=== PATIENT | female | born 1945 | race African-American/Black ===

== ENCOUNTER → 2016-10-17 | Outpatient (CLI) | payer BC ==
[2015-03-15 15:05] VITALS: BP 153/72
[~2016-10-17] MED LIST: AMLO10TA2 PO; ASPI-630 PO; ATOR40TA59 PO; CARV12.52 PO; CLON0.3T PO; CLOP75TA PO; CYAN10002 IM; DOXA2TAB2 PO; FERR-26 PO; HYDR-2762 PO; HYDR-2867 PO; HYDR-2868 PO; HYDR-2869 PO; HYDR1TAB26 PO; INSU100I17 SQ; INSU100V8 SQ; ISOS30TA PO; ISOS60TA2 PO; LATA2.5D3 OP; LISI40TA PO; METF500T9 PO; METO100T2 PO; OMEP20CA9 PO; PROAIR HFA8.5 GM IH; SIMV40TA3 PO
--- NOTE | 2016-10-18 17:04 | RAD ---
APPROVED REPORT Patient Location: OUT-PATIENT Laterality:Bilateral Risk Factors PAD Doppler Spectral Velocity Analysis Right Left mCCA 118/118 cm/smCCA 85/85 cm/s ECA 123/ cm/sECA 320/ cm/s pICA 92/19 cm/spICA 163/39 cm/s Freda 94/28 cm/smICA 175/47 cm/s dICA 65/25 cm/sdICA 145/35 cm/s ICA/CCA 0.80ICA/CCA 0.00 Findings Johnson scale images of the right common carotid, external carotid and internal carotid artery reveal mi ld to moderate atherosclerotic plaque in a circumferential fashion. Velocity profiles are as noted ab ove. No high-grade flow-limiting stenosis is identified in the right internal carotid artery system. Less than 50% stenosis is noted. The vertebral artery velocities antegrade. On the left grayscale images of the common carotid artery does not reveal any significant arthroscopi c plaque. Spectral waveforms and color Doppler do not reveal any significant obstruction to flow in t he common carotid vessels. The left external carotid artery likely has greater than 50% stenosis with peak velocities of 320 cm/s. The left internal carotid artery has velocities of approximately 162 cm/s in the proximal segment and 174 cm/s in the midsegment suggestive of 50-69% stenosis.. The left vertebral velocities elevated bob ggestive of greater than 50% stenosis at 172.8 cm/s. Of note the left-sided vessels are tortuous. Critical Notification Critical Value: No <Conclusion> 1. 50-69% stenosis in the left internal carotid artery system. 2. Elevated left vertebral artery velocities.
== END | disposition home or self-care (01) ==
LOC: US 11:49
PROVIDERS: ATTEND Internal Medicine Cardiovascular Disease
DX: I65.22 Occlusion and stenosis of left carotid artery (principal); I73.9 Peripheral vascular disease, unspecified; I27.0 Primary pulmonary hypertension
CPT/HCPCS: 93880

== ENCOUNTER → 2016-10-31 | Outpatient (CLI) | payer BC ==
[2015-03-15 15:05] VITALS: BP 153/72
[~2016-10-31] MED LIST changes: +NEOM10DR32 EACH EAR
--- NOTE | 2016-10-31 11:12 | CARD ---
APPROVED REPORT EXAM: Two-dimensional and M-mode echocardiogram with Doppler and color Doppler. Other Information Quality : GoodHR: 88bpm Rhythm : Ectopic beats INDICATION Pulmonary Hypertention 2D DIMENSIONS RVDd2.5 (2.9-3.5cm)Left Atrium(2D)4.1 (1.6-4.0cm) IVSd0.9 (0.7-1.1cm)Aortic Root(2D)2.2 (2.0-3.7cm) LVDd5.6 (3.9-5.9cm)LVOT Diameter2.1 (1.8-2.4cm) PWd1.0 (0.7-1.1cm)LVDs3.7 (2.5-4.0cm) FS (%) 35.0 %SV99.3 ml LVEF(%)63.6 (>50%) Aortic Valve AoV Peak Sridhar.208.1cm/sAoV VTI44.4cm AO Peak GR.17.3mmHgLVOT Peak Sridhar.143.7cm/s AO Mean GR.9mmHgAVA (VMAX)2.35cm2 Mitral Valve MV E Xcwdwqam086.9cm/sMV E Peak Gr.9mmHg MV DECEL [id number] A Flqyafbi199.3cm/s MV E Mean Gr.4mmHgE/A Ratio1.0 MV A [id number] Pulmonary Valve PV Peak Elabpemb447.5cm/s Tricuspid Valve TR P. Qozynaxq809sa/sTR Peak Gr.45mmHg Pulmonary Vein S1 Ousikfln77.8cm/sD2 Hrpapmqn17.1cm/s PVa knbvaztd22rfrm LEFT VENTRICLE The left ventricle is normal size. There is normal left ventricular wall thickness. The left ventricu lar systolic function is normal. The Ejection Fraction is 60-65%. There is normal LV segmental wall m otion. RIGHT VENTRICLE The right ventricle is normal size. There is normal right ventricular wall thickness. The right ventr icular systolic function is normal. ATRIA The left atrium is moderately dilated. The right atrium size is normal. The interatrial septum is int act with no evidence for an atrial septal defect or patent foramen ovale as noted on 2-D or Doppler i maging. AORTIC VALVE The aortic valve is moderately sclerotic. The aortic valve is trileaflet. Doppler and Color Flow reve aled no significant aortic regurgitation. There is no significant aortic valvular stenosis. MITRAL VALVE Mitral annular calcification is moderate. The mitral valve leaflets are thickened. There is no eviden ce of mitral valve prolapse. There is no mitral valve stenosis. Doppler and Color Flow revealed trace mitral valve regurgitation. TRICUSPID VALVE Doppler and Color Flow revealed moderate tricuspid regurgitation. The pulmonary artery systolic press ure is estimated at 48 mmHg. There is moderate pulmonary hypertension. PULMONIC VALVE The pulmonary valve is not well visualized but appears to open adequately. Doppler and Color Flow rev ealed no pulmonic valvular regurgitation. There is no pulmonic valvular stenosis by spectral Doppler. GREAT VESSELS The aortic root is normal in size. The ascending aorta is normal in size. The pulmonary artery is nor mal. The IVC is normal in size and collapses >50% with inspiration. PERICARDIAL EFFUSION There is no evidence of significant pericardial effusion. Critical Notification Critical Value: No <Conclusion> The left ventricular systolic function is normal. The Ejection Fraction is 60-65%. There is normal LV segmental wall motion. Moderate tricuspid regurgitation. The pulmonary artery systolic pressure is estimated at 48 mmHg. There is no evidence of significant pericardial effusion.
== END | disposition home or self-care (01) ==
LOC: ECHO 10:10
PROVIDERS: ATTEND Internal Medicine Cardiovascular Disease
DX: I27.2 Other secondary pulmonary hypertension (principal); I07.1 Rheumatic tricuspid insufficiency
CPT/HCPCS: 93306

== ENCOUNTER → 2017-11-24 | Outpatient (CLI) | payer BC ==
[2016-11-11 15:00] VITALS: BP 130/72
[~2017-11-24] MED LIST changes: -AMLO10TA2 PO; +AMLO10TA6 PO; +CEFP200T PO; -FERR-26 PO; +FERR325T14 PO; +LISI-130 PO; -LISI40TA PO; -METO100T2 PO; +METO100T7 PO; +POTA20TA4 PO; +PRAM15FO2 TP; +PRED-220 PO
--- NOTE | 2017-11-25 09:00 | RAD ---
DATE: 11/24/2017 EXAM: MAMMO TIMMY SCREENING BILATERAL HISTORY: Routine screening COMPARISON: 10/19/2015 This study was interpreted with the benefit of Computerized Aided Detection (CAD). Breast Density: HETERO The breast parenchyma is heterogenously dense, which could reduce sensitivity of mammography. Breast parenchyma level C. FINDINGS: 2-D and 3-D tomosynthesis imaging was performed in CC and MLO projections. No new or enlarging breast densities are seen. Benign type calcifications are present. No suspicious microcalcifications have developed. IMPRESSION: Stable mammograms without evidence of malignancy. BI-RADS CATEGORY: 2 BENIGN FINDING(S) RECOMMENDED FOLLOW-UP: 12M 12 MONTH FOLLOW-UP PQRS compliance statement: Patient information was entered into a reminder system with a target due date for the next mammogram. Mammography is a sensitive method for finding small breast cancers, but it does not detect them all and is not a substitute for careful clinical examination. A negative mammogram does not negate a clinically suspicious finding and should not result in delay in biopsying a clinically suspicious abnormality. "Our facility is accredited by the [employer] Mammography Program."
== END | disposition home or self-care (01) ==
LOC: MAMMO 14:36
PROVIDERS: ATTEND Family Medicine
DX: Z12.31 Encounter for screening mammogram for malignant neoplasm of breast (principal); I13.0 Hypertensive heart and chronic kidney disease with heart failure and stage 1 through stage 4 chronic kidney disease, or unspecified chronic kidney disease; E11.22 Type 2 diabetes mellitus with diabetic chronic kidney disease; I50.33 Acute on chronic diastolic (congestive) heart failure; N18.3 Chronic kidney disease, stage 3 (moderate); E87.6 Hypokalemia; K21.9 Gastro-esophageal reflux disease without esophagitis; Z87.891 Personal history of nicotine dependence; Z95.1 Presence of aortocoronary bypass graft; Z86.2 Personal history of diseases of the blood and blood-forming organs and certain disorders involving the immune mechanism; Z86.010 Personal history of colon polyps; Z90.49 Acquired absence of other specified parts of digestive tract; Z90.710 Acquired absence of both cervix and uterus
CPT/HCPCS: 77063; 77067

== ENCOUNTER → 2018-03-18 | Outpatient (CLI) | payer BC ==
[2016-11-11 15:00] VITALS: BP 130/72
[~2018-03-18] MED LIST changes: +ALBU2.5V8 IH; +CARV12.511 PO; -CARV12.52 PO; -HYDR-2762 PO; +HYDR-2765 PO; -PROAIR HFA8.5 GM IH
--- NOTE | 2018-03-18 12:23 | CARD ---
MR#: [id number] Date of Study: 03/18/2018 Ordering Physician: CHELSEY BURNS, Referring Physician: CHELSEY BURNS, Tech: Shauna Ireland [facility] APPROVED REPORT EXAM: Two-dimensional and M-mode echocardiogram with Doppler and color Doppler. Other Information Quality : AverageHR: 60bpm Rhythm : NSR INDICATION CAD 2D DIMENSIONS RVDd2.9 (2.9-3.5cm)Left Atrium(2D)4.0 (1.6-4.0cm) IVSd1.3 (0.7-1.1cm)Aortic Root(2D)2.3 (2.0-3.7cm) LVDd4.0 (3.9-5.9cm)LVOT Diameter1.9 (1.8-2.4cm) PWd1.3 (0.7-1.1cm)LVDs2.9 (2.5-4.0cm) FS (%) 27.1 %SV38.4 ml LVEF(%)53.3 (>50%) M-Mode DIMENSIONS Left Atrium(MM)4.07 (2.5-4.0cm)Aortic Root3.22 (2.2-3.7cm) Aortic Valve AoV Peak Sridhar.192.4cm/sAoV VTI43.6cm AO Peak GR.14.8mmHgLVOT Peak Sridhar.102.5cm/s AO Mean GR.8mmHgAVA (VMAX)1.46cm2 CHIKI (VTI)1.60cm2 Mitral Valve MV E Rjzodrlw20.2cm/sMV DECEL WOYY152fr MV A Ejlufxvi364.1cm/sE/A Ratio0.9 MV A Papssyhv232yk Pulmonary Valve PV Peak Cwdhkezc404.0cm/s Tricuspid Valve TR P. Mvlwfpgl323eu/sRAP ZBAFRZJU6zcZz TR Peak Gr.80ryKoRUMH31giBl Pulmonary Vein S1 Yfmftdnu84.3cm/sD2 Pvezcvls92.1cm/s PVa qqunnniv89shjd LEFT VENTRICLE The left ventricle is normal size. There is mild concentric left ventricular hypertrophy. The left ve ntricular systolic function is normal. The Ejection Fraction is 55-60%. There is normal LV segmental wall motion. Transmitral Doppler flow pattern is Grade II-pseudonormal filling dynamics. RIGHT VENTRICLE The right ventricle is normal size. There is normal right ventricular wall thickness. The right ventr icular systolic function is normal. ATRIA The left atrium is mildly dilated. The right atrium is mildly dilated. The interatrial septum is inta ct with no evidence for an atrial septal defect or patent foramen ovale as noted on 2-D or Doppler im aging. AORTIC VALVE The aortic valve is mildly to moderately calcified. The aortic valve is probably trileaflet. Doppler and Color Flow revealed no significant aortic regurgitation. There is no significant aortic valvular stenosis. MITRAL VALVE Mitral annular calcification is mild. There is no evidence of mitral valve prolapse. There is no mitr al valve stenosis. Doppler and Color Flow revealed no mitral valve regurgitation noted. TRICUSPID VALVE The tricuspid valve is normal in structure and function. Doppler and Color Flow revealed trace tricus pid regurgitation. There is mild pulmonary hypertension. The PA pressure was estimated at 33 mmHg. Th ere is no tricuspid valve prolapse or vegetation. There is no tricuspid valve stenosis. PULMONIC VALVE Pulmonic valve not well visualized. GREAT VESSELS The aortic root is normal in size. The ascending aorta is normal in size. The IVC is normal in size a nd collapses >50% with inspiration. PERICARDIAL EFFUSION There is no evidence of significant pericardial effusion. Critical Notification Critical Value: No <Conclusion> The left ventricular systolic function is normal. The Ejection Fraction is 55-60%. There is normal LV segmental wall motion. Transmitral Doppler flow pattern is Grade II-pseudonormal filling dynamics. Trace tricuspid regurgitation. There is mild pulmonary hypertension. The PA pressure was estimated at 33 mmHg. There is no evidence of significant pericardial effusion. Signed by : Javier Alonso, Electronically Approved : 03/18/2018 12:21:40
--- NOTE | 2018-03-19 08:59 | RAD ---
MR#: [id number] Date of Study: 03/18/2018 Ordering Physician: CHELSEY BURNS, Referring Physician: CHELSEY BURNS, Tech: Brooklyn Saldana, RDMS, RVT, RTR APPROVED REPORT Patient Location: OUT-PATIENT Laterality:Bilateral Indications PVD Doppler Spectral Velocity Analysis Right Left pCCA 85/8 cm/spCCA 70/16 cm/s mCCA 110/14 cm/smCCA 70/21 cm/s dCCA 91/9 cm/sdCCA 61/17 cm/s Bulb 85/12 cm/sBulb 54/24 cm/s ECA 145/ cm/sECA pICA 114/31 cm/spICA 104/23 cm/s Freda 77/17 cm/smICA 133/36 cm/s dICA 61/13 cm/sdICA 131/25 cm/s Vert. 54/ cm/sVert. 52/ cm/s ICA/CCA 1.04ICA/CCA 1.90 Findings Grayscale images of the bilateral common carotid vessels reveals mild to moderate diffuse catheters c arotid plaque greater on the left. Spectral waveforms and color Doppler on the right demonstrate no significant occlusive disease. Overa ll 0 to less than 50% stenosis by velocity criteria. Normal ICA to CCA ratios are noted. The vertebra l velocity appears to be antegrade. On the left there appears to be a previously placed carotid stent at the level of the carotid bulb an d the internal carotid artery. The left external carotid artery appears to be occluded. Slightly elev ated velocities are noted in the proximal and mid internal carotid artery suggestive of 50-69% stenos is by velocity criteria. Although on owens scale likely due to artifact related to the stent the narro wing appears to be in the 50% range. Critical Notification Critical Value: No <Conclusion> 1. Moderate LICA stenosis at site of previous stent, no critical stenosis is identified. Signed by : Chelsey Burns, Electronically Approved : 03/19/2018 08:57:01
== END | disposition home or self-care (01) ==
LOC: ECHO 10:52
PROVIDERS: ATTEND Internal Medicine Cardiovascular Disease
DX: I65.23 Occlusion and stenosis of bilateral carotid arteries (principal); I25.10 Atherosclerotic heart disease of native coronary artery without angina pectoris; I27.20 Pulmonary hypertension, unspecified; I51.7 Cardiomegaly
CPT/HCPCS: 93306; 93880

== ENCOUNTER → 2018-10-14 | Outpatient (CLI) | payer MEDICARE ==
[2018-08-26 15:00] VITALS: BP 141/71
[~2018-10-14] MED LIST changes: -AMLO10TA6 PO; +AMLO10TA8 PO; +CLON0.2T10 PO; +DOCU-109 PO; +FURO40TA4 PO; +LOSA-73 PO; +OMEP20CA10 PO; -OMEP20CA9 PO; +SIME80TA14 PO; +SPIR25TA PO
--- NOTE | 2018-10-14 17:28 | RAD ---
MR#: [id number] Date of Study: 10/14/2018 Ordering Physician: CHELSEY BURNS, Referring Physician: CHELSEY BURNS, Tech: Brooklyn Saldana, MU, RVT, RTR APPROVED REPORT Patient Location: OUT-PATIENT Indications Uncontrolled HTN Renal Artery Doppler Right Renal Artery Left Renal Arter y Proximal 120.1/17.3 cm/secProximal 82.7/26.4 cm/sec Mid 72.3/19.3 cm/secMid 91.8/20.0 cm/sec Distal 66.8/20.4 cm/secDistal 85.4/17.3 cm/sec Renal/Aorta Ratio 0.00Renal/Aorta Ratio 0.00 Prox. Resistive Index 0.86Prox. Resistive Index 0.68 Mid Resistive Index 0.73Mid Resistive Index 0.78 Distal Resistive Index 0.69Distal Resistive Index 0.80 Rt. Segmental A. 18.2/6.4 cm/secLt. Segmental A. 21.4/4.5 cm/sec Renal Measurements RightLeft Kidney Length8.53 cm 3.98 cmKidney Length9.67 cm 4.79 cm Right Additional FindingsLeft Additional Findings Aortic Doppler VelocityWaveform Proximal Aorta 82.5 cm/sec Findings Grayscale images of the kidneys are limited due to body habitus but grossly there appears to be renal cortical hypertrophy. Spectral waveforms and color Doppler of the proximal and mid renal arteries does not reveal any signi ficant velocity acceleration. Normal aortic ratios. Aorta is difficult to visualize. No gross evidence of renal artery stenosis bilaterally. Critical Notification Critical Value: No <Conclusion> Negative for renal artery stenosis Signed by : Chelsey Burns, Electronically Approved : 10/14/2018 17:27:24
== END | disposition home or self-care (01) ==
LOC: US 10:39
PROVIDERS: ATTEND Internal Medicine Cardiovascular Disease
DX: I10 Essential (primary) hypertension (principal); R60.9 Edema, unspecified
CPT/HCPCS: 93975

== ENCOUNTER 2018-11-24 15:17 | Inpatient (IN) | payer MEDICARE ==
[~2018-11-24] VITALS: Ht 152.4 cm; Wt 60.3 kg
[~2018-11-24 15:17] MED LIST changes: +METF500T11 PO; -METF500T9 PO
[2018-11-24] MEDS ORDERED: IPRATRPIUM/ALBUTEROL 0.5/2.5MG 3 ML NEBU. NEB ONE (15:45)
--- NOTE | 2018-11-24 15:55 | PHYS DOC ---
Past Medical History Past Medical History: Anemia, CAD, Constipation, COPD, Diabetes-Type II, GERD, High Cholesterol, Hypertension, Other Additional Past Medical Histor: heart murmur Past Surgical History: Cholecystectomy, Coronary Bypass Surgery, Hysterectomy Additional Past Surgical Histo: back sx Smoking: Quit Greater Than 1 Year Alcohol Use: None Drug Use: None Adult General Chief Complaint Chief Complaint: SHORTNESS OF BREATH HPI HPI patient is a 73-year-old female, with a past history of CHF, renal insufficiency, diabetes, and other medical problems, who presents to the emergency department for evaluation of increasing shortness of breath which began earlier today. She denies any pain, including any chest pain. She has not had any fevers or chills, nausea, or vomiting. She reports chronic orthopnea, no different today than baseline. She has not had any fevers or chills. She was hospitalized here in August, also for shortness of breath, relevant notes and diagnostics and that hospitalization have been reviewed. She has not noticed any significantly increasing pedal edema. There are no alleviating or exacerbating factors to her symptoms. She was noted to have an oxygen saturation of 90-91% upon arrival in the emergency department, improved to the upper 90s on application of 2 L nasal cannula. Review of Systems Review of Systems Constitutional: Denies fever or chills [] Eyes: Denies change in visual acuity, redness, or eye pain [] HENT: Denies nasal congestion or sore throat [] Respiratory: Denies cough or pleuritic chest pain [] Cardiovascular: No additional information not addressed in HPI [] GI: Denies abdominal pain, nausea, vomiting, bloody stools or diarrhea [] : Denies dysuria or hematuria [] Musculoskeletal: Denies back pain or joint pain [] Integument: Denies rash or skin lesions [] Neurologic: Denies headache, focal weakness or sensory changes [] Endocrine: Denies polyuria or polydipsia [] All other systems were reviewed and found to be within normal limits, except as documented in this note. Current Medications Current Medications Current Medications Medications (Trade) Dose Ordered Sig/Gisselle Start Time Stop Time Status Last Admin Dose Admin Albuterol/ Ipratropium (Duoneb) 3 ml 1X ONCE 11/24/18 15:45 11/24/18 15:54 DC 11/24/18 16:25 3 ML Allergies Allergies Allergies Coded Allergies Type Severity Reaction Last Updated Verified Penicillins Allergy Intermediate 11/05/16 Yes dopamine Allergy Intermediate 11/05/16 Yes Physical Exam Physical Exam PHYSICAL EXAM: CONSTITUTIONAL: Well developed, well nourished HEAD: normocephalic, atraumatic EENT: PERRL, EOMI. Conjunctivae normal color, sclerae non-icteric; moist mucous membranes. NECK: Supple, non-tender; no meningismus. There is mild JVD. LUNGS: There are globally diminished breath sounds, without any rales, wheezes, or rhonchi breathing even and unlabored. HEART: Regular rate and rhythm, no murmur CHEST: No deformity; non-tender ABDOMEN: The abdomen is soft, and non-tender, no masses or bruits. EXTREM: Normal ROM; no deformity, no calf tenderness. Normal pulses palpable in all extremities. There is trace bilateral pedal edema. SKIN: No rash; no diaphoresis NEURO: Alert; normal speech and cognition; CN's grossly intact; strength grossly intact without focal deficit. BACK: No CVA TTP. Current Patient Data Vital Signs Vital Signs Date Time Temp Pulse Resp B/P (MAP) Pulse Ox O2 Delivery O2 Flow Rate FiO2 11/24/18 16:28 97 Nasal Cannula 2.0 11/24/18 15:20 98.5 72 20 156/68 (97) 98.5 Lab Values Laboratory Tests Test 11/24/18 16:00 White Blood Count 7.5 x10^3/uL (4.0-11.0) Red Blood Count 3.41 x10^6/uL (3.50-5.40) L Hemoglobin 10.0 g/dL (12.0-15.5) L Hematocrit 30.5 % (36.0-47.0) L Mean Corpuscular Volume 90 fL (79-100) Mean Corpuscular Hemoglobin 29 pg (25-35) Mean Corpuscular Hemoglobin Concent 33 g/dL (31-37) Red Cell Distribution Width 15.2 % (11.5-14.5) H Platelet Count 198 x10^3/uL (140-400) Neutrophils (%) (Auto) 84 % (31-73) H Lymphocytes (%) (Auto) 11 % (24-48) L Monocytes (%) (Auto) 4 % (0-9) Eosinophils (%) (Auto) 1 % (0-3) Basophils (%) (Auto) 1 % (0-3) Neutrophils # (Auto) 6.3 x10^3/uL (1.8-7.7) Lymphocytes # (Auto) 0.8 x10^3/uL (1.0-4.8) L Monocytes # (Auto) 0.3 x10^3/uL (0.0-1.1) Eosinophils # (Auto) 0.0 x10^3/uL (0.0-0.7) Basophils # (Auto) 0.1 x10^3/uL (0.0-0.2) Sodium Level 145 mmol/L (136-145) Potassium Level 4.5 mmol/L (3.5-5.1) Chloride Level 107 mmol/L (98-107) Carbon Dioxide Level 29 mmol/L (21-32) Anion Gap 9 (6-14) Blood Urea Nitrogen 30 mg/dL (7-20) H Creatinine 1.8 mg/dL (0.6-1.0) H Estimated GFR (Cockcroft-Gault) 33.4 BUN/Creatinine Ratio 17 (6-20) Glucose Level 225 mg/dL (70-99) H Calcium Level 8.9 mg/dL (8.5-10.1) Total Bilirubin 0.3 mg/dL (0.2-1.0) Aspartate Amino Transferase (AST) 20 U/L (15-37) Alanine Aminotransferase (ALT) 11 U/L (14-59) L Alkaline Phosphatase 74 U/L (46-116) Troponin I Quantitative 0.165 ng/mL (0.000-0.055) UU-Asj-N-Type Natriuretic Peptide 9497 pg/mL (0-124) H Total Protein 7.0 g/dL (6.4-8.2) Albumin 2.9 g/dL (3.4-5.0) L Albumin/Globulin Ratio 0.7 (1.0-1.7) L Lipase 75 U/L (73-393) Laboratory Tests 11/24/18 16:00 Laboratory Tests 11/24/18 16:00 EKG EKG [Normal sinus rhythm at a rate of 74 beats for minute, normal axis, normal intervals, lateral T wave inversion, nonspecific ST/T changes inferiorly and anteriorly, more pronounced, but also present, on the patient's prior EKG from August 2018] Radiology/Procedures Radiology/Procedures [] Course & Med Decision Making Course & Med Decision Making Pertinent Labs and Imaging studies reviewed. (See chart for details) [] The patient's condition remained stable. I discussed the case with her PCP, who will admit the patient for further evaluation and treatment. Dragon Disclaimer Dragon Disclaimer This electronic medical record was generated, in whole or in part, using a voice recognition dictation system. Departure Departure Impression: Primary Impression: Shortness of breath Additional Impression: Acute on chronic diastolic CHF (congestive heart failure) Disposition: ADMITTED INPATIENT Admitting Physician: Geovanna Mohan Condition: IMPROVED Referrals: Andreas MOHAN MD (PCP) Problem Qualifiers ADOLFO JAUREGUI MD Nov 24, 2018 15:54
--- NOTE | 2018-11-24 15:58 | EKG ---
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
[2018-11-24 16:16] LABS: BASO # 0.1 x10^3/uL (0.0-0.2); BASO % 1 % (0-3); EOS % 1 % (0-3); HEMATOCRIT 30.5 % (36.0-47.0); LYMPH # 0.8 x10^3/uL (1.0-4.8); LYMPH % 11 % (24-48); MEAN CORPUSCULAR HEMOGLOBIN 29 pg (25-35); MEAN CORPUSCULAR HGB CONC 33 g/dL (31-37); MEAN CORPUSCULAR VOLUME 90 fL (79-100); MONO # 0.3 x10^3/uL (0.0-1.1); MONO % 4 % (0-9); NEUT # 6.3 x10^3/uL (1.8-7.7); NEUT % 84 % (31-73); PLATELET COUNT 198 x10^3/uL (140-400); RED BLOOD COUNT 3.41 x10^6/uL (3.50-5.40); RED CELL DISTRIBUTION WIDTH 15.2 % (11.5-14.5); WHITE BLOOD COUNT 7.5 x10^3/uL (4.0-11.0)
[2018-11-24 16:22] LABS: CALCIUM 8.9 mg/dL (8.5-10.1); CREATININE 1.8 mg/dL (0.6-1.0); GFR 33.4; POTASSIUM 4.5 mmol/L (3.5-5.1)
[2018-11-24 16:28] LABS: ALBUMIN 2.9 g/dL (3.4-5.0); ALBUMIN/GLOBULIN RATIO 0.7 (1.0-1.7); TOTAL BILIRUBIN 0.3 mg/dL (0.2-1.0)
--- NOTE | 2018-11-24 16:52 | RAD ---
Examination: PORTABLE CHEST 1V History: Dyspnea Comparison/Correlation: 08/26/2018 two-view chest x-ray exam Findings: Upright frontal view chest was obtained. Sternal wires [place] clips are present. Primarily noted. Left upper quadrant surgical clips and right upper quadrant surgical clips are present. Pulmonary vasculature is slightly congested. Discoid atelectasis involves the left lower lung field. Retrocardiac atelectasis also is seen. Advanced left lateral humeral joint degenerative remodeling evident. Impression: Left basilar linear atelectasis or scarring is present. Slight pulmonary vasculature congestion. Electronically signed by: Will Oliver MD (11/24/2018 4:49 PM) [facility]
[2018-11-24] MEDS ORDERED: FUROSEMIDE 40 MG/4 ML VIAL. IVP ONE (17:15)
[2018-11-24 19:45] VITALS: BP 145/70
[2018-11-24] MEDS ORDERED: LOSA100T2 PO (20:28)
--- NOTE | 2018-11-24 21:30 | NUR ---
Spoke with Dr. Price re: elevated troponin levels. Will consult cardiology in am
[2018-11-24] MEDS ORDERED: HYDR100T24 PO (21:41)
[2018-11-24] MEDS ORDERED: SIMETHICONE 80 MG TAB.CHEW PO PRN (21:45)
[2018-11-24] MEDS ORDERED: ALBUTEROL SULFATE 2.5 MG/3 ML NEBU. NEB PRN (21:45)
[2018-11-24] MEDS ORDERED: INSULIN GLARGINE SYRINGE. SQ SCH (22:00)
[2018-11-24] MEDS ORDERED: LATANOPROST 0.005% OPHTH SOLUTION 2.5ML BOTTLE. OU SCH (22:00)
[2018-11-24] MEDS ORDERED: DOXAZOSIN MESYLATE 4 MG TABLET. PO SCH (22:00)
[2018-11-24] MEDS: LATANOPROST 0.005% OPHTH SOLUTION 2.5ML BOTTLE. OU SCH (22:20)
[2018-11-24] MEDS: ATORVASTATIN CALCIUM 40 MG TABLET. PO SCH (22:20)
[2018-11-24] MEDS: ISOSORBIDE MONONITRATE ER 30 MG TAB.ER.24H PO SCH (22:38)
[2018-11-24] MEDS: cloNIDine HCL 0.3 MG TABLET PO SCH (22:39)
[2018-11-24 23:46] VITALS: BP 162/53
[2018-11-25 03:22] VITALS: BP 148/61
[2018-11-25] MEDS: HYDROcodone/APAP 7.5/325MG 1 TAB TABLET PO PRN ×4 (03:33→19:11)
[2018-11-25 07:00] VITALS: BP 182/61
[2018-11-25] MEDS: INSULIN LISPRO 300 UNITS/3 ML VIAL. SQ SCH ×3 (07:30→16:30)
[2018-11-25] MEDS: CARVEDILOL 12.5 MG TABLET. PO SCH ×2 (08:09→17:26)
[2018-11-25] MEDS: ISOSORBIDE MONONITRATE ER 30 MG TAB.ER.24H PO SCH ×2 (08:09→20:57)
[2018-11-25] MEDS: LOSARTAN POTASSIUM 50 MG TABLET. PO SCH (08:10)
[2018-11-25] MEDS: PANTOPRAZOLE 40 MG TABLET.DR. PO SCH (08:10)
[2018-11-25] MEDS: DOCUSATE SODIUM 100 MG CAPSULE. PO SCH (08:10)
[2018-11-25] MEDS: cloNIDine HCL 0.3 MG TABLET PO SCH ×3 (08:50→20:58)
--- NOTE | 2018-11-25 10:38 | PDOC2 ---
CARDIAC CONSULT DATE OF CONSULT Date of Consult DATE: 11/25/18 TIME: 10:28 REASON FOR CONSULT Reason for Consult: CHF Elevated troponin REFERRING PHYSICIAN Referring Physician: Dr. Price SOURCE Source: Chart review, Patient HISTORY OF PRESENT ILLNESS HISTORY OF PRESENT ILLNESS This is a 73 yo female, known to our service from outpatient clinic, who presented secondary to shortness of breath. Patient reports shortness of breath began the night before last. Granddaughter noticed that she was having more difficulty breathing so she encouraged her to go to the ED for further evaluation and treatment. Patient denies any chest pain, dizziness, diaphoresis, palpitations, or nausea/vomiting. No recent changes in diet or fevers/illness. Does note some mild LE edema. Is unable to lay flat at baseline. Has been compliant with medications. Has lasix PRN at home, but does not weigh herself daily. Did not take lasix at home. Feels better following IV Lasix, diuresis here. PAST MEDICAL HISTORY Past Medical History Cardiovascular: CAD, CHF, HTN, Hyperlipidemia Pulmonary: COPD GI: GERD Renal/: Chronic renal insuff Endocrine: Diabetes PAST SURGICAL HISTORY Past Surgical History Cholecystectomy, CABG, Hysterectomy FAMILY HISTORY Family History: Diabetes, Heart Disease (sister ), Hypertension SOCIAL HISTORY Smoke: No ALCOHOL: none Drugs: None Lives: with Family CURRENT MEDICATIONS CURRENT MEDICATIONS Current Medications Medications (Trade) Dose Ordered Sig/Gisselle Route PRN Reason Start Time Stop Time Status Last Admin Dose Admin Albuterol/ Ipratropium (Duoneb) 3 ml 1X ONCE NEB 11/24/18 15:45 11/24/18 15:54 DC 11/24/18 16:25 Furosemide (Lasix) 40 mg 1X ONCE IVP 11/24/18 17:15 11/24/18 17:16 DC 11/24/18 18:01 Atorvastatin Calcium (Lipitor) 40 mg QHS PO 11/24/18 22:00 11/24/18 22:22 Carvedilol (Coreg) 25 mg BIDWMEALS PO 11/25/18 08:00 11/25/18 08:10 Clonidine HCl (Catapres) 0.3 mg TID PO 11/24/18 22:00 11/25/18 08:50 Docusate Sodium (Colace) 100 mg DAILY PO 11/25/18 09:00 11/25/18 08:10 Acetaminophen/ Hydrocodone Bitart (Lortab 7.5/325) 1 tab PRN Q4HRS PRN PO PAIN 11/24/18 21:45 11/25/18 08:50 Insulin Glargine (Lantus Syringe) 22 unit HS SQ 11/25/18 21:00 11/24/18 22:30 Latanoprost (Xalatan) 1 drop HS OU 11/24/18 22:00 11/24/18 22:22 Doxazosin Mesylate (Cardura) 2 mg HS PO 11/25/18 21:00 11/24/18 22:22 Hydralazine HCl (Apresoline) 100 mg TID PO 11/24/18 22:00 11/25/18 08:10 Isosorbide Mononitrate (Imdur) 60 mg BID PO 11/24/18 22:00 11/25/18 08:10 Losartan Potassium (Cozaar) 50 mg DAILY PO 11/25/18 09:00 11/25/18 08:10 Pantoprazole Sodium (Protonix) 40 mg DAILYAC PO 11/25/18 07:30 11/25/18 08:10 ALLERGIES ALLERGIES: Coded Allergies: Penicillins (Verified Allergy, Intermediate, 11/05/16) dopamine (Verified Allergy, Intermediate, 11/05/16) ROS Review of System 14 point ROS conducted with pertinent positives noted above in HPI PHYSICAL EXAM PHYSICAL EXAM General: Alert, Oriented X3, Cooperative, No acute distress HEENT: Atraumatic, Mucous membr. moist/pink Lungs: Other (diminished bases, faint bibasilar crackles) Heart: Regular rate, Normal S1, Normal S2 Abdomen: Soft, No tenderness Extremities: Other (trace bilateral LE edema ) Neuro: Normal speech, Sensation intact Psych/Mental Status: Mental status NL, Mood NL MUSCULOSKELETAL: Osteoarthritic changes both hands VITALS/I&O VITALS/I&O: Vital Signs Date Time Temp Pulse Resp B/P (MAP) Pulse Ox O2 Delivery O2 Flow Rate FiO2 11/25/18 10:07 Room Air 11/25/18 08:50 16 11/25/18 08:50 72 182/61 11/25/18 07:00 99.3 96 99.3 11/25/18 03:33 2.0 I & O 11/24/18 11/24/18 11/25/18 15:00 23:00 07:00 Intake Total 200 ml 350 ml Balance 200 ml 350 ml LABS Lab: Laboratory Tests Test 11/24/18 16:00 11/24/18 20:30 11/24/18 21:07 11/24/18 23:10 White Blood Count 7.5 x10^3/uL (4.0-11.0) Red Blood Count 3.41 x10^6/uL (3.50-5.40) L Hemoglobin 10.0 g/dL (12.0-15.5) L Hematocrit 30.5 % (36.0-47.0) L Mean Corpuscular Volume 90 fL (79-100) Mean Corpuscular Hemoglobin 29 pg (25-35) Mean Corpuscular Hemoglobin Concent 33 g/dL (31-37) Red Cell Distribution Width 15.2 % (11.5-14.5) H Platelet Count 198 x10^3/uL (140-400) Neutrophils (%) (Auto) 84 % (31-73) H Lymphocytes (%) (Auto) 11 % (24-48) L Monocytes (%) (Auto) 4 % (0-9) Eosinophils (%) (Auto) 1 % (0-3) Basophils (%) (Auto) 1 % (0-3) Neutrophils # (Auto) 6.3 x10^3/uL (1.8-7.7) Lymphocytes # (Auto) 0.8 x10^3/uL (1.0-4.8) L Monocytes # (Auto) 0.3 x10^3/uL (0.0-1.1) Eosinophils # (Auto) 0.0 x10^3/uL (0.0-0.7) Basophils # (Auto) 0.1 x10^3/uL (0.0-0.2) Sodium Level 145 mmol/L (136-145) Potassium Level 4.5 mmol/L (3.5-5.1) Chloride Level 107 mmol/L (98-107) Carbon Dioxide Level 29 mmol/L (21-32) Anion Gap 9 (6-14) Blood Urea Nitrogen 30 mg/dL (7-20) H Creatinine 1.8 mg/dL (0.6-1.0) H Estimated GFR (Cockcroft-Gault) 33.4 BUN/Creatinine Ratio 17 (6-20) Glucose Level 225 mg/dL (70-99) H Calcium Level 8.9 mg/dL (8.5-10.1) Total Bilirubin 0.3 mg/dL (0.2-1.0) Aspartate Amino Transferase (AST) 20 U/L (15-37) Alanine Aminotransferase (ALT) 11 U/L (14-59) L Alkaline Phosphatase 74 U/L (46-116) Troponin I Quantitative 0.165 ng/mL (0.000-0.055) 0.193 ng/mL (0.000-0.055) 0.174 ng/mL (0.000-0.055) MO-Usw-P-Type Natriuretic Peptide 9497 pg/mL (0-124) H Total Protein 7.0 g/dL (6.4-8.2) Albumin 2.9 g/dL (3.4-5.0) L Albumin/Globulin Ratio 0.7 (1.0-1.7) L Lipase 75 U/L (73-393) Glucose (Fingerstick) 171 mg/dL (70-99) H Test 11/25/18 07:48 Glucose (Fingerstick) 86 mg/dL (70-99) Laboratory Tests 11/24/18 16:00 Laboratory Tests 11/24/18 16:00 ECHOCARDIOGRAM ECHOCARDIOGRAM <Conclusion> There is mild concentric left ventricular hypertrophy. The left ventricular systolic function is normal and the ejection fraction is within normal range. The Ejection Fraction is 55-60%. There is normal LV segmental wall motion. Doppler and Color Flow revealed mild tricuspid regurgitation. There is moderate pulmonary hypertension. The PA pressure was estimated at 56 mmHg. DATE: 08/24/18 1502 STRESS TEST STRESS TEST Conclusion 1. Abnormal baseline EKG but no EKG evidence of stress-induced ischemia. 2. Nuclear imaging shows an area of infarct as well as saleem-infarct reversible ischemia in the apical inferior lateral region. 3. Normal left ventricular ejection fraction of 69%. 4. Moderate to moderately low risk Lexiscan nuclear stress test. DATE: 11/11/14 1621 ASSESSMENT/PLAN ASSESSMENT/PLAN 1. Acute on chronic diastolic HF; CXR with pulmonary congestion. 2. Accelerated hypertension; labile 3. Mild troponin elevation; peak 0.193. Possibly type II, demand ischemic in t he setting of renal insuff, acute CHF, and accelerated HTN 4. CAD s/p CABG in 2009. Stable CP free. Echo 08/2018 with preserved LV systolic function as noted above 5. Hyperlipidemia; statin 6. Diabetes, II; as per PCP 7. CKD; CR stable per review Recommendations Mild diuresis with monitoring of renal function BP control Hydralazine IV PRN Secondary prevention; ASA, statin, BB Supportive care Consider outpatient ischemic evaluation SRIDEVI ALEMAN APRN Nov 25, 2018 10:38
[2018-11-25 11:00] VITALS: BP 128/51
[2018-11-25] MEDS ORDERED: FUROSEMIDE 40 MG/4 ML VIAL. IVP ONE (11:45)
[2018-11-25 15:00] VITALS: BP 110/44
--- NOTE | 2018-11-25 15:27 | PDOC1 ---
History and Physical Date of Admission Date of Admission 11/24/18 Identification/Chief Complaint Chief Complaint shortness of breath Source Source: Chart review, Patient History of Present Illness History of Present Illness Her daughter talked her into coming to ER due to shortness of breath and found to be in heart failure and acute respiratory failure and admitted, she has hx of CAD, hypertension, COPD and GERD. She has had difficulty ambulating due to pain and is using a walker Past Medical History Cardiovascular: CAD, CHF, HTN, Hyperlipidemia Pulmonary: COPD GI: GERD Renal/: Chronic renal insuff Endocrine: Diabetes Past Surgical History Past Surgical History: Cholecystectomy, CABG, Hysterectomy Family History Family History: Diabetes, Heart Disease (sister ), Hypertension Social History Smoke: Quit ALCOHOL: none Drugs: None Current Problem List Problem List Problems Medical Problems: (1) Acute on chronic diastolic CHF (congestive heart failure) Status: Acute (2) Shortness of breath Status: Acute Current Medications Current Medications Current Medications Medications (Trade) Dose Ordered Sig/Gisselle Start Time Stop Time Status Last Admin Dose Admin Acetaminophen/ Hydrocodone Bitart (Lortab 7.5/325) 1 tab PRN Q4HRS PRN 11/24/18 21:45 11/25/18 13:43 1 TAB Albuterol Sulfate (Ventolin Neb Soln) 2 mg PRN Q6HRS PRN 11/24/18 21:45 Albuterol/ Ipratropium (Duoneb) 3 ml 1X ONCE 11/24/18 15:45 11/24/18 15:54 DC 11/24/18 16:25 3 ML Atorvastatin Calcium (Lipitor) 40 mg QHS 11/24/18 22:00 11/24/18 22:22 40 MG Carvedilol (Coreg) 25 mg BIDWMEALS 11/25/18 08:00 11/25/18 08:10 25 MG Clonidine HCl (Catapres) 0.3 mg TID 11/24/18 22:00 11/25/18 13:43 0.3 MG Docusate Sodium (Colace) 100 mg DAILY 11/25/18 09:00 11/25/18 08:10 100 MG Doxazosin Mesylate (Cardura) 2 mg 1X 11/24/18 22:00 Furosemide (Lasix) 40 mg 1X ONCE 11/25/18 11:45 11/25/18 11:46 DC 11/25/18 11:56 40 MG Hydralazine HCl (Apresoline) 100 mg TID 11/24/18 22:00 11/25/18 13:43 100 MG Insulin Glargine (Lantus Syringe) 22 unit 1X 11/24/18 22:00 11/24/18 22:33 DC Insulin Human Lispro (HumaLOG) 6 units TIDAC 11/25/18 07:30 Isosorbide Mononitrate (Imdur) 60 mg BID 11/24/18 22:00 11/25/18 08:10 60 MG Latanoprost (Xalatan) 1 drop 1X 11/24/18 22:00 UNV Losartan Potassium (Cozaar) 50 mg DAILY 11/25/18 09:00 11/25/18 08:10 50 MG Pantoprazole Sodium (Protonix) 40 mg DAILYAC 11/25/18 07:30 11/25/18 08:10 40 MG Simethicone (Gas-X) 80 mg PRN AFTMEALHC PRN 11/24/18 21:45 Allergies Allergies Allergies Coded Allergies Type Severity Reaction Last Updated Verified Penicillins Allergy Intermediate 11/05/16 Yes dopamine Allergy Intermediate 11/05/16 Yes ROS Review of System CONSTITUTIONAL: No fever or chills EYES: No recent changes SKIN: No rash or itching CARDIOVASCULAR: No chest pain, syncope, palpitations, or edema RESPIRATORY: + SOB, no cough GASTROINTESTINAL: No nausea, vomiting or abdominal pain, positive for constipation NEUROLOGICAL: No headaches or weakness ENDOCRINE: No cold or heat intolerance GENITOURINARY: No urgency or frequency of urination MUSCULOSKELETAL: No back pain or joint pain LYMPHATICS: No enlarged lymph nodes PSYCHIATRIC: No anxiety or depression Physical Exam Physical Exam GEN.: No apparent distress. Alert and oriented. HEENT: Head is normocephalic, atraumatic NECK: Supple. LUNGS: Clear to auscultation. HEART: RRR, S1, S2 present. Peripheral pulses intact ABDOMEN: Soft, nontender. Positive bowel sounds. EXTREMITIES: Without any cyanosis. NEUROLOGIC: Normal speech, normal tone PSYCHIATRIC: Normal affect, normal mood. SKIN: No ulcerations Vitals Vitals Vital Signs Date Time Temp Pulse Resp B/P (MAP) Pulse Ox O2 Delivery O2 Flow Rate FiO2 11/25/18 13:43 65 128/50 11/25/18 13:43 Room Air 11/25/18 11:00 98.8 17 94 98.8 11/25/18 03:33 2.0 Labs Labs Laboratory Tests Test 11/24/18 16:00 11/24/18 20:30 11/24/18 21:07 11/24/18 23:10 White Blood Count 7.5 x10^3/uL (4.0-11.0) Red Blood Count 3.41 x10^6/uL (3.50-5.40) Hemoglobin 10.0 g/dL (12.0-15.5) Hematocrit 30.5 % (36.0-47.0) Mean Corpuscular Volume 90 fL (79-100) Mean Corpuscular Hemoglobin 29 pg (25-35) Mean Corpuscular Hemoglobin Concent 33 g/dL (31-37) Red Cell Distribution Width 15.2 % (11.5-14.5) Platelet Count 198 x10^3/uL (140-400) Neutrophils (%) (Auto) 84 % (31-73) Lymphocytes (%) (Auto) 11 % (24-48) Monocytes (%) (Auto) 4 % (0-9) Eosinophils (%) (Auto) 1 % (0-3) Basophils (%) (Auto) 1 % (0-3) Neutrophils # (Auto) 6.3 x10^3/uL (1.8-7.7) Lymphocytes # (Auto) 0.8 x10^3/uL (1.0-4.8) Monocytes # (Auto) 0.3 x10^3/uL (0.0-1.1) Eosinophils # (Auto) 0.0 x10^3/uL (0.0-0.7) Basophils # (Auto) 0.1 x10^3/uL (0.0-0.2) Sodium Level 145 mmol/L (136-145) Potassium Level 4.5 mmol/L (3.5-5.1) Chloride Level 107 mmol/L (98-107) Carbon Dioxide Level 29 mmol/L (21-32) Anion Gap 9 (6-14) Blood Urea Nitrogen 30 mg/dL (7-20) Creatinine 1.8 mg/dL (0.6-1.0) Estimated GFR (Cockcroft-Gault) 33.4 BUN/Creatinine Ratio 17 (6-20) Glucose Level 225 mg/dL (70-99) Calcium Level 8.9 mg/dL (8.5-10.1) Total Bilirubin 0.3 mg/dL (0.2-1.0) Aspartate Amino Transf (AST/SGOT) 20 U/L (15-37) Alanine Aminotransferase (ALT/SGPT) 11 U/L (14-59) Alkaline Phosphatase 74 U/L (46-116) Troponin I Quantitative 0.165 ng/mL (0.000-0.055) 0.193 ng/mL (0.000-0.055) 0.174 ng/mL (0.000-0.055) DC-Avj-Z-Type Natriuretic Peptide 9497 pg/mL (0-124) Total Protein 7.0 g/dL (6.4-8.2) Albumin 2.9 g/dL (3.4-5.0) Albumin/Globulin Ratio 0.7 (1.0-1.7) Lipase 75 U/L (73-393) Glucose (Fingerstick) 171 mg/dL (70-99) Test 11/25/18 07:48 11/25/18 11:41 Glucose (Fingerstick) 86 mg/dL (70-99) 96 mg/dL (70-99) Laboratory Tests Test 11/24/18 16:00 11/24/18 20:30 11/24/18 21:07 11/24/18 23:10 White Blood Count 7.5 x10^3/uL (4.0-11.0) Red Blood Count 3.41 x10^6/uL (3.50-5.40) Hemoglobin 10.0 g/dL (12.0-15.5) Hematocrit 30.5 % (36.0-47.0) Mean Corpuscular Volume 90 fL (79-100) Mean Corpuscular Hemoglobin 29 pg (25-35) Mean Corpuscular Hemoglobin Concent 33 g/dL (31-37) Red Cell Distribution Width 15.2 % (11.5-14.5) Platelet Count 198 x10^3/uL (140-400) Neutrophils (%) (Auto) 84 % (31-73) Lymphocytes (%) (Auto) 11 % (24-48) Monocytes (%) (Auto) 4 % (0-9) Eosinophils (%) (Auto) 1 % (0-3) Basophils (%) (Auto) 1 % (0-3) Neutrophils # (Auto) 6.3 x10^3/uL (1.8-7.7) Lymphocytes # (Auto) 0.8 x10^3/uL (1.0-4.8) Monocytes # (Auto) 0.3 x10^3/uL (0.0-1.1) Eosinophils # (Auto) 0.0 x10^3/uL (0.0-0.7) Basophils # (Auto) 0.1 x10^3/uL (0.0-0.2) Sodium Level 145 mmol/L (136-145) Potassium Level 4.5 mmol/L (3.5-5.1) Chloride Level 107 mmol/L (98-107) Carbon Dioxide Level 29 mmol/L (21-32) Anion Gap 9 (6-14) Blood Urea Nitrogen 30 mg/dL (7-20) Creatinine 1.8 mg/dL (0.6-1.0) Estimated GFR (Cockcroft-Gault) 33.4 BUN/Creatinine Ratio 17 (6-20) Glucose Level 225 mg/dL (70-99) Calcium Level 8.9 mg/dL (8.5-10.1) Total Bilirubin 0.3 mg/dL (0.2-1.0) Aspartate Amino Transf (AST/SGOT) 20 U/L (15-37) Alanine Aminotransferase (ALT/SGPT) 11 U/L (14-59) Alkaline Phosphatase 74 U/L (46-116) Troponin I Quantitative 0.165 ng/mL (0.000-0.055) 0.193 ng/mL (0.000-0.055) 0.174 ng/mL (0.000-0.055) DC-Cwk-T-Type Natriuretic Peptide 9497 pg/mL (0-124) Total Protein 7.0 g/dL (6.4-8.2) Albumin 2.9 g/dL (3.4-5.0) Albumin/Globulin Ratio 0.7 (1.0-1.7) Lipase 75 U/L (73-393) Glucose (Fingerstick) 171 mg/dL (70-99) Test 11/25/18 07:48 11/25/18 11:41 Glucose (Fingerstick) 86 mg/dL (70-99) 96 mg/dL (70-99) Images Images Examination: PORTABLE CHEST 1V History: Dyspnea Comparison/Correlation: 08/26/2018 two-view chest x-ray exam Findings: Upright frontal view chest was obtained. Sternal wires [place] clips are present. Primarily noted. Left upper quadrant surgical clips and right upper quadrant surgical clips are present. Pulmonary vasculature is slightly congested. Discoid atelectasis involves the left lower lung field. Retrocardiac atelectasis also is seen. Advanced left lateral humeral joint degenerative remodeling evident. Impression: Left basilar linear atelectasis or scarring is present. Slight pulmonary vasculature congestion. Chest: There is mild concentric left ventricular hypertrophy. The left ventricular systolic function is normal and the ejection fraction is within normal range. The Ejection Fraction is 55-60%. There is normal LV segmental wall motion. Doppler and Color Flow revealed mild tricuspid regurgitation. There is moderate pulmonary hypertension. The PA pressure was estimated at 56 mmHg. Signed by : Ludwin Tolentino, Electronically Approved : 08/24/2018 15:02:37 VTE Prophylaxis Ordered VTE Prophylaxis Devices: Yes VTE Pharmacological Prophylaxi: Yes Assessment/Plan Assessment/Plan acute respiratory failure - O2 acute on chronic diastolic heart failure - germaine, cardiology consult CKD stage 3 - stable, monitor COPD - neb tx Andreas MOHAN MD Nov 25, 2018 15:27
[2018-11-25] MEDS: LUBIPROSTONE 8 MCG CAPSULE PO SCH (17:27)
[2018-11-25 19:16] VITALS: BP 142/55
[2018-11-25] MEDS: ATORVASTATIN CALCIUM 40 MG TABLET. PO SCH (20:57)
[2018-11-25] MEDS: LATANOPROST 0.005% OPHTH SOLUTION 2.5ML BOTTLE. OU SCH (20:58)
[2018-11-25] MEDS ORDERED: DOXAZOSIN MESYLATE 4 MG TABLET. PO SCH (21:00)
[2018-11-25] MEDS: INSULIN GLARGINE SYRINGE. SQ SCH (21:00)
[2018-11-25] MEDS ORDERED: INSULIN GLARGINE SYRINGE. SQ SCH (21:00)
[2018-11-25 23:48] VITALS: BP 136/57
[2018-11-26 03:21] VITALS: BP 170/70
[2018-11-26 04:06] LABS: CALCIUM 8.8 mg/dL (8.5-10.1); CREATININE 2.1 mg/dL (0.6-1.0); GFR 27.9; POTASSIUM 3.4 mmol/L (3.5-5.1)
[2018-11-26] MEDS: INSULIN LISPRO 300 UNITS/3 ML VIAL. SQ SCH ×3 (07:30→16:30)
[2018-11-26 07:49] VITALS: BP 151/59
[2018-11-26] MEDS: LUBIPROSTONE 8 MCG CAPSULE PO SCH ×2 (08:44→18:21)
[2018-11-26] MEDS: PANTOPRAZOLE 40 MG TABLET.DR. PO SCH (08:44)
[2018-11-26] MEDS: DOCUSATE SODIUM 100 MG CAPSULE. PO SCH (08:44)
[2018-11-26] MEDS: cloNIDine HCL 0.3 MG TABLET PO SCH ×3 (08:44→21:13)
[2018-11-26] MEDS: CARVEDILOL 12.5 MG TABLET. PO SCH ×2 (08:45→18:21)
[2018-11-26] MEDS: LOSARTAN POTASSIUM 50 MG TABLET. PO SCH (08:46)
[2018-11-26] MEDS: ISOSORBIDE MONONITRATE ER 30 MG TAB.ER.24H PO SCH ×2 (08:46→21:12)
[2018-11-26 11:41] VITALS: BP 153/62
--- NOTE | 2018-11-26 12:49 | PDOC ---
CARDIO Progress Notes Date and Time Date of Service 11/26/18 Subjective Subjective: No Chest Pain, No shortness of breath, No Palpitations Vitals Vitals Vital Signs Date Time Temp Pulse Resp B/P (MAP) Pulse Ox O2 Delivery O2 Flow Rate FiO2 11/26/18 11:41 99.2 75 18 153/62 (92) 96 Room Air 99.2 11/25/18 15:00 2.0 Weight Weight [ ] Input and Output Intake and Output Intake and Output 11/26/18 07:00 Intake Total 840 ml Balance 840 ml Intake Oral 840 ml # Voids 1 Laboratory Labs Laboratory Tests Test 11/25/18 16:37 11/25/18 20:34 11/26/18 02:55 11/26/18 07:34 Glucose (Fingerstick) 98 mg/dL (70-99) 90 mg/dL (70-99) 101 mg/dL (70-99) Sodium Level 142 mmol/L (136-145) Potassium Level 3.4 mmol/L (3.5-5.1) Chloride Level 104 mmol/L (98-107) Carbon Dioxide Level 31 mmol/L (21-32) Anion Gap 7 (6-14) Blood Urea Nitrogen 33 mg/dL (7-20) Creatinine 2.1 mg/dL (0.6-1.0) Estimated GFR (Cockcroft-Gault) 27.9 Glucose Level 111 mg/dL (70-99) Calcium Level 8.8 mg/dL (8.5-10.1) Test 11/26/18 11:32 Glucose (Fingerstick) 137 mg/dL (70-99) Physical Exam HEENT: Neck Supple W Full Motion Chest: Symmetric LUNGS: Clear to Auscultation Heart: S1S2, RRR Abdomen: Soft N/T Extremities: No Edema Neurology: alert, oriented, follow commands Assessment Assessment 1. Acute on chronic diastolic HF; CXR with pulmonary congestion. Much better compensated 2. Accelerated hypertension; better controlled 3. Mild troponin elevation; peak 0.193. Possibly type II, demand ischemic in the setting of renal insuff, acute CHF, and accelerated HTN 4. CAD s/p CABG in 2009. Stable CP free. Echo 08/2018 with preserved LV systolic function as noted above 5. Hyperlipidemia; statin 6. Diabetes, II; as per PCP 7. CKD; CR stable per review 8. Hypokalemia Recommendations Discussed daily weights, 2Gm Na dietary restriction Lasix PRN. Discussed indication BP control Secondary prevention; ASA, statin, BB Supportive care Consider outpatient ischemic evaluation SRIDEVI ALEMAN APRN Nov 26, 2018 12:49
[2018-11-26] MEDS ORDERED: POTASSIUM CHLORIDE 10 MEQ TABLET.ER. PO ONE (13:00)
[2018-11-26] MEDS: HYDROcodone/APAP 7.5/325MG 1 TAB TABLET PO PRN (13:03)
[2018-11-26] MEDS ORDERED: MAGNESIUM SULFATE 2GM 50 ML IV ONE (14:15)
[2018-11-26 15:20] VITALS: BP 123/61
--- NOTE | 2018-11-26 17:12 | PDOC ---
PROGRESS NOTES Subjective She has had some arrhythmias today and her magnesium is low and being supplemented, she was not able to do a 6 minute walk due to cardiac issues. She has some left abdominal pain presumably due to effects of Amitiza but she has not yet had a BM for the past 2 days Objective Afebrile General: mild GI discomfort Heart: RRR Lungs: CTA, off O2 Abd: soft, non distended, mild left sided discomfort but no masses felt Ext: no C/C/E K+ 3.4, Mg 1.7, Cr 2.1 Vital Signs Vital Signs Date Time Temp Pulse Resp B/P (MAP) Pulse Ox O2 Delivery O2 Flow Rate FiO2 11/26/18 15:20 98.4 66 18 123/61 (81) 94 Room Air 98.4 11/25/18 15:00 2.0 I & O Intake and Output 11/26/18 07:00 Intake Total 840 ml Balance 840 ml Intake Oral 840 ml # Voids 1 Assessment and Plan acute respiratory failure - no off O2, 6 minute walk ordered acute on chronic diastolic heart failure - diuresed, cardiology monitoring CKD stage 3 - stable but slightly worse with diuresis, monitor COPD - neb tx - cough resolved hypokalemia - likely iatrogenic from Furosemide, replace po hypomagnesemia - replace, may be cause of arrhythmia arrhythmia - continue registered nurse cardiac telemetry, may need ischemic work up Andreas MOHAN MD Nov 26, 2018 17:12
[2018-11-26 19:31] VITALS: BP 121/45
[2018-11-26] MEDS ORDERED: DOXAZOSIN MESYLATE 1 MG TABLET. PO SCH (21:00)
[2018-11-26] MEDS: ATORVASTATIN CALCIUM 40 MG TABLET. PO SCH (21:08)
[2018-11-26] MEDS: LATANOPROST 0.005% OPHTH SOLUTION 2.5ML BOTTLE. OU SCH (21:08)
[2018-11-26] MEDS: INSULIN GLARGINE SYRINGE. SQ SCH (21:50)
[2018-11-26 23:24] VITALS: BP 149/59
[2018-11-27] VITALS (7 sets, daily range): BP systolic 121–151; BP diastolic 42–92
[2018-11-27 06:05] LABS: CALCIUM 8.9 mg/dL (8.5-10.1); CREATININE 2.2 mg/dL (0.6-1.0); GFR 26.5; MAGNESIUM 2.3 mg/dL (1.8-2.4)
[2018-11-27] MEDS: INSULIN LISPRO 300 UNITS/3 ML VIAL. SQ SCH ×3 (07:30→17:40)
[2018-11-27] MEDS: CARVEDILOL 12.5 MG TABLET. PO SCH ×2 (08:00→17:37)
--- NOTE | 2018-11-27 08:28 | NUR ---
SW following pt for dc planning. Chart reviewed and pt lives at home. PT/OT pending. Will continue to follow pending dc needs.
[2018-11-27] MEDS: cloNIDine HCL 0.3 MG TABLET PO SCH ×2 (09:00→15:03)
[2018-11-27] MEDS: LOSARTAN POTASSIUM 50 MG TABLET. PO SCH (09:00)
[2018-11-27] MEDS: DOCUSATE SODIUM 100 MG CAPSULE. PO SCH (09:10)
[2018-11-27] MEDS: HYDROcodone/APAP 7.5/325MG 1 TAB TABLET PO PRN ×2 (09:11→14:55)
[2018-11-27] MEDS: PANTOPRAZOLE 40 MG TABLET.DR. PO SCH (09:12)
[2018-11-27] MEDS: LUBIPROSTONE 8 MCG CAPSULE PO SCH ×2 (09:12→17:37)
--- NOTE | 2018-11-27 14:39 | NUR ---
SW following pt. PT/OT recommends SNU vs HH. Spoke with pt at bedside, she is adamant about going home. Pt is agreeable with home health services and agreeable with [facility], phone: [phone], fax: [phone]. Pt also agreeable to speak with nurse navigator from [facility]. Referral faxed to [facility] and Alena notified.
[2018-11-27] MEDS: ISOSORBIDE MONONITRATE ER 30 MG TAB.ER.24H PO SCH (15:02)
--- NOTE | 2018-11-27 15:22 | PDOC ---
PROGRESS NOTES Subjective Subjective Patient seen and examined She is feeling better today. Objective Objective Vital Signs Date Time Temp Pulse Resp B/P (MAP) Pulse Ox O2 Delivery O2 Flow Rate FiO2 11/27/18 15:04 73 157/73 11/27/18 14:55 18 Room Air 11/27/18 12:27 92 11/27/18 11:29 98.7 98.7 11/27/18 07:00 2.0 Intake and Output 11/27/18 07:00 Intake Total 500 ml Balance 500 ml Intake Oral 500 ml # Voids 3 Physical Exam Abdomen: Normal bowel sounds Heart: Regular rate General: mild distress Lungs: Other (mildly decreased breath sounds) Assessment Assessment Problems Medical Problems: (1) Acute on chronic diastolic CHF (congestive heart failure) Status: Acute (2) Acute respiratory failure Status: Acute (3) CKD (chronic kidney disease), stage III Status: Chronic (4) COPD (chronic obstructive pulmonary disease) Status: Chronic (5) Shortness of breath Status: Acute Acute on chronic diastolic heart failure. Continued improvement on present treatment. Accelerated hypertension. Also improving. Minimally elevated troponin. Peak 0.193. Consistent with demand ischemia in the setting of renal insufficiency. Continuing medical treatment. History of bypass surgery in 2009. No chest pain. Rhythm stable. Echo 2 months ago with intact LV systolic function. Hyperlipidemia. Continues on a statin. Hypokalemia. Replace and monitor. Chronic kidney disease. Creat. today at 2.2. Comment Review of Relevant I have reviewed the following items russell (where applicable) has been applied. Labs Laboratory Tests Test 11/25/18 16:37 11/25/18 20:34 11/26/18 02:55 11/26/18 07:34 Glucose (Fingerstick) 98 mg/dL (70-99) 90 mg/dL (70-99) 101 mg/dL (70-99) Sodium Level 142 mmol/L (136-145) Potassium Level 3.4 mmol/L (3.5-5.1) Chloride Level 104 mmol/L (98-107) Carbon Dioxide Level 31 mmol/L (21-32) Anion Gap 7 (6-14) Blood Urea Nitrogen 33 mg/dL (7-20) Creatinine 2.1 mg/dL (0.6-1.0) Estimated GFR (Cockcroft-Gault) 27.9 Glucose Level 111 mg/dL (70-99) Calcium Level 8.8 mg/dL (8.5-10.1) Magnesium Level 1.7 mg/dL (1.8-2.4) Test 11/26/18 11:32 11/26/18 15:52 11/26/18 21:34 11/27/18 04:35 Glucose (Fingerstick) 137 mg/dL (70-99) 133 mg/dL (70-99) 229 mg/dL (70-99) Sodium Level 140 mmol/L (136-145) Potassium Level 4.0 mmol/L (3.5-5.1) Chloride Level 103 mmol/L (98-107) Carbon Dioxide Level 32 mmol/L (21-32) Anion Gap 5 (6-14) Blood Urea Nitrogen 35 mg/dL (7-20) Creatinine 2.2 mg/dL (0.6-1.0) Estimated GFR (Cockcroft-Gault) 26.5 Glucose Level 115 mg/dL (70-99) Calcium Level 8.9 mg/dL (8.5-10.1) Magnesium Level 2.3 mg/dL (1.8-2.4) Test 11/27/18 07:26 11/27/18 11:56 Glucose (Fingerstick) 80 mg/dL (70-99) 74 mg/dL (70-99) Laboratory Tests Test 11/26/18 15:52 11/26/18 21:34 11/27/18 04:35 11/27/18 07:26 Glucose (Fingerstick) 133 mg/dL (70-99) 229 mg/dL (70-99) 80 mg/dL (70-99) Sodium Level 140 mmol/L (136-145) Potassium Level 4.0 mmol/L (3.5-5.1) Chloride Level 103 mmol/L (98-107) Carbon Dioxide Level 32 mmol/L (21-32) Anion Gap 5 (6-14) Blood Urea Nitrogen 35 mg/dL (7-20) Creatinine 2.2 mg/dL (0.6-1.0) Estimated GFR (Cockcroft-Gault) 26.5 Glucose Level 115 mg/dL (70-99) Calcium Level 8.9 mg/dL (8.5-10.1) Magnesium Level 2.3 mg/dL (1.8-2.4) Test 11/27/18 11:56 Glucose (Fingerstick) 74 mg/dL (70-99) Medications Current Medications Albuterol/ Ipratropium (Duoneb) 3 ml 1X ONCE NEB Last administered on 11/24/18 16:25; Start 11/24/18 at 15:45; Stop 11/24/18 at 15:54; Status DC Furosemide (Lasix) 40 mg 1X ONCE IVP Last administered on 11/24/18 18:01; S tart 11/24/18 at 17:15; Stop 11/24/18 at 17:16; Status DC Albuterol Sulfate (Ventolin Neb Soln) 2 mg PRN Q6HRS PRN NEB WHEEZING; Start 11/24/18 at 21:45 Atorvastatin Calcium (Lipitor) 40 mg QHS PO Last administered on 11/26/18 21:14; Start 11/24/18 at 22:00 Carvedilol (Coreg) 25 mg BIDWMEALS PO Last administered on 11/26/18 18:21; Start 11/25/18 at 08:00 Clonidine HCl (Catapres) 0.3 mg TID PO Last administered on 11/27/18 15:04; Start 11/24/18 at 22:00 Docusate Sodium (Colace) 100 mg DAILY PO Last administered on 11/27/18 09:19; Start 11/25/18 at 09:00 Acetaminophen/ Hydrocodone Bitart (Lortab 7.5/325) 1 tab PRN Q4HRS PRN PO PAIN Last administered on 11/27/18 14:55; Start 11/24/18 at 21:45 Insulin Glargine (Lantus Syringe) 22 unit HS SQ Last administered on 11/24/18 22:30; Start 11/25/18 at 21:00; Stop 11/25/18 at 20:47; Status DC Latanoprost (Xalatan) 1 drop HS OU Last administered on 11/26/18 21:14; Start 11/24/18 at 22:00 Simethicone (Gas-X) 80 mg PRN AFTMEALHC PRN PO GAS / BLOATING; Start 11/24/18 at 21:45 Doxazosin Mesylate (Cardura) 2 mg HS PO Last administered on 11/24/18at 22:22; Start 11/25/18 at 21:00; Stop 11/26/18 at 14:25; Status DC Hydralazine HCl (Apresoline) 100 mg TID PO Last administered on 11/27/18at 15:04; Start 11/24/18 at 22:00 Insulin Human Lispro (HumaLOG) 6 units TIDAC SQ ; Start 11/25/18 at 07:30 Isosorbide Mononitrate (Imdur) 60 mg BID PO Last administered on 11/27/18at 15:02; Start 11/24/18 at 22:00 Losartan Potassium (Cozaar) 50 mg DAILY PO Last administered on 11/26/18at 08:46; Start 11/25/18 at 09:00 Pantoprazole Sodium (Protonix) 40 mg DAILYAC PO Last administered on 11/27/18at 09:19; Start 11/25/18 at 07:30 Insulin Glargine (Lantus Syringe) 22 unit 1X SQ ; Start 11/24/18 at 22:00; Stop 11/24/18 at 22:33; Status DC Doxazosin Mesylate (Cardura) 2 mg 1X PO ; Start 11/24/18 at 22:00; Stop 11/26/18 at 14:24; Status DC Latanoprost (Xalatan) 1 drop 1X OU ; Start 11/24/18 at 22:00; Status UNV Furosemide (Lasix) 40 mg 1X ONCE IVP Last administered on 11/25/18at 11:56; Start 11/25/18 at 11:45; Stop 11/25/18 at 11:46; Status DC Lubiprostone (Amitiza) 24 mcg BIDWMEALS PO Last administered on 11/27/18at 09:19; Start 11/25/18 at 17:00 Insulin Glargine (Lantus Syringe) 22 unit QHS SQ Last administered on 11/26/18at 21:50; Start 11/25/18 at 21:00 Potassium Chloride (Klor-Con) 10 meq 1X ONCE PO Last administered on 11/26/18at 13:03; Start 11/26/18 at 13:00; Stop 11/26/18 at 13:01; Status DC Magnesium Sulfate 50 ml @ 25 mls/hr 1X ONCE IV Last administered on 11/26/18at 15:04; Start 11/26/18 at 14:15; Stop 11/26/18 at 16:14; Status DC Doxazosin Mesylate (Cardura) 2 mg HS PO ; Start 11/26/18 at 21:00 Active Scripts Active Colace (Docusate Sodium) 100 Mg Capsule 100 Mg PO DAILY 30 Days Simethicone 80 Mg Tab.chew 80 Mg PO PRN AFTMEALHC PRN 30 Days Furosemide 40 Mg Tablet 40 Mg PO BID92 30 Days Aldactone (Spironolactone) 25 Mg Tablet 25 Mg PO DAILY 30 Days Cozaar (Losartan Potassium) 50 Mg Tablet 100 Mg PO DAILY 30 Days Hydralazine Hcl 50 Mg Tablet 50 Mg PO TID 30 Days Catapres (Clonidine Hcl) 0.2 Mg Tablet 0.2 Mg PO TID 30 Days Carvedilol (Carvedilol) 12.5 Mg Tablet 25 Mg PO BIDWMEALS Reported Hydralazine Hcl 100 Mg Tablet 1 Tab PO TID Cozaar (Losartan Potassium) 100 Mg Tablet 50 Mg PO DAILY Prednisone (Prednisone) 10 Mg Tablet 5 Mg PO [id number] Isosorbide Mononitrate Er (Isosorbide Mononitrate) 60 Mg Tab.er.24h 1 Tab PO BID Latanoprost 2.5 Ml Drops 1 Drop OP HS Doxazosin Mesylate 2 Mg Tablet 1 Tab PO HS Atorvastatin Calcium 40 Mg Tablet 1 Tab PO QHS Hydrocodone-Apap 7.5-325 (Hydrocodone Bit/Acetaminophen) 1 Each Tablet 1 Tab PO Q4HRS PRN Proair Hfa Inhaler (Albuterol Sulfate) 8.5 Gm Hfa.aer.ad 2 Puff IH PRN Q6HRS PRN Novolog Flexpen (Insulin Aspart) 100 Unit/1 Ml Insuln.pen 6 Unit SQ TIDAC Lantus (Insulin Glargine,Hum.rec.anlog) 100 Unit/1 Ml Vial 22 Unit SQ HS Omeprazole 20 Mg Capsule.dr 20 Mg PO BID Clonidine Hcl 0.3 Mg Tablet 0.3 Mg PO TID Vitals/I & O Vital Sign - Last 24 Hours 11/26/18 11/26/18 11/26/18 11/26/18 18:21 19:31 20:00 21:14 Temp 98.3 98.3 Pulse 66 66 65 Resp 18 B/P (MAP) 123/61 121/45 (70) 148/50 Pulse Ox 97 O2 Delivery Nasal Cannula Nasal Cannula O2 Flow Rate 2.0 2.0 11/26/18 11/26/18 11/26/18 11/27/18 21:14 22:34 23:24 03:16 Temp 98.4 98.8 98.4 98.8 Pulse 65 72 72 69 Resp 18 18 B/P (MAP) 148/50 149/54 149/59 (89) 128/92 (104) Pulse Ox 96 96 O2 Delivery Nasal Cannula Nasal Cannula O2 Flow Rate 2.0 2.0 11/27/18 11/27/18 11/27/18 11/27/18 07:00 09:19 09:21 10:30 Temp 98.8 98.8 Pulse 63 62 Resp 18 18 18 18 B/P (MAP) 136/51 (79) 128/44 (72) Pulse Ox 99 O2 Delivery Nasal Cannula Room Air Room Air Room Air O2 Flow Rate 2.0 11/27/18 11/27/18 11/27/18 11/27/18 11:29 12:27 14:55 15:02 Temp 98.7 98.7 Pulse 55 73 Resp 18 18 B/P (MAP) 121/42 (68) 157/73 Pulse Ox 96 92 O2 Delivery Room Air Room Air Room Air 11/27/18 11/27/18 15:04 15:04 Pulse 73 73 B/P (MAP) 157/73 157/73 Intake and Output 0 11/26/18 11/26/18 11/27/18 15:00 23:00 07:00 Intake Total 300 ml 200 ml Balance 300 ml 200 ml RADHA ERICKSON MD Nov 27, 2018 15:22
[2018-11-27] MEDS ORDERED: LUBI8CAP4 PO (16:45)
--- NOTE | 2018-11-27 16:57 | PDOC ---
PROGRESS NOTES Subjective She feels about the same, labs show electrolytes back to normal, cardiology not planning anything, monitor unremarkable, she has a normal oxygen sat study with ambulation, renal function stable Objective Afebrile General: A&O, NAD Heart: RRR Lungs: CTA Abd: soft, no masses, no distension, bowel sounds present Ext: no c/C/E K+: normal Creat: 2.2 Vital Signs Vital Signs Date Time Temp Pulse Resp B/P (MAP) Pulse Ox O2 Delivery O2 Flow Rate FiO2 11/27/18 16:29 18 Room Air 11/27/18 15:04 73 157/73 11/27/18 15:00 98.6 91 98.6 11/27/18 07:00 2.0 I & O Intake and Output 11/27/18 06:59 Intake Total 500 ml Balance 500 ml Intake Oral 500 ml # Voids 3 Assessment and Plan (1) Acute on chronic diastolic CHF (congestive heart failure) - medically ready for discharge, she is a bit reluctant to go, she has been diuresed as much as her kidneys will allow, she knows to monitor her weight (she has a scale at home) and limit her sodium intake Status: Acute (2) Acute respiratory failure - resolved, normal 6 minute walk on room air, no medical need for O2 Status: Acute (3) CKD (chronic kidney disease), stage III - stable Status: Chronic (4) COPD (chronic obstructive pulmonary disease) - stable Status: Chronic Andreas MOHAN MD Nov 27, 2018 16:57
--- NOTE | 2018-11-27 18:31 | NUR ---
Discharge Note: SAGE HUDSON [address] Discharge instructions and discharge home medications reviewed with Patient and a copy given. All questions have been answered and understanding verbalized. The following instructions and handouts were given: COPD, CHF Discontinued lines and drains: peripheral line Patient discharged to Home w/services with Spouse via Wheelchair
== END 2018-11-27 18:33 | disposition home health service (06) | DRG 291 ==
LOC: ER 15:17 → ED HOLD 17:10 → 6 SOUTH 19:40
PROVIDERS: ADMIT Family Medicine; ATTEND Family Medicine
DX: I13.0 Hypertensive heart and chronic kidney disease with heart failure and stage 1 through stage 4 chronic kidney disease, or unspecified chronic kidney disease (principal); I50.33 Acute on chronic diastolic (congestive) heart failure; J96.00 Acute respiratory failure, unspecified whether with hypoxia or hypercapnia; J44.9 Chronic obstructive pulmonary disease, unspecified; I25.10 Atherosclerotic heart disease of native coronary artery without angina pectoris; E78.00 Pure hypercholesterolemia, unspecified; K21.9 Gastro-esophageal reflux disease without esophagitis; E78.5 Hyperlipidemia, unspecified; N18.3 Chronic kidney disease, stage 3 (moderate); E11.22 Type 2 diabetes mellitus with diabetic chronic kidney disease; E87.6 Hypokalemia; E83.42 Hypomagnesemia; Z90.710 Acquired absence of both cervix and uterus; Z95.1 Presence of aortocoronary bypass graft; Z87.891 Personal history of nicotine dependence; Z88.0 Allergy status to penicillin; Z88.8 Allergy status to other drugs, medicaments and biological substances; Z82.49 Family history of ischemic heart disease and other diseases of the circulatory system; Z83.3 Family history of diabetes mellitus
CPT/HCPCS: 36415; 71045; 80048; 80053; 82962; 83690; 83735; 83880; 84484; 85025; 93005; 94618; 94640; 96374; J1815; J1940; J3475; J7620; 99285-25; G0378

== ENCOUNTER 2019-03-25 14:55 | Emergency (ER) | payer MEDICARE, OTHER ==
[~2019-03-25] VITALS: Ht 152.4 cm; Wt 57.2 kg
[~2019-03-25 14:55] MED LIST changes: +HYDR100T24 PO; +LOSA100T2 PO; +LUBI8CAP4 PO; -OMEP20CA10 PO; +OMEP20CA16 PO; +SIMV40TA18 PO; -SIMV40TA3 PO
[2019-03-25 15:30] VITALS: BP 206/84
--- NOTE | 2019-03-25 16:54 | RAD ---
PA and lateral chest HISTORY: Fall PA and lateral views were taken of the chest. There is elevation of the left diaphragm. There is linear scarring in the left midlung. Patient is rotated to the left. There are no confluent areas of infiltrate. There is no pneumothorax. IMPRESSION: 1. Elevated left diaphragm. 2. Linear scarring on the left. 3. No acute infiltrates. Electronically signed by: Claudio Gonzalez MD (03/25/2019 4:52 PM) [facility]
--- NOTE | 2019-03-25 16:56 | RAD ---
Left foot 3 views. HISTORY: Fall 3 views were taken of the left foot. There is extensive vascular calcification. There is no fracture or acute osseous abnormality. IMPRESSION: 1. No acute fracture noted in the left foot. Electronically signed by: Claudio Gonzalez MD (03/25/2019 4:53 PM) [facility]
--- NOTE | 2019-03-25 16:57 | RAD ---
EXAM: Lumbar spine, 3 views. HISTORY: Pain. Fall. COMPARISON: 04/27/2018 FINDINGS: 3 views of the lumbar spine are obtained. There is mild anterolisthesis of L2 on L3 and L3 on L4 and mild retrolisthesis of L5 on S1. There is severe degenerative endplate remodeling with disc space narrowing, osteophytosis and Schmorl's node formation and vacuum phenomenon at L2-S1. There also sec and the clips. No acute fracture is seen. There are laminectomy changes at the mid lower lumbar levels. IMPRESSION: 1. Severe multilevel degenerative change involving the lumbar spine. 2. No acute osseous finding. Electronically signed by: Milena Collazo MD (03/25/2019 4:54 PM) [facility]
--- NOTE | 2019-03-25 17:44 | PHYS DOC ---
Past Medical History Past Medical History: Anemia, CAD, Constipation, COPD, Diabetes-Type II, GERD, High Cholesterol, Hypertension, Other Additional Past Medical Histor: heart murmur Past Surgical History: Cholecystectomy, Coronary Bypass Surgery, Hysterectomy Additional Past Surgical Histo: back sx Alcohol Use: None Drug Use: None Adult General Chief Complaint Chief Complaint: MECHANICAL FALL HPI HPI Patient is a 74 year old female with history of COPD, diabetes, hypertension, who presents to the ED today to be evaluated after falling yesterday. Patient states she is supposed to use her walker to ambulate and decided to walk to the bathroom with no walker, she states she fell landing on her buttocks. She is complaining of a sharp 7 out of 10 left foot pain and low back pain worse on touching the areas. Patient denies anything specifically relieving her pain. She states she's been able to ambulate since she fell. Review of Systems Review of Systems Constitutional: Denies fever or chills [] Eyes: Denies change in visual acuity, redness, or eye pain [] HENT: Denies nasal congestion or sore throat [] Respiratory: Denies cough or shortness of breath [] Cardiovascular: No additional information not addressed in HPI [] GI: Denies abdominal pain, nausea, vomiting, bloody stools or diarrhea [] : Denies dysuria or hematuria [] Musculoskeletal: Reports left foot pain and low back pain. Integument: Denies rash or skin lesions [] Neurologic: Denies headache, focal weakness or sensory changes [] All other systems were reviewed and found to be within normal limits, except as documented in this note. Allergies Allergies Allergies Coded Allergies Type Severity Reaction Last Updated Verified Penicillins Allergy Intermediate 11/05/16 Yes dopamine Allergy Intermediate 11/05/16 Yes Physical Exam Physical Exam Constitutional: Well developed, well nourished, no acute distress, non-toxic appearance. [] HENT: Normocephalic, atraumatic, bilateral external ears normal, oropharynx moist, no oral exudates, nose normal. [] Eyes: PERRLA, EOMI, conjunctiva normal, no discharge. [] Neck: Normal range of motion, no tenderness, supple, no stridor. [] Cardiovascular:Heart rate regular rhythm, no murmur [] Lungs & Thorax: Bilateral breath sounds clear to auscultation [] Abdomen: Bowel sounds normal, soft, no tenderness, no masses, no pulsatile masses. [] Skin: Warm, dry, no erythema, no rash. [] Back: Diffuse paraspinal muscle tenderness to bilateral lumbar spine, no midline lumbar spine tenderness, no CVA tenderness. [] Extremities: Slight tenderness on palpation of the top of the left foot, no cyanosis, no clubbing, ROM intact, no edema. [] Neurologic: Alert and oriented X 3, normal motor function, normal sensory function, no focal deficits noted. [] Psychologic: Affect normal, judgement normal, mood normal. [] Current Patient Data Vital Signs Vital Signs Date Time Temp Pulse Resp B/P (MAP) Pulse Ox O2 Delivery O2 Flow Rate FiO2 03/25/19 15:30 99.6 72 16 206/84 (124) 92 Nasal Cannula 2.0 99.6 EKG EKG [] Radiology/Procedures Radiology/Procedures []PROCEDURE: LUMBAR SPINE 2-3V EXAM: Lumbar spine, 3 views. HISTORY: Pain. Fall. COMPARISON: 04/27/2018 FINDINGS: 3 views of the lumbar spine are obtained. There is mild anterolisthesis of L2 on L3 and L3 on L4 and mild retrolisthesis of L5 on S1. There is severe degenerative endplate remodeling with disc space narrowing, osteophytosis and Schmorl's node formation and vacuum phenomenon at L2-S1. There also sec and the clips. No acute fracture is seen. There are laminectomy changes at the mid lower lumbar levels. IMPRESSION: 1. Severe multilevel degenerative change involving the lumbar spine. 2. No acute osseous finding. Electronically signed by: Milena Ramesh MD (03/25/2019 4:54 PM) [place] [id number] DICTATED and SIGNED BY: MILENA RAMESH MD DATE: 03/25/19 1654 PROCEDURE: CHEST PA & LATERAL PA and lateral chest HISTORY: Fall PA and lateral views were taken of the chest. There is elevation of the left diaphragm. There is linear scarring in the left midlung. Patient is rotated to the left. There are no confluent areas of infiltrate. There is no pneumothorax. IMPRESSION: 1. Elevated left diaphragm. 2. Linear scarring on the left. 3. No acute infiltrates. Electronically signed by: Claudio Gonzalez MD (03/25/2019 4:52 PM) [facility] DICTATED and SIGNED BY: CLAUDIO GONZALEZ MD DATE: 03/25/191651 PROCEDURE: FOOT LEFT 3V Left foot 3 views. HISTORY: Fall 3 views were taken of the left foot. There is extensive vascular calcification. There is no fracture or acute osseous abnormality. IMPRESSION: 1. No acute fracture noted in the left foot. Electronically signed by: Claudio Gonzalez MD (03/25/2019 4:53 PM) [facility] DICTATED and SIGNED BY: CLAUDIO GONZALEZ MD DATE: 03/25/191652 Impressions: PROCEDURE: LUMBAR SPINE 2-3V EXAM: Lumbar spine, 3 views. HISTORY: Pain. Fall. COMPARISON: 04/27/2018 FINDINGS: 3 views of the lumbar spine are obtained. There is mild anterolisthesis of L2 on L3 and L3 on L4 and mild retrolisthesis of L5 on S1. There is severe degenerative endplate remodeling with disc space narrowing, osteophytosis and Schmorl's node formation and vacuum phenomenon at L2-S1. There also sec and the clips. No acute fracture is seen. There are laminectomy changes at the mid lower lumbar levels. IMPRESSION: 1. Severe multilevel degenerative change involving the lumbar spine. 2. No acute osseous finding. Electronically signed by: Milena Ramesh MD (03/25/2019 4:54 PM) [place] [id number] DICTATED and SIGNED BY: MILENA RAMESH MD DATE: 03/25/191653 Course & Med Decision Making Course & Med Decision Making Pertinent Labs and Imaging studies reviewed. (See chart for details) This is a 74-year-old female patient presenting to the ED today with low back pain as well as left foot pain status post falling. Left foot x-rays and lumbar spine x-rays interpreted by radiologist were negative for any acute findings. Discharged home. Follow-up with PCP in 1-2 weeks. Dragon Disclaimer Dragon Disclaimer This electronic medical record was generated, in whole or in part, using a voice recognition dictation system. Departure Departure Impression: Primary Impression: Fall from standing Additional Impressions: Left foot pain Lumbar contusion DJD (degenerative joint disease), lumbar Disposition: HOME, SELF-CARE Condition: STABLE Referrals: Andreas MOHAN MD (PCP) follow up with your doctor in 1-2 weeks Patient Instructions: Contusion, [id number], Fall Prevention and Home Safety Additional Instructions: You were evaluated in the emergency room for low back pain and left foot pain after falling, your x-rays of the lumbar spine and left foot were negative for any acute findings. He do have arthritis in your low back. Follow-up with your doctor in 1-2 weeks. You can take [id number] pain relievers as needed. Problem Qualifiers Primary Impression: Fall from standing Encounter type: initial encounter Qualified Codes: W19.XXXA - Unspecified fall, initial encounter Additional Impressions: Lumbar contusion Encounter type: initial encounter Qualified Codes: S30.0XXA - Contusion of lower back and pelvis, initial encounter DJD (degenerative joint disease), lumbar Spinal osteoarthritis complication: unspecified spinal osteoarthritis Qualified Codes: M47.816 - Spondylosis without myelopathy or radiculopathy, lumbar region ANNA COLLINS APRN Mar 25, 2019 17:44
== END 2019-03-25 18:21 | disposition home or self-care (01) ==
LOC: ER 14:55
DX: S30.0XXA Contusion of lower back and pelvis, initial encounter (principal); M79.672 Pain in left foot; M47.816 Spondylosis without myelopathy or radiculopathy, lumbar region; J44.9 Chronic obstructive pulmonary disease, unspecified; I25.10 Atherosclerotic heart disease of native coronary artery without angina pectoris; E11.9 Type 2 diabetes mellitus without complications; K21.9 Gastro-esophageal reflux disease without esophagitis; E78.00 Pure hypercholesterolemia, unspecified; I10 Essential (primary) hypertension; Z95.1 Presence of aortocoronary bypass graft; Z90.49 Acquired absence of other specified parts of digestive tract; Z90.710 Acquired absence of both cervix and uterus; Z88.0 Allergy status to penicillin; Z88.4 Allergy status to anesthetic agent; W18.39XA Other fall on same level, initial encounter; Y93.89 Activity, other specified; Y92.89 Other specified places as the place of occurrence of the external cause; Y99.8 Other external cause status
CPT/HCPCS: 71046; 72100; 73630; 99284-25

== ENCOUNTER 2019-10-07 08:23 | Inpatient (IN) | payer MEDICARE, OTHER ==
[2019-10-07] VITALS (13 sets, daily range): BP systolic 112–212; BP diastolic 38–105
[~2019-10-07] VITALS: Ht 152.4 cm; Wt 59.1 kg
[~2019-10-07 08:23] MED LIST changes: +METF-658 PO; -METF500T11 PO
[2019-10-07] MEDS ORDERED: LABETALOL 20 MG/4 ML DISP.SYRIN. IVP ONE (09:00)
[2019-10-07] MEDS ORDERED: ASPIRIN 325 MG TABLET PO ONE (09:00)
[2019-10-07 09:03] LABS: BILIRUBIN,URINE NEGATIVE (NEG); CLARITY,URINE CLEAR; COLOR,URINE YELLOW; NITRITE,URINE NEGATIVE (NEG); PH,URINE 5.5 (<5.0-8.0); PROTEIN,URINE 100 mg/dL (NEG-TRACE); UROBILINOGEN,URINE 0.2 mg/dL (0.2 mg/dL)
[2019-10-07 09:19] LABS: BACTERIA,URINE 0 /HPF (0-FEW); SQUAMOUS EPITHELIAL CELL,UR FEW /LPF; WBC,URINE 0 /HPF (0-4)
--- NOTE | 2019-10-07 09:22 | PHYS DOC ---
Past Medical History Past Medical History: Anemia, CAD, Constipation, COPD, Diabetes-Type II, GERD, High Cholesterol, Hypertension, Other Additional Past Medical Histor: heart murmur (RUBEN GIBBONS DO) Past Surgical History: Cholecystectomy, Coronary Bypass Surgery, Hysterectomy Additional Past Surgical Histo: back sx (RUBEN GIBBONS DO) Smoking Status: Never Smoker Alcohol Use: None Drug Use: None (RUBEN GIBBONS DO) General Adult EDM: Chief Complaint: SHORTNESS OF BREATH HPI: HPI: Patient is a 74-year-old female presents with report of shortness of breath that started yesterday. Patient does report some increased leg swelling. Denies cough. Denies fever or chills. Denies known sick contact. Denies trauma. Denies known exposure to COVID-19. (RUBEN GIBBONS DO) Review of Systems: Review of Systems: Constitutional: Denies fever or chills Eyes: Denies redness or eye pain HENT: Denies nasal congestion or sore throat Respiratory: Reports shortness of breath; denies cough Cardiovascular: Denies chest pain or palpitations GI: Denies abdominal pain, nausea, or vomiting : Denies dysuria or hematuria Musculoskeletal: Denies back pain or joint pain; reports leg swelling Integument: Denies rash or skin lesions Neurologic: Denies headache, focal weakness or sensory changes Complete systems were reviewed and found to be within normal limits, except as documented in this note. (RUBEN GIBBONS DO) Current Medications: Current Medications Medications (Trade) Dose Ordered Sig/Gisselle Start Time Stop Time Status Last Admin Dose Admin Aspirin (Alexa Aspirin) 325 mg 1X ONCE 10/07/19 09:00 10/07/19 09:01 DC Labetalol HCl (Normodyne Iv Push) 20 mg 1X ONCE 10/07/19 09:00 10/07/19 09:01 DC (RUBEN GIBBONS DO) Allergies: Allergies: Allergies Coded Allergies Type Severity Reaction Last Updated Verified Penicillins Allergy Intermediate 11/05/16 Yes dopamine Allergy Intermediate 11/05/16 Yes (RUBEN GIBBONS DO) Physical Exam: PE: Constitutional: Well developed, well nourished, non-toxic appearance HENT: Normocephalic, atraumatic Eyes: Conjunctiva normal, no discharge Neck: Normal range of motion, supple Lungs & Thorax: Increased work of breathing, tachypnea Abdomen: Soft, no tenderness, no guarding/rebound tenderness/distention Skin: Warm, dry, no erythema, no rash Extremities: No tenderness, ROM intact, bilateral lower extremity 1+ edema Neurologic: Alert and oriented X 3, no focal deficits noted Psychologic: Affect normal, judgment normal (RUBEN GIBBONS DO) Current Patient Data: Vital Signs: Vital Signs Date Time Temp Pulse Resp B/P (MAP) Pulse Ox O2 Delivery O2 Flow Rate FiO2 10/07/19 08:30 97.6 101 24 219/105 (143) 94 Room Air 97.6 (RUBEN GIBBONS DO) EKG: EKG: @0846 NSR with sinus arrrhythmia at 96bpm, NO ST elevation, QRS 92ms, QT/QTc 358/453ms, Q wave III and V1 (RUBEN GIBBONS DO) Radiology/Procedures: Radiology/Procedures: [] (RUBEN GIBBONS DO) Course & Med Decision Making: Course & Med Decision Making Pertinent Labs and Imaging studies reviewed. (See chart for details) Patient presents with shortness of breath that started yesterday. Patient noted to be hypoxic and hypertensive. Labetalol provided. EKG stable. Labs obtained and pending. COVID-19 testing also pending. COVID precautions in place. D-dimer pending. Imaging pending on d-dimer result. Signout given to Dr. Park for further evaluation and final disposition. Discussed current findings and plan with patient, who acknowledges understanding and agreement. COVID-19 CRITERIA: The patient was evaluated during the global COVID-19 pandemic, and that diagnosis was suspected/considered upon their initial presentation. Their evaluation, treatment and testing was consistent with current guidelines for patients who present with complaints or symptoms that may be related to COVID-19. (RUBEN GIBBONS DO) Course & Med Decision Making 74-year-old female presented to the emergency department with dyspnea and hypertension seen by previous provider who began the work-up for the patient. My shift started at 9 AM. On evaluating the patient she is hypertensive with what appears to be CHF. I gave the patient sublingual nitroglycerin and IV L asix. Her chest x-ray shows pulmonary edema and cardiomegaly suggestive of pulmonary hypertension. CBC shows hemoglobin of 8.9. Down from 10 in November 2018. Chemistry panel shows creatinine of 2.6 with BUN of 50. Troponin elevated 0.216 with proBNP at 17,876. D-dimer was elevated however given the patient's GFR we cannot do an angiogram. We will order a VQ scan and load the patient with 1 dose of Lovenox here in the emergency department to cover for possible pulmonary embolism. Urinalysis shows no signs of urinary tract infection. Patient's blood pressure improved with nitroglycerin and Lasix in the emergency department. Urine analysis negative for infection. VQ scan is intermediate probability for pulmonary embolism. Patient blood pressure came back up in the emergency department so we will start a nitroglycerin drip. Will admit the patient to the intensive care unit. (MARILEE PARK MD) Dragon Disclaimer: Dragon Disclaimer: This electronic medical record was generated, in whole or in part, using a voice recognition dictation system. (RUBEN GIBBONS DO) Departure Departure Impression: Primary Impression: Shortness of breath Additional Impressions: Hypertension Qualified Codes: I10 - Essential (primary) hypertension Hypoxia Disposition: ADMITTED INPATIENT Admitting Physician: ROCÍO (MARILEE PARK MD) Condition: CRITICAL Referrals: Andreas MOHAN MD (PCP) Justicifation of Admission Dx: Justifications for Admission: Justification of Admission Dx: N/A (RUBEN GIBBONS DO) Justification of Admission Dx: Yes Hypertension: [facility] (MARILEE PARK MD) COVID-19 Assessment: COVID-19 Patient Risks: Age 65 or older: Yes Sign of co-morbidity: Yes Exp to person + for COVID: No Exp to PUI: No Travel from affected area: No Lower respiratory symptoms: Yes Fever: No (RUBEN GIBBONS DO) Age 65 or older: Yes Sign of co-morbidity: Yes Exp to person + for COVID: No Exp to PUI: No Travel from affected area: No Lower respiratory symptoms: No Fever: No (MARILEE PARK MD) PPE Use: Full PPE with N95 mask or PAPR: Yes (RUBEN GIBBONS DO) Full PPE with N95 mask or PAPR: Yes (MARILEE PARK MD) Critical Care Time Critical care time was 30 minutes which includes time at bedside, spent in discussion of patient's care with specialists and/or family members, with interpretation of laboratory and/or radiological studies and is exclusive of procedures. (RUBEN GIBBONS DO) Critical Care Time Critical care time spent was 35 minutes exclusive of procedures. Time was spent evaluating the patient, ordering the administration of medications, reevaluating the patient, discussing with the admitting provider and documenting. (MARILEE PARK MD) RUBEN GIBBONS DO Oct 07, 2019 09:22 MARILEE PARK MD Oct 07, 2019 12:09
--- NOTE | 2019-10-07 09:51 | EKG ---
[facility] [address] [place] [address] Test Date: 2019-10-07 Test Time: 08:46:29 Pat Name: SAGE HUDSON Department: Room: Gender: F [employer] Supervisor: : 1945 Requested By: RUBEN GIBBONS Order Number: [id number] Reading MD: Measurements Intervals Huxley Rate: 96 P: 90 NC: 234 QRS: 64 QRSD: 92 T: 119 QT: 358 QTc: 453 Interpretive Statements SINUS RHYTHM ATRIAL PREMATURE COMPLEX(ES) PROLONGED NC INTERVAL QRS(T) CONTOUR ABNORMALITY CONSISTENT WITH ANTEROSEPTAL INFARCT PROBABLY OLD T ABNORMALITY IN HIGH LATERAL LEADS ABNORMAL ECG RI6.02 No previous ECG available for comparison
[2019-10-07] MEDS ORDERED: FUROSEMIDE 40 MG/4 ML VIAL. IVP ONE ×2 (10:00→17:30)
[2019-10-07] MEDS: NITROGLYCERIN SUBLINGUAL 0.4 MG BOTTLE OF 25. SL PRN ×2 (10:06→10:57)
[2019-10-07 11:00] LABS: BASO # 0.1 x10^3/uL (0.0-0.2); BASO % 1 % (0-3); EOS # 0.1 x10^3/uL (0.0-0.7); EOS % 1 % (0-3); HEMATOCRIT 27.3 % (36.0-47.0); HEMOGLOBIN 8.9 g/dL (12.0-15.5); LYMPH # 1.1 x10^3/uL (1.0-4.8); LYMPH % 11 % (24-48); MEAN CORPUSCULAR HEMOGLOBIN 27 pg (25-35); MEAN CORPUSCULAR HGB CONC 33 g/dL (31-37); MEAN CORPUSCULAR VOLUME 83 fL (79-100); MONO # 0.5 x10^3/uL (0.0-1.1); MONO % 5 % (0-9); NEUT # 8.1 x10^3/uL (1.8-7.7); NEUT % 83 % (31-73); PLATELET COUNT 235 x10^3/uL (140-400); RED BLOOD COUNT 3.28 x10^6/uL (3.50-5.40); RED CELL DISTRIBUTION WIDTH 16.8 % (11.5-14.5); WHITE BLOOD COUNT 9.8 x10^3/uL (4.0-11.0)
[2019-10-07 11:16] LABS: CALCIUM 8.7 mg/dL (8.5-10.1); CREATININE 2.6 mg/dL (0.6-1.0); GFR 21.8; POTASSIUM 4.3 mmol/L (3.5-5.1)
--- NOTE | 2019-10-07 11:25 | RAD ---
EXAM: CHEST ONE VIEW. HISTORY: Dyspnea. COMPARISON: 03/25/2019. FINDINGS: A frontal view of the chest is obtained. There are limitations from rotation to the left. There are changes of coronary artery bypass grafting. Interstitial opacities with a basilar predominance are consistent with mild pulmonary edema. Stable linear opacities in the left midlung likely reflect scarring. The left hemidiaphragm is mildly elevated. There is no pneumothorax or clear pleural effusion. The heart is mildly enlarged. The main pulmonary artery is enlarged. Cholecystectomy clips are noted. There is moderate to severe left glenohumeral osteoarthritis with loose bodies. IMPRESSION: 1. Mild pulmonary edema. 2. Mild cardiomegaly. Findings consistent with pulmonary arterial hypertension. Electronically signed by: Maria Antonia Osborne MD (10/07/2019 11:22 AM) [id number]
[2019-10-07] MEDS ORDERED: ASPIRIN CHEWABLE 81 MG TABLET. PO ONE (11:30)
[2019-10-07 11:35] LABS: ALBUMIN 2.8 g/dL (3.4-5.0); ALBUMIN/GLOBULIN RATIO 0.7 (1.0-1.7); MAGNESIUM 2.1 mg/dL (1.8-2.4); TOTAL BILIRUBIN 0.2 mg/dL (0.2-1.0)
--- NOTE | 2019-10-07 13:01 | RAD ---
Indication: Reason: r/o pe, shortness of breath/ Spl. Instructions: / History: Technique: Static images are obtained of both lungs following following IV administration of 5.5 mCi of 99 M technetium MAA. Comparison: October 07, 2019 Findings: There is multifocal defects identified within the bilateral lungs most severe on the left. Cardiomediastinal silhouette is enlarged. Impression: 1. Multifocal perfusion defects are identified within the left greater than right lung. Cannot assess whether they're matched or not given lack of ventilation images. Overall intermediate probability for pulmonary embolus. Electronically signed by: Ivan Gerardo MD (10/07/2019 12:58 PM) [id number]
--- NOTE | 2019-10-07 13:15 | PDOC ---
PULMONARY PROGRESS NOTES Vitals Vital Signs Date Time Temp Pulse Resp B/P (MAP) Pulse Ox O2 Delivery O2 Flow Rate FiO2 10/07/19 10:57 75 227/102 10/07/19 10:54 27 100 Nasal Cannula 1.5 10/07/19 08:30 97.6 97.6 General: Alert Lungs: Clear Cardiovascular: S1, S2 Abdomen: Soft Extremities: No Edema Labs Laboratory Tests Test 10/07/19 08:38 10/07/19 10:20 10/07/19 10:40 Urine Collection Type Void Urine Color Yellow Urine Clarity Clear Urine pH 5.5 (<5.0-8.0) Urine Specific Holly 1.010 (1.000-1.030) Urine Protein 100 mg/dL (NEG-TRACE) Urine Glucose (UA) 250 mg/dL (NEG) Urine Ketones (Stick) Negative mg/dL (NEG) Urine Blood Trace (NEG) Urine Nitrite Negative (NEG) Urine Bilirubin Negative (NEG) Urine Urobilinogen Dipstick 0.2 mg/dL (0.2 mg/dL) Urine Leukocyte Esterase Negative (NEG) Urine RBC 1-2 /HPF (0-2) Urine WBC 0 /HPF (0-4) Urine Squamous Epithelial Cells Few /LPF Urine Bacteria 0 /HPF (0-FEW) D-Dimer (Lissy) 3.49 ug/mlFEU (0.00-0.50) White Blood Count 9.8 x10^3/uL (4.0-11.0) Red Blood Count 3.28 x10^6/uL (3.50-5.40) Hemoglobin 8.9 g/dL (12.0-15.5) Hematocrit 27.3 % (36.0-47.0) Mean Corpuscular Volume 83 fL (79-100) Mean Corpuscular Hemoglobin 27 pg (25-35) Mean Corpuscular Hemoglobin Concent 33 g/dL (31-37) Red Cell Distribution Width 16.8 % (11.5-14.5) Platelet Count 235 x10^3/uL (140-400) Neutrophils (%) (Auto) 83 % (31-73) Lymphocytes (%) (Auto) 11 % (24-48) Monocytes (%) (Auto) 5 % (0-9) Eosinophils (%) (Auto) 1 % (0-3) Basophils (%) (Auto) 1 % (0-3) Neutrophils # (Auto) 8.1 x10^3/uL (1.8-7.7) Lymphocytes # (Auto) 1.1 x10^3/uL (1.0-4.8) Monocytes # (Auto) 0.5 x10^3/uL (0.0-1.1) Eosinophils # (Auto) 0.1 x10^3/uL (0.0-0.7) Basophils # (Auto) 0.1 x10^3/uL (0.0-0.2) Sodium Level 141 mmol/L (136-145) Potassium Level 4.3 mmol/L (3.5-5.1) Chloride Level 102 mmol/L (98-107) Carbon Dioxide Level 29 mmol/L (21-32) Anion Gap 10 (6-14) Blood Urea Nitrogen 50 mg/dL (7-20) Creatinine 2.6 mg/dL (0.6-1.0) Estimated GFR (Cockcroft-Gault) 21.8 BUN/Creatinine Ratio 19 (6-20) Glucose Level 263 mg/dL (70-99) Lactic Acid Level 1.2 mmol/L (0.4-2.0) Calcium Level 8.7 mg/dL (8.5-10.1) Magnesium Level 2.1 mg/dL (1.8-2.4) Ferritin 82 ng/mL (8-252) Total Bilirubin 0.2 mg/dL (0.2-1.0) Aspartate Amino Transf (AST/SGOT) 25 U/L (15-37) Alanine Aminotransferase (ALT/SGPT) 10 U/L (14-59) Alkaline Phosphatase 67 U/L (46-116) Lactate Dehydrogenase 283 U/L (81-234) Creatine Kinase 156 U/L (26-192) Creatine Kinase MB (Mass) 4.4 ng/mL (0.0-3.6) Creatine Kinase MB Relative Index 2.8 % (0-4) Troponin I Quantitative 0.216 ng/mL (0.000-0.055) WA-Yxh-U-Type Natriuretic Peptide 54305 pg/mL (0-124) Total Protein 7.0 g/dL (6.4-8.2) Albumin 2.8 g/dL (3.4-5.0) Albumin/Globulin Ratio 0.7 (1.0-1.7) Lipase 85 U/L (73-393) Laboratory Tests Test 10/07/19 08:38 10/07/19 10:20 10/07/19 10:40 Urine Collection Type Void Urine Color Yellow Urine Clarity Clear Urine pH 5.5 (<5.0-8.0) Urine Specific Holly 1.010 (1.000-1.030) Urine Protein 100 mg/dL (NEG-TRACE) Urine Glucose (UA) 250 mg/dL (NEG) Urine Ketones (Stick) Negative mg/dL (NEG) Urine Blood Trace (NEG) Urine Nitrite Negative (NEG) Urine Bilirubin Negative (NEG) Urine Urobilinogen Dipstick 0.2 mg/dL (0.2 mg/dL) Urine Leukocyte Esterase Negative (NEG) Urine RBC 1-2 /HPF (0-2) Urine WBC 0 /HPF (0-4) Urine Squamous Epithelial Cells Few /LPF Urine Bacteria 0 /HPF (0-FEW) D-Dimer (Lissy) 3.49 ug/mlFEU (0.00-0.50) White Blood Count 9.8 x10^3/uL (4.0-11.0) Red Blood Count 3.28 x10^6/uL (3.50-5.40) Hemoglobin 8.9 g/dL (12.0-15.5) Hematocrit 27.3 % (36.0-47.0) Mean Corpuscular Volume 83 fL (79-100) Mean Corpuscular Hemoglobin 27 pg (25-35) Mean Corpuscular Hemoglobin Concent 33 g/dL (31-37) Red Cell Distribution Width 16.8 % (11.5-14.5) Platelet Count 235 x10^3/uL (140-400) Neutrophils (%) (Auto) 83 % (31-73) Lymphocytes (%) (Auto) 11 % (24-48) Monocytes (%) (Auto) 5 % (0-9) Eosinophils (%) (Auto) 1 % (0-3) Basophils (%) (Auto) 1 % (0-3) Neutrophils # (Auto) 8.1 x10^3/uL (1.8-7.7) Lymphocytes # (Auto) 1.1 x10^3/uL (1.0-4.8) Monocytes # (Auto) 0.5 x10^3/uL (0.0-1.1) Eosinophils # (Auto) 0.1 x10^3/uL (0.0-0.7) Basophils # (Auto) 0.1 x10^3/uL (0.0-0.2) Sodium Level 141 mmol/L (136-145) Potassium Level 4.3 mmol/L (3.5-5.1) Chloride Level 102 mmol/L (98-107) Carbon Dioxide Level 29 mmol/L (21-32) Anion Gap 10 (6-14) Blood Urea Nitrogen 50 mg/dL (7-20) Creatinine 2.6 mg/dL (0.6-1.0) Estimated GFR (Cockcroft-Gault) 21.8 BUN/Creatinine Ratio 19 (6-20) Glucose Level 263 mg/dL (70-99) Lactic Acid Level 1.2 mmol/L (0.4-2.0) Calcium Level 8.7 mg/dL (8.5-10.1) Magnesium Level 2.1 mg/dL (1.8-2.4) Ferritin 82 ng/mL (8-252) Total Bilirubin 0.2 mg/dL (0.2-1.0) Aspartate Amino Transf (AST/SGOT) 25 U/L (15-37) Alanine Aminotransferase (ALT/SGPT) 10 U/L (14-59) Alkaline Phosphatase 67 U/L (46-116) Lactate Dehydrogenase 283 U/L (81-234) Creatine Kinase 156 U/L (26-192) Creatine Kinase MB (Mass) 4.4 ng/mL (0.0-3.6) Creatine Kinase MB Relative Index 2.8 % (0-4) Troponin I Quantitative 0.216 ng/mL (0.000-0.055) FJ-Osi-N-Type Natriuretic Peptide 73931 pg/mL (0-124) Total Protein 7.0 g/dL (6.4-8.2) Albumin 2.8 g/dL (3.4-5.0) Albumin/Globulin Ratio 0.7 (1.0-1.7) Lipase 85 U/L (73-393) Medications Active Scripts Medications Dose Route/Sig Max Daily Dose Days Date Category Amitiza (Lubiprostone) 8 Mcg Capsule 1 Cap PO BID 11/27/18 Rx Hydralazine Hcl 100 Mg Tablet 1 Tab PO TID 11/24/18 Reported Cozaar (Losartan Potassium) 100 Mg Tablet 50 Mg PO DAILY 11/24/18 Reported Colace (Docusate Sodium) 100 Mg Capsule 100 Mg PO DAILY 30 08/26/18 Rx Simethicone 80 Mg Tab.chew 80 Mg PO PRN AFTMEALHC PRN 30 08/26/18 Rx Furosemide 40 Mg Tablet 40 Mg PO BID92 30 08/26/18 Rx Aldactone (Spironolactone) 25 Mg Tablet 25 Mg PO DAILY 30 08/26/18 Rx Carvedilol (Carvedilol) 12.5 Mg Tablet 25 Mg PO BIDWMEALS 03/15/15 Rx Isosorbide Mononitrate Er (Isosorbide Mononitrate) 60 Mg Tab.er.24h 1 Tab PO BID 03/11/15 Reported Latanoprost 2.5 Ml Drops 1 Drop OP HS 03/11/15 Reported Doxazosin Mesylate 2 Mg Tablet 1 Tab PO HS 03/10/15 Reported Atorvastatin Calcium 40 Mg Tablet 1 Tab PO QHS 03/10/15 Reported Hydrocodone-Apap 7.5-325 (Hydrocodone Bit/Acetaminophen) 1 Each Tablet 1 Tab PO Q4HRS PRN 03/10/15 Reported Proair Hfa Inhaler (Albuterol Sulfate) 8.5 Gm Hfa.aer.ad 2 Puff IH PRN Q6HRS PRN 03/10/15 Reported Novolog Flexpen (Insulin Aspart) 100 Unit/1 Ml Insuln.pen 6 Unit SQ TIDAC 04/08/13 Reported Lantus (Insulin Glargine,Hum.rec.anlog) 100 Unit/1 Ml Vial 22 Unit SQ HS 04/08/13 Reported Omeprazole 20 Mg Capsule.dr 20 Mg PO BID 03/04/13 Reported Clonidine Hcl 0.3 Mg Tablet 0.3 Mg PO TID 03/04/13 Reported Impression . Patient seen the emergency department, acute hypoxemic respiratory failure secondary to acute on chronic diastolic heart failure VINH BOB MD Oct 07, 2019 13:15
--- NOTE | 2019-10-07 13:21 | CONS ---
DATE OF CONSULTATION: 10/07/2019 ATTENDING PHYSICIAN: Carlos Flores III, DO CONSULTING PHYSICIAN: Vinh Bob MD REASON FOR CONSULTATION: The patient seen in Pulmonary consultation at the request of Dr. Flores for increasing shortness of breath and hypoxemia. HISTORY OF PRESENT ILLNESS: The patient is a 74-year-old with a history of coronary artery disease, previous coronary artery bypass grafting, chronic heart failure, presented because she felt like she had fluid congestion. She normally utilizes a diuretic at home. She has also been monitoring her salt intake. She denies fever or chills. No COVID-19 exposure. She has never smoked. PAST MEDICAL HISTORY: 1. Remarkable for previous stress testing back in 12/04/2018. She had an abnormal baseline EKG. Nuclear imaging showed area of infarct in the apical anterior region, normal ejection fraction. 2. There is also a history of hypertension, hyperlipidemia, gastroesophageal reflux, chronic renal insufficiency, and diabetes. PAST SURGICAL HISTORY: Status post coronary artery bypass grafting and hysterectomy. FAMILY HISTORY: Sister with heart disease. There is also a family history of diabetes and hypertension. SOCIAL HISTORY: She is basically a lifetime nonsmoker. REVIEW OF SYSTEMS: CONSTITUTIONAL: No fever or chills. EYES: No change in visual acuity. HENT: No nasal congestion or sore throat. PULMONARY: As indicated above. CARDIOVASCULAR: No chest pain. No pressure. GASTROINTESTINAL: No nausea, vomiting, or diarrhea. GENITOURINARY: No dysuria or frequency. MUSCULOSKELETAL: No localized muscle aches or joint pains. SKIN: No new skin rashes. CURRENT MEDICATIONS: Reviewed. PHYSICAL EXAMINATION: GENERAL: The patient was seen in the Emergency Department. She was having an elevated respiratory rate, on oxygen supplementation. She has been given IV Lasix. HEENT: Eyes: The sclerae were nonicteric. NECK: Jugular venous distention was not elevated. No lymphadenopathy. CHEST: Full expansion. LUNGS: She has crackles in the bases. CARDIOVASCULAR: Irregularly rate and rhythm with S1, S2, no S3. ABDOMEN: Soft, nontender, nondistended. EXTREMITIES: No clubbing, cyanosis, some edema. NEUROLOGICAL: The patient was awake, alert, following commands. A detailed neuro exam was not performed. LABORATORY DATA: White count was 9.8, hemoglobin of 8, hematocrit of 23. Electrolytes were noted. BUN is elevated, creatinine is elevated. D-dimer was 3.49. Chest x-ray revealed bilateral infiltrates compatible with pulmonary edema. IMPRESSION: 1. Acute hypoxemic respiratory failure. 2. Acute on chronic diastolic heart failure. 3. Abnormal x-ray. 4. Coronary artery disease with previous coronary artery bypass grafting. 5. Diabetes. 6. Hypertension. PLAN: 1. I agreed the patient meets criteria for inpatient status. IV Lasix. 2. Consult Cardiology. 3. No need for antibiotics. 4. I doubt that she has underlying obstructive lung disease contributing to her symptoms. We will follow along and make further recommendations depending on the patient's clinical response. VINH BOB MD DR: CHAPIS/gordo JOB#: [id number] / [id number]
--- NOTE | 2019-10-07 13:39 | HP ---
ADMIT DATE: 10/07/2019 CHIEF COMPLAINT: Shortness of breath. HISTORY OF PRESENT ILLNESS: The patient is a pleasant elderly female who presents to the ER with shortness of breath that started yesterday. It is worse with moving, better sitting still. Her legs have also swollen. She has associated anxiety. She tried increasing her home meds, but that did not work, describes her symptoms as very anxiety producing. Denies that she has been exposed to any COVID-19. I discussed the case with ER physician. The patient is in fulminant respiratory failure, probably secondary to heart failure, although we are concerned she could have a PE. We just finished a V/Q scan, it is indeterminate. I spoke with Dr. Hanna the Pulmonary Service. We are also going to get a second pain from him. The patient has been admitted to the ICU. PAST MEDICAL HISTORY: Anemia, CAD, cardiac murmur, hypertension, hyperlipidemia, GERD, diabetes, COPD, cholecystectomy, hysterectomy, coronary bypass surgery, and back surgery. ALLERGIES: PENICILLIN AND DOPAMINE. FAMILY HISTORY: Coronary artery disease. SOCIAL HISTORY: She quit smoking years ago. No drinking or drugs. MEDICATIONS: Reviewed, please refer to the MRAD. REVIEW OF SYSTEMS: GENERAL: No history of weight change, weakness or fevers. SKIN: No bruising, hair changes or rashes. EYES: No blurred, double or loss of vision. NOSE AND THROAT: No history of nosebleeds, hoarseness or sore throat. HEART: No history of palpitations, chest pain or shortness of breath on exertion. LUNGS: She complains of shortness of breath and cough. GASTROINTESTINAL: Denies changes in appetite, nausea, vomiting, diarrhea or constipation. GENITOURINARY: No history of frequency, urgency, hesitancy or nocturia. NEUROLOGIC: Denies history of numbness, tingling, tremor or weakness. PSYCHIATRIC: No history of panic, anxiety or depression. ENDOCRINE: No history of heat or cold intolerance, polyuria or polydipsia. EXTREMITIES: Denies muscle weakness, joint pain, pain on walking or stiffness. PHYSICAL EXAMINATION: VITALS: Within normal limits and are stable. GENERAL: She is frail, weak. HEENT: Normal cephalic atraumatic, external auditory canals are patent EYES: Extraocular muscles are intact, pupils are equally round and reactive to light and accommodation MUSCULOSKELETAL: Well developed, well nourished, good range of motion ENDOCRINE: No thyromegaly was palpated LYMPHATICS: No cervical chain or axillary nodes were noted HEMATOPOIETIC: No bruising NECK: Supple, no JVD, no thyromegaly was noted. LUNGS: She has bibasilar crackles with decreased breath sounds. HEART: RRR, S1, S2 present. Peripheral pulses intact, no obvious murmurs were noted. ABDOMEN: Soft, nontender. Positive bowel sounds no organomegaly, normal bowel sounds. EXTREMITIES: Without any cyanosis, clubbing, or edema. Pedal pulses intact, Homans sign is negative. NEUROLOGIC: Normal speech, normal tone. A & O x3, moves all extremities, no obvious focal deficits. PSYCHIATRIC: She is anxious. SKIN: She is quite pale. VASCULAR: Good capillary refill, neurovascular bundle appears to be intact. LABORATORY DATA: V/Q scan showed intermediate probability of PE. Chest x-ray showed cardiomegaly and vascular congestion. Hemoglobin is 8.9. Electrolytes are normal other than BUN 58, creatinine 2.6. Troponin is 0.2. BNP 17,876. D-dimer is high at 3.49. ASSESSMENT AND PLAN: Acute on chronic, multifactorial respiratory failure including probable COPD and heart failure, possible COVID-19, possible pulmonary embolism. The patient has been admitted. We have consulted Pulmonary Medicine. Consult Cardiology, consult Nephrology for the renal failure. Home meds, DVT prophylaxis. Full code. Prognosis is extremely guarded, fdc. Lovenox 40 once a day, daily aspirin, serial enzymes, serial EKGs, consider echocardiogram. We gave her a dose of IV Lasix. COVID-19 swab. Respiratory isolation. GABBY BACH DO DR: ELVIRA/gordo JOB#: [id number] / [id number]
[2019-10-07] MEDS ORDERED: NITROGLYCERIN PREMIX 250 ML IV ONE (13:45)
[2019-10-07] MEDS ORDERED: LABETALOL 20 MG/4 ML DISP.SYRIN. IVP PRN (16:00)
--- NOTE | 2019-10-07 16:13 | PDOC2 ---
JUS SHAHID ROUTE RIDER 10/07/19 1613: CARDIAC CONSULT DATE OF CONSULT Date of Consult DATE: 10/07/19 TIME: 16:01 REASON FOR CONSULT Reason for Consult: CHF REFERRING PHYSICIAN Referring Physician: Xavier SOURCE Source: Chart review, Patient HISTORY OF PRESENT ILLNESS HISTORY OF PRESENT ILLNESS This is a pleasant 74 yo female admitted for complains of SOA. Reports of leg swelling and increasing SOA since yesterday. Denies any chest pain or palpitations. She does take multiple BP meds and reports that she takes these daily and today is the only time she missed. Having said despite her number of BP meds she does not check her BP readings at home. No recent falls or injury. Presently her SOA is better after treatment. No fever or chills and no productive cough and denies Covid exposure. Denies any prior nausea, vomiting or diarrhea. PAST MEDICAL HISTORY Past Medical History Cardiovascular: CAD, CHF, HTN, Hyperlipidemia, pulmonary HTN, carotid artery disease Pulmonary: COPD GI: GERD Renal/: Chronic renal insuff Endocrine: Diabetes PAST SURGICAL HISTORY Past Surgical History Cholecystectomy, CABG, Hysterectomy, 2014 LICA stent FAMILY HISTORY Family History: Heart Disease (sister) SOCIAL HISTORY Smoke: No ALCOHOL: none Drugs: None Lives: with Family CURRENT MEDICATIONS CURRENT MEDICATIONS Current Medications Medications (Trade) Dose Ordered Sig/Gisselle Route PRN Reason Start Time Stop Time Status Last Admin Dose Admin Labetalol HCl (Normodyne Iv Push) 20 mg 1X ONCE IVP 10/07/19 09:00 10/07/19 09:01 DC 10/07/19 09:23 Aspirin (Alexa Aspirin) 325 mg 1X ONCE PO 10/07/19 09:00 10/07/19 09:01 DC 10/07/19 09:21 Nitroglycerin (Nitrostat) 0.4 mg PRN Q5MIN PRN SL CHEST PAIN 10/07/19 10:00 10/07/19 10:57 Furosemide (Lasix) 40 mg 1X ONCE IVP 10/07/19 10:00 10/07/19 10:01 DC 10/07/19 10:44 Enoxaparin Sodium (Lovenox 60mg Syringe) 60 mg 1X ONCE SQ 10/07/19 12:00 10/07/19 12:01 DC 10/07/19 12:29 Nitroglycerin/ Dextrose 250 ml @ 0 mls/hr 1X ONCE IV 10/07/19 13:45 10/07/19 13:46 DC 10/07/19 14:26 ALLERGIES ALLERGIES: Coded Allergies: Penicillins (Verified Allergy, Intermediate, 11/05/16) dopamine (Verified Allergy, Intermediate, 11/05/16) ROS Review of System 14 point ROS evaluated with pertinent positives noted per HPI PHYSICAL EXAM PHYSICAL EXAM Discussed with RN General: Alert, Oriented X3, Cooperative, No acute distress HEENT: Atraumatic, Mucous membr. moist/pink Lungs: Other (diminished) Heart: Regular rate (SR) Abdomen: Soft, No tenderness Extremities: No cyanosis, No edema Skin: No breakdown, No significant lesion Neuro: Normal speech, Sensation intact Psych/Mental Status: Mental status NL, Mood NL MUSCULOSKELETAL: Osteoarthritic changes both hands VITALS/I&O VITALS/I&O: Vital Signs Date Time Temp Pulse Resp B/P (MAP) Pulse Ox O2 Delivery O2 Flow Rate FiO2 10/07/19 10:57 75 227/102 10/07/19 10:54 27 100 Nasal Cannula 1.5 10/07/19 08:30 97.6 97.6 LABS Lab: Laboratory Tests Test 10/07/19 08:38 10/07/19 10:20 10/07/19 10:40 Urine Collection Type Void Urine Color Yellow Urine Clarity Clear Urine pH 5.5 (<5.0-8.0) Urine Specific [place] 1.010 (1.000-1.030) Urine Protein 100 mg/dL (NEG-TRACE) Urine Glucose (UA) 250 mg/dL (NEG) Urine Ketones (Stick) Negative mg/dL (NEG) Urine Blood Trace (NEG) Urine Nitrite Negative (NEG) Urine Bilirubin Negative (NEG) Urine Urobilinogen Dipstick 0.2 mg/dL (0.2 mg/dL) Urine Leukocyte Esterase Negative (NEG) Urine RBC 1-2 /HPF (0-2) Urine WBC 0 /HPF (0-4) Urine Squamous Epithelial Cells Few /LPF Urine Bacteria 0 /HPF (0-FEW) D-Dimer (Lissy) 3.49 ug/mlFEU (0.00-0.50) H White Blood Count 9.8 x10^3/uL (4.0-11.0) Red Blood Count 3.28 x10^6/uL (3.50-5.40) L Hemoglobin 8.9 g/dL (12.0-15.5) L Hematocrit 27.3 % (36.0-47.0) L Mean Corpuscular Volume 83 fL (79-100) Mean Corpuscular Hemoglobin 27 pg (25-35) Mean Corpuscular Hemoglobin Concent 33 g/dL (31-37) Red Cell Distribution Width 16.8 % (11.5-14.5) H Platelet Count 235 x10^3/uL (140-400) Neutrophils (%) (Auto) 83 % (31-73) H Lymphocytes (%) (Auto) 11 % (24-48) L Monocytes (%) (Auto) 5 % (0-9) Eosinophils (%) (Auto) 1 % (0-3) Basophils (%) (Auto) 1 % (0-3) Neutrophils # (Auto) 8.1 x10^3/uL (1.8-7.7) H Lymphocytes # (Auto) 1.1 x10^3/uL (1.0-4.8) Monocytes # (Auto) 0.5 x10^3/uL (0.0-1.1) Eosinophils # (Auto) 0.1 x10^3/uL (0.0-0.7) Basophils # (Auto) 0.1 x10^3/uL (0.0-0.2) Sodium Level 141 mmol/L (136-145) Potassium Level 4.3 mmol/L (3.5-5.1) Chloride Level 102 mmol/L (98-107) Carbon Dioxide Level 29 mmol/L (21-32) Anion Gap 10 (6-14) Blood Urea Nitrogen 50 mg/dL (7-20) H Creatinine 2.6 mg/dL (0.6-1.0) H Estimated GFR (Cockcroft-Gault) 21.8 BUN/Creatinine Ratio 19 (6-20) Glucose Level 263 mg/dL (70-99) H Lactic Acid Level 1.2 mmol/L (0.4-2.0) Calcium Level 8.7 mg/dL (8.5-10.1) Magnesium Level 2.1 mg/dL (1.8-2.4) Ferritin 82 ng/mL (8-252) Total Bilirubin 0.2 mg/dL (0.2-1.0) Aspartate Amino Transferase (AST) 25 U/L (15-37) Alanine Aminotransferase (ALT) 10 U/L (14-59) L Alkaline Phosphatase 67 U/L (46-116) Lactate Dehydrogenase 283 U/L (81-234) H Creatine Kinase 156 U/L (26-192) Creatine Kinase MB (Mass) 4.4 ng/mL (0.0-3.6) H Creatine Kinase MB Relative Index 2.8 % (0-4) Troponin I Quantitative 0.216 ng/mL (0.000-0.055) DK-Rns-K-Type Natriuretic Peptide 40958 pg/mL (0-124) H Total Protein 7.0 g/dL (6.4-8.2) Albumin 2.8 g/dL (3.4-5.0) L Albumin/Globulin Ratio 0.7 (1.0-1.7) L Lipase 85 U/L (73-393) Laboratory Tests 10/07/19 10:40 Laboratory Tests 10/07/19 10:40 ECHOCARDIOGRAM ECHOCARDIOGRAM <Conclusion> There is mild concentric left ventricular hypertrophy. The left ventricular systolic function is normal and the ejection fraction is within normal range. The Ejection Fraction is 55-60%. There is normal LV segmental wall motion. Doppler and Color Flow revealed mild tricuspid regurgitation. There is moderate pulmonary hypertension. The PA pressure was estimated at 56 mmHg. DATE: 08/24/18 1502 ASSESSMENT/PLAN ASSESSMENT/PLAN 1. Acute on chronic diastolic CHF: likely precipitated by uncontrolled HTN 2. Malignant HTN: no NICOLA with prior imaging. 3. 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 Mild troponin elevation; peak 0.21.EKG SR with first degree AV block otherwise no acute changes. Suspect type 2 with above culprits 5. CAD s/p CABG in 2009. CP free 6. DM2/HLP 7. PUI 8. Normocytic anemia: Hgb 8.9 Recommendations 1. Restart home BP meds and slowly titrate off NTG drip. Discussed with RN. Labetolol IV PRN. Monitor for bradycardia 2. Lasix therapy. Will hold losartan for now. 3. Await covid test 4. Secondary prevention measures 5. Consider for outpt stress test if none recent 6. She does not check her BP readings despite multiple BP meds. DASH diet and discussed HBPM. Reinforced compliance. BMP and Mg in AM. CHELSEY BURNS MD 10/07/19 4263: CARDIAC CONSULT ASSESSMENT/PLAN ASSESSMENT/PLAN Pt. seen and examined. Agree with above LEGAL ADMINISTRATIVE ASSISTANT note. Supportive care. JUS SHAHID APRN Oct 07, 2019 16:13 CHELSEY BURNS MD Oct 07, 2019 23:08
[2019-10-07] MEDS: cloNIDine HCL 0.3 MG TABLET PO SCH ×2 (16:21→21:38)
[2019-10-07] MEDS: HYDROcodone/APAP 5/325MG 1 TAB TABLET PO PRN (17:29)
[2019-10-07] MEDS: CARVEDILOL 12.5 MG TABLET. PO SCH (17:30)
[2019-10-07] MEDS ORDERED: DEXTROSE 50% 25 GM / 50ML DISP.SYRIN. IV PRN (17:30)
[2019-10-07] MEDS: INSULIN LISPRO 300 UNITS/3 ML VIAL. SQ SCH (17:31)
[2019-10-07] MEDS: ATORVASTATIN CALCIUM 40 MG TABLET. PO SCH (21:37)
[2019-10-07] MEDS: DOXAZOSIN MESYLATE 1 MG TABLET. PO SCH (21:38)
[2019-10-07] MEDS: ISOSORBIDE MONONITRATE ER 30 MG TAB.ER.24H PO SCH (21:38)
[2019-10-08] VITALS (18 sets, daily range): BP systolic 104–151; BP diastolic 34–57
[2019-10-08] MEDS: HYDROcodone/APAP 5/325MG 1 TAB TABLET PO PRN ×3 (05:04→23:06)
[2019-10-08 05:47] LABS: CALCIUM 8.1 mg/dL (8.5-10.1); CREATININE 2.6 mg/dL (0.6-1.0); GFR 21.8; MAGNESIUM 1.9 mg/dL (1.8-2.4); POTASSIUM 3.7 mmol/L (3.5-5.1)
[2019-10-08] MEDS: INSULIN LISPRO 300 UNITS/3 ML VIAL. SQ SCH ×3 (08:00→17:00)
[2019-10-08] MEDS: ENOXAPARIN 30 MG/0.3 ML SYRINGE. SQ SCH (08:15)
[2019-10-08] MEDS: FUROSEMIDE 40 MG TABLET. PO SCH ×2 (08:15→15:57)
[2019-10-08] MEDS: ISOSORBIDE MONONITRATE ER 30 MG TAB.ER.24H PO SCH ×2 (08:15→21:49)
[2019-10-08] MEDS: ASPIRIN ENTERIC COATED 81 MG TABLET.DR. PO SCH (08:16)
[2019-10-08] MEDS: CARVEDILOL 12.5 MG TABLET. PO SCH ×3 (08:16→21:51)
[2019-10-08] MEDS: cloNIDine HCL 0.3 MG TABLET PO SCH ×3 (08:17→21:50)
--- NOTE | 2019-10-08 09:16 | PDOC ---
PROGRESS NOTES History of Present Illness History of Present Illness ASSESSMENT AND PLAN: Acute on chronic, multifactorial respiratory failure Mild troponin elevation; peak 0.21.EKG SR with first degree AV block otherwise no acute changes. Suspect type 2 with above culprits CAD s/p CABG in 2009. CP free COPD and heart failure, possible COVID-19, possible pulmonary embolism. Multifocal perfusion defects are identified within the left greater than right lung. Cannot assess whether they're matched or not given lack of ventilation images. Overall intermediate probability for pulmonary embolus. plan admitted. Pulmonary Medicine. Consult Cardiology, consult Nephrology for the renal failure. Home meds, DVT prophylaxis. Full code. 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 Lovenox 40 once a day, daily aspirin, serial enzymes, serial EKGs, consider echocardiogram. IV Lasix. COVID-19 swab. Respiratory isolation. 40 MIN CC TIME Vitals Vitals Vital Signs Date Time Temp Pulse Resp B/P (MAP) Pulse Ox O2 Delivery O2 Flow Rate FiO2 10/08/19 08:17 60 140/54 10/08/19 08:00 16 100 Nasal Cannula 2.0 10/08/19 07:00 98.6 98.6 Physical Exam General: Alert, Oriented X3, Cooperative, No acute distress Heart: Regular rate (SR) Lungs: Clear Abdomen: Soft, No tenderness Extremities: No cyanosis, No edema Skin: No breakdown, No significant lesion Labs LABS REASON: r/o pe PROCEDURE: PULMONARY PERFUSION IMG PARTIC Indication: Reason: r/o pe, shortness of breath/ Spl. Instructions: / History: Technique: Static images are obtained of both lungs following following IV administration of 5.5 mCi of 99 M technetium MAA. Comparison: October 07, 2019 Findings: There is multifocal defects identified within the bilateral lungs most severe on the left. Cardiomediastinal silhouette is enlarged. Impression: 1. Multifocal perfusion defects are identified within the left greater than right lung. Cannot assess whether they're matched or not given lack of ventilation images. Overall intermediate probability for pulmonary embolus. Electronically signed by: Amor Gerardo MD (10/07/2019 12:58 PM) [id number] DICTATED and SIGNED BY: AMOR GERARDO MD DATE: 10/07/19 6402 Laboratory Tests Test 10/07/19 10:20 10/07/19 10:40 10/07/19 17:24 10/07/19 17:45 D-Dimer (Lissy) 3.49 ug/mlFEU (0.00-0.50) White Blood Count 9.8 x10^3/uL (4.0-11.0) Red Blood Count 3.28 x10^6/uL (3.50-5.40) Hemoglobin 8.9 g/dL (12.0-15.5) Hematocrit 27.3 % (36.0-47.0) Mean Corpuscular Volume 83 fL (79-100) Mean Corpuscular Hemoglobin 27 pg (25-35) Mean Corpuscular Hemoglobin Concent 33 g/dL (31-37) Red Cell Distribution Width 16.8 % (11.5-14.5) Platelet Count 235 x10^3/uL (140-400) Neutrophils (%) (Auto) 83 % (31-73) Lymphocytes (%) (Auto) 11 % (24-48) Monocytes (%) (Auto) 5 % (0-9) Eosinophils (%) (Auto) 1 % (0-3) Basophils (%) (Auto) 1 % (0-3) Neutrophils # (Auto) 8.1 x10^3/uL (1.8-7.7) Lymphocytes # (Auto) 1.1 x10^3/uL (1.0-4.8) Monocytes # (Auto) 0.5 x10^3/uL (0.0-1.1) Eosinophils # (Auto) 0.1 x10^3/uL (0.0-0.7) Basophils # (Auto) 0.1 x10^3/uL (0.0-0.2) Sodium Level 141 mmol/L (136-145) Potassium Level 4.3 mmol/L (3.5-5.1) Chloride Level 102 mmol/L (98-107) Carbon Dioxide Level 29 mmol/L (21-32) Anion Gap 10 (6-14) Blood Urea Nitrogen 50 mg/dL (7-20) Creatinine 2.6 mg/dL (0.6-1.0) Estimated GFR (Cockcroft-Gault) 21.8 BUN/Creatinine Ratio 19 (6-20) Glucose Level 263 mg/dL (70-99) Lactic Acid Level 1.2 mmol/L (0.4-2.0) Calcium Level 8.7 mg/dL (8.5-10.1) Magnesium Level 2.1 mg/dL (1.8-2.4) Ferritin 82 ng/mL (8-252) Total Bilirubin 0.2 mg/dL (0.2-1.0) Aspartate Amino Transf (AST/SGOT) 25 U/L (15-37) Alanine Aminotransferase (ALT/SGPT) 10 U/L (14-59) Alkaline Phosphatase 67 U/L (46-116) Lactate Dehydrogenase 283 U/L (81-234) Creatine Kinase 156 U/L (26-192) Creatine Kinase MB (Mass) 4.4 ng/mL (0.0-3.6) Creatine Kinase MB Relative Index 2.8 % (0-4) Troponin I Quantitative 0.216 ng/mL (0.000-0.055) 0.222 ng/mL (0.000-0.055) FS-Igk-A-Type Natriuretic Peptide 70432 pg/mL (0-124) Total Protein 7.0 g/dL (6.4-8.2) Albumin 2.8 g/dL (3.4-5.0) Albumin/Globulin Ratio 0.7 (1.0-1.7) Lipase 85 U/L (73-393) Glucose (Fingerstick) 198 mg/dL (70-99) Test 10/07/19 21:47 10/08/19 04:50 Glucose (Fingerstick) 169 mg/dL (70-99) Sodium Level 141 mmol/L (136-145) Potassium Level 3.7 mmol/L (3.5-5.1) Chloride Level 104 mmol/L (98-107) Carbon Dioxide Level 33 mmol/L (21-32) Anion Gap 4 (6-14) Blood Urea Nitrogen 51 mg/dL (7-20) Creatinine 2.6 mg/dL (0.6-1.0) Estimated GFR (Cockcroft-Gault) 21.8 Glucose Level 142 mg/dL (70-99) Calcium Level 8.1 mg/dL (8.5-10.1) Magnesium Level 1.9 mg/dL (1.8-2.4) Assessment and Plan Assessmemt and Plan Problems Medical Problems: (1) Hypertension Status: Acute (2) Hypoxia Status: Acute (3) Shortness of breath Status: Acute Comment Review of Relevant I have reviewed the following items russell (where applicable) has been applied. Labs Laboratory Tests Test 10/07/19 08:38 10/07/19 10:20 10/07/19 10:40 10/07/19 17:24 Urine Collection Type Void Urine Color Yellow Urine Clarity Clear Urine pH 5.5 (<5.0-8.0) Urine Specific [place] 1.010 (1.000-1.030) Urine Protein 100 mg/dL (NEG-TRACE) Urine Glucose (UA) 250 mg/dL (NEG) Urine Ketones (Stick) Negative mg/dL (NEG) Urine Blood Trace (NEG) Urine Nitrite Negative (NEG) Urine Bilirubin Negative (NEG) Urine Urobilinogen Dipstick 0.2 mg/dL (0.2 mg/dL) Urine Leukocyte Esterase Negative (NEG) Urine RBC 1-2 /HPF (0-2) Urine WBC 0 /HPF (0-4) Urine Squamous Epithelial Cells Few /LPF Urine Bacteria 0 /HPF (0-FEW) D-Dimer (Lissy) 3.49 ug/mlFEU (0.00-0.50) White Blood Count 9.8 x10^3/uL (4.0-11.0) Red Blood Count 3.28 x10^6/uL (3.50-5.40) Hemoglobin 8.9 g/dL (12.0-15.5) Hematocrit 27.3 % (36.0-47.0) Mean Corpuscular Volume 83 fL (79-100) Mean Corpuscular Hemoglobin 27 pg (25-35) Mean Corpuscular Hemoglobin Concent 33 g/dL (31-37) Red Cell Distribution Width 16.8 % (11.5-14.5) Platelet Count 235 x10^3/uL (140-400) Neutrophils (%) (Auto) 83 % (31-73) Lymphocytes (%) (Auto) 11 % (24-48) Monocytes (%) (Auto) 5 % (0-9) Eosinophils (%) (Auto) 1 % (0-3) Basophils (%) (Auto) 1 % (0-3) Neutrophils # (Auto) 8.1 x10^3/uL (1.8-7.7) Lymphocytes # (Auto) 1.1 x10^3/uL (1.0-4.8) Monocytes # (Auto) 0.5 x10^3/uL (0.0-1.1) Eosinophils # (Auto) 0.1 x10^3/uL (0.0-0.7) Basophils # (Auto) 0.1 x10^3/uL (0.0-0.2) Sodium Level 141 mmol/L (136-145) Potassium Level 4.3 mmol/L (3.5-5.1) Chloride Level 102 mmol/L (98-107) Carbon Dioxide Level 29 mmol/L (21-32) Anion Gap 10 (6-14) Blood Urea Nitrogen 50 mg/dL (7-20) Creatinine 2.6 mg/dL (0.6-1.0) Estimated GFR (Cockcroft-Gault) 21.8 BUN/Creatinine Ratio 19 (6-20) Glucose Level 263 mg/dL (70-99) Lactic Acid Level 1.2 mmol/L (0.4-2.0) Calcium Level 8.7 mg/dL (8.5-10.1) Magnesium Level 2.1 mg/dL (1.8-2.4) Ferritin 82 ng/mL (8-252) Total Bilirubin 0.2 mg/dL (0.2-1.0) Aspartate Amino Transf (AST/SGOT) 25 U/L (15-37) Alanine Aminotransferase (ALT/SGPT) 10 U/L (14-59) Alkaline Phosphatase 67 U/L (46-116) Lactate Dehydrogenase 283 U/L (81-234) Creatine Kinase 156 U/L (26-192) Creatine Kinase MB (Mass) 4.4 ng/mL (0.0-3.6) Creatine Kinase MB Relative Index 2.8 % (0-4) Troponin I Quantitative 0.216 ng/mL (0.000-0.055) LW-Sit-E-Type Natriuretic Peptide 11423 pg/mL (0-124) Total Protein 7.0 g/dL (6.4-8.2) Albumin 2.8 g/dL (3.4-5.0) Albumin/Globulin Ratio 0.7 (1.0-1.7) Lipase 85 U/L (73-393) Glucose (Fingerstick) 198 mg/dL (70-99) Test 10/07/19 17:45 10/07/19 21:47 10/08/19 04:50 Troponin I Quantitative 0.222 ng/mL (0.000-0.055) Glucose (Fingerstick) 169 mg/dL (70-99) Sodium Level 141 mmol/L (136-145) Potassium Level 3.7 mmol/L (3.5-5.1) Chloride Level 104 mmol/L (98-107) Carbon Dioxide Level 33 mmol/L (21-32) Anion Gap 4 (6-14) Blood Urea Nitrogen 51 mg/dL (7-20) Creatinine 2.6 mg/dL (0.6-1.0) Estimated GFR (Cockcroft-Gault) 21.8 Glucose Level 142 mg/dL (70-99) Calcium Level 8.1 mg/dL (8.5-10.1) Magnesium Level 1.9 mg/dL (1.8-2.4) Laboratory Tests Test 10/07/19 10:20 10/07/19 10:40 10/07/19 17:24 10/07/19 17:45 D-Dimer (Lissy) 3.49 ug/mlFEU (0.00-0.50) White Blood Count 9.8 x10^3/uL (4.0-11.0) Red Blood Count 3.28 x10^6/uL (3.50-5.40) Hemoglobin 8.9 g/dL (12.0-15.5) Hematocrit 27.3 % (36.0-47.0) Mean Corpuscular Volume 83 fL (79-100) Mean Corpuscular Hemoglobin 27 pg (25-35) Mean Corpuscular Hemoglobin Concent 33 g/dL (31-37) Red Cell Distribution Width 16.8 % (11.5-14.5) Platelet Count 235 x10^3/uL (140-400) Neutrophils (%) (Auto) 83 % (31-73) Lymphocytes (%) (Auto) 11 % (24-48) Monocytes (%) (Auto) 5 % (0-9) Eosinophils (%) (Auto) 1 % (0-3) Basophils (%) (Auto) 1 % (0-3) Neutrophils # (Auto) 8.1 x10^3/uL (1.8-7.7) Lymphocytes # (Auto) 1.1 x10^3/uL (1.0-4.8) Monocytes # (Auto) 0.5 x10^3/uL (0.0-1.1) Eosinophils # (Auto) 0.1 x10^3/uL (0.0-0.7) Basophils # (Auto) 0.1 x10^3/uL (0.0-0.2) Sodium Level 141 mmol/L (136-145) Potassium Level 4.3 mmol/L (3.5-5.1) Chloride Level 102 mmol/L (98-107) Carbon Dioxide Level 29 mmol/L (21-32) Anion Gap 10 (6-14) Blood Urea Nitrogen 50 mg/dL (7-20) Creatinine 2.6 mg/dL (0.6-1.0) Estimated GFR (Cockcroft-Gault) 21.8 BUN/Creatinine Ratio 19 (6-20) Glucose Level 263 mg/dL (70-99) Lactic Acid Level 1.2 mmol/L (0.4-2.0) Calcium Level 8.7 mg/dL (8.5-10.1) Magnesium Level 2.1 mg/dL (1.8-2.4) Ferritin 82 ng/mL (8-252) Total Bilirubin 0.2 mg/dL (0.2-1.0) Aspartate Amino Transf (AST/SGOT) 25 U/L (15-37) Alanine Aminotransferase (ALT/SGPT) 10 U/L (14-59) Alkaline Phosphatase 67 U/L (46-116) Lactate Dehydrogenase 283 U/L (81-234) Creatine Kinase 156 U/L (26-192) Creatine Kinase MB (Mass) 4.4 ng/mL (0.0-3.6) Creatine Kinase MB Relative Index 2.8 % (0-4) Troponin I Quantitative 0.216 ng/mL (0.000-0.055) 0.222 ng/mL (0.000-0.055) CA-Duu-F-Type Natriuretic Peptide 52376 pg/mL (0-124) Total Protein 7.0 g/dL (6.4-8.2) Albumin 2.8 g/dL (3.4-5.0) Albumin/Globulin Ratio 0.7 (1.0-1.7) Lipase 85 U/L (73-393) Glucose (Fingerstick) 198 mg/dL (70-99) Test 10/07/19 21:47 10/08/19 04:50 Glucose (Fingerstick) 169 mg/dL (70-99) Sodium Level 141 mmol/L (136-145) Potassium Level 3.7 mmol/L (3.5-5.1) Chloride Level 104 mmol/L (98-107) Carbon Dioxide Level 33 mmol/L (21-32) Anion Gap 4 (6-14) Blood Urea Nitrogen 51 mg/dL (7-20) Creatinine 2.6 mg/dL (0.6-1.0) Estimated GFR (Cockcroft-Gault) 21.8 Glucose Level 142 mg/dL (70-99) Calcium Level 8.1 mg/dL (8.5-10.1) Magnesium Level 1.9 mg/dL (1.8-2.4) Medications Current Medications Labetalol HCl (Normodyne Iv Push) 20 mg 1X ONCE IVP Last administered on 10/07/19at 09:23; Start 10/07/19 at 09:00; Stop 10/07/19 at 09:01; Status DC Aspirin (Alexa Aspirin) 325 mg 1X ONCE PO Last administered on 10/07/19at 09:21; Start 10/07/19 at 09:00; Stop 10/07/19 at 09:01; Status DC Nitroglycerin (Nitrostat) 0.4 mg PRN Q5MIN PRN SL CHEST PAIN Last administered on 10/07/19at 10:57; Start 10/07/19 at 10:00 Furosemide (Lasix) 40 mg 1X ONCE IVP Last administered on 10/07/19at 10:44; Start 10/07/19 at 10:00; Stop 10/07/19 at 10:01; Status DC Aspirin (Aspirin Chewable) 324 mg 1X ONCE PO ; Start 10/07/19 at 11:30; Stop 10/07/19 at 11:31; Status UNV Enoxaparin Sodium (Lovenox 60mg Syringe) 60 mg 1X ONCE SQ Last administered on 10/07/19 12:29; Start 10/07/19 at 12:00; Stop 10/07/19 at 12:01; Status DC Nitroglycerin/ Dextrose 250 ml @ 0 mls/hr 1X ONCE IV Last administered on 10/07/19at 14:26; Start 10/07/19 at 13:45; Stop 10/07/19 at 13:46; Status DC Atorvastatin Calcium (Lipitor) 40 mg QHS PO Last administered on 10/07/19at 21:37; Start 10/07/19 at 21:00 Carvedilol (Coreg) 25 mg BIDWMEALS PO Last administered on 10/08/19 08:16; Start 10/07/19 at 17:00 Clonidine HCl (Catapres) 0.3 mg TID PO Last administered on 10/08/19at 08:17; Start 10/07/19 at 16:15 Doxazosin Mesylate (Cardura) 2 mg QHS PO Last administered on 10/07/19at 21:38; Start 10/07/19 at 21:00 Hydralazine HCl (Apresoline) 100 mg TID PO Last administered on 10/08/19at 08:16; Start 10/07/19 at 16:30 Isosorbide Mononitrate (Imdur) 60 mg BID PO Last administered on 10/08/19 08:15; Start 10/07/19 at 21:00 Aspirin (Ecotrin) 81 mg [id number] PO Last administered on 10/08/19at 08:16; Start 10/08/19 at 08:00 Labetalol HCl (Normodyne Iv Push) 20 mg PRN Q2HR PRN IVP HYPERTENSION; Start 10/07/19 at 16:00 Furosemide (Lasix) 40 mg 1X ONCE IVP Last administered on 10/07/19at 17:29; Start 10/07/19 at 17:30; Stop 10/07/19 at 17:31; Status DC Furosemide (Lasix) 40 mg BID94 PO Last administered on 10/08/19at 08:15; Start 10/08/19 at 09:00 Acetaminophen/ Hydrocodone Bitart (Lortab 5/325) 1 tab PRN Q4HRS PRN PO PAIN Last administered on 10/08/19at 05:04; Start 10/07/19 at 17:30 Insulin Human Lispro (HumaLOG) 0-7 UNITS TIDWMEALS SQ Last administered on 10/07/19at 17:31; Start 10/07/19 at 18:00 Dextrose (Dextrose 50%-Water Syringe) 12.5 gm PRN Q15MIN PRN IV SEE COMMENTS; Start 10/07/19 at 17:30 Enoxaparin Sodium (Lovenox 30mg Syringe) 30 mg Q24H SQ Last administered on 10/08/19at 08:15; Start 10/08/19 at 09:00 Active Scripts Active Amitiza (Lubiprostone) 8 Mcg Capsule 1 Cap PO BID Colace (Docusate Sodium) 100 Mg Capsule 100 Mg PO DAILY 30 Days Simethicone 80 Mg Tab.chew 80 Mg PO PRN AFTMEALHC PRN 30 Days Furosemide 40 Mg Tablet 40 Mg PO BID92 30 Days Aldactone (Spironolactone) 25 Mg Tablet 25 Mg PO DAILY 30 Days Carvedilol (Carvedilol) 12.5 Mg Tablet 25 Mg PO BIDWMEALS Reported Hydralazine Hcl 100 Mg Tablet 1 Tab PO TID Cozaar (Losartan Potassium) 100 Mg Tablet 50 Mg PO DAILY Isosorbide Mononitrate Er (Isosorbide Mononitrate) 60 Mg Tab.er.24h 1 Tab PO BID Latanoprost 2.5 Ml Drops 1 Drop OP HS Doxazosin Mesylate 2 Mg Tablet 1 Tab PO HS Atorvastatin Calcium 40 Mg Tablet 1 Tab PO QHS Hydrocodone-Apap 7.5-325 (Hydrocodone Bit/Acetaminophen) 1 Each Tablet 1 Tab PO Q4HRS PRN Proair Hfa Inhaler (Albuterol Sulfate) 8.5 Gm Hfa.aer.ad 2 Puff IH PRN Q6HRS PRN Novolog Flexpen (Insulin Aspart) 100 Unit/1 Ml Insuln.pen 6 Unit SQ TIDAC Lantus (Insulin Glargine,Hum.rec.anlog) 100 Unit/1 Ml Vial 22 Unit SQ HS Omeprazole 20 Mg Capsule.dr 20 Mg PO BID Clonidine Hcl 0.3 Mg Tablet 0.3 Mg PO TID Vitals/I & O Vital Sign - Last 24 Hours 10/07/19 10/07/19 10/07/19 10/07/19 09:19 09:23 09:50 10:06 Pulse 88 107 78 79 Resp 34 29 B/P (MAP) 248/112 (157) 248/112 228/96 (140) 228/96 Pulse Ox 95 100 O2 Delivery Room Air Nasal Cannula O2 Flow Rate 1.5 1.5 10/07/19 10/07/19 10/07/19 10/07/19 10:07 10:48 10:54 10:57 Pulse 76 78 76 75 Resp 26 26 27 B/P (MAP) 239/100 (146) 221/94 (136) 227/102 (143) 227/102 Pulse Ox 100 100 100 O2 Delivery Nasal Cannula Nasal Cannula Nasal Cannula O2 Flow Rate 1.5 1.5 1.5 10/07/19 10/07/19 10/07/19 10/07/19 11:25 12:25 13:25 13:55 Pulse 78 68 72 68 Resp 27 17 18 18 B/P (MAP) 191/85 (120) 181/77 (111) 214/90 (131) 216/139 (164) Pulse Ox 100 100 100 100 O2 Delivery Nasal Cannula Nasal Cannula Nasal Cannula Nasal Cannula O2 Flow Rate 1.5 1.5 1.5 1.5 10/07/19 10/07/19 10/07/19 10/07/19 14:34 14:45 15:00 15:30 Pulse 72 70 72 Resp 23 30 30 B/P (MAP) 229/90 (136) 212/67 (115) 184/57 (99) Pulse Ox 100 100 15 O2 Delivery Nasal Cannula Nasal Cannula Nasal Cannula Nasal Cannula O2 Flow Rate 1.5 2.0 2.0 2.0 10/07/19 10/07/19 10/07/19 10/07/19 15:45 15:45 15:45 16:00 Temp 99.0 99.0 Pulse 72 66 70 70 Resp 32 30 B/P (MAP) 185/105 (131) 206/65 (112) 201/79 (119) 191/74 (113) Pulse Ox 100 100 100 100 O2 Delivery Nasal Cannula Nasal Cannula Nasal Cannula O2 Flow Rate 2.0 2.0 15.0 2.0 10/07/19 10/07/19 10/07/19 10/07/19 16:00 16:15 16:21 16:22 Pulse 74 72 72 B/P (MAP) 186/71 (109) 185/105 185/105 O2 Delivery Nasal Cannula O2 Flow Rate 2.0 10/07/19 10/07/19 10/07/19 10/07/19 16:30 17:00 17:29 17:30 Pulse 70 70 B/P (MAP) 194/72 (112) 170/66 (100) 194/72 Pulse Ox 100 O2 Delivery High Flow Nasal Cannula Nasal Cannula O2 Flow Rate 2.0 10/07/19 10/07/19 10/07/19 10/07/19 17:45 19:01 19:46 19:48 Temp 98.5 98.5 Pulse 76 65 Resp 20 B/P (MAP) 190/64 (106) 144/55 (84) Pulse Ox 100 100 99 O2 Delivery Nasal Cannula Nasal Cannula Nasal Cannula Nasal Cannula O2 Flow Rate 2.0 2.0 2.0 2.0 10/07/19 10/07/19 10/07/19 10/07/19 21:00 21:38 21:38 21:38 Pulse 59 63 63 63 Resp 20 B/P (MAP) 133/43 (73) 125/47 125/47 125/47 Pulse Ox 99 O2 Delivery Nasal Cannula O2 Flow Rate 2.0 10/07/19 10/07/19 10/07/19 10/07/19 21:39 22:08 22:41 22:50 Pulse 63 61 61 58 Resp 18 B/P (MAP) 125/47 138/55 (82) 119/38 (65) 112/57 (75) Pulse Ox 100 100 O2 Delivery Nasal Cannula Nasal Cannula O2 Flow Rate 2.0 2.0 10/08/19 10/08/19 10/08/19 10/08/19 00:00 00:03 00:32 01:00 Temp 98.2 98.2 Pulse 58 59 62 Resp 24 B/P (MAP) 114/49 (70) 107/34 (58) 106/43 (64) Pulse Ox 100 100 O2 Delivery Nasal Cannula Nasal Cannula Nasal Cannula O2 Flow Rate 2.0 2.0 2.0 10/08/19 10/08/19 10/08/19 10/08/19 02:21 02:58 04:00 04:22 Temp 98.9 98.9 Pulse 65 60 64 Resp 19 20 B/P (MAP) 108/47 (67) 136/55 (82) 127/48 (74) Pulse Ox 100 100 100 O2 Delivery Nasal Cannula Nasal Cannula Room Air Room Air O2 Flow Rate 2.0 2.0 10/08/19 10/08/19 10/08/19 10/08/19 05:00 06:03 07:00 08:00 Temp 98.6 98.6 Pulse 68 60 60 Resp 20 20 16 B/P (MAP) 149/53 (85) 135/48 (77) 140/54 (82) Pulse Ox 93 100 100 O2 Delivery Room Air Nasal Cannula Nasal Cannula Nasal Cannula O2 Flow Rate 2.0 2.0 2.0 10/08/19 10/08/19 10/08/19 10/08/19 08:00 08:15 08:16 08:16 Pulse 65 60 60 60 Resp 16 B/P (MAP) 151/57 (88) 140/54 140/54 140/54 Pulse Ox 100 O2 Delivery Nasal Cannula O2 Flow Rate 2.0 10/08/19 08:17 Pulse 60 B/P (MAP) 140/54 Intake and Output 10/07/19 10/07/19 10/08/19 15:00 23:00 07:00 Intake Total 700 ml 465.9 ml Output Total 425 ml 550 ml 410 ml Balance -425 ml 150 ml 55.9 ml Justicifation of Admission Dx: Justifications for Admission: Justification of Admission Dx: Yes Hypertension: Symp at Rest PHONG ANGEL MD Oct 08, 2019 09:16
--- NOTE | 2019-10-08 10:53 | PDOC ---
JUS SHAHID CAMPAIGN ANALYST 10/08/19 1053: CARDIO Progress Notes Date and Time Date of Service 10/08/2019 Time of Evaluation 0920 Subjective Subjective: No Chest Pain, No shortness of breath, No Palpitations Vitals Vitals Vital Signs Date Time Temp Pulse Resp B/P (MAP) Pulse Ox O2 Delivery O2 Flow Rate FiO2 10/08/19 08:17 60 140/54 10/08/19 08:00 16 100 Nasal Cannula 2.0 10/08/19 07:00 98.6 98.6 Weight Weight [ ] Input and Output Intake and Output Intake and Output 10/08/19 07:00 Intake Total 1165.9 ml Output Total 1385 ml Balance -219.1 ml Intake Oral 1100 ml IV Total 65.9 ml Output Urine Total 1385 ml Laboratory Labs Laboratory Tests Test 10/07/19 17:24 10/07/19 17:45 10/07/19 21:47 10/08/19 04:50 Glucose (Fingerstick) 198 mg/dL (70-99) 169 mg/dL (70-99) Troponin I Quantitative 0.222 ng/mL (0.000-0.055) Sodium Level 141 mmol/L (136-145) Potassium Level 3.7 mmol/L (3.5-5.1) Chloride Level 104 mmol/L (98-107) Carbon Dioxide Level 33 mmol/L (21-32) Anion Gap 4 (6-14) Blood Urea Nitrogen 51 mg/dL (7-20) Creatinine 2.6 mg/dL (0.6-1.0) Estimated GFR (Cockcroft-Gault) 21.8 Glucose Level 142 mg/dL (70-99) Calcium Level 8.1 mg/dL (8.5-10.1) Magnesium Level 1.9 mg/dL (1.8-2.4) Microbiology Micro Microbiology 10/07/19 Blood Culture - Preliminary, Resulted NO GROWTH AFTER 1 DAY Physical Exam HEENT: Neck Supple W Full Motion Chest: Symmetric LUNGS: Other (diminished bases) Heart: RRR (SR) Abdomen: Soft N/T Extremities: No Edema Neurology: alert, oriented, follow commands Other Exams Discussed with RN, good UOP, BP much better Assessment Assessment 1. Acute on chronic diastolic CHF: likely precipitated by uncontrolled HTN, now compensated 2. Malignant HTN: no NICOLA with prior imaging. 3. 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 Mild troponin elevation; peak 0.21.EKG SR with first degree AV block otherwise no acute changes. Suspect type 2 with above culprits 5. CAD s/p CABG in 2009. CP free 6. DM2/HLP 7. PUI 8. Normocytic anemia: Hgb 8.9, Repeat hemogram pending Recommendations 1. No arrhythmias. BP much better after resumption of BP meds. Possibility of med noncompliance with associated failure to check BP readings at home. Discussed HBPM bid at least. BP much better. Will hold off home losartan and aldactone. Will consult nephrology. 2. Continue with lasix therapy 3. Await covid test 4. Secondary prevention measures 5. Consider for outpt stress test if none recent Justicifation of Admission Dx: Justifications for Admission: Justification of Admission Dx: Yes Hypertension: Symp at Rest CHELSEY BURNS MD 10/09/19 0723: CARDIO Progress Notes Plan Plan Pt. seen and examined. Agree with above MANAGER [employer]REACH note. Late entry for 10/08/2019 JUS SHAHID APRN Oct 08, 2019 10:53 CHELSEY BURNS MD Oct 09, 2019 07:23
--- NOTE | 2019-10-08 11:20 | CONS ---
DATE OF CONSULTATION: 10/08/2019 PULMONARY CONSULTATION ATTENDING PHYSICIAN: Dr. Flores. REASON FOR CONSULTATION: Respiratory failure. HISTORY OF PRESENT ILLNESS: The patient is a 74-year-old female who has minimal tobacco history. She has history of secondary pulmonary hypertension. She presented to the hospital with increased shortness of breath since yesterday. There was some lower extremity edema as well. She had no chest pain, no cough, no fever, no chills, no palpitations. No nausea, vomiting or diarrhea. The patient's chest x-ray was consistent with congestive heart failure. She also had a perfusion scan without the ventilation scan. There were perfusion defects seen in the left greater than right. It was difficult to say they were matched or not. She is clinically better. She got one dose of Lasix. She is currently requiring oxygen. PAST MEDICAL HISTORY: History of CAD, history of secondary pulmonary hypertension, history of diastolic CHF, hyperlipidemia, carotid artery disease, chronic renal insufficiency, and diabetes. PAST SURGICAL HISTORY: Cholecystectomy, CABG, hysterectomy, and stent. FAMILY HISTORY: Heart disease. SOCIAL HISTORY: No significant tobacco history. ALLERGIES: PENICILLIN, DOPAMINE. MEDICATIONS: Reviewed as listed in the [facility]. REVIEW OF SYSTEMS: Twelve-point system obtained. Pertinent positives discussed in my history of present illness, otherwise noncontributory. All systems that were negative were reviewed as well. PHYSICAL EXAMINATION: VITAL SIGNS: Reviewed. Pulse ox 100% on 2 liters. NECK: Supple. LUNGS: With occasional wheezes. CARDIOVASCULAR: Regular rate. ABDOMEN: Soft. EXTREMITIES: With no pitting edema. LABORATORY DATA: Reviewed. BUN 51 and creatinine of 2.6. Troponin 0.2. D-dimer 3.4. White cell count 9.8, hemoglobin 8.9, platelets are 235. IMPRESSION: 1. Acute hypoxic respiratory failure secondary to acute on chronic diastolic heart failure. 2. Abnormal chest x-ray consistent with congestive heart failure. 3. Abnormal perfusion scan without the ventilation scan. There are perfusion defects seen bilaterally. Clinically, less likely thromboembolic disease. The scan is not helpful in determining pulmonary embolism as there is no ventilation scan done. 4. No significant tobacco history. 5. Secondary pulmonary hypertension secondary to chronic diastolic dysfunction. RECOMMENDATIONS: 1. Continue with present nasal cannula. 2. Continue with p.o. diuretics. 3. Monitor renal function. 4. Lovenox for DVT prophylaxis. Clinically, I do not think that she has PE. 5. Follow cardiology recommendations. 6. Discussed with RN, discussed with RT. We will follow along with you. Critical care time 37 minutes. ROXANNA HURT MD DR: LAURA/gordo JOB#: [id number] / [id number]
[2019-10-08 11:29] LABS: HEMATOCRIT 24.5 % (36.0-47.0); RED BLOOD COUNT 2.97 x10^6/uL (3.50-5.40); RED CELL DISTRIBUTION WIDTH 16.7 % (11.5-14.5); WHITE BLOOD COUNT 6.4 x10^3/uL (4.0-11.0)
--- NOTE | 2019-10-08 11:29 | PDOC2 ---
CONSULT Date of Consult Date of Consult DATE: 10/08/19 TIME: 11:23 Reason for Consult Reason for Consult: RENAL FAILURE Referring Physician Referring Physician: STANLEY Identification/Chief Complaint Chief Complaint SOB Source Source: Chart review, Patient History of Present Illness Reason for Visit: THIS IS A 74 YR OLD WITH SOB AND MILD LE EDEMA. IMAGING POS FOR CHF. CURRENTLY UNDERGOING CARDIOLOGY AND PULM EVALUATION. SHE IS NOT SURE IF SHE HAS BEEN TAKING ALL HER MEDICATIONS AT HOME. SHE IS ON DIURETICS AT HOME. HER CR IS 2.6. SHE DOES HAVE CKD STAGE 4 AND SE[address] MY PARTNER DR ALFARO. CKD DUE TO HTN AND DM II. NO HEMODYNAMIC INSTABILITY NOTED. NO OTHER HX NOTED Past Medical History Cardiovascular: CAD, CHF, HTN, Hyperlipidemia Pulmonary: COPD GI: GERD Renal/: Chronic renal insuff Endocrine: Diabetes Past Surgical History Past Surgical History: Cholecystectomy, CABG, Hysterectomy Family History Family History: Heart Disease (sister) Social History No ALCOHOL: none Drugs: None Lives: with Family Current Problem List Problem List Problems Medical Problems: (1) Hypertension Status: Acute (2) Hypoxia Status: Acute (3) Shortness of breath Status: Acute Current Medications Current Medications Current Medications Labetalol HCl (Normodyne Iv Push) 20 mg 1X ONCE IVP Last administered on at 09:23; Start 10/07/19 at 09:00; Stop 10/07/19 at 09:01; Status DC Aspirin (Alexa Aspirin) 325 mg 1X ONCE PO Last administered on 10/07/19at 09:21; Start 10/07/19 at 09:00; Stop 10/07/19 at 09:01; Status DC Nitroglycerin (Nitrostat) 0.4 mg PRN Q5MIN PRN SL CHEST PAIN Last administered on 10/07/19at 10:57; Start 10/07/19 at 10:00 Furosemide (Lasix) 40 mg 1X ONCE IVP Last administered on 10/07/19at 10:44; Start 10/07/19 at 10:00; Stop 10/07/19 at 10:01; Status DC Aspirin (Aspirin Chewable) 324 mg 1X ONCE PO ; Start 10/07/19 at 11:30; Stop 10/07/19 at 11:31; Status UNV Enoxaparin Sodium (Lovenox 60mg Syringe) 60 mg 1X ONCE SQ Last administered on 10/07/19 12:29; Start 10/07/19 at 12:00; Stop 10/07/19 at 12:01; Status DC Nitroglycerin/ Dextrose 250 ml @ 0 mls/hr 1X ONCE IV Last administered on 10/07/19 14:26; Start 10/07/19 at 13:45; Stop 10/07/19 at 13:46; Status DC Atorvastatin Calcium (Lipitor) 40 mg QHS PO Last administered on 10/07/19at 21:37; Start 10/07/19 at 21:00 Carvedilol (Coreg) 25 mg BIDWMEALS PO Last administered on 10/08/19 08:16; Start 10/07/19 at 17:00 Clonidine HCl (Catapres) 0.3 mg TID PO Last administered on 10/08/19 08:17; Start 10/07/19 at 16:15 Doxazosin Mesylate (Cardura) 2 mg QHS PO Last administered on 10/07/19 21:38; Start 10/07/19 at 21:00 Hydralazine HCl (Apresoline) 100 mg TID PO Last administered on 10/08/19 08:16; Start 10/07/19 at 16:30 Isosorbide Mononitrate (Imdur) 60 mg BID PO Last administered on 10/08/19 08:15; Start 10/07/19 at 21:00 Aspirin (Ecotrin) 81 mg DAILYWBKFT PO Last administered on 10/08/19at 08:16; Start 10/08/19 at 08:00 Labetalol HCl (Normodyne Iv Push) 20 mg PRN Q2HR PRN IVP HYPERTENSION; Start 10/07/19 at 16:00 Furosemide (Lasix) 40 mg 1X ONCE IVP Last administered on 10/07/19at 17:29; Start 10/07/19 at 17:30; Stop 10/07/19 at 17:31; Status DC Furosemide (Lasix) 40 mg BID94 PO Last administered on 10/08/19at 08:15; Start 10/08/19 at 09:00 Acetaminophen/ Hydrocodone Bitart (Lortab 5/325) 1 tab PRN Q4HRS PRN PO PAIN Last administered on 10/08/19at 05:04; Start 10/07/19 at 17:30 Insulin Human Lispro (HumaLOG) 0-7 UNITS TIDWMEALS SQ Last administered on 10/06at 17:31; Start 10/07/19 at 18:00 Dextrose (Dextrose 50%-Water Syringe) 12.5 gm PRN Q15MIN PRN IV SEE COMMENTS; Start 10/07/19 at 17:30 Enoxaparin Sodium (Lovenox 30mg Syringe) 30 mg Q24H SQ Last administered on 10/08/19at 08:15; Start 10/08/19 at 09:00 Active Scripts Active Amitiza (Lubiprostone) 8 Mcg Capsule 1 Cap PO BID Colace (Docusate Sodium) 100 Mg Capsule 100 Mg PO DAILY 30 Days Simethicone 80 Mg Tab.chew 80 Mg PO PRN AFTMEALHC PRN 30 Days Furosemide 40 Mg Tablet 40 Mg PO BID92 30 Days Aldactone (Spironolactone) 25 Mg Tablet 25 Mg PO DAILY 30 Days Carvedilol (Carvedilol) 12.5 Mg Tablet 25 Mg PO BIDWMEALS Reported Hydralazine Hcl 100 Mg Tablet 1 Tab PO TID Cozaar (Losartan Potassium) 100 Mg Tablet 50 Mg PO DAILY Isosorbide Mononitrate Er (Isosorbide Mononitrate) 60 Mg Tab.er.24h 1 Tab PO BID Latanoprost 2.5 Ml Drops 1 Drop OP HS Doxazosin Mesylate 2 Mg Tablet 1 Tab PO HS Atorvastatin Calcium 40 Mg Tablet 1 Tab PO QHS Hydrocodone-Apap 7.5-325 (Hydrocodone Bit/Acetaminophen) 1 Each Tablet 1 Tab PO Q4HRS PRN Proair Hfa Inhaler (Albuterol Sulfate) 8.5 Gm Hfa.aer.ad 2 Puff IH PRN Q6HRS PRN Novolog Flexpen (Insulin Aspart) 100 Unit/1 Ml Insuln.pen 6 Unit SQ TIDAC Lantus (Insulin Glargine,Hum.rec.anlog) 100 Unit/1 Ml Vial 22 Unit SQ HS Omeprazole 20 Mg Capsule.dr 20 Mg PO BID Clonidine Hcl 0.3 Mg Tablet 0.3 Mg PO TID Allergies Allergies: Coded Allergies: Penicillins (Verified Allergy, Intermediate, 11/05/16) dopamine (Verified Allergy, Intermediate, 11/05/16) ROS General: YES: Fatigue, Malaise, Appetite PSYCHOLOGICAL ROS: YES: Anxiety, Depression Eyes: Yes Decreased vision HEENT: YES: Heacaches Respiratory: YES: Cough, Orthopnea, Shortness of breath Cardiovascular: yes Orthopnea, yes Edema Gastrointestinal: Yes Constipation Genitourinary: YES Other (ANURIA) Musculoskeletal: Yes Muscular Weakness Neurological: Yes Weakness Skin: Yes Dry Skin Physical Exam General: Alert, Oriented X3, Cooperative, No acute distress HEENT: Atraumatic, PERRLA, EOMI, Mucous membr. moist/pink Lungs: Other (DECREASED AT BASES) Heart: Regular rate Abdomen: Normal bowel sounds, No tenderness Extremities: No clubbing Skin: No breakdown Neuro: Normal speech, Sensation intact Psych/Mental Status: Mental status NL, Mood NL MUSCULOSKELETAL: No joint tenderness, No deformity, Other (1+ LE EDEMA) Vitals VITALS Vital Signs Date Time Temp Pulse Resp B/P (MAP) Pulse Ox O2 Delivery O2 Flow Rate FiO2 10/08/19 10:00 60 16 104/34 (57) 100 Nasal Cannula 2.0 10/08/19 07:00 98.6 98.6 Labs Labs Laboratory Tests Test 10/07/19 08:38 10/07/19 10:20 10/07/19 10:40 10/07/19 17:24 Urine Collection Type Void Urine Color Yellow Urine Clarity Clear Urine pH 5.5 (<5.0-8.0) Urine Specific Mcalister 1.010 (1.000-1.030) Urine Protein 100 mg/dL (NEG-TRACE) Urine Glucose (UA) 250 mg/dL (NEG) Urine Ketones (Stick) Negative mg/dL (NEG) Urine Blood Trace (NEG) Urine Nitrite Negative (NEG) Urine Bilirubin Negative (NEG) Urine Urobilinogen Dipstick 0.2 mg/dL (0.2 mg/dL) Urine Leukocyte Esterase Negative (NEG) Urine RBC 1-2 /HPF (0-2) Urine WBC 0 /HPF (0-4) Urine Squamous Epithelial Cells Few /LPF Urine Bacteria 0 /HPF (0-FEW) D-Dimer (Lissy) 3.49 ug/mlFEU (0.00-0.50) White Blood Count 9.8 x10^3/uL (4.0-11.0) Red Blood Count 3.28 x10^6/uL (3.50-5.40) Hemoglobin 8.9 g/dL (12.0-15.5) Hematocrit 27.3 % (36.0-47.0) Mean Corpuscular Volume 83 fL (79-100) Mean Corpuscular Hemoglobin 27 pg (25-35) Mean Corpuscular Hemoglobin Concent 33 g/dL (31-37) Red Cell Distribution Width 16.8 % (11.5-14.5) Platelet Count 235 x10^3/uL (140-400) Neutrophils (%) (Auto) 83 % (31-73) Lymphocytes (%) (Auto) 11 % (24-48) Monocytes (%) (Auto) 5 % (0-9) Eosinophils (%) (Auto) 1 % (0-3) Basophils (%) (Auto) 1 % (0-3) Neutrophils # (Auto) 8.1 x10^3/uL (1.8-7.7) Lymphocytes # (Auto) 1.1 x10^3/uL (1.0-4.8) Monocytes # (Auto) 0.5 x10^3/uL (0.0-1.1) Eosinophils # (Auto) 0.1 x10^3/uL (0.0-0.7) Basophils # (Auto) 0.1 x10^3/uL (0.0-0.2) Sodium Level 141 mmol/L (136-145) Potassium Level 4.3 mmol/L (3.5-5.1) Chloride Level 102 mmol/L (98-107) Carbon Dioxide Level 29 mmol/L (21-32) Anion Gap 10 (6-14) Blood Urea Nitrogen 50 mg/dL (7-20) Creatinine 2.6 mg/dL (0.6-1.0) Estimated GFR (Cockcroft-Gault) 21.8 BUN/Creatinine Ratio 19 (6-20) Glucose Level 263 mg/dL (70-99) Lactic Acid Level 1.2 mmol/L (0.4-2.0) Calcium Level 8.7 mg/dL (8.5-10.1) Magnesium Level 2.1 mg/dL (1.8-2.4) Ferritin 82 ng/mL (8-252) Total Bilirubin 0.2 mg/dL (0.2-1.0) Aspartate Amino Transf (AST/SGOT) 25 U/L (15-37) Alanine Aminotransferase (ALT/SGPT) 10 U/L (14-59) Alkaline Phosphatase 67 U/L (46-116) Lactate Dehydrogenase 283 U/L (81-234) Creatine Kinase 156 U/L (26-192) Creatine Kinase MB (Mass) 4.4 ng/mL (0.0-3.6) Creatine Kinase MB Relative Index 2.8 % (0-4) Troponin I Quantitative 0.216 ng/mL (0.000-0.055) ND-Nwx-L-Type Natriuretic Peptide 43917 pg/mL (0-124) Total Protein 7.0 g/dL (6.4-8.2) Albumin 2.8 g/dL (3.4-5.0) Albumin/Globulin Ratio 0.7 (1.0-1.7) Lipase 85 U/L (73-393) Glucose (Fingerstick) 198 mg/dL (70-99) Test 10/07/19 17:45 10/07/19 21:47 10/08/19 04:50 Troponin I Quantitative 0.222 ng/mL (0.000-0.055) Glucose (Fingerstick) 169 mg/dL (70-99) Sodium Level 141 mmol/L (136-145) Potassium Level 3.7 mmol/L (3.5-5.1) Chloride Level 104 mmol/L (98-107) Carbon Dioxide Level 33 mmol/L (21-32) Anion Gap 4 (6-14) Blood Urea Nitrogen 51 mg/dL (7-20) Creatinine 2.6 mg/dL (0.6-1.0) Estimated GFR (Cockcroft-Gault) 21.8 Glucose Level 142 mg/dL (70-99) Calcium Level 8.1 mg/dL (8.5-10.1) Magnesium Level 1.9 mg/dL (1.8-2.4) Laboratory Tests Test 10/07/19 17:24 10/07/19 17:45 10/07/19 21:47 10/08/19 04:50 Glucose (Fingerstick) 198 mg/dL (70-99) 169 mg/dL (70-99) Troponin I Quantitative 0.222 ng/mL (0.000-0.055) Sodium Level 141 mmol/L (136-145) Potassium Level 3.7 mmol/L (3.5-5.1) Chloride Level 104 mmol/L (98-107) Carbon Dioxide Level 33 mmol/L (21-32) Anion Gap 4 (6-14) Blood Urea Nitrogen 51 mg/dL (7-20) Creatinine 2.6 mg/dL (0.6-1.0) Estimated GFR (Cockcroft-Gault) 21.8 Glucose Level 142 mg/dL (70-99) Calcium Level 8.1 mg/dL (8.5-10.1) Magnesium Level 1.9 mg/dL (1.8-2.4) Assessment/Plan Assessment/Plan IMP CKD STAGE 4-CR STABLE AND AT BASELINE-2.6 HTN-LABILE ACUTE ON CHRONIC CHF DIASTOLIC DM II COVID PUI PLAN RULE OUT COVID RESUME HOME MEDS LASIX BID CARDIOLOGY AND PULM EVAL WILL FOLLOW GOLDEN MCDONALD MD Oct 08, 2019 11:29
--- NOTE | 2019-10-08 15:17 | NUR ---
SS following for discharge planning. SS reviewed pt chart and discussed with pt RN. Pt is from home and is currently requiring oxygen. COVID19 negative. Per RN, pt transferring up today. SS will continue to follow for discharge planning.
[2019-10-08] MEDS: DOXAZOSIN MESYLATE 1 MG TABLET. PO SCH (21:00)
[2019-10-08] MEDS: ATORVASTATIN CALCIUM 40 MG TABLET. PO SCH (21:49)
[2019-10-09] MEDS: HYDROcodone/APAP 5/325MG 1 TAB TABLET PO PRN ×2 (03:15→10:07)
[2019-10-09 03:45] VITALS: BP 151/45
[2019-10-09 07:00] VITALS: BP 197/81
[2019-10-09 08:00] LABS: CALCIUM 8.5 mg/dL (8.5-10.1); CREATININE 2.9 mg/dL (0.6-1.0); GFR 19.2; POTASSIUM 3.8 mmol/L (3.5-5.1)
[2019-10-09] MEDS: ENOXAPARIN 30 MG/0.3 ML SYRINGE. SQ SCH (08:28)
[2019-10-09] MEDS: FUROSEMIDE 40 MG TABLET. PO SCH (08:29)
[2019-10-09] MEDS: cloNIDine HCL 0.3 MG TABLET PO SCH ×2 (08:29→14:09)
[2019-10-09] MEDS: ASPIRIN ENTERIC COATED 81 MG TABLET.DR. PO SCH (08:29)
[2019-10-09] MEDS: ISOSORBIDE MONONITRATE ER 30 MG TAB.ER.24H PO SCH (08:30)
[2019-10-09] MEDS: INSULIN LISPRO 300 UNITS/3 ML VIAL. SQ SCH ×2 (08:43→12:14)
--- NOTE | 2019-10-09 08:56 | PDOC ---
PROGRESS NOTES Chief Complaint Chief Complaint A/P: Acute hypoxic respiratory failure secondary to acute on chronic diastolic heart failure. Abnormal chest x-ray consistent with congestive heart failure. Abnormal perfusion scan without the ventilation scan. There are perfusion defects seen bilaterally. Clinically, less likely thromboembolic disease. The scan is not helpful in determining pulmonary embolism as there is no ventilation scan done. Secondary pulmonary hypertension secondary to chronic diastolic dysfunction. CKD Anemia Mild troponin elevation; peak 0.21.EKG SR with first degree AV block otherwise no acute changes. Suspect type 2 with above culprits CAD s/p CABG in 2009. CP free COPD Acute on chronic diastolic heart failure - Echo 08/2018 with concentric LVH, normal EF, elevated RVSP Negative COVID-19 Consults: Pulmonary Medicine. Cardiology, Nephrology History of Present Illness History of Present Illness Paul is a 74yo F w/ PMHx HTN, HLD, Pulm HTN, carotid arterial disease, COPD, GERD, CKD, DM2, and CAD s/p CABG in 2009 and stenting 2013 who is admitted for complains of shortness of breath, and reports of leg swelling. Denies any chest pain or palpitations. She does take multiple BP meds and reports that she takes these daily and today is the only time she missed. Having said despite her nu mber of BP meds she does not check her BP readings at home. No recent falls or injury. No fever or chills and no productive cough and denies Covid exposure. Denies any prior nausea, vomiting or diarrhea. COVID testing negative. She improved after IV diuresis with lasix, was seen by nephrology, pulmonology and cardiology in consultation. After discussion with her son bedside there is some question of medication compliance as he is not with her 07/10 because he works to live together. He is also concerned about dietary indiscretion as she drinks a significant amount of soda and does not avoid salty and high phosphate foods. They were counseled in depth and requested home health so that she can have a congestive heart failure prison and potentially get a referral for cardiac rehab in the near future. Vitals Vitals Vital Signs Date Time Temp Pulse Resp B/P (MAP) Pulse Ox O2 Delivery O2 Flow Rate FiO2 10/09/19 08:30 68 197/81 10/09/19 07:00 99.0 16 96 Room Air 99.0 10/09/19 00:16 2.0 Physical Exam General: Alert, Oriented X3, Cooperative, No acute distress Heart: Regular rate Lungs: Clear Abdomen: Normal bowel sounds, No tenderness Extremities: No clubbing Skin: No breakdown Labs LABS Laboratory Tests Test 10/08/19 12:12 10/08/19 17:02 10/08/19 19:58 10/08/19 21:27 Glucose (Fingerstick) 255 mg/dL (70-99) 128 mg/dL (70-99) 76 mg/dL (70-99) 137 mg/dL (70-99) Test 10/09/19 06:57 10/09/19 07:20 Sodium Level 136 mmol/L (136-145) Potassium Level 3.8 mmol/L (3.5-5.1) Chloride Level 98 mmol/L (98-107) Carbon Dioxide Level 32 mmol/L (21-32) Anion Gap 6 (6-14) Blood Urea Nitrogen 54 mg/dL (-20) Creatinine 2.9 mg/dL (0.6-1.0) Estimated GFR (Cockcroft-Gault) 19.2 Glucose Level 261 mg/dL (70-99) Calcium Level 8.5 mg/dL (8.5-10.1) Magnesium Level 2.0 mg/dL (1.8-2.4) Glucose (Fingerstick) 228 mg/dL (70-99) Assessment and Plan Assessmemt and Plan Problems Medical Problems: (1) Hypertension Status: Acute (2) Hypoxia Status: Acute (3) Shortness of breath Status: Acute Comment Review of Relevant I have reviewed the following items russell (where applicable) has been applied. Labs Laboratory Tests Test 10/07/19 10:20 10/07/19 10:26 10/07/19 10:40 10/07/19 17:24 D-Dimer (Lissy) 3.49 ug/mlFEU (0.00-0.50) Coronavirus (PCR) Not detected (Not Detected) White Blood Count 9.8 x10^3/uL (4.0-11.0) Red Blood Count 3.28 x10^6/uL (3.50-5.40) Hemoglobin 8.9 g/dL (12.0-15.5) Hematocrit 27.3 % (36.0-47.0) Mean Corpuscular Volume 83 fL (79-100) Mean Corpuscular Hemoglobin 27 pg (25-35) Mean Corpuscular Hemoglobin Concent 33 g/dL (31-37) Red Cell Distribution Width 16.8 % (11.5-14.5) Platelet Count 235 x10^3/uL (140-400) Neutrophils (%) (Auto) 83 % (31-73) Lymphocytes (%) (Auto) 11 % (24-48) Monocytes (%) (Auto) 5 % (0-9) Eosinophils (%) (Auto) 1 % (0-3) Basophils (%) (Auto) 1 % (0-3) Neutrophils # (Auto) 8.1 x10^3/uL (1.8-7.7) Lymphocytes # (Auto) 1.1 x10^3/uL (1.0-4.8) Monocytes # (Auto) 0.5 x10^3/uL (0.0-1.1) Eosinophils # (Auto) 0.1 x10^3/uL (0.0-0.7) Basophils # (Auto) 0.1 x10^3/uL (0.0-0.2) Sodium Level 141 mmol/L (136-145) Potassium Level 4.3 mmol/L (3.5-5.1) Chloride Level 102 mmol/L (98-107) Carbon Dioxide Level 29 mmol/L (21-32) Anion Gap 10 (6-14) Blood Urea Nitrogen 50 mg/dL (7-20) Creatinine 2.6 mg/dL (0.6-1.0) Estimated GFR (Cockcroft-Gault) 21.8 BUN/Creatinine Ratio 19 (6-20) Glucose Level 263 mg/dL (70-99) Lactic Acid Level 1.2 mmol/L (0.4-2.0) Calcium Level 8.7 mg/dL (8.5-10.1) Magnesium Level 2.1 mg/dL (1.8-2.4) Ferritin 82 ng/mL (8-252) Total Bilirubin 0.2 mg/dL (0.2-1.0) Aspartate Amino Transf (AST/SGOT) 25 U/L (15-37) Alanine Aminotransferase (ALT/SGPT) 10 U/L (14-59) Alkaline Phosphatase 67 U/L (46-116) Lactate Dehydrogenase 283 U/L (81-234) Creatine Kinase 156 U/L (26-192) Creatine Kinase MB (Mass) 4.4 ng/mL (0.0-3.6) Creatine Kinase MB Relative Index 2.8 % (0-4) Troponin I Quantitative 0.216 ng/mL (0.000-0.055) WL-Xlt-S-Type Natriuretic Peptide 71382 pg/mL (0-124) Total Protein 7.0 g/dL (6.4-8.2) Albumin 2.8 g/dL (3.4-5.0) Albumin/Globulin Ratio 0.7 (1.0-1.7) Lipase 85 U/L (73-393) Glucose (Fingerstick) 198 mg/dL (70-99) Test 10/07/19 17:45 10/07/19 21:47 10/08/19 04:50 10/08/19 12:12 Troponin I Quantitative 0.222 ng/mL (0.000-0.055) Glucose (Fingerstick) 169 mg/dL (70-99) 255 mg/dL (70-99) White Blood Count 6.4 x10^3/uL (4.0-11.0) Red Blood Count 2.97 x10^6/uL (3.50-5.40) Hemoglobin 8.0 g/dL (12.0-15.5) Hematocrit 24.5 % (36.0-47.0) Mean Corpuscular Volume 83 fL (79-100) Mean Corpuscular Hemoglobin 27 pg (25-35) Mean Corpuscular Hemoglobin Concent 33 g/dL (31-37) Red Cell Distribution Width 16.7 % (11.5-14.5) Platelet Count 230 x10^3/uL (140-400) Sodium Level 141 mmol/L (136-145) Potassium Level 3.7 mmol/L (3.5-5.1) Chloride Level 104 mmol/L (98-107) Carbon Dioxide Level 33 mmol/L (21-32) Anion Gap 4 (6-14) Blood Urea Nitrogen 51 mg/dL (7-20) Creatinine 2.6 mg/dL (0.6-1.0) Estimated GFR (Cockcroft-Gault) 21.8 Glucose Level 142 mg/dL (70-99) Calcium Level 8.1 mg/dL (8.5-10.1) Magnesium Level 1.9 mg/dL (1.8-2.4) Test 10/08/19 17:02 10/08/19 19:58 10/08/19 21:27 10/09/19 06:57 Glucose (Fingerstick) 128 mg/dL (70-99) 76 mg/dL (70-99) 137 mg/dL (70-99) Sodium Level 136 mmol/L (136-145) Potassium Level 3.8 mmol/L (3.5-5.1) Chloride Level 98 mmol/L (98-107) Carbon Dioxide Level 32 mmol/L (21-32) Anion Gap 6 (6-14) Blood Urea Nitrogen 54 mg/dL (7-20) Creatinine 2.9 mg/dL (0.6-1.0) Estimated GFR (Cockcroft-Gault) 19.2 Glucose Level 261 mg/dL (70-99) Calcium Level 8.5 mg/dL (8.5-10.1) Magnesium Level 2.0 mg/dL (1.8-2.4) Test 10/09/19 07:20 Glucose (Fingerstick) 228 mg/dL (70-99) Laboratory Tests Test 10/08/19 12:12 10/08/19 17:02 10/08/19 19:58 10/08/19 21:27 Glucose (Fingerstick) 255 mg/dL (70-99) 128 mg/dL (70-99) 76 mg/dL (70-99) 137 mg/dL (70-99) Test 10/09/19 06:57 10/09/19 07:20 Sodium Level 136 mmol/L (136-145) Potassium Level 3.8 mmol/L (3.5-5.1) Chloride Level 98 mmol/L (98-107) Carbon Dioxide Level 32 mmol/L (21-32) Anion Gap 6 (6-14) Blood Urea Nitrogen 54 mg/dL (7-20) Creatinine 2.9 mg/dL (0.6-1.0) Estimated GFR (Cockcroft-Gault) 19.2 Glucose Level 261 mg/dL (70-99) Calcium Level 8.5 mg/dL (8.5-10.1) Magnesium Level 2.0 mg/dL (1.8-2.4) Glucose (Fingerstick) 228 mg/dL (70-99) Microbiology 10/07/19 Blood Culture - Preliminary, Resulted NO GROWTH AFTER 1 DAY Medications Current Medications Labetalol HCl (Normodyne Iv Push) 20 mg 1X ONCE IVP Last administered on 10/07/19at 09:23; Start 10/07/19 at 09:00; Stop 10/07/19 at 09:01; Status DC Aspirin (Alexa Aspirin) 325 mg 1X ONCE PO Last administered on 10/07/19at 09:21; Start 10/07/19 at 09:00; Stop 10/07/19 at 09:01; Status DC Nitroglycerin (Nitrostat) 0.4 mg PRN Q5MIN PRN SL CHEST PAIN Last administered on 10/07/19at 10:57; Start 10/07/19 at 10:00 Furosemide (Lasix) 40 mg 1X ONCE IVP Last administered on 10/07/19at 10:44; St art 10/07/19 at 10:00; Stop 10/07/19 at 10:01; Status DC Aspirin (Aspirin Chewable) 324 mg 1X ONCE PO ; Start 10/07/19 at 11:30; Stop 10/07/19 at 11:31; Status UNV Enoxaparin Sodium (Lovenox 60mg Syringe) 60 mg 1X ONCE SQ Last administered on 10/07/19at 12:29; Start 10/07/19 at 12:00; Stop 10/07/19 at 12:01; Status DC Nitroglycerin/ Dextrose 250 ml @ 0 mls/hr 1X ONCE IV Last administered on 10/07/19at 14:26; Start 10/07/19 at 13:45; Stop 10/07/19 at 13:46; Status DC Atorvastatin Calcium (Lipitor) 40 mg QHS PO Last administered on 10/08/19at 21:49; Start 10/07/19 at 21:00 Carvedilol (Coreg) 25 mg BIDWMEALS PO Last administered on 10/08/19at 21:51; Start 10/07/19 at 17:00 Clonidine HCl (Catapres) 0.3 mg TID PO Last administered on 10/09/19at 08:29; Start 10/07/19 at 16:15 Doxazosin Mesylate (Cardura) 2 mg QHS PO Last administered on 10/08/19 21:00; Start 10/07/19 at 21:00 Hydralazine HCl (Apresoline) 100 mg TID PO Last administered on 10/09/19 08:29; Start 10/07/19 at 16:30 Isosorbide Mononitrate (Imdur) 60 mg BID PO Last administered on 10/09/19 08:30; Start 10/07/19 at 21:00 Aspirin (Ecotrin) 81 mg DAILYWBKFT PO Last administered on 10/09/19 08:29; Start 10/08/19 at 08:00 Labetalol HCl (Normodyne Iv Push) 20 mg PRN Q2HR PRN IVP HYPERTENSION; Start 10/07/19 at 16:00 Furosemide (Lasix) 40 mg 1X ONCE IVP Last administered on 10/07/19at 17:29; Start 10/07/19 at 17:30; Stop 10/07/19 at 17:31; Status DC Furosemide (Lasix) 40 mg BID94 PO Last administered on 10/09/19at 08:29; Start 10/08/19 at 09:00 Acetaminophen/ Hydrocodone Bitart (Lortab 5/325) 1 tab PRN Q4HRS PRN PO PAIN Last administered on 10/09/19at 03:15; Start 10/07/19 at 17:30 Insulin Human Lispro (HumaLOG) 0-7 UNITS TIDWMEALS SQ Last administered on 10/09/19 08:43; Start 10/07/19 at 18:00 Dextrose (Dextrose 50%-Water Syringe) 12.5 gm PRN Q15MIN PRN IV SEE COMMENTS; Start 10/07/19 at 17:30 Enoxaparin Sodium (Lovenox 30mg Syringe) 30 mg Q24H SQ Last administered on 10/09/19at 08:28; Start 10/08/19 at 09:00 Latanoprost (Xalatan) 1 drop HS OU ; Start 10/09/19 at 21:00 Active Scripts Active Amitiza (Lubiprostone) 8 Mcg Capsule 1 Cap PO BID Colace (Docusate Sodium) 100 Mg Capsule 100 Mg PO DAILY 30 Days Simethicone 80 Mg Tab.chew 80 Mg PO PRN AFTMEALHC PRN 30 Days Furosemide 40 Mg Tablet 40 Mg PO BID92 30 Days Aldactone (Spironolactone) 25 Mg Tablet 25 Mg PO DAILY 30 Days Carvedilol (Carvedilol) 12.5 Mg Tablet 25 Mg PO BIDWMEALS Reported Hydralazine Hcl 100 Mg Tablet 1 Tab PO TID Cozaar (Losartan Potassium) 100 Mg Tablet 50 Mg PO DAILY Isosorbide Mononitrate Er (Isosorbide Mononitrate) 60 Mg Tab.er.24h 1 Tab PO BID Latanoprost 2.5 Ml Drops 1 Drop OP HS Doxazosin Mesylate 2 Mg Tablet 1 Tab PO HS Atorvastatin Calcium 40 Mg Tablet 1 Tab PO QHS Hydrocodone-Apap 7.5-325 (Hydrocodone Bit/Acetaminophen) 1 Each Tablet 1 Tab PO Q4HRS PRN Proair Hfa Inhaler (Albuterol Sulfate) 8.5 Gm Hfa.aer.ad 2 Puff IH PRN Q6HRS PRN Novolog Flexpen (Insulin Aspart) 100 Unit/1 Ml Insuln.pen 6 Unit SQ TIDAC Lantus (Insulin Glargine,Hum.rec.anlog) 100 Unit/1 Ml Vial 22 Unit SQ HS Omeprazole 20 Mg Capsule.dr 20 Mg PO BID Clonidine Hcl 0.3 Mg Tablet 0.3 Mg PO TID Vitals/I & O Vital Sign - Last 24 Hours 10/08/19 10/08/19 10/08/19 10/08/19 09:00 10:00 11:00 12:00 Pulse 60 60 64 Resp 16 16 16 B/P (MAP) 111/41 (64) 104/34 (57) 130/45 (73) Pulse Ox 100 100 100 O2 Delivery Nasal Cannula Nasal Cannula Nasal Cannula Nasal Cannula O2 Flow Rate 2.0 2.0 2.0 2.0 10/08/19 10/08/19 10/08/19 10/08/19 12:00 13:00 14:00 14:36 Temp 98.9 98.9 Pulse 64 64 62 62 Resp 16 16 16 B/P (MAP) 129/52 (77) 118/43 (68) 128/48 (74) 128/48 Pulse Ox 100 100 100 O2 Delivery Nasal Cannula Nasal Cannula Nasal Cannula O2 Flow Rate 2.0 2.0 2.0 10/08/19 10/08/19 10/08/19 10/08/19 14:37 17:29 19:21 20:00 Temp 98.2 98.2 Pulse 62 57 53 Resp 16 B/P (MAP) 128/48 127/56 138/55 (82) Pulse Ox 92 O2 Delivery Room Air Nasal Cannula O2 Flow Rate 2.0 10/08/19 10/08/19 10/08/19 10/08/19 21:00 21:49 21:50 21:50 Pulse 53 53 53 53 B/P (MAP) 138/55 138/55 138/55 138/55 10/08/19 10/08/19 10/08/19 10/09/19 21:51 23:06 23:57 00:16 Temp 98.7 98.7 Pulse 53 65 Resp 20 16 B/P (MAP) 138/55 145/45 (78) Pulse Ox 92 92 O2 Delivery Room Air Nasal Cannula O2 Flow Rate 2.0 10/09/19 10/09/19 10/09/19 10/09/19 03:15 03:45 04:15 07:00 Temp 98.6 99.0 98.6 99.0 Pulse 57 68 Resp 20 16 18 16 B/P (MAP) 151/45 (80) 197/81 (119) Pulse Ox 94 96 O2 Delivery Room Air Room Air Room Air Room Air 10/09/19 10/09/19 10/09/19 08:29 08:29 08:30 Pulse 68 68 68 B/P (MAP) 197/81 197/81 197/81 Intake and Output 10/08/19 10/08/19 10/09/19 15:00 23:00 07:00 Output Total 115 ml 900 ml Balance -115 ml -900 ml Justicifation of Admission Dx: Justifications for Admission: Justification of Admission Dx: Yes Hypertension: Symp at Rest TOBIAS MONTOYA MD Oct 09, 2019 08:56
--- NOTE | 2019-10-09 09:43 | PDOC ---
PULMONARY PROGRESS NOTES Subjective feels better, on RA Vitals Vital Signs Date Time Temp Pulse Resp B/P (MAP) Pulse Ox O2 Delivery O2 Flow Rate FiO2 10/09/19 08:30 68 197/81 10/09/19 07:00 99.0 16 96 Room Air 99.0 10/09/19 00:16 2.0 General: Alert, No acute distress Lungs: Clear Cardiovascular: S1, S2 Abdomen: Soft Neuro Exam: Alert Extremities: No Edema Skin: Warm Labs Laboratory Tests Test 10/07/19 10:20 10/07/19 10:26 10/07/19 10:40 10/07/19 17:24 D-Dimer (Lissy) 3.49 ug/mlFEU (0.00-0.50) Coronavirus (PCR) Not detected (Not Detected) White Blood Count 9.8 x10^3/uL (4.0-11.0) Red Blood Count 3.28 x10^6/uL (3.50-5.40) Hemoglobin 8.9 g/dL (12.0-15.5) Hematocrit 27.3 % (36.0-47.0) Mean Corpuscular Volume 83 fL (79-100) Mean Corpuscular Hemoglobin 27 pg (25-35) Mean Corpuscular Hemoglobin Concent 33 g/dL (31-37) Red Cell Distribution Width 16.8 % (11.5-14.5) Platelet Count 235 x10^3/uL (140-400) Neutrophils (%) (Auto) 83 % (31-73) Lymphocytes (%) (Auto) 11 % (24-48) Monocytes (%) (Auto) 5 % (0-9) Eosinophils (%) (Auto) 1 % (0-3) Basophils (%) (Auto) 1 % (0-3) Neutrophils # (Auto) 8.1 x10^3/uL (1.8-7.7) Lymphocytes # (Auto) 1.1 x10^3/uL (1.0-4.8) Monocytes # (Auto) 0.5 x10^3/uL (0.0-1.1) Eosinophils # (Auto) 0.1 x10^3/uL (0.0-0.7) Basophils # (Auto) 0.1 x10^3/uL (0.0-0.2) Sodium Level 141 mmol/L (136-145) Potassium Level 4.3 mmol/L (3.5-5.1) Chloride Level 102 mmol/L (98-107) Carbon Dioxide Level 29 mmol/L (21-32) Anion Gap 10 (6-14) Blood Urea Nitrogen 50 mg/dL (7-20) Creatinine 2.6 mg/dL (0.6-1.0) Estimated GFR (Cockcroft-Gault) 21.8 BUN/Creatinine Ratio 19 (6-20) Glucose Level 263 mg/dL (70-99) Lactic Acid Level 1.2 mmol/L (0.4-2.0) Calcium Level 8.7 mg/dL (8.5-10.1) Magnesium Level 2.1 mg/dL (1.8-2.4) Ferritin 82 ng/mL (8-252) Total Bilirubin 0.2 mg/dL (0.2-1.0) Aspartate Amino Transf (AST/SGOT) 25 U/L (15-37) Alanine Aminotransferase (ALT/SGPT) 10 U/L (14-59) Alkaline Phosphatase 67 U/L (46-116) Lactate Dehydrogenase 283 U/L (81-234) Creatine Kinase 156 U/L (26-192) Creatine Kinase MB (Mass) 4.4 ng/mL (0.0-3.6) Creatine Kinase MB Relative Index 2.8 % (0-4) Troponin I Quantitative 0.216 ng/mL (0.000-0.055) MC-Elz-K-Type Natriuretic Peptide 17924 pg/mL (0-124) Total Protein 7.0 g/dL (6.4-8.2) Albumin 2.8 g/dL (3.4-5.0) Albumin/Globulin Ratio 0.7 (1.0-1.7) Lipase 85 U/L (73-393) Glucose (Fingerstick) 198 mg/dL (70-99) Test 10/07/19 17:45 10/07/19 21:47 10/08/19 04:50 10/08/19 12:12 Troponin I Quantitative 0.222 ng/mL (0.000-0.055) Glucose (Fingerstick) 169 mg/dL (70-99) 255 mg/dL (70-99) White Blood Count 6.4 x10^3/uL (4.0-11.0) Red Blood Count 2.97 x10^6/uL (3.50-5.40) Hemoglobin 8.0 g/dL (12.0-15.5) Hematocrit 24.5 % (36.0-47.0) Mean Corpuscular Volume 83 fL (79-100) Mean Corpuscular Hemoglobin 27 pg (25-35) Mean Corpuscular Hemoglobin Concent 33 g/dL (31-37) Red Cell Distribution Width 16.7 % (11.5-14.5) Platelet Count 230 x10^3/uL (140-400) Sodium Level 141 mmol/L (136-145) Potassium Level 3.7 mmol/L (3.5-5.1) Chloride Level 104 mmol/L (98-107) Carbon Dioxide Level 33 mmol/L (21-32) Anion Gap 4 (6-14) Blood Urea Nitrogen 51 mg/dL (7-20) Creatinine 2.6 mg/dL (0.6-1.0) Estimated GFR (Cockcroft-Gault) 21.8 Glucose Level 142 mg/dL (70-99) Calcium Level 8.1 mg/dL (8.5-10.1) Magnesium Level 1.9 mg/dL (1.8-2.4) Test 10/08/19 17:02 10/08/19 19:58 10/08/19 21:27 10/09/19 06:57 Glucose (Fingerstick) 128 mg/dL (70-99) 76 mg/dL (70-99) 137 mg/dL (70-99) Sodium Level 136 mmol/L (136-145) Potassium Level 3.8 mmol/L (3.5-5.1) Chloride Level 98 mmol/L (98-107) Carbon Dioxide Level 32 mmol/L (21-32) Anion Gap 6 (6-14) Blood Urea Nitrogen 54 mg/dL (7-20) Creatinine 2.9 mg/dL (0.6-1.0) Estimated GFR (Cockcroft-Gault) 19.2 Glucose Level 261 mg/dL (70-99) Calcium Level 8.5 mg/dL (8.5-10.1) Magnesium Level 2.0 mg/dL (1.8-2.4) Test 10/09/19 07:20 Glucose (Fingerstick) 228 mg/dL (70-99) Laboratory Tests Test 10/08/19 12:12 10/08/19 17:02 10/08/19 19:58 10/08/19 21:27 Glucose (Fingerstick) 255 mg/dL (70-99) 128 mg/dL (70-99) 76 mg/dL (70-99) 137 mg/dL (70-99) Test 10/09/19 06:57 10/09/19 07:20 Sodium Level 136 mmol/L (136-145) Potassium Level 3.8 mmol/L (3.5-5.1) Chloride Level 98 mmol/L (98-107) Carbon Dioxide Level 32 mmol/L (21-32) Anion Gap 6 (6-14) Blood Urea Nitrogen 54 mg/dL (-20) Creatinine 2.9 mg/dL (0.6-1.0) Estimated GFR (Cockcroft-Gault) 19.2 Glucose Level 261 mg/dL (70-99) Calcium Level 8.5 mg/dL (8.5-10.1) Magnesium Level 2.0 mg/dL (1.8-2.4) Glucose (Fingerstick) 228 mg/dL (70-99) Medications Active Scripts Medications Dose Route/Sig Max Daily Dose Days Date Category Amitiza (Lubiprostone) 8 Mcg Capsule 1 Cap PO BID 11/27/18 Rx Hydralazine Hcl 100 Mg Tablet 1 Tab PO TID 11/24/18 Reported Cozaar (Losartan Potassium) 100 Mg Tablet 50 Mg PO DAILY 11/24/18 Reported Colace (Docusate Sodium) 100 Mg Capsule 100 Mg PO DAILY 30 08/26/18 Rx Simethicone 80 Mg Tab.chew 80 Mg PO PRN AFTMEALHC PRN 30 08/26/18 Rx Furosemide 40 Mg Tablet 40 Mg PO BID92 08/26/18 Rx Aldactone (Spironolactone) 25 Mg Tablet 25 Mg PO DAILY 30 08/26/18 Rx Carvedilol (Carvedilol) 12.5 Mg Tablet 25 Mg PO BIDWMEALS 03/15/15 Rx Isosorbide Mononitrate Er (Isosorbide Mononitrate) 60 Mg Tab.er.24h 1 Tab PO BID 03/11/15 Reported Latanoprost 2.5 Ml Drops 1 Drop OP HS 03/11/15 Reported Doxazosin Mesylate 2 Mg Tablet 1 Tab PO HS 03/10/15 Reported Atorvastatin Calcium 40 Mg Tablet 1 Tab PO QHS 03/10/15 Reported Hydrocodone-Apap 7.5-325 (Hydrocodone Bit/Acetaminophen) 1 Each Tablet 1 Tab PO Q4HRS PRN 03/10/15 Reported Proair Hfa Inhaler (Albuterol Sulfate) 8.5 Gm Hfa.aer.ad 2 Puff IH PRN Q6HRS PRN 03/10/15 Reported Novolog Flexpen (Insulin Aspart) 100 Unit/1 Ml Insuln.pen 6 Unit SQ TIDAC 04/08/13 Reported Lantus (Insulin Glargine,Hum.rec.anlog) 100 Unit/1 Ml Vial 22 Unit SQ HS 04/08/13 Reported Omeprazole 20 Mg Capsule.dr 20 Mg PO BID 03/04/13 Reported Clonidine Hcl 0.3 Mg Tablet 0.3 Mg PO TID 03/04/13 Reported Impression . 1. Acute hypoxic respiratory failure secondary to acute on chronic diastolic heart failure. 2. Abnormal chest x-ray consistent with congestive heart failure. 3. Abnormal perfusion scan without the ventilation scan. There are perfusion defects seen bilaterally. Clinically, less likely thromboembolic disease. The scan is not helpful in determining pulmonary embolism as there is no ventilation scan done. 4. No significant tobacco history. 5. Secondary pulmonary hypertension secondary to chronic diastolic dysfunction. 6. CKD 7. Anemia Plan . RECOMMENDATIONS: 1. Off O2 2. Continue with p.o. diuretics.may reduce dose per PCP 3. Monitor renal function closely 4. Lovenox for DVT prophylaxis. Clinically, I do not think that she has PE. 5. Follow cardiology recommendations. 6. Discussed with RN, stable pulmonary dangelo for ROXANNA VAN MD Oct 09, 2019 09:43
[2019-10-09] MEDS ORDERED: FURO40TA4 PO (11:02)
[2019-10-09] MEDS ORDERED: ASPI-886 PO (11:02)
--- NOTE | 2019-10-09 11:05 | SNU/HH DC ---
DISCHARGE WITH HOME HEALTH DISCHARGE INFORMATION: Discharge Date: Oct 09, 2019 Final Diagnosis: Problems Medical Problems: (1) Hypertension Status: Acute (2) Hypoxia Status: Acute (3) Shortness of breath Status: Acute Condition on Discharge: Stable CODE STATUS: Code Status: Full HOME HEALTH: Face to Face: I certify this patient is under my care and that I, or a nurse practitioner or physician's assistant news director working with me, had a face to face encounter that meets the physician face to face encounter requirements with this patient on 10/09/2019. Medical Complications: CHF Senior Living For: Assess Cardiopulm Status, Assess & Educate Safety, Assess/Skilled Observatio, Medication Management RN For Eval/Treatment: Yes Physical Therapy For: Evalulation/Treatment Occupational Therapy For: Evaluation/Treatment Pt Meets Homebound Status: Unsteady balance w/ amb,, Fatigue w/ amb. POST DISCHARGE ORDERS: Activity Instructions for Disc: Resume previous activity, Activity as tolerated Weight Bearing Status after Di: No restrictions, As tolerated CHECKS AFTER DISCHARGE: Checks after discharge: Check blood press - daily, Check blood sugar, ac/hs, Weigh Yourself Daily FOLLOW-UP: PCP to follow Home Health: Dr. Mohan Follow up with: Dr. Martinez TREATMENT/EQUIPMENT ORDERS: Adaptive Equipment Issued: None CERTIFICATION STATEMENT: Certification Statement: Certification Statement: Based on the above finding, I certify that this patient is confined to the home and needs intermittent penitentiary care, physical therapy and/or speech therapy, or continues to need occupational therapy.~ This patient is under my care, and I have initiated the establishment of the plan of care.~ This patient will be followed by myself or a community physician who will periodically review the plan of care. Home Meds Active Scripts Aspirin (ASPIRIN EC) 81 Mg Tablet., 81 MG PO DAILYWBKFT for CHF for 90 Days, #90 TAB.SR 3 Refills Prov:TOBIAS MONTOYA MD 10/09/19 Furosemide (FUROSEMIDE) 40 Mg Tablet, 40 MG PO BID92 for chf for 30 Days, #60 TAB 5 Refills Weight yourself daily, if you gain 3 pounds or more increase dose to 80mg BID for 3 days and contact your county auditor Prov:TOBIAS MONTOYA MD 10/09/19 Lubiprostone (AMITIZA) 8 Mcg Capsule, 1 CAP PO BID for constipation, #60 CAP 5 Refills Prov:Andreas MOHAN MD 11/27/18 Docusate Sodium (COLACE) 100 Mg Capsule, 100 MG PO DAILY for constipation for 30 Days, #30 CAP Prov:Andreas MOHAN MD 08/26/18 Simethicone (SIMETHICONE) 80 Mg Tab.chew, 80 MG PO PRN AFTMEALHC PRN for GAS / BLOATING for 30 Days, #100 TAB.CHEW 5 Refills Prov:Andreas MOHAN MD 08/26/18 Carvedilol (CARVEDILOL ) 12.5 Mg Tablet, 25 MG PO BIDWMEALS, #60 Prov:Andreas MOHAN MD 03/15/15 Reported Medications Hydralazine Hcl (HYDRALAZINE HCL) 100 Mg Tablet, 1 TAB PO TID for htn, #90 TAB 5 Refills 11/24/18 Isosorbide Mononitrate (ISOSORBIDE MONONITRATE ER) 60 Mg Tab.er.24h, 1 TAB PO BID, #30 TAB 5 Refills 03/11/15 Latanoprost (LATANOPROST) 2.5 Ml Drops, 1 DROP OP HS, EACH 03/11/15 Doxazosin Mesylate (DOXAZOSIN MESYLATE) 2 Mg Tablet, 1 TAB PO HS for BP, #30 TAB 5 Refills 03/10/15 Atorvastatin Calcium (ATORVASTATIN CALCIUM) 40 Mg Tablet, 1 TAB PO QHS, #90 TAB 3 Refills 03/10/15 Hydrocodone Bit/Acetaminophen (HYDROCODONE-APAP 7.5-325 ) 1 Each Tablet, 1 TAB PO Q4HRS PRN for PAIN, TAB 0 Refills 03/10/15 Albuterol Sulfate (PROAIR HFA INHALER) 8.5 Gm Hfa.aer.ad, 2 PUFF IH PRN Q6HRS PRN for WHEEZING, #1 INHALER 03/10/15 Insulin Aspart (NOVOLOG FLEXPEN) 100 Unit/1 Ml Insuln.pen, 6 UNIT SQ TIDAC 04/08/13 Insulin Glargine,Hum.rec.anlog (LANTUS) 100 Unit/1 Ml Vial, 22 UNIT SQ HS for diabetes, VIAL 04/08/13 Omeprazole (OMEPRAZOLE) 20 Mg Capsule.dr, 20 MG PO BID 03/04/13 Clonidine Hcl (CLONIDINE HCL) 0.3 Mg Tablet, 0.3 MG PO TID 03/04/13 Discontinued Reported Medications Losartan Potassium (COZAAR) 100 Mg Tablet, 50 MG PO DAILY for HYPERTENSION, TAB 11/24/18 Discontinued Scripts Spironolactone (ALDACTONE) 25 Mg Tablet, 25 MG PO DAILY for heart for 30 Days, #30 TAB 5 Refills Prov:Andreas MOHAN MD 08/26/18 TOBIAS MONTOYA MD Oct 09, 2019 11:05
[2019-10-09 11:21] VITALS: BP 181/55
--- NOTE | 2019-10-09 12:13 | RAD ---
EXAM: Bilateral lower extremity venous Doppler sonogram. HISTORY: Pain and swelling. TECHNIQUE: Johnson scale and color Doppler sonographic evaluation of the bilateral lower extremity veins with spectral waveform analysis was performed. FINDINGS: There is normal color flow, normal compressibility and there are normal spectral waveforms in the common femoral, superficial femoral, popliteal, posterior tibial and greater saphenous veins. IMPRESSION: No Doppler evidence of lower extremity deep venous thrombosis. Electronically signed by: Milena Collazo MD (10/09/2019 12:10 PM) [id number]
--- NOTE | 2019-10-09 12:49 | PDOC ---
SUBJECTIVE ROS No complaints, ready to go home OBJECTIVE Vital Signs Vital Signs Date Time Temp Pulse Resp B/P (MAP) Pulse Ox O2 Delivery O2 Flow Rate FiO2 10/09/19 11:24 70 181/55 10/09/19 11:21 100.1 18 96 Room Air 100.1 10/09/19 00:16 2.0 I & 0 Intake and Output 10/09/19 07:00 Output Total 1015 ml Balance -1015 ml Output Urine Total 1015 ml PHYSICAL EXAM Physical Exam General: Alert, Oriented X3, Cooperative, No acute distress HEENT: Atraumatic, PERRLA, EOMI, Mucous membr. moist/pink Lungs: Other (DECREASED AT BASES) Heart: Regular rate Abdomen: Normal bowel sounds, No tenderness Extremities: No clubbing Skin: No breakdown Neuro: Normal speech, Sensation intact Psych/Mental Status: Mental status NL, Mood NL MUSCULOSKELETAL: No joint tenderness, No deformity, Other (1+ LE EDEMA) DIAGNOSIS/ASSESSMENT Assessment & Plan CKD STAGE 4-CR STABLE A AT BASELINE-2.6, CR ELEVATED TO 2.9 TODAY PT WANTS TO GO HOME, RECOMMNEDED FU LABS WITH PCP OR DR. ALFARO HTN-LABILE ACUTE ON CHRONIC CHF DIASTOLIC DM II COVID PUI PLAN RULE OUT COVID RESUME HOME MEDS LASIX BID- TITRATE DOWN IF WORSENING RENAL FUNCTION COMMENT/RELEVANT DATA Meds Current Medications Medications (Trade) Dose Ordered Sig/Gisselle Start Time Stop Time Status Last Admin Dose Admin Acetaminophen/ Hydrocodone Bitart (Lortab 5/325) 1 tab PRN Q4HRS PRN 10/07/19 17:30 10/09/19 10:07 1 TAB Aspirin (Aspirin Chewable) 324 mg 1X ONCE 10/07/19 11:30 10/07/19 11:31 UNV Aspirin (Alexa Aspirin) 325 mg 1X ONCE 10/07/19 09:00 10/07/19 09:01 DC 10/07/19 09:21 325 MG Aspirin (Ecotrin) 81 mg DAILYWBKFT 10/08/19 08:00 10/09/19 08:29 81 MG Atorvastatin Calcium (Lipitor) 40 mg QHS 10/07/19 21:00 10/08/19 21:49 40 MG Carvedilol (Coreg) 25 mg BIDWMEALS 10/07/19 17:00 10/08/19 21:51 25 MG Clonidine HCl (Catapres) 0.3 mg TID 10/07/19 16:15 10/09/19 08:29 0.3 MG Dextrose (Dextrose 50%-Water Syringe) 12.5 gm PRN Q15MIN PRN 10/07/19 17:30 Doxazosin Mesylate (Cardura) 2 mg QHS 10/07/19 21:00 10/08/19 21:00 2 MG Enoxaparin Sodium (Lovenox 30mg Syringe) 30 mg Q24H 10/08/19 09:00 10/09/19 08:28 30 MG Enoxaparin Sodium (Lovenox 60mg Syringe) 60 mg 1X ONCE 10/07/19 12:00 10/07/19 12:01 DC 10/07/19 12:29 60 MG Furosemide (Lasix) 40 mg BID94 10/08/19 09:00 10/09/19 08:29 40 MG Hydralazine HCl (Apresoline) 100 mg TID 10/07/19 16:30 10/09/19 08:29 100 MG Insulin Human Lispro (HumaLOG) 0-7 UNITS TIDWMEALS 10/07/19 18:00 10/09/19 12:14 3 UNITS Isosorbide Mononitrate (Imdur) 60 mg BID 10/07/19 21:00 10/09/19 08:30 60 MG Labetalol HCl (Normodyne Iv Push) 20 mg PRN Q2HR PRN 10/07/19 16:00 10/09/19 11:24 20 MG Latanoprost (Xalatan) 1 drop HS 10/09/19 21:00 Nitroglycerin (Nitrostat) 0.4 mg PRN Q5MIN PRN 10/07/19 10:00 10/07/19 10:57 0.4 MG Nitroglycerin/ Dextrose 250 ml @ 0 mls/hr 1X ONCE 10/07/19 13:45 10/07/19 13:46 DC 10/07/19 14:26 1.5 MLS/HR Lab Laboratory Tests Test 10/08/19 17:02 10/08/19 19:58 10/08/19 21:27 10/09/19 06:57 Glucose (Fingerstick) 128 mg/dL (70-99) 76 mg/dL (70-99) 137 mg/dL (70-99) Sodium Level 136 mmol/L (136-145) Potassium Level 3.8 mmol/L (3.5-5.1) Chloride Level 98 mmol/L (98-107) Carbon Dioxide Level 32 mmol/L (21-32) Anion Gap 6 (6-14) Blood Urea Nitrogen 54 mg/dL (7-20) Creatinine 2.9 mg/dL (0.6-1.0) Estimated GFR (Cockcroft-Gault) 19.2 Glucose Level 261 mg/dL (70-99) Calcium Level 8.5 mg/dL (8.5-10.1) Magnesium Level 2.0 mg/dL (1.8-2.4) Test 10/09/19 07:20 10/09/19 10:38 Glucose (Fingerstick) 228 mg/dL (70-99) 163 mg/dL (70-99) Results All relevant outside records, renal labs, imaging studies, telemetry/EKG's were reviewed. Justicifation of Admission Dx: Justifications for Admission: Justification of Admission Dx: Yes Hypertension: Symp at Rest DANIELLA KIMBLE MD Oct 09, 2019 12:49
--- NOTE | 2019-10-09 13:58 | PDOC3 ---
Discharge Summary Visit Information Date of Admission: Oct 07, 2019 Date of Discharge: Oct 09, 2019 Admitting Diagnosis: Acute hypoxic respiratory failure Final Diagnosis Problems Medical Problems: (1) Hypertension Status: Acute (2) Hypoxia Status: Acute (3) Shortness of breath Status: Acute Brief Hospital Course Allergies Allergies Coded Allergies Type Severity Reaction Last Updated Verified Penicillins Allergy Intermediate 11/05/16 Yes dopamine Allergy Intermediate 11/05/16 Yes Vital Signs Vital Signs Date Time Temp Pulse Resp B/P (MAP) Pulse Ox O2 Delivery O2 Flow Rate FiO2 10/09/19 11:24 70 181/55 10/09/19 11:21 100.1 18 96 Room Air 100.1 10/09/19 00:16 2.0 Lab Results Laboratory Tests Test 10/07/19 17:24 10/07/19 17:45 10/07/19 21:47 10/08/19 04:50 Glucose (Fingerstick) 198 mg/dL (70-99) 169 mg/dL (70-99) Troponin I Quantitative 0.222 ng/mL (0.000-0.055) White Blood Count 6.4 x10^3/uL (4.0-11.0) Red Blood Count 2.97 x10^6/uL (3.50-5.40) Hemoglobin 8.0 g/dL (12.0-15.5) Hematocrit 24.5 % (36.0-47.0) Mean Corpuscular Volume 83 fL (79-100) Mean Corpuscular Hemoglobin 27 pg (25-35) Mean Corpuscular Hemoglobin Concent 33 g/dL (31-37) Red Cell Distribution Width 16.7 % (11.5-14.5) Platelet Count 230 x10^3/uL (140-400) Sodium Level 141 mmol/L (136-145) Potassium Level 3.7 mmol/L (3.5-5.1) Chloride Level 104 mmol/L (98-107) Carbon Dioxide Level 33 mmol/L (21-32) Anion Gap 4 (6-14) Blood Urea Nitrogen 51 mg/dL (7-20) Creatinine 2.6 mg/dL (0.6-1.0) Estimated GFR (Cockcroft-Gault) 21.8 Glucose Level 142 mg/dL (70-99) Calcium Level 8.1 mg/dL (8.5-10.1) Magnesium Level 1.9 mg/dL (1.8-2.4) Test 10/08/19 12:12 10/08/19 17:02 10/08/19 19:58 10/08/19 21:27 Glucose (Fingerstick) 255 mg/dL (70-99) 128 mg/dL (70-99) 76 mg/dL (70-99) 137 mg/dL (70-99) Test 10/09/19 06:57 10/09/19 07:20 10/09/19 10:38 Sodium Level 136 mmol/L (136-145) Potassium Level 3.8 mmol/L (3.5-5.1) Chloride Level 98 mmol/L (98-107) Carbon Dioxide Level 32 mmol/L (21-32) Anion Gap 6 (6-14) Blood Urea Nitrogen 54 mg/dL (7-20) Creatinine 2.9 mg/dL (0.6-1.0) Estimated GFR (Cockcroft-Gault) 19.2 Glucose Level 261 mg/dL (70-99) Calcium Level 8.5 mg/dL (8.5-10.1) Magnesium Level 2.0 mg/dL (1.8-2.4) Glucose (Fingerstick) 228 mg/dL (70-99) 163 mg/dL (70-99) Laboratory Tests Test 10/08/19 17:02 10/08/19 19:58 10/08/19 21:27 10/09/19 06:57 Glucose (Fingerstick) 128 mg/dL (70-99) 76 mg/dL (70-99) 137 mg/dL (70-99) Sodium Level 136 mmol/L (136-145) Potassium Level 3.8 mmol/L (3.5-5.1) Chloride Level 98 mmol/L (98-107) Carbon Dioxide Level 32 mmol/L (21-32) Anion Gap 6 (6-14) Blood Urea Nitrogen 54 mg/dL (7-20) Creatinine 2.9 mg/dL (0.6-1.0) Estimated GFR (Cockcroft-Gault) 19.2 Glucose Level 261 mg/dL (70-99) Calcium Level 8.5 mg/dL (8.5-10.1) Magnesium Level 2.0 mg/dL (1.8-2.4) Test 10/09/19 07:20 10/09/19 10:38 Glucose (Fingerstick) 228 mg/dL (70-99) 163 mg/dL (70-99) Brief Hospital Course Paul is a 74yo F w/ PMHx HTN, HLD, Pulm HTN, carotid arterial disease, COPD, GERD, CKD, DM2, and CAD s/p CABG in 2009 and stenting 2013 who is admitted for complains of shortness of breath, and reports of leg swelling. Denies any chest pain or palpitations. She does take multiple BP meds and reports that she takes these daily and today is the only time she missed. Having said despite her number of BP meds she does not check her BP readings at home. No recent falls or injury. No fever or chills and no productive cough and denies Covid exposure. Denies any prior nausea, vomiting or diarrhea. COVID testing negative. She improved after IV diuresis with lasix, was seen by nephrology, pulmonology and cardiology in consultation. After discussion with her son bedside there is some question of medication compliance as he is not with her 07/10 because he works to live together. He is also concerned about dietary indiscretion as she drinks a significant amount of soda and does not avoid salty and high phosphate foods. They were counseled in depth and requested home health so that she can have a congestive heart failure assisted and potentially get a referral for cardiac rehab in the near future. She improved significantly and has been educated and agrees to go home with home health. Problem list: Acute hypoxic respiratory failure secondary to acute on chronic diastolic heart failure. Abnormal chest x-ray consistent with congestive heart failure. Abnormal perfusion scan without the ventilation scan. There are perfusion defects seen bilaterally. Clinically, less likely thromboembolic disease. The scan is not helpful in determining pulmonary embolism as there is no ventilation scan done. Secondary pulmonary hypertension secondary to chronic diastolic dysfunction. CKD Anemia Mild troponin elevation; peak 0.21.EKG SR with first degree AV block otherwise no acute changes. Suspect type 2 with above culprits CAD s/p CABG in 2009. CP free COPD Acute on chronic diastolic heart failure - Echo 08/2018 with concentric LVH, normal EF, elevated RVSP Negative COVID-19 Consults: Pulmonary Medicine. Cardiology, Nephrology Greater than 30 minutes spent on d/c home with home health Discharge Information Condition at Discharge: Improved Follow Up: Weeks (1) Disposition/Orders: D/C to Home w/ HH Scheduled Aspirin (Aspirin Ec) 81 Mg Tablet.dr, 81 MG PO [id number] for CHF for 90 Days, #90 Ref 3 Prescribed by: TOBIAS MONTOYA MD on 10/09/19 1102 Atorvastatin Calcium (Atorvastatin Calcium) 40 Mg Tablet, 1 TAB PO QHS, #90 Ref 3 (Reported) Entered as Reported by: MATILDE FLORES on 03/10/151842 Last Action: Continued on 10/07/191558 by JUS SHAHID Carvedilol (Carvedilol ) 12.5 Mg Tablet, 25 MG PO BIDWMEALS, #60 Prescribed by: RUTHANN MOHAN on 03/15/15 150 Last Action: Continued on 10/07/191558 by JUS SHAHID Clonidine Hcl (Clonidine Hcl) 0.3 Mg Tablet, 0.3 MG PO TID, (Reported) Entered as Reported by: KERRIE VALERIO on 03/04/13726 Last Action: Continued on 10/07/191558 by JUS SHAHID Docusate Sodium (Colace) 100 Mg Capsule, 100 MG PO DAILY for constipation for 30 Days, #30 Prescribed by: APRIL MOHAN MD on 08/26/181553 Last Action: Reviewed on 10/07/191612 by CHAYITO AYERS RN Doxazosin Mesylate (Doxazosin Mesylate) 2 Mg Tablet, 1 TAB PO HS for BP, #30 Ref 5 (Reported) Entered as Reported by: MATILDE FLORES on 03/10/151842 Last Action: Converted on 10/07/191558 by JUS SHAHID Furosemide (Furosemide) 40 Mg Tablet, 40 MG PO BID92 for chf for 30 Days, #60 Ref 5 Weight yourself daily, if you gain 3 pounds or more increase dose to 80mg BID for 3 days and contact your redeye gunner Prescribed by: TOBIAS MONTOYA MD on 10/09/19 1102 Hydralazine Hcl (Hydralazine Hcl) 100 Mg Tablet, 1 TAB PO TID for htn, #90 Ref 5 (Reported) Entered as Reported by: Contreras Stone on 11/24/182140 Last Action: Converted on 10/07/191558 by JUS SHAHID Insulin Aspart (Novolog Flexpen) 100 Unit/1 Ml Insuln.pen, 6 UNIT SQ TIDAC, (Reported) Entered as Reported by: KIRK DIAZ on 04/08/13 145 Insulin Glargine,Hum.rec.anlog (Lantus) 100 Unit/1 Ml Vial, 22 UNIT SQ HS for diabetes, (Reported) Entered as Reported by: KIRK DIAZ on 04/08/13 1456 Isosorbide Mononitrate (Isosorbide Mononitrate Er) 60 Mg Tab.er.24h, 1 TAB PO BID, #30 Ref 5 (Reported) Entered as Reported by: MATILDE FLORES on 03/11/15 0915 Last Action: Converted on 10/07/191558 by JUS SHAHID Latanoprost (Latanoprost) 2.5 Ml Drops, 1 DROP OP HS, (Reported) Entered as Reported by: MATILDE FLORES on 03/11/15 0744 Last Action: Continued on 10/09/19253 by LETY SULLIVAN Lubiprostone (Amitiza) 8 Mcg Capsule, 1 CAP PO BID for constipation, #60 Ref 5 Prescribed by: APRIL MOHAN MD on 11/27/18 1645 Last Action: Reviewed on 10/07/191612 by CHAYITO AYERS RN Omeprazole (Omeprazole) 20 Mg Capsule.dr, 20 MG PO BID, (Reported) Entered as Reported by: KERRIE VALERIO on 03/04/13726 Last Action: Reviewed on 10/07/191612 by CHAYITO AYERS RN Scheduled PRN Albuterol Sulfate (Proair Hfa Inhaler) 8.5 Gm Hfa.aer.ad, 2 PUFF IH PRN Q6HRS PRN for WHEEZING, #1 (Reported) Entered as Reported by: CONTRERAS HEATH on 03/10/15 1454 Hydrocodone Bit/Acetaminophen (Hydrocodone-Apap 7.5-325 ) 1 Each Tablet, 1 TAB PO Q4HRS PRN for PAIN, Ref 0 (Reported) Entered as Reported by: MATILDE FLORES on 03/10/15 1843 Last Action: Reviewed on 10/07/191612 by CHAYITO AYERS RN Simethicone (Simethicone) 80 Mg Tab.chew, 80 MG PO PRN AFTMEALHC PRN for GAS / BLOATING for 30 Days, #100 Ref 5 Prescribed by: APRIL MOHAN MD on 08/26/181553 Discontinued Medications Losartan Potassium (Cozaar) 100 Mg Tablet, 50 MG PO DAILY for HYPERTENSION, (Reported) Entered as Reported by: Contreras Stone on 11/24/182027 Last Action: HELD on 10/07/191558 by JUS SHAHID Spironolactone (Aldactone) 25 Mg Tablet, 25 MG PO DAILY for heart for 30 Days, #30 Ref 5 Prescribed by: APRIL MOHAN MD on 08/26/181553 Last Action: HELD on 10/07/191558 by JUS SHAHID Justicifation of Admission Dx: Justifications for Admission: Justification of Admission Dx: Yes Hypertension: Symp at Rest TOBIAS MONTOYA MD Oct 09, 2019 13:58
--- NOTE | 2019-10-09 14:40 | NUR ---
Discharge Note: SAGE HUDSON Discharge instructions and discharge home medications reviewed with Patient and a copy given. All questions have been answered and understanding verbalized. The following instructions and handouts were given: Patient given education regarding follow ups and new medication. Discontinued lines and drains: Iv's removed per protocol. Patient discharged home, picked up by daughter.
[2019-10-09 14:41] VITALS: BP 128/55
[2019-10-09] MEDS ORDERED: LATANOPROST 0.005% OPHTH SOLUTION 2.5ML BOTTLE. OU SCH (21:00)
== END 2019-10-09 14:30 | disposition home health service (06) | DRG 291 ==
LOC: ER 08:23 → 1 WEST ICU 11:23 → 5 NORTH 10-08 15:25
PROVIDERS: ADMIT Internal Medicine; ATTEND Internal Medicine
DX: I13.0 Hypertensive heart and chronic kidney disease with heart failure and stage 1 through stage 4 chronic kidney disease, or unspecified chronic kidney disease (principal); I50.33 Acute on chronic diastolic (congestive) heart failure; J96.21 Acute and chronic respiratory failure with hypoxia; N17.9 Acute kidney failure, unspecified; N18.4 Chronic kidney disease, stage 4 (severe); Z20.828 Contact with and (suspected) exposure to other viral communicable diseases; D63.1 Anemia in chronic kidney disease; E11.22 Type 2 diabetes mellitus with diabetic chronic kidney disease; E78.00 Pure hypercholesterolemia, unspecified; E78.5 Hyperlipidemia, unspecified; F41.9 Anxiety disorder, unspecified; K21.9 Gastro-esophageal reflux disease without esophagitis; I25.10 Atherosclerotic heart disease of native coronary artery without angina pectoris; I27.29 Other secondary pulmonary hypertension; I44.0 Atrioventricular block, first degree; J44.9 Chronic obstructive pulmonary disease, unspecified; Z78.9 Other specified health status; Z82.49 Family history of ischemic heart disease and other diseases of the circulatory system; Z83.3 Family history of diabetes mellitus; Z87.891 Personal history of nicotine dependence; Z90.710 Acquired absence of both cervix and uterus; Z95.1 Presence of aortocoronary bypass graft; Z88.0 Allergy status to penicillin; Z88.8 Allergy status to other drugs, medicaments and biological substances; Z90.49 Acquired absence of other specified parts of digestive tract
CPT/HCPCS: 36415; 71045; 78580; 80048; 80053; 81001; 82553; 82728; 82962; 83605; 83615; 83690; 83735; 83880; 84484; 85025; 85027; 85379; 87040; 93005; 93970; 96372; 96374; 96375; 99291; A9540; J1650; J1815; J1940; J3490; G0378; U0003-CS

== ENCOUNTER 2019-10-29 15:25 | Inpatient (IN) | payer MEDICARE ==
[~2019-10-29] VITALS: Ht 152.4 cm; Wt 51.1 kg
[~2019-10-29 15:25] MED LIST changes: +ASPI-886 PO
--- NOTE | 2019-10-29 16:09 | EKG ---
[facility] [address] [place] [address] Test Date: 2019-10-29 Test Time: 15:53:21 Pat Name: DARNELL HUDSON Department: Room: Gender: F [employer] Specialist: : 1945 Requested By: NILO PADILLA Order Number: [id number] Reading MD: Ludwin Tolentino MD Measurements Intervals [place] Rate: 72 P: 45 ND: 270 QRS: 54 QRSD: 108 T: 136 QT: 436 QTc: 479 Interpretive Statements SINUS RHYTHM ATRIAL PREMATURE COMPLEX(ES) Electronically Signed On 10-30-2019 14:15:46 CDT by Ludwin Tolentino MD
[2019-10-29 16:13] LABS: BASO % 1 % (0-3); EOS % 0 % (0-3); HEMATOCRIT 26.4 % (36.0-47.0); HEMOGLOBIN 8.6 g/dL (12.0-15.5); LYMPH # 0.9 x10^3/uL (1.0-4.8); LYMPH % 13 % (24-48); MEAN CORPUSCULAR HEMOGLOBIN 27 pg (25-35); MEAN CORPUSCULAR HGB CONC 32 g/dL (31-37); MEAN CORPUSCULAR VOLUME 84 fL (79-100); MONO # 0.2 x10^3/uL (0.0-1.1); MONO % 3 % (0-9); NEUT # 5.9 x10^3/uL (1.8-7.7); NEUT % 83 % (31-73); PLATELET COUNT 218 x10^3/uL (140-400); RED BLOOD COUNT 3.15 x10^6/uL (3.50-5.40); RED CELL DISTRIBUTION WIDTH 18.1 % (11.5-14.5); WHITE BLOOD COUNT 7.1 x10^3/uL (4.0-11.0)
[2019-10-29 16:22] LABS: CALCIUM 8.3 mg/dL (8.5-10.1); CREATININE 3.9 mg/dL (0.6-1.0); GFR 13.6; POTASSIUM 3.9 mmol/L (3.5-5.1)
[2019-10-29 16:28] LABS: ALBUMIN 2.9 g/dL (3.4-5.0); ALBUMIN/GLOBULIN RATIO 0.7 (1.0-1.7); TOTAL BILIRUBIN 0.3 mg/dL (0.2-1.0); TOTAL PROTEIN 6.9 g/dL (6.4-8.2)
[2019-10-29] MEDS ORDERED: IV NORMAL SALINE 250ML 250 ML IV ONE (16:45)
--- NOTE | 2019-10-29 16:48 | RAD ---
Single view of the chest. 10/29/2019 4:05 PM Indication: Reason: dizziness 23 / Spl. Instructions: / History: Comparison: Chest radiograph October 07, 2019 FINDINGS: No new focal infiltrate is seen. No pneumothorax or pleural effusion is seen. Heart size is stable. Interstitial coarsening noted. Median sternotomy noted. Calcified granuloma in the right lung base is similar. Severe degenerative changes of the left shoulder noted. IMPRESSION: Grossly stable radiographic appearance of the chest without evidence of acute cardiopulmonary process. Electronically signed by: Sanchez Stuart MD (10/29/2019 4:45 PM) [id number]
--- NOTE | 2019-10-29 16:58 | PHYS DOC ---
Past Medical History Past Medical History: Anemia, CAD, Constipation, COPD, Diabetes-Type II, GERD, High Cholesterol, Hypertension, Other Additional Past Medical Histor: heart murmur Past Surgical History: Cholecystectomy, Coronary Bypass Surgery, Hysterectomy Additional Past Surgical Histo: back sx Smoking Status: Never Smoker Alcohol Use: None Drug Use: None General Adult EDM: Chief Complaint: DIZZY/LIGHT HEADED HPI: HPI: Patient is a 74-year-old female who presents to the emergency room complaining of lightheadedness. Patient states that she felt fine yesterday. She states when she woke up this morning she stood up and started feeling lightheaded. She intermittently has lightheadedness. She denies any cough, chest pain, shortness of breath, abdominal pain, nausea, vomiting. She denies any falls. She is also been having intermittent lower abdominal pain. She had some dark red stools which have now resolved. She has been taking all of her medications as prescribed. Review of Systems: Review of Systems: General: Denies fever, chills, sweats, fatigue Eyes: Denies drainage, blurred vision, eye redness HENT: Denies rhinorrhea, sore throat, earache Respiratory: Denies cough, shortness of breath, wheezing Cardiac: Denies edema, palpitations, chest pain GI: Denies Nausea, vomiting reports abdominal pain MSK: Denies back pain, neck pain Skin: Denies rash, jaundice Neuro: Denies headache, dizziness reports lightheadedness Psychiatric: Denies SI/HI Heart Score: Risk Factors: Risk Factors: DM, Current or recent (<one month) smoker, HTN, HLP, family history of CAD, obesity. Risk Scores: Score 0 - 3: 2.5% MACE over next 6 weeks - Discharge Home Score 4 - 6: 20.3% MACE over next 6 weeks - Admit for Clinical Observation Score 7 - 10: 72.7% MACE over next 6 weeks - Early Invasive Strategies Current Medications: Current Medications Medications (Trade) Dose Ordered Sig/Gisselle Start Time Stop Time Status Last Admin Dose Admin Sodium Chloride 250 ml @ 250 mls/hr 1X ONCE 10/29/19 16:45 10/29/19 17:44 Allergies: Allergies: Allergies Coded Allergies Type Severity Reaction Last Updated Verified Penicillins Allergy Intermediate 11/05/16 Yes dopamine Allergy Intermediate 8/22/17 Yes Physical Exam: PE: General: Awake, alert, NAD. Well Nourished, well hydrated. Cooperative HEENT: Atraumatic, EOMI, PERRL, airway patent, moist oral mucosa Neck: Supple, trachea midline Respiratory: CTA bilaterally, normal effort, no wheezing/crackles CV: Irregular rhythm, no murmur, cap refill <2 GI: Soft, nondistended, nontender, no masses MSK: No obvious deformities Skin: Warm, dry, intact Neuro: A&O x3, speech NL, sensory and motor grossly intact, no focal deficits Psych: Normal affect, normal mood, not suicidal or homicidal Current Patient Data: Labs: Laboratory Tests Test 10/29/19 16:00 White Blood Count 7.1 x10^3/uL (4.0-11.0) Red Blood Count 3.15 x10^6/uL (3.50-5.40) L Hemoglobin 8.6 g/dL (12.0-15.5) L Hematocrit 26.4 % (36.0-47.0) L Mean Corpuscular Volume 84 fL (79-100) Mean Corpuscular Hemoglobin 27 pg (25-35) Mean Corpuscular Hemoglobin Concent 32 g/dL (31-37) Red Cell Distribution Width 18.1 % (11.5-14.5) H Platelet Count 218 x10^3/uL (140-400) Neutrophils (%) (Auto) 83 % (31-73) H Lymphocytes (%) (Auto) 13 % (24-48) L Monocytes (%) (Auto) 3 % (0-9) Eosinophils (%) (Auto) 0 % (0-3) Basophils (%) (Auto) 1 % (0-3) Neutrophils # (Auto) 5.9 x10^3/uL (1.8-7.7) Lymphocytes # (Auto) 0.9 x10^3/uL (1.0-4.8) L Monocytes # (Auto) 0.2 x10^3/uL (0.0-1.1) Eosinophils # (Auto) 0.0 x10^3/uL (0.0-0.7) Basophils # (Auto) 0.0 x10^3/uL (0.0-0.2) Sodium Level 134 mmol/L (136-145) L Potassium Level 3.9 mmol/L (3.5-5.1) Chloride Level 93 mmol/L (98-107) L Carbon Dioxide Level 31 mmol/L (21-32) Anion Gap 10 (6-14) Blood Urea Nitrogen 83 mg/dL (7-20) H Creatinine 3.9 mg/dL (0.6-1.0) H Estimated GFR (Cockcroft-Gault) 13.6 BUN/Creatinine Ratio 21 (6-20) H Glucose Level 196 mg/dL (70-99) H Calcium Level 8.3 mg/dL (8.5-10.1) L Total Bilirubin 0.3 mg/dL (0.2-1.0) Aspartate Amino Transferase (AST) 25 U/L (15-37) Alanine Aminotransferase (ALT) 10 U/L (14-59) L Alkaline Phosphatase 53 U/L (46-116) Troponin I Quantitative 0.059 ng/mL (0.000-0.055) IY-Diz-S-Type Natriuretic Peptide 4248 pg/mL (0-124) H Total Protein 6.9 g/dL (6.4-8.2) Albumin 2.9 g/dL (3.4-5.0) L Albumin/Globulin Ratio 0.7 (1.0-1.7) L Laboratory Tests 10/29/19 16:00 Laboratory Tests 10/29/19 16:00 Vital Signs: Vital Signs Date Time Temp Pulse Resp B/P (MAP) Pulse Ox O2 Delivery O2 Flow Rate FiO2 10/29/19 15:50 98.3 76 16 135/70 (91) 94 Room Air 98.3 EKG: EKG: [] Radiology/Procedures: Radiology/Procedures: [] Course & Med Decision Making: Course & Med Decision Making Pertinent Labs and Imaging studies reviewed. (See chart for details) Patient is a 74-year-old female who presents to the emergency room with lightheadedness. Patient does have an irregular rhythm and is unsure if she has a history of this. CBC, BMP, troponin, EKG, chest x-ray were ordered. Patient has an acute kidney injury with dehydration which is likely the cause of her dehydration. We will do gentle hydration here in the emergency room. Will admit her for a renal and cardiology consult. Work up was reviewed and was remarkable for acute kidney injury. At this time, patient would benefit from further work up and management. Patient is not stable for discharge at this time. Results, vitals, interventions, and plan was discussed with the patient. Patient was given opportunity to ask any questions and are in agreement with plan for admission. Patient was discussed with admitting physician and bridge admission orders were placed. Further care will be managed by inpatient team. Dragon Disclaimer: Dragon Disclaimer: This electronic medical record was generated, in whole or in part, using a voice recognition dictation system. Departure Departure Impression: Primary Impression: EDMOND (acute kidney injury) Additional Impressions: Dehydration Abdominal pain Disposition: ADMITTED INPATIENT Condition: STABLE Referrals: Andreas MOHAN MD (PCP) Justicifation of Admission Dx: Justifications for Admission: Justification of Admission Dx: Yes Hypertension: Symp at Rest NILO PADILLA MD Oct 29, 2019 16:58
--- NOTE | 2019-10-29 17:31 | RAD ---
Exam: CT of abdomen and pelvis without contrast INDICATION: Abdominal pain, dizziness TECHNIQUE: Sequential axial images through the abdomen and pelvis obtained without IV contrast. Sagittal and coronal reformatted images were reconstructed from the axial data and reviewed. Comparisons: 11/08/2016 FINDINGS: Heart size is normal. No pericardial effusion. Strandy opacities at dependent portion lungs likely representing atelectasis. No pleural effusion. Liver, spleen, pancreas and adrenals are unremarkable. Gallbladder surgically absent. No perinephric inflammation or hydronephrosis. Nonobstructing right renal calculi noted. No ureteral calculi are seen. Bladder is decompressed not well evaluated. Uterus is absent. No abnormal adnexal mass. Large and small bowel are unremarkable. Large amount stool noted in the colon. Appendix is normal. No free abdominal air or fluid. No obstruction. Abdominal aorta has a normal course and caliber. No enlarged abdominal lymph nodes are identified. No suspicious osseous lesions or acute fractures. IMPRESSION: 1. Large amount stool in the colon, correlate for constipation. 2. Right-sided nephrolithiasis. No evidence for obstructive uropathy. Exposure: One or more of the following in the visualized dose reduction techniques were utilized for this examination: 1. Automated exposure control 2. Adjustment of the MA and/or KV according to patient size 3. Use of iterative of reconstructive technique Electronically signed by: Sara Rocha MD (10/29/2019 5:28 PM) [id number]
[2019-10-29 19:00] VITALS: BP 141/57
[2019-10-29] MEDS ORDERED: AMLO10TA8 PO (20:42)
[2019-10-29] MEDS ORDERED: PRED2.5T PO (20:46)
[2019-10-29] MEDS ORDERED: INSULIN GLARGINE SYRINGE. SQ SCH (21:00)
[2019-10-29] MEDS ORDERED: SIMETHICONE 80 MG TAB.CHEW PO PRN (21:00)
--- NOTE | 2019-10-29 21:00 | PDOC1 ---
History and Physical Date of Admission Date of Admission DATE: 10/29/19 TIME: 20:53 Source Source: Chart review History of Present Illness History of Present Illness Ms. Grimaldo is a 74-year-old female who presents to the emergency room complaining of lightheadedness. Patient states that she felt fine yesterday. She states when she woke up this morning she stood up and started feeling lightheaded. She intermittently has lightheadedness. She denies any cough, chest pain, shortness of breath, abdominal pain, nausea, vomiting. She denies any falls. She is also been having intermittent lower abdominal pain. She had some dark red stools which have now resolved. She has been taking all of her medications as prescribed. Past Medical History Cardiovascular: CAD, CHF, HTN, Hyperlipidemia Pulmonary: COPD GI: GERD Renal/: Chronic renal insuff Endocrine: Diabetes Past Surgical History Past Surgical History: Cholecystectomy, CABG, Hysterectomy Family History Family History: Heart Disease Social History Smoke: Quit ALCOHOL: none Drugs: None Current Problem List Problem List Problems Medical Problems: (1) Abdominal pain Status: Acute (2) EDMOND (acute kidney injury) Status: Acute (3) Dehydration Status: Acute Current Medications Current Medications Current Medications Sodium Chloride 250 ml @ 250 mls/hr 1X ONCE IV Last administered on 10/29/19at 16:45; Start 10/29/19 at 16:45; Stop 10/29/19 at 17:44; Status DC Active Scripts Active Aspirin Ec (Aspirin) 81 Mg Tablet. 81 Mg PO DAILYWBKFT 90 Days Furosemide 40 Mg Tablet 40 Mg PO BID92 30 Days Weight yourself daily, if you gain 3 pounds or more increase dose to 80mg BID for 3 days and contact your powertrain calibration engineer Amitiza (Lubiprostone) 8 Mcg Capsule 1 Cap PO BID Colace (Docusate Sodium) 100 Mg Capsule 100 Mg PO DAILY 30 Days Simethicone 80 Mg Tab.chew 80 Mg PO PRN AFTMEALHC PRN 30 Days Carvedilol (Carvedilol) 12.5 Mg Tablet 25 Mg PO BIDWMEALS Reported Prednisone 2.5 Mg Tablet 5 Mg PO DAILY Amlodipine Besylate 10 Mg Tablet 10 Mg PO DAILY Hydralazine Hcl 100 Mg Tablet 1 Tab PO TID Isosorbide Mononitrate Er (Isosorbide Mononitrate) 60 Mg Tab.er.24h 1 Tab PO BID Latanoprost 2.5 Ml Drops 1 Drop OP HS Doxazosin Mesylate 2 Mg Tablet 1 Tab PO HS Atorvastatin Calcium 40 Mg Tablet 1 Tab PO QHS Hydrocodone-Apap 7.5-325 (Hydrocodone Bit/Acetaminophen) 1 Each Tablet 1 Tab PO Q4HRS PRN Proair Hfa Inhaler (Albuterol Sulfate) 8.5 Gm Hfa.aer.ad 2 Puff IH PRN Q6HRS PRN Novolog Flexpen (Insulin Aspart) 100 Unit/1 Ml Insuln.pen 6 Unit SQ TIDAC Lantus (Insulin Glargine,Hum.rec.anlog) 100 Unit/1 Ml Vial 28 Unit SQ HS Omeprazole 20 Mg Capsule.dr 20 Mg PO BID PRN Clonidine Hcl 0.3 Mg Tablet 0.3 Mg PO TID Allergies Allergies: Coded Allergies: Penicillins (Verified Allergy, Intermediate, 11/05/16) dopamine (Verified Allergy, Intermediate, 11/05/16) ROS General: YES: Fatigue, Malaise PSYCHOLOGICAL ROS: No: Anxiety, Behavioral Disorder, Concentration difficultie, Decreased libido, Depression, Disorientation, Hallucinations, Hostility, Irritablity, Memory difficulties, Mood Swings, Obsessive thoughts, Physical abuse, Sexual abuse, Sleep disturbances, Suicidal ideation, Other Eyes: No Blurry vision, No Decreased vision, No Double vision, No Dry eyes, No Excessive tearing, No Eye Pain, No Itchy Eyes, No Loss of vision, No Photophobia, No Scotomata, No Uses contacts, No Uses glasses, No Other HEENT: No: Heacaches, Visual Changes, Hearing change, Nasal congestion, Nasal discharge, Oral lesions, Sinus pain, Sore Throat, Epistaxis, Sneezing, Snoring, Tinnitus, Vertigo, Vocal changes, Other Respiratory: No: Cough, Hemoptysis, Orthopnea, Pleuritic Pain, Shortness of breath, SOB with excertion, Sputum Changes, Stridor, Tachypnea, Wheezing, Other Cardiovascular: No Chest Pain, No Palpitations, No Orthopnea, No Paroxysmal Noc. Dyspnea, No Edema, No Lt Headedness, No Other Gastrointestinal: No Nausea, No Vomiting, No Abdominal Pain, No Diarrhea, No Constipation, No Melena, No Hematochezia, No Other Genitourinary: No Dysuria, No Frequency, No Incontinence, No Hematuria, No Retention, No Discharge, No Urgency, No Pain, No Flank Pain, No Other, No , No , No , No , No , No , No Musculoskeletal: Yes Joint Pain, Yes Joint Stiffness; No Gait Disturbance, No Joint Swelling, No Muscle Pain, No Muscular Weakness, No Pain In:, No Swelling In:, No Other Neurological: Yes Gait Disturbance; No Behavorial Changes, No Bowel/Bladder ControlChng, No Confusion, No Diz ziness, No Headaches, No Impaired Coord/balance, No Memory Loss, No Numbness/Tingling, No Seizures, No Speech Problems, No Tremors, No Visual Changes, No Weakness, No Other Skin: No Dry Skin, No Eczema, No Hair Changes, No Lumps, No Mole Changes, No Mottling, No Nail Changes, No Pruritus, No Rash, No Skin Lesion Changes, No Other, No Acne Physical Exam General: Alert, Oriented X3, Cooperative, No acute distress HEENT: Atraumatic, PERRLA Lungs: Clear to auscultation Heart: S1S2, no murmurs, irregularly irregular Extremities: No clubbing, Other (1+ edema) Neuro: Normal speech, Sensation intact Psych/Mental Status: Mood NL, Other Vitals Vitals Vital Signs Date Time Temp Pulse Resp B/P (MAP) Pulse Ox O2 Delivery O2 Flow Rate FiO2 10/29/19 19:00 98.1 59 18 141/57 (85) 91 Room Air 98.1 Labs Labs Laboratory Tests Test 10/29/19 16:00 White Blood Count 7.1 x10^3/uL (4.0-11.0) Red Blood Count 3.15 x10^6/uL (3.50-5.40) Hemoglobin 8.6 g/dL (12.0-15.5) Hematocrit 26.4 % (36.0-47.0) Mean Corpuscular Volume 84 fL (79-100) Mean Corpuscular Hemoglobin 27 pg (25-35) Mean Corpuscular Hemoglobin Concent 32 g/dL (31-37) Red Cell Distribution Width 18.1 % (11.5-14.5) Platelet Count 218 x10^3/uL (140-400) Neutrophils (%) (Auto) 83 % (31-73) Lymphocytes (%) (Auto) 13 % (24-48) Monocytes (%) (Auto) 3 % (0-9) Eosinophils (%) (Auto) 0 % (0-3) Basophils (%) (Auto) 1 % (0-3) Neutrophils # (Auto) 5.9 x10^3/uL (1.8-7.7) Lymphocytes # (Auto) 0.9 x10^3/uL (1.0-4.8) Monocytes # (Auto) 0.2 x10^3/uL (0.0-1.1) Eosinophils # (Auto) 0.0 x10^3/uL (0.0-0.7) Basophils # (Auto) 0.0 x10^3/uL (0.0-0.2) Sodium Level 134 mmol/L (136-145) Potassium Level 3.9 mmol/L (3.5-5.1) Chloride Level 93 mmol/L (98-107) Carbon Dioxide Level 31 mmol/L (21-32) Anion Gap 10 (6-14) Blood Urea Nitrogen 83 mg/dL (7-20) Creatinine 3.9 mg/dL (0.6-1.0) Estimated GFR (Cockcroft-Gault) 13.6 BUN/Creatinine Ratio 21 (6-20) Glucose Level 196 mg/dL (70-99) Calcium Level 8.3 mg/dL (8.5-10.1) Total Bilirubin 0.3 mg/dL (0.2-1.0) Aspartate Amino Transf (AST/SGOT) 25 U/L (15-37) Alanine Aminotransferase (ALT/SGPT) 10 U/L (14-59) Alkaline Phosphatase 53 U/L (46-116) Troponin I Quantitative 0.059 ng/mL (0.000-0.055) VM-Cge-M-Type Natriuretic Peptide 4248 pg/mL (0-124) Total Protein 6.9 g/dL (6.4-8.2) Albumin 2.9 g/dL (3.4-5.0) Albumin/Globulin Ratio 0.7 (1.0-1.7) Laboratory Tests Test 10/29/19 16:00 White Blood Count 7.1 x10^3/uL (4.0-11.0) Red Blood Count 3.15 x10^6/uL (3.50-5.40) Hemoglobin 8.6 g/dL (12.0-15.5) Hematocrit 26.4 % (36.0-47.0) Mean Corpuscular Volume 84 fL (79-100) Mean Corpuscular Hemoglobin 27 pg (25-35) Mean Corpuscular Hemoglobin Concent 32 g/dL (31-37) Red Cell Distribution Width 18.1 % (11.5-14.5) Platelet Count 218 x10^3/uL (140-400) Neutrophils (%) (Auto) 83 % (31-73) Lymphocytes (%) (Auto) 13 % (24-48) Monocytes (%) (Auto) 3 % (0-9) Eosinophils (%) (Auto) 0 % (0-3) Basophils (%) (Auto) 1 % (0-3) Neutrophils # (Auto) 5.9 x10^3/uL (1.8-7.7) Lymphocytes # (Auto) 0.9 x10^3/uL (1.0-4.8) Monocytes # (Auto) 0.2 x10^3/uL (0.0-1.1) Eosinophils # (Auto) 0.0 x10^3/uL (0.0-0.7) Basophils # (Auto) 0.0 x10^3/uL (0.0-0.2) Sodium Level 134 mmol/L (136-145) Potassium Level 3.9 mmol/L (3.5-5.1) Chloride Level 93 mmol/L (98-107) Carbon Dioxide Level 31 mmol/L (21-32) Anion Gap 10 (6-14) Blood Urea Nitrogen 83 mg/dL (7-20) Creatinine 3.9 mg/dL (0.6-1.0) Estimated GFR (Cockcroft-Gault) 13.6 BUN/Creatinine Ratio 21 (6-20) Glucose Level 196 mg/dL (70-99) Calcium Level 8.3 mg/dL (8.5-10.1) Total Bilirubin 0.3 mg/dL (0.2-1.0) Aspartate Amino Transf (AST/SGOT) 25 U/L (15-37) Alanine Aminotransferase (ALT/SGPT) 10 U/L (14-59) Alkaline Phosphatase 53 U/L (46-116) Troponin I Quantitative 0.059 ng/mL (0.000-0.055) MK-Bce-G-Type Natriuretic Peptide 4248 pg/mL (0-124) Total Protein 6.9 g/dL (6.4-8.2) Albumin 2.9 g/dL (3.4-5.0) Albumin/Globulin Ratio 0.7 (1.0-1.7) VTE Prophylaxis Ordered VTE Prophylaxis Devices: No VTE Pharmacological Prophylaxi: Yes Assessment/Plan Assessment/Plan lightheaded weakness, acquired, will need PT and OT presyncope CHF, with poss over-diuresis] vasomotor nephropathy, gentle hydration, hold lasix in AM moderate malnutrition, consult nutrition anemia, microcytic, same as previous Justicifation of Admission Dx: Justifications for Admission: Justification of Admission Dx: Yes Hypertension: Symp at Rest SEAN ATWOOD MD Oct 29, 2019 21:00
[2019-10-29] MEDS ORDERED: DEXTROSE 50% 25 GM / 50ML DISP.SYRIN. IV PRN (21:15)
[2019-10-29] MEDS: LATANOPROST 0.005% OPHTH SOLUTION 2.5ML BOTTLE. OU SCH (21:58)
[2019-10-29] MEDS: ATORVASTATIN CALCIUM 40 MG TABLET. PO SCH (22:01)
[2019-10-29 23:00] VITALS: BP 117/55
[2019-10-29] MEDS: DOXAZOSIN MESYLATE 1 MG TABLET. PO SCH (23:50)
[2019-10-29] MEDS: cloNIDine HCL 0.3 MG TABLET PO SCH (23:51)
[2019-10-30] VITALS (7 sets, daily range): BP systolic 106–131; BP diastolic 40–58
[2019-10-30] MEDS: ASPIRIN ENTERIC COATED 81 MG TABLET.DR. PO SCH ×2 (08:00→08:36)
[2019-10-30] MEDS: INSULIN LISPRO 300 UNITS/3 ML VIAL. SQ SCH ×6 (08:00→17:00)
[2019-10-30] MEDS: CARVEDILOL 12.5 MG TABLET. PO SCH ×2 (08:35→17:00)
[2019-10-30] MEDS: DOCUSATE SODIUM 100 MG CAPSULE. PO SCH (08:36)
[2019-10-30] MEDS: PANTOPRAZOLE 40 MG TABLET.DR. PO SCH (08:36)
[2019-10-30] MEDS: amLODIPine BESYLATE 10 MG TABLET PO SCH (08:36)
[2019-10-30] MEDS: ISOSORBIDE MONONITRATE ER 30 MG TAB.ER.24H PO SCH ×2 (08:37→21:00)
[2019-10-30] MEDS: HYDROcodone/APAP 7.5/325MG 1 TAB TABLET PO PRN ×3 (08:37→23:39)
[2019-10-30] MEDS: cloNIDine HCL 0.3 MG TABLET PO SCH ×3 (08:37→21:00)
[2019-10-30] MEDS: LUBIPROSTONE 24 MCG CAPSULE PO SCH (09:30)
[2019-10-30] MEDS ORDERED: IV NORMAL SALINE 1000ML BAG 1,000 ML IV ONE (14:00)
--- NOTE | 2019-10-30 15:00 | PDOC ---
PROGRESS NOTES Date of Service: DATE: 10/30/19 TIME: 14:59 Chief Complaint Chief Complaint lightheaded weakness, acquired, will need PT and OT presyncope CHF, hold lasix, eval over-diuresis vasomotor nephropathy, gentle hydration, hold lasix in AM, CV team consult moderate malnutrition, consult nutrition anemia, microcytic, same as previous History of Present Illness History of Present Illness discussed with CV consult, lasix held , may restart renal fxn poor cont current PT and OT, Ana is very weak, complains of hand cramps when eating Vitals Vitals Vital Signs Date Time Temp Pulse Resp B/P (MAP) Pulse Ox O2 Delivery O2 Flow Rate FiO2 10/30/19 14:00 64 106/41 10/30/19 11:00 97.9 17 96 Room Air 97.9 Physical Exam General: Alert, Oriented X3, Cooperative, No acute distress Lungs: Clear Extremities: No clubbing, Other (1+ edema) Labs LABS Laboratory Tests Test 10/29/19 16:00 10/29/19 21:13 10/30/19 07:27 10/30/19 09:00 White Blood Count 7.1 x10^3/uL (4.0-11.0) Red Blood Count 3.15 x10^6/uL (3.50-5.40) Hemoglobin 8.6 g/dL (12.0-15.5) Hematocrit 26.4 % (36.0-47.0) Mean Corpuscular Volume 84 fL (79-100) Mean Corpuscular Hemoglobin 27 pg (25-35) Mean Corpuscular Hemoglobin Concent 32 g/dL (31-37) Red Cell Distribution Width 18.1 % (11.5-14.5) Platelet Count 218 x10^3/uL (140-400) Neutrophils (%) (Auto) 83 % (31-73) Lymphocytes (%) (Auto) 13 % (24-48) Monocytes (%) (Auto) 3 % (0-9) Eosinophils (%) (Auto) 0 % (0-3) Basophils (%) (Auto) 1 % (0-3) Neutrophils # (Auto) 5.9 x10^3/uL (1.8-7.7) Lymphocytes # (Auto) 0.9 x10^3/uL (1.0-4.8) Monocytes # (Auto) 0.2 x10^3/uL (0.0-1.1) Eosinophils # (Auto) 0.0 x10^3/uL (0.0-0.7) Basophils # (Auto) 0.0 x10^3/uL (0.0-0.2) Sodium Level 134 mmol/L (136-145) Potassium Level 3.9 mmol/L (3.5-5.1) Chloride Level 93 mmol/L (98-107) Carbon Dioxide Level 31 mmol/L (21-32) Anion Gap 10 (6-14) Blood Urea Nitrogen 83 mg/dL (7-20) Creatinine 3.9 mg/dL (0.6-1.0) Estimated GFR (Cockcroft-Gault) 13.6 BUN/Creatinine Ratio 21 (6-20) Glucose Level 196 mg/dL (70-99) Calcium Level 8.3 mg/dL (8.5-10.1) Total Bilirubin 0.3 mg/dL (0.2-1.0) Aspartate Amino Transf (AST/SGOT) 25 U/L (15-37) Alanine Aminotransferase (ALT/SGPT) 10 U/L (14-59) Alkaline Phosphatase 53 U/L (46-116) Troponin I Quantitative 0.059 ng/mL (0.000-0.055) GB-Uvf-Q-Type Natriuretic Peptide 4248 pg/mL (0-124) Total Protein 6.9 g/dL (6.4-8.2) Albumin 2.9 g/dL (3.4-5.0) Albumin/Globulin Ratio 0.7 (1.0-1.7) Glucose (Fingerstick) 252 mg/dL (70-99) 50 mg/dL (70-99) 97 mg/dL (70-99) Test 10/30/19 11:26 Glucose (Fingerstick) 103 mg/dL (70-99) Review of Systems Review of Systems weakness, hand cramps Assessment and Plan Assessmemt and Plan Problems Medical Problems: (1) Abdominal pain Status: Acute (2) EDMOND (acute kidney injury) Status: Acute (3) Dehydration Status: Acute Comment Review of Relevant I have reviewed the following items russell (where applicable) has been applied. Labs Laboratory Tests Test 10/29/19 16:00 10/29/19 21:13 10/30/19 07:27 10/30/19 09:00 White Blood Count 7.1 x10^3/uL (4.0-11.0) Red Blood Count 3.15 x10^6/uL (3.50-5.40) Hemoglobin 8.6 g/dL (12.0-15.5) Hematocrit 26.4 % (36.0-47.0) Mean Corpuscular Volume 84 fL (79-100) Mean Corpuscular Hemoglobin 27 pg (25-35) Mean Corpuscular Hemoglobin Concent 32 g/dL (31-37) Red Cell Distribution Width 18.1 % (11.5-14.5) Platelet Count 218 x10^3/uL (140-400) Neutrophils (%) (Auto) 83 % (31-73) Lymphocytes (%) (Auto) 13 % (24-48) Monocytes (%) (Auto) 3 % (0-9) Eosinophils (%) (Auto) 0 % (0-3) Basophils (%) (Auto) 1 % (0-3) Neutrophils # (Auto) 5.9 x10^3/uL (1.8-7.7) Lymphocytes # (Auto) 0.9 x10^3/uL (1.0-4.8) Monocytes # (Auto) 0.2 x10^3/uL (0.0-1.1) Eosinophils # (Auto) 0.0 x10^3/uL (0.0-0.7) Basophils # (Auto) 0.0 x10^3/uL (0.0-0.2) Sodium Level 134 mmol/L (136-145) Potassium Level 3.9 mmol/L (3.5-5.1) Chloride Level 93 mmol/L (98-107) Carbon Dioxide Level 31 mmol/L (21-32) Anion Gap 10 (6-14) Blood Urea Nitrogen 83 mg/dL (7-20) Creatinine 3.9 mg/dL (0.6-1.0) Estimated GFR (Cockcroft-Gault) 13.6 BUN/Creatinine Ratio 21 (6-20) Glucose Level 196 mg/dL (70-99) Calcium Level 8.3 mg/dL (8.5-10.1) Total Bilirubin 0.3 mg/dL (0.2-1.0) Aspartate Amino Transf (AST/SGOT) 25 U/L (15-37) Alanine Aminotransferase (ALT/SGPT) 10 U/L (14-59) Alkaline Phosphatase 53 U/L (46-116) Troponin I Quantitative 0.059 ng/mL (0.000-0.055) ZK-Wbc-N-Type Natriuretic Peptide 4248 pg/mL (0-124) Total Protein 6.9 g/dL (6.4-8.2) Albumin 2.9 g/dL (3.4-5.0) Albumin/Globulin Ratio 0.7 (1.0-1.7) Glucose (Fingerstick) 252 mg/dL (70-99) 50 mg/dL (70-99) 97 mg/dL (70-99) Test 10/30/19 11:26 Glucose (Fingerstick) 103 mg/dL (70-99) Laboratory Tests Test 10/29/19 16:00 10/29/19 21:13 10/30/19 07:27 10/30/19 09:00 White Blood Count 7.1 x10^3/uL (4.0-11.0) Red Blood Count 3.15 x10^6/uL (3.50-5.40) Hemoglobin 8.6 g/dL (12.0-15.5) Hematocrit 26.4 % (36.0-47.0) Mean Corpuscular Volume 84 fL (79-100) Mean Corpuscular Hemoglobin 27 pg (25-35) Mean Corpuscular Hemoglobin Concent 32 g/dL (31-37) Red Cell Distribution Width 18.1 % (11.5-14.5) Platelet Count 218 x10^3/uL (140-400) Neutrophils (%) (Auto) 83 % (31-73) Lymphocytes (%) (Auto) 13 % (24-48) Monocytes (%) (Auto) 3 % (0-9) Eosinophils (%) (Auto) 0 % (0-3) Basophils (%) (Auto) 1 % (0-3) Neutrophils # (Auto) 5.9 x10^3/uL (1.8-7.7) Lymphocytes # (Auto) 0.9 x10^3/uL (1.0-4.8) Monocytes # (Auto) 0.2 x10^3/uL (0.0-1.1) Eosinophils # (Auto) 0.0 x10^3/uL (0.0-0.7) Basophils # (Auto) 0.0 x10^3/uL (0.0-0.2) Sodium Level 134 mmol/L (136-145) Potassium Level 3.9 mmol/L (3.5-5.1) Chloride Level 93 mmol/L (98-107) Carbon Dioxide Level 31 mmol/L (21-32) Anion Gap 10 (6-14) Blood Urea Nitrogen 83 mg/dL (7-20) Creatinine 3.9 mg/dL (0.6-1.0) Estimated GFR (Cockcroft-Gault) 13.6 BUN/Creatinine Ratio 21 (6-20) Glucose Level 196 mg/dL (70-99) Calcium Level 8.3 mg/dL (8.5-10.1) Total Bilirubin 0.3 mg/dL (0.2-1.0) Aspartate Amino Transf (AST/SGOT) 25 U/L (15-37) Alanine Aminotransferase (ALT/SGPT) 10 U/L (14-59) Alkaline Phosphatase 53 U/L (46-116) Troponin I Quantitative 0.059 ng/mL (0.000-0.055) QI-Oqt-B-Type Natriuretic Peptide 4248 pg/mL (0-124) Total Protein 6.9 g/dL (6.4-8.2) Albumin 2.9 g/dL (3.4-5.0) Albumin/Globulin Ratio 0.7 (1.0-1.7) Glucose (Fingerstick) 252 mg/dL (70-99) 50 mg/dL (70-99) 97 mg/dL (70-99) Test 10/30/19 11:26 Glucose (Fingerstick) 103 mg/dL (70-99) Medications Current Medications Sodium Chloride 250 ml @ 250 mls/hr 1X ONCE IV Last administered on 10/29/19at 16:45; Start 10/29/19 at 16:45; Stop 10/29/19 at 17:44; Status DC Amlodipine Besylate (Norvasc) 10 mg DAILY PO Last administered on 10/30/19at 08:36; Start 10/30/19 at 09:00 Aspirin (Ecotrin) 81 mg DAILYWBKFT PO ; Start 10/30/19 at 08:00 Atorvastatin Calcium (Lipitor) 40 mg QHS PO Last administered on 10/29/19 22:01; Start 10/29/19 at 21:00 Carvedilol (Coreg) 25 mg BIDWMEALS PO Last administered on 10/30/19 08:35; Start 10/30/19 at 08:00 Clonidine HCl (Catapres) 0.3 mg TID PO Last administered on 10/30/19 08:37; Start 10/29/19 at 21:00 Docusate Sodium (Colace) 100 mg DAILY PO Last administered on 10/30/19 08:36; Start 10/30/19 at 09:00 Acetaminophen/ Hydrocodone Bitart (Lortab 7.5/325) 1 tab PRN Q4HRS PRN PO MODER ATE PAIN 4-6 Last administered on 10/30/19 08:37; Start 10/29/19 at 21:00 Insulin Glargine (Lantus Syringe) 28 unit HS SQ Last administered on 10/29/19 23:57; Start 10/29/19 at 21:00; Stop 10/30/19 at 07:50; Status DC Latanoprost (Xalatan) 1 drop HS OU Last administered on 10/29/19 21:58; Start 10/29/19 at 21:00 Simethicone (Gas-X) 80 mg PRN AFTMEALHC PRN PO GAS / BLOATING; Start 10/29/19 at 21:00 Doxazosin Mesylate (Cardura) 2 mg QHS PO Last administered on 10/29/19at 23:50; Start 10/29/19 at 21:00 Insulin Human Lispro (HumaLOG) 6 units TIDWMEALS SQ ; Start 10/30/19 at 08:00 Isosorbide Mononitrate (Imdur) 60 mg BID PO Last administered on 10/30/19 08:37; Start 10/30/19 at 09:00 Lubiprostone (Amitiza) 24 mcg DAILYWBKFT PO Last administered on 10/30/19 09:30; Start 10/30/19 at 08:00 Pantoprazole Sodium (Protonix) 40 mg DAILYAC PO Last administered on 10/30/19at 08:36; Start 10/30/19 at 07:30 Insulin Human Lispro (HumaLOG) 0-7 UNITS TIDWMEALS SQ ; Start 10/30/19 at 08:00 Dextrose (Dextrose 50%-Water Syringe) 12.5 gm PRN Q15MIN PRN IV SEE COMMENTS; Start 10/29/19 at 21:15 Insulin Glargine (Lantus Syringe) 20 unit HS SQ ; Start 10/30/19 at 21:00 Sodium Chloride 1,000 ml @ 75 mls/hr 1X ONCE IV Last administered on 10/30/19at 14:40; Start 10/30/19 at 14:00; Stop 10/31/19 at 03:19 Active Scripts Active Aspirin Ec (Aspirin) 81 Mg Tablet. 81 Mg PO DAILYWBKFT 90 Days Furosemide 40 Mg Tablet 40 Mg PO BID92 30 Days Weight yourself daily, if you gain 3 pounds or more increase dose to 80mg BID for 3 days and contact your infrastructure architect Amitiza (Lubiprostone) 8 Mcg Capsule 1 Cap PO BID Colace (Docusate Sodium) 100 Mg Capsule 100 Mg PO DAILY 30 Days Simethicone 80 Mg Tab.chew 80 Mg PO PRN AFTMEALHC PRN 30 Days Carvedilol (Carvedilol) 12.5 Mg Tablet 25 Mg PO BIDWMEALS Reported Prednisone 2.5 Mg Tablet 5 Mg PO DAILY Amlodipine Besylate 10 Mg Tablet 10 Mg PO DAILY Hydralazine Hcl 100 Mg Tablet 1 Tab PO TID Isosorbide Mononitrate Er (Isosorbide Mononitrate) 60 Mg Tab.er.24h 1 Tab PO BID Latanoprost 2.5 Ml Drops 1 Drop OP HS Doxazosin Mesylate 2 Mg Tablet 1 Tab PO HS Atorvastatin Calcium 40 Mg Tablet 1 Tab PO QHS Hydrocodone-Apap 7.5-325 (Hydrocodone Bit/Acetaminophen) 1 Each Tablet 1 Tab PO Q4HRS PRN Proair Hfa Inhaler (Albuterol Sulfate) 8.5 Gm Hfa.aer.ad 2 Puff IH PRN Q6HRS PRN Novolog Flexpen (Insulin Aspart) 100 Unit/1 Ml Insuln.pen 6 Unit SQ TIDAC Lantus (Insulin Glargine,Hum.rec.anlog) 100 Unit/1 Ml Vial 28 Unit SQ HS Omeprazole 20 Mg Capsule.dr 20 Mg PO BID PRN Clonidine Hcl 0.3 Mg Tablet 0.3 Mg PO TID Vitals/I & O Vital Sign - Last 24 Hours 10/29/19 10/29/19 10/29/19 10/29/19 15:50 15:50 16:19 16:49 Temp 98.3 98.3 Pulse 70 76 68 60 Resp 16 B/P (MAP) 135/70 (91) Pulse Ox 94 94 95 97 O2 Delivery Room Air 10/29/19 10/29/19 10/29/19 10/29/19 19:00 23:00 23:50 23:51 Temp 98.1 98.2 98.1 98.2 Pulse 59 76 60 60 Resp 18 18 B/P (MAP) 141/57 (85) 117/55 (75) 146/57 146/57 Pulse Ox 91 92 O2 Delivery Room Air Room Air 10/30/19 10/30/19 10/30/19 10/30/19 03:00 07:00 08:00 08:35 Temp 98.3 98.1 98.3 98.1 Pulse 66 59 59 Resp 18 16 B/P (MAP) 122/55 (77) 126/53 (77) 126/53 Pulse Ox 92 95 O2 Delivery Room Air Room Air Room Air 10/30/19 10/30/19 10/30/19 10/30/19 08:36 08:37 08:37 08:37 Pulse 59 59 59 Resp 19 B/P (MAP) 126/53 126/53 126/53 Pulse Ox 95 O2 Delivery Room Air 10/30/19 10/30/19 10/30/19 09:40 11:00 14:00 Temp 97.9 97.9 Pulse 61 64 Resp 19 17 B/P (MAP) 107/41 (63) 106/41 Pulse Ox 94 96 O2 Delivery Room Air Room Air Intake and Output 10/29/19 10/29/19 10/30/19 15:00 23:00 07:00 Intake Total 250 ml 400 ml Balance 250 ml 400 ml Justicifation of Admission Dx: Justifications for Admission: Justification of Admission Dx: Yes Hypertension: Symp at Rest SEAN ATWOOD MD Oct 30, 2019 15:00
[2019-10-30 15:12] LABS: CREATININE 3.6 mg/dL (0.6-1.0); POTASSIUM 3.3 mmol/L (3.5-5.1)
--- NOTE | 2019-10-30 15:37 | CONS ---
DATE OF CONSULTATION: 10/30/2019 REASON FOR CONSULTATION: Elevated troponin. HISTORY OF PRESENT ILLNESS: The patient is a very pleasant 74-year-old woman with past medical history as noted below, who presents to the hospital in the setting of dizziness. She was actually seen in the office on 10/27/2019 and was doing fairly well and due to her prior history of coronary artery disease and some chronic dyspnea, she was planned for an ischemic testing. She denies any anginal symptoms and does have some lightheadedness and dizziness. Initial evaluation in the ER revealed dehydration. She has been admitted for further evaluation and treatment. The patient also has some money anemia that is being worked up by the primary care team. PAST MEDICAL HISTORY: 1. Coronary artery disease, status post coronary artery bypass graft. 2. Hypertension. 3. Dyslipidemia. 4. PAD. 5. Prior history of debility and inability to ambulate appropriately. SOCIAL HISTORY: No alcohol, tobacco or illicit drug use. She has two children. FAMILY HISTORY: Noncontributory. ALLERGIES: No known drug allergies. CURRENT CARDIOVASCULAR MEDICATIONS: 1. Doxazosin 2 mg daily. 2. Imdur 60 mg b.i.d. 3. Lasix 40 mg b.i.d. 4. Clonidine 0.3 mg t.i.d. 5. Coreg 25 mg b.i.d. 6. Aspirin 81 mg daily. 7. Hydralazine 100 mg t.i.d. REVIEW OF SYSTEMS: Negative unless otherwise mentioned above in HPI. PHYSICAL EXAMINATION: GENERAL: She is fatigued and tired, but otherwise she is alert and oriented. HEAD AND NECK: Unremarkable. CARDIAC: Regular rate and rhythm without murmurs, rubs or gallops. LUNGS: Clear to auscultation bilaterally. ABDOMEN: Soft, nontender, nondistended. EXTREMITIES: No clubbing, cyanosis or edema. NEUROLOGIC: No focal deficits. MUSCULOSKELETAL: No obvious trauma. DIAGNOSTIC STUDIES: Echo in 08/2018 revealed a normal ejection fraction with moderate pulmonary hypertension. Renal duplex in 09/2018 did not reveal any significant renal artery stenosis. She had a carotid Doppler in 03/2018, which revealed a 50% left in-stent restenosis of her carotid artery. Current creatinine is 3.9 with a BNP of 4248. Her D-dimer was elevated at 3.49 at previous admissions. Hemoglobin is mildly decreased at 8.6, which is at her baseline compared to 1 month ago. Abdomen and pelvis CT performed yesterday reveals a large amount of stool suggestive of constipation, but no other pathology. Chest x-ray demonstrates no significant process. EKG is unremarkable. IMPRESSION: 1. Dizziness, likely secondary to excessive medication and/or dehydration. 2. Hypertension, currently well controlled. RECOMMENDATIONS: 1. Check orthostatics. 2. We will continue her doxazosin and carvedilol and Imdur at this time. Monitor for any hypotension. Agree with holding her diuretics. She has had very labile blood pressures in the past. Appreciate Nephrology input. Her case has been previously discussed with her defense attorney as well. Supportive care for now. We will obtain an echocardiogram on a nonurgent basis. Thank you for this consultation. CHELSEY BURNS MD DR: HUGH/gordo JOB#: [id number] / [id number]
--- NOTE | 2019-10-30 17:10 | NUR ---
PATIENTS' BLOOD SUGAR 48 AT THIS TIME, PATIENT ASYMPTOMATIC AND WITHOUT S/S OF HYPOGLYCEMIA, HEAD ATHLETIC TRAINER HAS GIVEN APPLE JUICE AND PATIENT IS CONSUMING DINNER, WILL INFORM MD AND RECHECK BLOOD SUGAR.
--- NOTE | 2019-10-30 20:55 | CONS ---
DATE OF CONSULTATION: REQUESTING PHYSICIAN: Hospitalist. REASON FOR CONSULTATION: Renal failure. HISTORY OF PRESENT ILLNESS: This is a 74-year-old female, known to this physician. She has a longstanding history of diabetes mellitus and hypertension as well as cardiomyopathy. In this setting, she has had progressive chronic kidney disease and now presents to the hospital with vague complaints of fatigue and lightheadedness. She denies chest pain, shortness of breath, paroxysmal nocturnal dyspnea, orthopnea, or dyspnea on exertion. No abdominal pain. No nausea, vomiting, or diarrhea. She has had dark stools and relates it to "hemorrhoids." PAST MEDICAL/SURGICAL HISTORY: Diabetes mellitus, hypertension, chronic kidney disease stage 4/5, hyperlipidemia, chronic obstructive pulmonary disease, gastroesophageal reflux disease, cholecystectomy, coronary bypass grafting, hysterectomy, and anemia of chronic kidney disease. ALLERGIES: PENICILLIN AND DOPAMINE. MEDICATIONS: Reviewed per medication list. FAMILY HISTORY: A note for renal failure in multiple family members, all due to diabetes mellitus. SOCIAL HISTORY: The patient resides with assistance from family. She a previous smoker and does not drink alcohol. REVIEW OF SYSTEMS: No headache, sinus problem, nasal drainage, epistaxis, change in vision or hearing. She has had some dizziness and lightheadedness. No chest pain, shortness of breath, paroxysmal nocturnal dyspnea, orthopnea, or dyspnea on exertion. No abdominal pain. No nausea, vomiting, or diarrhea. No seizures or malignancies. She has had some dark blood per rectum. PHYSICAL EXAMINATION: GENERAL APPEARANCE: The patient appears stated age. HEENT: Bitemporal wasting. Eyes are sunken. NECK: No increased JVD. No thyromegaly, mass, or adenopathy. LUNGS: Clear. CARDIAC: Without S3 or rub. ABDOMEN: Soft, nontender, no bruits. EXTREMITIES: Without edema. NEUROLOGIC: Nonfocal, nonlocalized. PSYCHIATRIC: Reduced attention to detail; dysphoric affect. LABORATORY DATA: Hemoglobin 8.6, hematocrit 26%; sodium 134, potassium 3.9, chloride 93, CO2 31, BUN 83, creatinine 3.9, GFR is 13.6, albumin 2.9. IMPRESSION: Chronic renal failure, now stage 5 versus stage 4, with prerenal state. DISCUSSION AND RECOMMENDATIONS: We will proceed with slow intravenous fluid administration to assess results. Depending on results, the patient may require elective initiation of dialysis. We will follow. RUBEN ALFARO MD DR: ANTONIETA/gordo JOB#: [id number] / [id number]
[2019-10-30] MEDS: DOXAZOSIN MESYLATE 1 MG TABLET. PO SCH (21:00)
[2019-10-30] MEDS ORDERED: INSULIN GLARGINE SYRINGE. SQ SCH (21:00)
[2019-10-30] MEDS: ATORVASTATIN CALCIUM 40 MG TABLET. PO SCH (21:39)
[2019-10-30] MEDS: LATANOPROST 0.005% OPHTH SOLUTION 2.5ML BOTTLE. OU SCH (21:46)
[2019-10-31] VITALS (7 sets, daily range): BP systolic 112–167; BP diastolic 49–58
[2019-10-31 07:42] LABS: BASO % 0 % (0-3); EOS # 0.1 x10^3/uL (0.0-0.7); EOS % 2 % (0-3); HEMATOCRIT 28.5 % (36.0-47.0); HEMOGLOBIN 9.1 g/dL (12.0-15.5); LYMPH % 21 % (24-48); MEAN CORPUSCULAR HEMOGLOBIN 27 pg (25-35); MEAN CORPUSCULAR HGB CONC 32 g/dL (31-37); MEAN CORPUSCULAR VOLUME 84 fL (79-100); MONO # 0.3 x10^3/uL (0.0-1.1); MONO % 6 % (0-9); NEUT # 3.4 x10^3/uL (1.8-7.7); NEUT % 71 % (31-73); PLATELET COUNT 200 x10^3/uL (140-400); RED BLOOD COUNT 3.38 x10^6/uL (3.50-5.40); RED CELL DISTRIBUTION WIDTH 18.4 % (11.5-14.5); WHITE BLOOD COUNT 4.9 x10^3/uL (4.0-11.0)
[2019-10-31 07:57] LABS: ALBUMIN 2.6 g/dL (3.4-5.0); ALBUMIN/GLOBULIN RATIO 0.6 (1.0-1.7); CALCIUM 8.3 mg/dL (8.5-10.1); GFR 18.5; POTASSIUM 3.3 mmol/L (3.5-5.1); TOTAL BILIRUBIN 0.3 mg/dL (0.2-1.0); TOTAL PROTEIN 7.1 g/dL (6.4-8.2)
[2019-10-31] MEDS: INSULIN LISPRO 300 UNITS/3 ML VIAL. SQ SCH ×6 (08:00→16:47)
[2019-10-31] MEDS: ASPIRIN ENTERIC COATED 81 MG TABLET.DR. PO SCH (08:00)
[2019-10-31] MEDS: CARVEDILOL 12.5 MG TABLET. PO SCH ×2 (08:00→17:00)
--- NOTE | 2019-10-31 09:00 | NUR ---
PATIENT ALERT AND VERBALLY RESPONSIVE, ASSISTED UP TO THE BATHROOM PER THIS LADLE OPERATOR, PATIENT HAD BLOOD IN THE TOILET AFTER VOIDING, NO BM AT THIS TIME, PATIENT STATES "THE BLOOD I COMING FROM MY HEMMROIDS", WILL INFORM .
[2019-10-31] MEDS: LUBIPROSTONE 24 MCG CAPSULE PO SCH (09:49)
[2019-10-31] MEDS: PANTOPRAZOLE 40 MG TABLET.DR. PO SCH (09:49)
[2019-10-31] MEDS: DOCUSATE SODIUM 100 MG CAPSULE. PO SCH (09:49)
[2019-10-31] MEDS: ISOSORBIDE MONONITRATE ER 30 MG TAB.ER.24H PO SCH ×2 (11:26→20:29)
[2019-10-31] MEDS: amLODIPine BESYLATE 10 MG TABLET PO SCH (11:26)
--- NOTE | 2019-10-31 11:57 | PDOC ---
PROGRESS NOTES Date of Service: DATE: 10/31/19 TIME: 11:56 Chief Complaint Chief Complaint lightheaded weakness, acquired, will need PT and OT presyncope CHF, hold lasix, eval over-diuresis vasomotor nephropathy, gentle hydration, hold lasix in AM, CV team consult moderate malnutrition, consult nutrition anemia, microcytic, same as previous History of Present Illness History of Present Illness much better since admit, stronger, up to chair, walked 100 feet with walker, got up by herself discussed with CV consult, lasix held , may restart renal fxn poor cont current PT and OT, Ana is very weak, complains of hand cramps when eating Vitals Vitals Vital Signs Date Time Temp Pulse Resp B/P (MAP) Pulse Ox O2 Delivery O2 Flow Rate FiO2 10/31/19 11:26 57 167/55 10/31/19 07:00 98.0 17 93 Room Air 98.0 Physical Exam General: Alert, Oriented X3, Cooperative, No acute distress Lungs: Clear Extremities: No clubbing, Other (1+ edema) Labs LABS Laboratory Tests Test 10/30/19 14:30 10/30/19 16:47 10/30/19 17:39 10/30/19 20:31 Sodium Level 136 mmol/L (136-145) Potassium Level 3.3 mmol/L (3.5-5.1) Chloride Level 97 mmol/L (98-107) Carbon Dioxide Level 33 mmol/L (21-32) Anion Gap 6 (6-14) Blood Urea Nitrogen 86 mg/dL (7-20) Creatinine 3.6 mg/dL (0.6-1.0) Estimated GFR (Cockcroft-Gault) 15.0 Glucose Level 57 mg/dL (70-99) Calcium Level 8.0 mg/dL (8.5-10.1) Glucose (Fingerstick) 48 mg/dL (70-99) 111 mg/dL (70-99) 99 mg/dL (70-99) Test 10/31/19 03:36 10/31/19 03:51 10/31/19 05:30 10/31/19 07:19 Glucose (Fingerstick) 29 mg/dL (70-99) 147 mg/dL (70-99) 98 mg/dL (70-99) White Blood Count 4.9 x10^3/uL (4.0-11.0) Red Blood Count 3.38 x10^6/uL (3.50-5.40) Hemoglobin 9.1 g/dL (12.0-15.5) Hematocrit 28.5 % (36.0-47.0) Mean Corpuscular Volume 84 fL (79-100) Mean Corpuscular Hemoglobin 27 pg (25-35) Mean Corpuscular Hemoglobin Concent 32 g/dL (31-37) Red Cell Distribution Width 18.4 % (11.5-14.5) Platelet Count 200 x10^3/uL (140-400) Neutrophils (%) (Auto) 71 % (31-73) Lymphocytes (%) (Auto) 21 % (24-48) Monocytes (%) (Auto) 6 % (0-9) Eosinophils (%) (Auto) 2 % (0-3) Basophils (%) (Auto) 0 % (0-3) Neutrophils # (Auto) 3.4 x10^3/uL (1.8-7.7) Lymphocytes # (Auto) 1.0 x10^3/uL (1.0-4.8) Monocytes # (Auto) 0.3 x10^3/uL (0.0-1.1) Eosinophils # (Auto) 0.1 x10^3/uL (0.0-0.7) Basophils # (Auto) 0.0 x10^3/uL (0.0-0.2) Sodium Level 140 mmol/L (136-145) Potassium Level 3.3 mmol/L (3.5-5.1) Chloride Level 101 mmol/L (98-107) Carbon Dioxide Level 32 mmol/L (21-32) Anion Gap 7 (6-14) Blood Urea Nitrogen 74 mg/dL (7-20) Creatinine 3.0 mg/dL (0.6-1.0) Estimated GFR (Cockcroft-Gault) 18.5 BUN/Creatinine Ratio 25 (6-20) Glucose Level 112 mg/dL (70-99) Calcium Level 8.3 mg/dL (8.5-10.1) Total Bilirubin 0.3 mg/dL (0.2-1.0) Aspartate Amino Transf (AST/SGOT) 23 U/L (15-37) Alanine Aminotransferase (ALT/SGPT) 9 U/L (14-59) Alkaline Phosphatase 51 U/L (46-116) Total Protein 7.1 g/dL (6.4-8.2) Albumin 2.6 g/dL (3.4-5.0) Albumin/Globulin Ratio 0.6 (1.0-1.7) Test 10/31/19 11:12 Glucose (Fingerstick) 199 mg/dL (70-99) Assessment and Plan Assessmemt and Plan Problems Medical Problems: (1) Abdominal pain Status: Acute (2) EDMOND (acute kidney injury) Status: Acute (3) Dehydration Status: Acute Comment Review of Relevant I have reviewed the following items russell (where applicable) has been applied. Labs Laboratory Tests Test 10/29/19 16:00 10/29/19 21:13 10/30/19 07:27 10/30/19 09:00 White Blood Count 7.1 x10^3/uL (4.0-11.0) Red Blood Count 3.15 x10^6/uL (3.50-5.40) Hemoglobin 8.6 g/dL (12.0-15.5) Hematocrit 26.4 % (36.0-47.0) Mean Corpuscular Volume 84 fL (79-100) Mean Corpuscular Hemoglobin 27 pg (25-35) Mean Corpuscular Hemoglobin Concent 32 g/dL (31-37) Red Cell Distribution Width 18.1 % (11.5-14.5) Platelet Count 218 x10^3/uL (140-400) Neutrophils (%) (Auto) 83 % (31-73) Lymphocytes (%) (Auto) 13 % (24-48) Monocytes (%) (Auto) 3 % (0-9) Eosinophils (%) (Auto) 0 % (0-3) Basophils (%) (Auto) 1 % (0-3) Neutrophils # (Auto) 5.9 x10^3/uL (1.8-7.7) Lymphocytes # (Auto) 0.9 x10^3/uL (1.0-4.8) Monocytes # (Auto) 0.2 x10^3/uL (0.0-1.1) Eosinophils # (Auto) 0.0 x10^3/uL (0.0-0.7) Basophils # (Auto) 0.0 x10^3/uL (0.0-0.2) Sodium Level 134 mmol/L (136-145) Potassium Level 3.9 mmol/L (3.5-5.1) Chloride Level 93 mmol/L (98-107) Carbon Dioxide Level 31 mmol/L (21-32) Anion Gap 10 (6-14) Blood Urea Nitrogen 83 mg/dL (7-20) Creatinine 3.9 mg/dL (0.6-1.0) Estimated GFR (Cockcroft-Gault) 13.6 BUN/Creatinine Ratio 21 (6-20) Glucose Level 196 mg/dL (70-99) Calcium Level 8.3 mg/dL (8.5-10.1) Total Bilirubin 0.3 mg/dL (0.2-1.0) Aspartate Amino Transf (AST/SGOT) 25 U/L (15-37) Alanine Aminotransferase (ALT/SGPT) 10 U/L (14-59) Alkaline Phosphatase 53 U/L (46-116) Troponin I Quantitative 0.059 ng/mL (0.000-0.055) ZN-Uol-B-Type Natriuretic Peptide 4248 pg/mL (0-124) Total Protein 6.9 g/dL (6.4-8.2) Albumin 2.9 g/dL (3.4-5.0) Albumin/Globulin Ratio 0.7 (1.0-1.7) Glucose (Fingerstick) 252 mg/dL (70-99) 50 mg/dL (70-99) 97 mg/dL (70-99) Test 10/30/19 11:26 10/30/19 14:30 10/30/19 16:47 10/30/19 17:39 Glucose (Fingerstick) 103 mg/dL (70-99) 48 mg/dL (70-99) 111 mg/dL (70-99) Sodium Level 136 mmol/L (136-145) Potassium Level 3.3 mmol/L (3.5-5.1) Chloride Level 97 mmol/L (98-107) Carbon Dioxide Level 33 mmol/L (21-32) Anion Gap 6 (6-14) Blood Urea Nitrogen 86 mg/dL (7-20) Creatinine 3.6 mg/dL (0.6-1.0) Estimated GFR (Cockcroft-Gault) 15.0 Glucose Level 57 mg/dL (70-99) Calcium Level 8.0 mg/dL (8.5-10.1) Test 10/30/19 20:31 10/31/19 03:36 10/31/19 03:51 10/31/19 05:30 Glucose (Fingerstick) 99 mg/dL (70-99) 29 mg/dL (70-99) 147 mg/dL (70-99) White Blood Count 4.9 x10^3/uL (4.0-11.0) Red Blood Count 3.38 x10^6/uL (3.50-5.40) Hemoglobin 9.1 g/dL (12.0-15.5) Hematocrit 28.5 % (36.0-47.0) Mean Corpuscular Volume 84 fL (79-100) Mean Corpuscular Hemoglobin 27 pg (25-35) Mean Corpuscular Hemoglobin Concent 32 g/dL (31-37) Red Cell Distribution Width 18.4 % (11.5-14.5) Platelet Count 200 x10^3/uL (140-400) Neutrophils (%) (Auto) 71 % (31-73) Lymphocytes (%) (Auto) 21 % (24-48) Monocytes (%) (Auto) 6 % (0-9) Eosinophils (%) (Auto) 2 % (0-3) Basophils (%) (Auto) 0 % (0-3) Neutrophils # (Auto) 3.4 x10^3/uL (1.8-7.7) Lymphocytes # (Auto) 1.0 x10^3/uL (1.0-4.8) Monocytes # (Auto) 0.3 x10^3/uL (0.0-1.1) Eosinophils # (Auto) 0.1 x10^3/uL (0.0-0.7) Basophils # (Auto) 0.0 x10^3/uL (0.0-0.2) Sodium Level 140 mmol/L (136-145) Potassium Level 3.3 mmol/L (3.5-5.1) Chloride Level 101 mmol/L (98-107) Carbon Dioxide Level 32 mmol/L (21-32) Anion Gap 7 (6-14) Blood Urea Nitrogen 74 mg/dL (7-20) Creatinine 3.0 mg/dL (0.6-1.0) Estimated GFR (Cockcroft-Gault) 18.5 BUN/Creatinine Ratio 25 (6-20) Glucose Level 112 mg/dL (70-99) Calcium Level 8.3 mg/dL (8.5-10.1) Total Bilirubin 0.3 mg/dL (0.2-1.0) Aspartate Amino Transf (AST/SGOT) 23 U/L (15-37) Alanine Aminotransferase (ALT/SGPT) 9 U/L (14-59) Alkaline Phosphatase 51 U/L (46-116) Total Protein 7.1 g/dL (6.4-8.2) Albumin 2.6 g/dL (3.4-5.0) Albumin/Globulin Ratio 0.6 (1.0-1.7) Test 10/31/19 07:19 10/31/19 11:12 Glucose (Fingerstick) 98 mg/dL (70-99) 199 mg/dL (70-99) Laboratory Tests Test 10/30/19 14:30 10/30/19 16:47 10/30/19 17:39 10/30/19 20:31 Sodium Level 136 mmol/L (136-145) Potassium Level 3.3 mmol/L (3.5-5.1) Chloride Level 97 mmol/L (98-107) Carbon Dioxide Level 33 mmol/L (21-32) Anion Gap 6 (6-14) Blood Urea Nitrogen 86 mg/dL (7-20) Creatinine 3.6 mg/dL (0.6-1.0) Estimated GFR (Cockcroft-Gault) 15.0 Glucose Level 57 mg/dL (70-99) Calcium Level 8.0 mg/dL (8.5-10.1) Glucose (Fingerstick) 48 mg/dL (70-99) 111 mg/dL (70-99) 99 mg/dL (70-99) Test 10/31/19 03:36 10/31/19 03:51 10/31/19 05:30 10/31/19 07:19 Glucose (Fingerstick) 29 mg/dL (70-99) 147 mg/dL (70-99) 98 mg/dL (70-99) White Blood Count 4.9 x10^3/uL (4.0-11.0) Red Blood Count 3.38 x10^6/uL (3.50-5.40) Hemoglobin 9.1 g/dL (12.0-15.5) Hematocrit 28.5 % (36.0-47.0) Mean Corpuscular Volume 84 fL (79-100) Mean Corpuscular Hemoglobin 27 pg (25-35) Mean Corpuscular Hemoglobin Concent 32 g/dL (31-37) Red Cell Distribution Width 18.4 % (11.5-14.5) Platelet Count 200 x10^3/uL (140-400) Neutrophils (%) (Auto) 71 % (31-73) Lymphocytes (%) (Auto) 21 % (24-48) Monocytes (%) (Auto) 6 % (0-9) Eosinophils (%) (Auto) 2 % (0-3) Basophils (%) (Auto) 0 % (0-3) Neutrophils # (Auto) 3.4 x10^3/uL (1.8-7.7) Lymphocytes # (Auto) 1.0 x10^3/uL (1.0-4.8) Monocytes # (Auto) 0.3 x10^3/uL (0.0-1.1) Eosinophils # (Auto) 0.1 x10^3/uL (0.0-0.7) Basophils # (Auto) 0.0 x10^3/uL (0.0-0.2) Sodium Level 140 mmol/L (136-145) Potassium Level 3.3 mmol/L (3.5-5.1) Chloride Level 101 mmol/L (98-107) Carbon Dioxide Level 32 mmol/L (21-32) Anion Gap 7 (6-14) Blood Urea Nitrogen 74 mg/dL (7-20) Creatinine 3.0 mg/dL (0.6-1.0) Estimated GFR (Cockcroft-Gault) 18.5 BUN/Creatinine Ratio 25 (6-20) Glucose Level 112 mg/dL (70-99) Calcium Level 8.3 mg/dL (8.5-10.1) Total Bilirubin 0.3 mg/dL (0.2-1.0) Aspartate Amino Transf (AST/SGOT) 23 U/L (15-37) Alanine Aminotransferase (ALT/SGPT) 9 U/L (14-59) Alkaline Phosphatase 51 U/L (46-116) Total Protein 7.1 g/dL (6.4-8.2) Albumin 2.6 g/dL (3.4-5.0) Albumin/Globulin Ratio 0.6 (1.0-1.7) Test 10/31/19 11:12 Glucose (Fingerstick) 199 mg/dL (70-99) Medications Current Medications Sodium Chloride 250 ml @ 250 mls/hr 1X ONCE IV Last administered on 10/29/19 16:45; Start 10/29/19 at 16:45; Stop 10/29/19 at 17:44; Status DC Amlodipine Besylate (Norvasc) 10 mg DAILY PO Last administered on 10/31/19 11:26; Start 10/30/19 at 09:00 Aspirin (Ecotrin) 81 mg DAILYWBKFT PO ; Start 10/30/19 at 08:00 Atorvastatin Calcium (Lipitor) 40 mg QHS PO Last administered on 10/30/19 21:39; Start 10/29/19 at 21:00 Carvedilol (Coreg) 25 mg BIDWMEALS PO Last administered on 10/30/19 08:35; Start 10/30/19 at 08:00 Clonidine HCl (Catapres) 0.3 mg TID PO Last administered on 10/30/19 08:37; Start 10/29/19 at 21:00 Docusate Sodium (Colace) 100 mg DAILY PO Last administered on 10/31/19 09:49; Start 10/30/19 at 09:00 Acetaminophen/ Hydrocodone Bitart (Lortab 7.5/325) 1 tab PRN Q4HRS PRN PO MODERATE PAIN 4-6 Last administered on 10/30/19 23:39; Start 10/29/19 at 21:00 Insulin Glargine (Lantus Syringe) 28 unit HS SQ Last administered on 10/29/19 23:57; Start 10/29/19 at 21:00; Stop 10/30/19 at 07:50; Status DC Latanoprost (Xalatan) 1 drop HS OU Last administered on 10/30/19 21:46; Start 8/14/20 at 21:00 Simethicone (Gas-X) 80 mg PRN AFTMEALHC PRN PO GAS / BLOATING; Start 10/29/19 at 21:00 Doxazosin Mesylate (Cardura) 2 mg QHS PO Last administered on 10/29/19at 23:50; Start 10/29/19 at 21:00 Insulin Human Lispro (HumaLOG) 6 units TIDWMEALS SQ ; Start 10/30/19 at 08:00 Isosorbide Mononitrate (Imdur) 60 mg BID PO Last administered on 10/31/19at 11:26; Start 10/30/19 at 09:00 Lubiprostone (Amitiza) 24 mcg DAILYWBKFT PO Last administered on 10/31/19at 09:49; Start 10/30/19 at 08:00 Pantoprazole Sodium (Protonix) 40 mg DAILYAC PO Last administered on 10/31/19at 09:49; Start 10/30/19 at 07:30 Insulin Human Lispro (HumaLOG) 0-7 UNITS TIDWMEALS SQ ; Start 10/30/19 at 08:00 Dextrose (Dextrose 50%-Water Syringe) 12.5 gm PRN Q15MIN PRN IV SEE COMMENTS Last administered on 10/31/19at 03:39; Start 10/29/19 at 21:15 Insulin Glargine (Lantus Syringe) 20 unit HS SQ ; Start 10/30/19 at 21:00 Sodium Chloride 1,000 ml @ 75 mls/hr 1X ONCE IV Last administered on 10/30/19at 14:40; Start 10/30/19 at 14:00; Stop 10/31/19 at 03:19; Status DC Active Scripts Active Aspirin Ec (Aspirin) 81 Mg Tablet. 81 Mg PO DAILYWBKFT 90 Days Furosemide 40 Mg Tablet 40 Mg PO BID92 30 Days Weight yourself daily, if you gain 3 pounds or more increase dose to 80mg BID for 3 days and contact your retail client solutions analyst Amitiza (Lubiprostone) 8 Mcg Capsule 1 Cap PO BID Colace (Docusate Sodium) 100 Mg Capsule 100 Mg PO DAILY 30 Days Simethicone 80 Mg Tab.chew 80 Mg PO PRN AFTMEALHC PRN 30 Days Carvedilol (Carvedilol) 12.5 Mg Tablet 25 Mg PO BIDWMEALS Reported Prednisone 2.5 Mg Tablet 5 Mg PO DAILY Amlodipine Besylate 10 Mg Tablet 10 Mg PO DAILY Hydralazine Hcl 100 Mg Tablet 1 Tab PO TID Isosorbide Mononitrate Er (Isosorbide Mononitrate) 60 Mg Tab.er.24h 1 Tab PO BID Latanoprost 2.5 Ml Drops 1 Drop OP HS Doxazosin Mesylate 2 Mg Tablet 1 Tab PO HS Atorvastatin Calcium 40 Mg Tablet 1 Tab PO QHS Hydrocodone-Apap 7.5-325 (Hydrocodone Bit/Acetaminophen) 1 Each Tablet 1 Tab PO Q4HRS PRN Proair Hfa Inhaler (Albuterol Sulfate) 8.5 Gm Hfa.aer.ad 2 Puff IH PRN Q6HRS PRN Novolog Flexpen (Insulin Aspart) 100 Unit/1 Ml Insuln.pen 6 Unit SQ TIDAC Lantus (Insulin Glargine,Hum.rec.anlog) 100 Unit/1 Ml Vial 28 Unit SQ HS Omeprazole 20 Mg Capsule.dr 20 Mg PO BID PRN Clonidine Hcl 0.3 Mg Tablet 0.3 Mg PO TID Vitals/I & O Vital Sign - Last 24 Hours 10/30/19 10/30/19 10/30/19 10/30/19 14:00 15:14 15:15 15:15 Temp 97.9 97.9 Pulse 64 64 71 60 Resp 18 18 18 B/P (MAP) 106/41 106/41 (62) 106/58 (74) 114/45 (68) Pulse Ox 95 94 94 O2 Delivery Room Air Room Air Room Air 10/30/19 10/30/19 10/30/19 10/30/19 16:23 17:00 17:30 19:00 Temp 98.6 98.6 Pulse 58 71 Resp 20 20 20 B/P (MAP) 132/49 131/40 (70) Pulse Ox 94 94 93 O2 Delivery Room Air Room Air Room Air 10/30/19 10/30/19 10/30/19 10/30/19 20:00 21:00 21:00 21:00 Pulse 71 71 71 B/P (MAP) 131/40 131/40 131/40 O2 Delivery Room Air 10/30/19 10/30/19 10/31/19 10/31/19 23:00 23:39 00:39 03:04 Temp 98.5 98.8 98.5 98.8 Pulse 66 58 Resp 18 18 B/P (MAP) 125/44 (71) 132/49 (76) Pulse Ox 96 96 96 96 O2 Delivery Room Air Room Air Room Air Room Air 10/31/19 10/31/19 10/31/19 07:00 11:26 11:26 Temp 98.0 98.0 Pulse 67 57 57 Resp 17 B/P (MAP) 158/51 (86) 167/55 167/55 Pulse Ox 93 O2 Delivery Room Air Intake and Output 0 10/30/19 10/30/19 10/31/19 15:00 23:00 07:00 Intake Total 200 ml 1000 ml Output Total 600 ml Balance -600 ml 200 ml 1000 ml Justicifation of Admission Dx: Justifications for Admission: Justification of Admission Dx: Yes Hypertension: Symp at Rest SEAN ATWOOD MD Oct 31, 2019 11:57
--- NOTE | 2019-10-31 12:04 | PDOC ---
CARDIOLOGY PROGRESS NOTE SUBJECTIVE: She is feeling better today. She is sitting up in a chair. Denies any angina or dyspnea. OBJECTIVE: Vital Signs/I&O: Vital Signs Date Time Temp Pulse Resp B/P (MAP) Pulse Ox O2 Delivery O2 Flow Rate FiO2 10/31/19 11:26 57 167/55 10/31/19 07:00 98.0 17 93 Room Air 98.0 I & O 10/30/19 10/30/19 10/31/19 15:00 23:00 07:00 Intake Total 200 ml 1000 ml Output Total 600 ml Balance -600 ml 200 ml 1000 ml Objective: GEN.: No apparent distress. Alert and oriented. HEENT: Head is normocephalic, atraumatic NECK: Supple. LUNGS: Clear to auscultation. HEART: RRR, S1, S2 present. Peripheral pulses intact ABDOMEN: Soft, nontender. Positive bowel sounds. EXTREMITIES: Without any cyanosis. NEUROLOGIC: Normal speech, normal tone PSYCHIATRIC: Normal affect, normal mood. SKIN: No ulcerations CURRENT MEDICATIONS: Current Medications Medications (Trade) Dose Ordered Sig/Gisselle Route PRN Reason Start Time Stop Time Status Last Admin Dose Admin Sodium Chloride 1,000 ml @ 75 mls/hr 1X ONCE IV 10/30/19 14:00 10/31/19 03:19 DC 10/30/19 14:40 DIAGNOSTIC TESTING: Labs: Laboratory Tests 10/31/19 05:30 Laboratory Tests Test 10/30/19 14:30 10/30/19 16:47 10/30/19 17:39 10/30/19 20:31 Sodium Level 136 mmol/L (136-145) Potassium Level 3.3 mmol/L (3.5-5.1) L Chloride Level 97 mmol/L (98-107) L Carbon Dioxide Level 33 mmol/L (21-32) H Anion Gap 6 (6-14) Blood Urea Nitrogen 86 mg/dL (7-20) H Creatinine 3.6 mg/dL (0.6-1.0) H Estimated GFR (Cockcroft-Gault) 15.0 Glucose Level 57 mg/dL (70-99) L Calcium Level 8.0 mg/dL (8.5-10.1) L Glucose (Fingerstick) 48 mg/dL (70-99) *L 111 mg/dL (70-99) H 99 mg/dL (70-99) Test 10/31/19 03:36 10/31/19 03:51 10/31/19 05:30 10/31/19 07:19 Glucose (Fingerstick) 29 mg/dL (70-99) *L 147 mg/dL (70-99) H 98 mg/dL (70-99) White Blood Count 4.9 x10^3/uL (4.0-11.0) Red Blood Count 3.38 x10^6/uL (3.50-5.40) L Hemoglobin 9.1 g/dL (12.0-15.5) L Hematocrit 28.5 % (36.0-47.0) L Mean Corpuscular Volume 84 fL (79-100) Mean Corpuscular Hemoglobin 27 pg (25-35) Mean Corpuscular Hemoglobin Concent 32 g/dL (31-37) Red Cell Distribution Width 18.4 % (11.5-14.5) H Platelet Count 200 x10^3/uL (140-400) Neutrophils (%) (Auto) 71 % (31-73) Lymphocytes (%) (Auto) 21 % (24-48) L Monocytes (%) (Auto) 6 % (0-9) Eosinophils (%) (Auto) 2 % (0-3) Basophils (%) (Auto) 0 % (0-3) Neutrophils # (Auto) 3.4 x10^3/uL (1.8-7.7) Lymphocytes # (Auto) 1.0 x10^3/uL (1.0-4.8) Monocytes # (Auto) 0.3 x10^3/uL (0.0-1.1) Eosinophils # (Auto) 0.1 x10^3/uL (0.0-0.7) Basophils # (Auto) 0.0 x10^3/uL (0.0-0.2) Sodium Level 140 mmol/L (136-145) Potassium Level 3.3 mmol/L (3.5-5.1) L Chloride Level 101 mmol/L (98-107) Carbon Dioxide Level 32 mmol/L (21-32) Anion Gap 7 (6-14) Blood Urea Nitrogen 74 mg/dL (7-20) H Creatinine 3.0 mg/dL (0.6-1.0) H Estimated GFR (Cockcroft-Gault) 18.5 BUN/Creatinine Ratio 25 (6-20) H Glucose Level 112 mg/dL (70-99) H Calcium Level 8.3 mg/dL (8.5-10.1) L Total Bilirubin 0.3 mg/dL (0.2-1.0) Aspartate Amino Transf (AST/SGOT) 23 U/L (15-37) Alkaline Phosphatase 51 U/L (46-116) Total Protein 7.1 g/dL (6.4-8.2) Albumin 2.6 g/dL (3.4-5.0) L Albumin/Globulin Ratio 0.6 (1.0-1.7) L Test 10/31/19 11:12 Glucose (Fingerstick) 199 mg/dL (70-99) H ASSESSMENT: 1. Acute on chronic renal insufficiency 2. Hypotension related to dehydration 3. Coronary artery disease currently stable without any angina PLAN: 1. We will obtain an echocardiogram to ensure her LV function stable, last echocardiogram was greater than 1 year ago. 2. She has an outpatient stress test, continue as scheduled. Continue aggressive physical therapy and rehabilitation modalities. She has had chronic hypertension which is been quite difficult to control and has been on multiple medical therapies. She will does need close follow-up to ensure that her renal function is stable. Anticipate another 24 hours at least in the hospital until titration of her medical therapy can be obtained. Likely needs home health care. Discussed with son at bedside and primary Dr. Nba Barrientosicifation of Admission Dx: Justifications for Admission: Justification of Admission Dx: Yes Hypertension: Symp at Rest CHELSEY BURNS MD Oct 31, 2019 12:04
[2019-10-31] MEDS ORDERED: cloNIDine HCL 0.2 MG TABLET PO SCH (14:00)
[2019-10-31] MEDS: cloNIDine HCL 0.1 MG TABLET PO SCH ×2 (14:39→20:29)
[2019-10-31] MEDS: HYDROcodone/APAP 7.5/325MG 1 TAB TABLET PO PRN ×2 (16:41→23:57)
[2019-10-31] MEDS: ATORVASTATIN CALCIUM 40 MG TABLET. PO SCH (20:29)
[2019-10-31] MEDS: LATANOPROST 0.005% OPHTH SOLUTION 2.5ML BOTTLE. OU SCH (20:30)
[2019-10-31] MEDS: DOXAZOSIN MESYLATE 1 MG TABLET. PO SCH (20:30)
[2019-10-31] MEDS: INSULIN GLARGINE SYRINGE. SQ SCH (20:33)
[2019-11-01 03:34] VITALS: BP 122/50
[2019-11-01 06:39] LABS: ALBUMIN 2.4 g/dL (3.4-5.0); ALBUMIN/GLOBULIN RATIO 0.7 (1.0-1.7); CALCIUM 7.9 mg/dL (8.5-10.1); CREATININE 2.7 mg/dL (0.6-1.0); GFR 20.8; POTASSIUM 4.2 mmol/L (3.5-5.1); TOTAL BILIRUBIN 0.2 mg/dL (0.2-1.0)
[2019-11-01 07:00] VITALS: BP 190/64
[2019-11-01] MEDS: CARVEDILOL 12.5 MG TABLET. PO SCH ×2 (08:16→17:07)
[2019-11-01] MEDS: cloNIDine HCL 0.1 MG TABLET PO SCH ×3 (08:16→20:55)
[2019-11-01] MEDS: DOCUSATE SODIUM 100 MG CAPSULE. PO SCH (08:16)
[2019-11-01] MEDS: LUBIPROSTONE 24 MCG CAPSULE PO SCH (08:16)
[2019-11-01] MEDS: amLODIPine BESYLATE 10 MG TABLET PO SCH (08:16)
[2019-11-01] MEDS: PANTOPRAZOLE 40 MG TABLET.DR. PO SCH (08:16)
[2019-11-01] MEDS: ASPIRIN ENTERIC COATED 81 MG TABLET.DR. PO SCH (08:17)
[2019-11-01] MEDS: ISOSORBIDE MONONITRATE ER 30 MG TAB.ER.24H PO SCH ×2 (08:17→20:55)
[2019-11-01] MEDS: INSULIN LISPRO 300 UNITS/3 ML VIAL. SQ SCH ×6 (08:21→17:11)
--- NOTE | 2019-11-01 08:37 | PDOC2 ---
[employer] 11/01/19 0837: CONSULT Date of Consult Date of Consult DATE: 11/01/19 TIME: 08:30 Reason for Consult Reason for Consult: hemorrhoids Referring Physician Referring Physician: Dr Arango Identification/Chief Complaint Chief Complaint lightheadedness Source Source: Chart review, Patient History of Present Illness Reason for Visit: Here with lightheadedness. Had cardiac evaluation. Hx of internal hemorrhoids and rectal stercoral ulcer on scope in 2017. Started having some bleeding rectally. Denies pain. Past Medical History Cardiovascular: CAD, CHF, HTN, Hyperlipidemia Pulmonary: COPD GI: GERD Renal/: Chronic renal insuff Endocrine: Diabetes Past Surgical History Past Surgical History: Cholecystectomy, CABG, Hysterectomy Family History Family History: Heart Disease Social History Quit ALCOHOL: none Drugs: None Lives: with Family Current Problem List Problem List Problems Medical Problems: (1) Abdominal pain Status: Acute (2) EDMOND (acute kidney injury) Status: Acute (3) Dehydration Status: Acute Current Medications Current Medications Current Medications Sodium Chloride 250 ml @ 250 mls/hr 1X ONCE IV Last administered on 10/29/19at 16:45; Start 10/29/19 at 16:45; Stop 10/29/19 at 17:44; Status DC Amlodipine Besylate (Norvasc) 10 mg DAILY PO Last administered on 11/01/19at 08:16; Start 10/30/19 at 09:00 Aspirin (Ecotrin) 81 mg DAILYWBKFT PO Last administered on 11/01/19at 08:17; Start 10/30/19 at 08:00 Atorvastatin Calcium (Lipitor) 40 mg QHS PO Last administered on 10/31/19at 20:29; Start 10/29/19 at 21:00 Carvedilol (Coreg) 25 mg BIDWMEALS PO Last administered on 11/01/19at 08:16; Start 10/30/19 at 08:00 Clonidine HCl (Catapres) 0.3 mg TID PO Last administered on 10/30/19at 08:37; Start 10/29/19 at 21:00; Stop 10/31/19 at 11:51; Status DC Docusate Sodium (Colace) 100 mg DAILY PO Last administered on 11/01/19at 08:16; Start 10/30/19 at 09:00 Acetaminophen/ Hydrocodone Bitart (Lortab 7.5/325) 1 tab PRN Q4HRS PRN PO MODERATE PAIN 4-6 Last administered on 10/31/19at 23:57; Start 10/29/19 at 21:00 Insulin Glargine (Lantus Syringe) 28 unit HS SQ Last administered on 10/29/19at 23:57; Start 10/29/19 at 21:00; Stop 10/30/19 at 07:50; Status DC Latanoprost (Xalatan) 1 drop HS OU Last administered on 10/31/19at 20:30; Start 10/29/19 at 21:00 Simethicone (Gas-X) 80 mg PRN AFTMEALHC PRN PO GAS / BLOATING; Start 10/29/19 at 21:00 Doxazosin Mesylate (Cardura) 2 mg QHS PO Last administered on 10/31/19at 20:30; Start 10/29/19 at 21:00 Insulin Human Lispro (HumaLOG) 6 units TIDWMEALS SQ ; Start 10/30/19 at 08:00; Stop 10/31/19 at 11:51; Status DC Isosorbide Mononitrate (Imdur) 60 mg BID PO Last administered on 11/01/19at 08:17; Start 10/30/19 at 09:00 Lubiprostone (Amitiza) 24 mcg DAILYWBKFT PO Last administered on 11/01/19at 08:16; Start 10/30/19 at 08:00 Pantoprazole Sodium (Protonix) 40 mg DAILYAC PO Last administered on 11/01/19at 08:16; Start 10/30/19 at 07:30 Insulin Human Lispro (HumaLOG) 0-7 UNITS TIDWMEALS SQ ; Start 10/30/19 at 08:00; Stop 10/31/19 at 11:58; Status DC Dextrose (Dextrose 50%-Water Syringe) 12.5 gm PRN Q15MIN PRN IV SEE COMMENTS Last administered on 10/31/19at 03:39; Start 10/29/19 at 21:15; Stop 10/31/19 at 11:59; Status DC Insulin Glargine (Lantus Syringe) 20 unit HS SQ ; Start 10/30/19 at 21:00; Stop 10/31/19 at 11:51; Status DC Sodium Chloride 1,000 ml @ 75 mls/hr 1X ONCE IV Last administered on 10/30/19at 14:40; Start 10/30/19 at 14:00; Stop 10/31/19 at 03:19; Status DC Clonidine HCl (Catapres) 0.2 mg TID PO ; Start 10/31/19 at 14:00; Stop 10/31/19 at 11:58; Status DC Insulin Glargine (Lantus Syringe) 10 unit HS SQ Last administered on 10/31/19at 20:33; Start 10/31/19 at 21:00 Insulin Human Lispro (HumaLOG) 3 units TIDWMEALS SQ Last administered on 11/01/19at 08:21; Start 10/31/19 at 12:00 Insulin Human Lispro (HumaLOG) 0-5 UNITS TIDWMEALS SQ Last administered on 11/01/19at 08:21; Start 10/31/19 at 12:00 Dextrose (Dextrose 50%-Water Syringe) 12.5 gm PRN Q15MIN PRN IV SEE COMMENTS; Start 10/31/19 at 12:00 Clonidine HCl (Catapres) 0.1 mg TID PO Last administered on 11/01/19at 08:16; Start 10/31/19 at 14:00 Active Scripts Active Aspirin Ec (Aspirin) 81 Mg Tablet. 81 Mg PO DAILYWBKFT 90 Days Furosemide 40 Mg Tablet 40 Mg PO BID92 30 Days Weight yourself daily, if you gain 3 pounds or more increase dose to 80mg BID for 3 days and contact your architect in training Amitiza (Lubiprostone) 8 Mcg Capsule 1 Cap PO BID Colace (Docusate Sodium) 100 Mg Capsule 100 Mg PO DAILY 30 Days Simethicone 80 Mg Tab.chew 80 Mg PO PRN AFTMEALHC PRN 30 Days Carvedilol (Carvedilol) 12.5 Mg Tablet 25 Mg PO BIDWMEALS Reported Prednisone 2.5 Mg Tablet 5 Mg PO DAILY Amlodipine Besylate 10 Mg Tablet 10 Mg PO DAILY Hydralazine Hcl 100 Mg Tablet 1 Tab PO TID Isosorbide Mononitrate Er (Isosorbide Mononitrate) 60 Mg Tab.er.24h 1 Tab PO BID Latanoprost 2.5 Ml Drops 1 Drop OP HS Doxazosin Mesylate 2 Mg Tablet 1 Tab PO HS Atorvastatin Calcium 40 Mg Tablet 1 Tab PO QHS Hydrocodone-Apap 7.5-325 (Hydrocodone Bit/Acetaminophen) 1 Each Tablet 1 Tab PO Q4HRS PRN Proair Hfa Inhaler (Albuterol Sulfate) 8.5 Gm Hfa.aer.ad 2 Puff IH PRN Q6HRS PRN Novolog Flexpen (Insulin Aspart) 100 Unit/1 Ml Insuln.pen 6 Unit SQ TIDAC Lantus (Insulin Glargine,Hum.rec.anlog) 100 Unit/1 Ml Vial 28 Unit SQ HS Omeprazole 20 Mg Capsule.dr 20 Mg PO BID PRN Clonidine Hcl 0.3 Mg Tablet 0.3 Mg PO TID Allergies Allergies: Coded Allergies: Penicillins (Verified Allergy, Intermediate, 11/05/16) dopamine (Verified Allergy, Intermediate, 11/05/16) ROS General: No: Chills, Other (fevers) PSYCHOLOGICAL ROS: No: Anxiety, Depression Eyes: No Blurry vision, No Double vision HEENT: No: Heacaches, Sore Throat Hematological and Lymphatic: YES: Bleeding Problems; No: Blood Clots Respiratory: No: Cough, Shortness of breath Gastrointestinal: No Nausea, No Vomiting, No Abdominal Pain Genitourinary: No Dysuria, No Hematuria Musculoskeletal: Yes Muscular Weakness; No Muscle Pain Neurological: Yes Impaired Coord/balance; No Confusion Skin: No Pruritus, No Rash Physical Exam Physical Exam rectal area, no active bleeding, small amount noted on depends, hemorrhoid present General: Alert, Oriented X3, Cooperative HEENT: Atraumatic, PERRLA Lungs: Clear to auscultation, Normal air movement Heart: Regular rate, Normal S1, Normal S2 Abdomen: Soft, No tenderness, No hepatosplenomegaly Extremities: No clubbing, No cyanosis Skin: No rashes, No breakdown Neuro: Normal speech, Sensation intact MUSCULOSKELETAL: No deformity, No swelling Vitals VITALS Vital Signs Date Time Temp Pulse Resp B/P (MAP) Pulse Ox O2 Delivery O2 Flow Rate FiO2 11/01/19 08:17 74 190/64 11/01/19 07:00 98.7 18 95 Room Air 98.7 Labs Labs Laboratory Tests Test 10/30/19 09:00 10/30/19 11:26 10/30/19 14:30 10/30/19 16:47 Glucose (Fingerstick) 97 mg/dL (70-99) 103 mg/dL (70-99) 48 mg/dL (70-99) Sodium Level 136 mmol/L (136-145) Potassium Level 3.3 mmol/L (3.5-5.1) Chloride Level 97 mmol/L (98-107) Carbon Dioxide Level 33 mmol/L (21-32) Anion Gap 6 (6-14) Blood Urea Nitrogen 86 mg/dL (7-20) Creatinine 3.6 mg/dL (0.6-1.0) Estimated GFR (Cockcroft-Gault) 15.0 Glucose Level 57 mg/dL (70-99) Calcium Level 8.0 mg/dL (8.5-10.1) Test 10/30/19 17:39 10/30/19 20:31 10/31/19 03:36 10/31/19 03:51 Glucose (Fingerstick) 111 mg/dL (70-99) 99 mg/dL (70-99) 29 mg/dL (70-99) 147 mg/dL (70-99) Test 10/31/19 05:30 10/31/19 07:19 10/31/19 11:12 10/31/19 16:36 White Blood Count 4.9 x10^3/uL (4.0-11.0) Red Blood Count 3.38 x10^6/uL (3.50-5.40) Hemoglobin 9.1 g/dL (12.0-15.5) Hematocrit 28.5 % (36.0-47.0) Mean Corpuscular Volume 84 fL (79-100) Mean Corpuscular Hemoglobin 27 pg (25-35) Mean Corpuscular Hemoglobin Concent 32 g/dL (31-37) Red Cell Distribution Width 18.4 % (11.5-14.5) Platelet Count 200 x10^3/uL (140-400) Neutrophils (%) (Auto) 71 % (31-73) Lymphocytes (%) (Auto) 21 % (24-48) Monocytes (%) (Auto) 6 % (0-9) Eosinophils (%) (Auto) 2 % (0-3) Basophils (%) (Auto) 0 % (0-3) Neutrophils # (Auto) 3.4 x10^3/uL (1.8-7.7) Lymphocytes # (Auto) 1.0 x10^3/uL (1.0-4.8) Monocytes # (Auto) 0.3 x10^3/uL (0.0-1.1) Eosinophils # (Auto) 0.1 x10^3/uL (0.0-0.7) Basophils # (Auto) 0.0 x10^3/uL (0.0-0.2) Sodium Level 140 mmol/L (136-145) Potassium Level 3.3 mmol/L (3.5-5.1) Chloride Level 101 mmol/L (98-107) Carbon Dioxide Level 32 mmol/L (21-32) Anion Gap 7 (6-14) Blood Urea Nitrogen 74 mg/dL (7-20) Creatinine 3.0 mg/dL (0.6-1.0) Estimated GFR (Cockcroft-Gault) 18.5 BUN/Creatinine Ratio 25 (6-20) Glucose Level 112 mg/dL (70-99) Calcium Level 8.3 mg/dL (8.5-10.1) Total Bilirubin 0.3 mg/dL (0.2-1.0) Aspartate Amino Transf (AST/SGOT) 23 U/L (15-37) Alanine Aminotransferase (ALT/SGPT) 9 U/L (14-59) Alkaline Phosphatase 51 U/L (46-116) Total Protein 7.1 g/dL (6.4-8.2) Albumin 2.6 g/dL (3.4-5.0) Albumin/Globulin Ratio 0.6 (1.0-1.7) Glucose (Fingerstick) 98 mg/dL (70-99) 199 mg/dL (70-99) 238 mg/dL (70-99) Test 10/31/19 19:59 11/01/19 05:23 11/01/19 07:29 Glucose (Fingerstick) 175 mg/dL (70-99) 223 mg/dL (70-99) Sodium Level 140 mmol/L (136-145) Potassium Level 4.2 mmol/L (3.5-5.1) Chloride Level 101 mmol/L (98-107) Carbon Dioxide Level 32 mmol/L (21-32) Anion Gap 7 (6-14) Blood Urea Nitrogen 67 mg/dL (7-20) Creatinine 2.7 mg/dL (0.6-1.0) Estimated GFR (Cockcroft-Gault) 20.8 BUN/Creatinine Ratio 25 (6-20) Glucose Level 279 mg/dL (70-99) Calcium Level 7.9 mg/dL (8.5-10.1) Total Bilirubin 0.2 mg/dL (0.2-1.0) Aspartate Amino Transf (AST/SGOT) 19 U/L (15-37) Alanine Aminotransferase (ALT/SGPT) 9 U/L (14-59) Alkaline Phosphatase 50 U/L (46-116) Total Protein 6.0 g/dL (6.4-8.2) Albumin 2.4 g/dL (3.4-5.0) Albumin/Globulin Ratio 0.7 (1.0-1.7) Laboratory Tests Test 10/31/19 11:12 10/31/19 16:36 10/31/19 19:59 11/01/19 05:23 Glucose (Fingerstick) 199 mg/dL (70-99) 238 mg/dL (70-99) 175 mg/dL (70-99) Sodium Level 140 mmol/L (136-145) Potassium Level 4.2 mmol/L (3.5-5.1) Chloride Level 101 mmol/L (98-107) Carbon Dioxide Level 32 mmol/L (21-32) Anion Gap 7 (6-14) Blood Urea Nitrogen 67 mg/dL (7-20) Creatinine 2.7 mg/dL (0.6-1.0) Estimated GFR (Cockcroft-Gault) 20.8 BUN/Creatinine Ratio 25 (6-20) Glucose Level 279 mg/dL (70-99) Calcium Level 7.9 mg/dL (8.5-10.1) Total Bilirubin 0.2 mg/dL (0.2-1.0) Aspartate Amino Transf (AST/SGOT) 19 U/L (15-37) Alanine Aminotransferase (ALT/SGPT) 9 U/L (14-59) Alkaline Phosphatase 50 U/L (46-116) Total Protein 6.0 g/dL (6.4-8.2) Albumin 2.4 g/dL (3.4-5.0) Albumin/Globulin Ratio 0.7 (1.0-1.7) Test 11/01/19 07:29 Glucose (Fingerstick) 223 mg/dL (70-99) Assessment/Plan Assessment/Plan hemorrhoids, previous rectal ulcer hgb stable would recommend ongoing bowel regimen PHONG CAROLINA MD 11/01/19 1211: CONSULT Assessment/Plan Assessment/Plan Agree with Leah's assessment would recommend GI consult. PARISH TONY APRN Nov 01, 2019 08:37 PHONG CAROLINA MD Nov 01, 2019 12:11
--- NOTE | 2019-11-01 09:55 | PDOC ---
DATE OF SERVICE DATE: 11/01/19 TIME: 09:55 SUBJECTIVE ROS Stable, On the phone , No concerns voiced OBJECTIVE Vital Signs Vital Signs Date Time Temp Pulse Resp B/P (MAP) Pulse Ox O2 Delivery O2 Flow Rate FiO2 11/01/19 08:17 74 190/64 11/01/19 07:00 98.7 18 95 Room Air 98.7 I & 0 Intake and Output 11/01/19 07:00 Output Total 200 ml Balance -200 ml Output Urine Total 200 ml # Voids 6 PHYSICAL EXAM Physical Exam GENERAL: NAD HEAD AND NECK: Unremarkable. CARDIAC: Regular rate and rhythm without murmurs, rubs or gallops. LUNGS: Clear to auscultation bilaterally. ABDOMEN: Soft, nontender, nondistended. EXTREMITIES: No clubbing, cyanosis or edema. NEUROLOGIC: No focal deficits. MUSCULOSKELETAL: No obvious trauma. DIAGNOSIS/ASSESSMENT Assessment & Plan EDMOND - 2/2 Overdiuresis , Improving Not back to baseline Supportive care, strict I/O, Avoid nephrotoxins CKD stage 4 - Follows with Dr. Martinez as OP HTN - card managing Anemia lightheaded/weakness/presyncope- better CHF- lasix held, management per Card COMMENT/RELEVANT DATA Meds Current Medications Medications (Trade) Dose Ordered Sig/Gisselle Start Time Stop Time Status Last Admin Dose Admin Acetaminophen/ Hydrocodone Bitart (Lortab 7.5/325) 1 tab PRN Q4HRS PRN 10/29/19 21:00 10/31/19 23:57 1 TAB Amlodipine Besylate (Norvasc) 10 mg DAILY 10/30/19 09:00 11/01/19 08:16 10 MG Aspirin (Ecotrin) 81 mg DAILYWBKFT 10/30/19 08:00 11/01/19 08:17 81 MG Atorvastatin Calcium (Lipitor) 40 mg QHS 10/29/19 21:00 10/31/19 20:29 40 MG Carvedilol (Coreg) 25 mg BIDWMEALS 10/30/19 08:00 11/01/19 08:16 25 MG Clonidine HCl (Catapres) 0.1 mg TID 10/31/19 14:00 11/01/19 08:16 0.1 MG Dextrose (Dextrose 50%-Water Syringe) 12.5 gm PRN Q15MIN PRN 10/31/19 12:00 Docusate Sodium (Colace) 100 mg DAILY 10/30/19 09:00 11/01/19 08:16 100 MG Doxazosin Mesylate (Cardura) 2 mg QHS 10/29/19 21:00 10/31/19 20:30 2 MG Insulin Glargine (Lantus Syringe) 10 unit HS 10/31/19 21:00 10/31/19 20:33 10 UNIT Insulin Human Lispro (HumaLOG) 0-5 UNITS TIDWMEALS 10/31/19 12:00 11/01/19 08:21 3 UNITS Isosorbide Mononitrate (Imdur) 60 mg BID 10/30/19 09:00 11/01/19 08:17 60 MG Latanoprost (Xalatan) 1 drop HS 10/29/19 21:00 10/31/19 20:30 1 DROP Lubiprostone (Amitiza) 24 mcg DAILYWBKFT 10/30/19 08:00 11/01/19 08:16 24 MCG Pantoprazole Sodium (Protonix) 40 mg DAILYAC 10/30/19 07:30 11/01/19 08:16 40 MG Simethicone (Gas-X) 80 mg PRN AFTMEALHC PRN 10/29/19 21:00 Sodium Chloride 1,000 ml @ 75 mls/hr 1X ONCE 10/30/19 14:00 10/31/19 03:19 DC 10/30/19 14:40 75 MLS/HR Lab Laboratory Tests Test 10/31/19 11:12 10/31/19 16:36 10/31/19 19:59 11/01/19 05:23 Glucose (Fingerstick) 199 mg/dL (70-99) 238 mg/dL (70-99) 175 mg/dL (70-99) Sodium Level 140 mmol/L (136-145) Potassium Level 4.2 mmol/L (3.5-5.1) Chloride Level 101 mmol/L (98-107) Carbon Dioxide Level 32 mmol/L (21-32) Anion Gap 7 (6-14) Blood Urea Nitrogen 67 mg/dL (7-20) Creatinine 2.7 mg/dL (0.6-1.0) Estimated GFR (Cockcroft-Gault) 20.8 BUN/Creatinine Ratio 25 (6-20) Glucose Level 279 mg/dL (70-99) Calcium Level 7.9 mg/dL (8.5-10.1) Total Bilirubin 0.2 mg/dL (0.2-1.0) Aspartate Amino Transf (AST/SGOT) 19 U/L (15-37) Alanine Aminotransferase (ALT/SGPT) 9 U/L (14-59) Alkaline Phosphatase 50 U/L (46-116) Total Protein 6.0 g/dL (6.4-8.2) Albumin 2.4 g/dL (3.4-5.0) Albumin/Globulin Ratio 0.7 (1.0-1.7) Test 11/01/19 07:29 Glucose (Fingerstick) 223 mg/dL (70-99) Results All relevant outside records, renal labs, imaging studies, telemetry/EKG's were reviewed. Justicifation of Admission Dx: Justifications for Admission: Justification of Admission Dx: Yes Hypertension: Symp at Rest DANIELLA KIMBLE MD Nov 01, 2019 09:55
--- NOTE | 2019-11-01 10:05 | NUR ---
SW following. Discussed with RN, pt from home with son, on services with [facility]. PT/OT recommending home health for discharge. Echo today. SW will continue to follow.
[2019-11-01 11:00] VITALS: BP 133/38
[2019-11-01] MEDS: HYDROcodone/APAP 7.5/325MG 1 TAB TABLET PO PRN (11:16)
[2019-11-01] MEDS ORDERED: LABETALOL 20 MG/4 ML DISP.SYRIN. IVP PRN (11:30)
--- NOTE | 2019-11-01 11:53 | PDOC ---
PROGRESS NOTES Date of Service: DATE: 11/01/19 TIME: 11:39 Chief Complaint Chief Complaint lightheaded weakness, acquired, will need PT and OT presyncope CHF, hold lasix, eval over-diuresis vasomotor nephropathy, gentle hydration, hold lasix in AM, CV team consult moderate malnutrition, consult nutrition anemia, microcytic, same as previous History of Present Illness History of Present Illness Patient states she feels better than she did on admission. Still with some weakness, but denies lightheadedness or chest pain. She was undergoing home PT prior to admission, and would like to resume home PT. Vitals Vitals Vital Signs Date Time Temp Pulse Resp B/P (MAP) Pulse Ox O2 Delivery O2 Flow Rate FiO2 11/01/19 11:16 Room Air 11/01/19 11:00 98.3 58 18 133/38 (69) 96 98.3 Physical Exam General: Alert, Oriented X3, Cooperative Heart: Regular rate, Normal S1, Normal S2 Lungs: Clear Abdomen: Soft, No tenderness, No hepatosplenomegaly Extremities: No clubbing, No cyanosis, No edema, Other (Bilateral lower extremity strength 2/5) Skin: No rashes, No breakdown Labs LABS Laboratory Tests Test 10/31/19 16:36 10/31/19 19:59 11/01/19 05:23 11/01/19 07:29 Glucose (Fingerstick) 238 mg/dL (70-99) 175 mg/dL (70-99) 223 mg/dL (70-99) Sodium Level 140 mmol/L (136-145) Potassium Level 4.2 mmol/L (3.5-5.1) Chloride Level 101 mmol/L (98-107) Carbon Dioxide Level 32 mmol/L (21-32) Anion Gap 7 (6-14) Blood Urea Nitrogen 67 mg/dL (7-20) Creatinine 2.7 mg/dL (0.6-1.0) Estimated GFR (Cockcroft-Gault) 20.8 BUN/Creatinine Ratio 25 (6-20) Glucose Level 279 mg/dL (70-99) Calcium Level 7.9 mg/dL (8.5-10.1) Total Bilirubin 0.2 mg/dL (0.2-1.0) Aspartate Amino Transf (AST/SGOT) 19 U/L (15-37) Alanine Aminotransferase (ALT/SGPT) 9 U/L (14-59) Alkaline Phosphatase 50 U/L (46-116) Total Protein 6.0 g/dL (6.4-8.2) Albumin 2.4 g/dL (3.4-5.0) Albumin/Globulin Ratio 0.7 (1.0-1.7) Review of Systems Review of Systems Generalized weakness. Denies lightheadedness. Denies chest pain. All other ROS negative. Assessment and Plan Assessmemt and Plan Problems Medical Problems: (1) Abdominal pain Status: Acute (2) EDMOND (acute kidney injury) Status: Acute (3) Dehydration Status: Acute Plan: EDMOND and weakness likely secondary to over diuresis. PT and OT. Patient would like to continue PT at home. Comment Review of Relevant I have reviewed the following items russell (where applicable) has been applied. Labs Laboratory Tests Test 10/30/19 14:30 10/30/19 16:47 10/30/19 17:39 10/30/19 20:31 Sodium Level 136 mmol/L (136-145) Potassium Level 3.3 mmol/L (3.5-5.1) Chloride Level 97 mmol/L (98-107) Carbon Dioxide Level 33 mmol/L (21-32) Anion Gap 6 (6-14) Blood Urea Nitrogen 86 mg/dL (7-20) Creatinine 3.6 mg/dL (0.6-1.0) Estimated GFR (Cockcroft-Gault) 15.0 Glucose Level 57 mg/dL (70-99) Calcium Level 8.0 mg/dL (8.5-10.1) Glucose (Fingerstick) 48 mg/dL (70-99) 111 mg/dL (70-99) 99 mg/dL (70-99) Test 10/31/19 03:36 10/31/19 03:51 10/31/19 05:30 10/31/19 07:19 Glucose (Fingerstick) 29 mg/dL (70-99) 147 mg/dL (70-99) 98 mg/dL (70-99) White Blood Count 4.9 x10^3/uL (4.0-11.0) Red Blood Count 3.38 x10^6/uL (3.50-5.40) Hemoglobin 9.1 g/dL (12.0-15.5) Hematocrit 28.5 % (36.0-47.0) Mean Corpuscular Volume 84 fL (79-100) Mean Corpuscular Hemoglobin 27 pg (25-35) Mean Corpuscular Hemoglobin Concent 32 g/dL (31-37) Red Cell Distribution Width 18.4 % (11.5-14.5) Platelet Count 200 x10^3/uL (140-400) Neutrophils (%) (Auto) 71 % (31-73) Lymphocytes (%) (Auto) 21 % (24-48) Monocytes (%) (Auto) 6 % (0-9) Eosinophils (%) (Auto) 2 % (0-3) Basophils (%) (Auto) 0 % (0-3) Neutrophils # (Auto) 3.4 x10^3/uL (1.8-7.7) Lymphocytes # (Auto) 1.0 x10^3/uL (1.0-4.8) Monocytes # (Auto) 0.3 x10^3/uL (0.0-1.1) Eosinophils # (Auto) 0.1 x10^3/uL (0.0-0.7) Basophils # (Auto) 0.0 x10^3/uL (0.0-0.2) Sodium Level 140 mmol/L (136-145) Potassium Level 3.3 mmol/L (3.5-5.1) Chloride Level 101 mmol/L (98-107) Carbon Dioxide Level 32 mmol/L (21-32) Anion Gap 7 (6-14) Blood Urea Nitrogen 74 mg/dL (7-20) Creatinine 3.0 mg/dL (0.6-1.0) Estimated GFR (Cockcroft-Gault) 18.5 BUN/Creatinine Ratio 25 (6-20) Glucose Level 112 mg/dL (70-99) Calcium Level 8.3 mg/dL (8.5-10.1) Total Bilirubin 0.3 mg/dL (0.2-1.0) Aspartate Amino Transf (AST/SGOT) 23 U/L (15-37) Alanine Aminotransferase (ALT/SGPT) 9 U/L (14-59) Alkaline Phosphatase 51 U/L (46-116) Total Protein 7.1 g/dL (6.4-8.2) Albumin 2.6 g/dL (3.4-5.0) Albumin/Globulin Ratio 0.6 (1.0-1.7) Test 10/31/19 11:12 10/31/19 16:36 10/31/19 19:59 11/01/19 05:23 Glucose (Fingerstick) 199 mg/dL (70-99) 238 mg/dL (70-99) 175 mg/dL (70-99) Sodium Level 140 mmol/L (136-145) Potassium Level 4.2 mmol/L (3.5-5.1) Chloride Level 101 mmol/L (98-107) Carbon Dioxide Level 32 mmol/L (21-32) Anion Gap 7 (6-14) Blood Urea Nitrogen 67 mg/dL (7-20) Creatinine 2.7 mg/dL (0.6-1.0) Estimated GFR (Cockcroft-Gault) 20.8 BUN/Creatinine Ratio 25 (6-20) Glucose Level 279 mg/dL (70-99) Calcium Level 7.9 mg/dL (8.5-10.1) Total Bilirubin 0.2 mg/dL (0.2-1.0) Aspartate Amino Transf (AST/SGOT) 19 U/L (15-37) Alanine Aminotransferase (ALT/SGPT) 9 U/L (14-59) Alkaline Phosphatase 50 U/L (46-116) Total Protein 6.0 g/dL (6.4-8.2) Albumin 2.4 g/dL (3.4-5.0) Albumin/Globulin Ratio 0.7 (1.0-1.7) Test 11/01/19 07:29 Glucose (Fingerstick) 223 mg/dL (70-99) Laboratory Tests Test 10/31/19 16:36 10/31/19 19:59 11/01/19 05:23 11/01/19 07:29 Glucose (Fingerstick) 238 mg/dL (70-99) 175 mg/dL (70-99) 223 mg/dL (70-99) Sodium Level 140 mmol/L (136-145) Potassium Level 4.2 mmol/L (3.5-5.1) Chloride Level 101 mmol/L (98-107) Carbon Dioxide Level 32 mmol/L (21-32) Anion Gap 7 (6-14) Blood Urea Nitrogen 67 mg/dL (7-20) Creatinine 2.7 mg/dL (0.6-1.0) Estimated GFR (Cockcroft-Gault) 20.8 BUN/Creatinine Ratio 25 (6-20) Glucose Level 279 mg/dL (70-99) Calcium Level 7.9 mg/dL (8.5-10.1) Total Bilirubin 0.2 mg/dL (0.2-1.0) Aspartate Amino Transf (AST/SGOT) 19 U/L (15-37) Alanine Aminotransferase (ALT/SGPT) 9 U/L (14-59) Alkaline Phosphatase 50 U/L (46-116) Total Protein 6.0 g/dL (6.4-8.2) Albumin 2.4 g/dL (3.4-5.0) Albumin/Globulin Ratio 0.7 (1.0-1.7) Medications Current Medications Sodium Chloride 250 ml @ 250 mls/hr 1X ONCE IV Last administered on 10/29/19at 16:45; Start 10/29/19 at 16:45; Stop 10/29/19 at 17:44; Status DC Amlodipine Besylate (Norvasc) 10 mg DAILY PO Last administered on 11/01/19at 08:16; Start 10/30/19 at 09:00 Aspirin (Ecotrin) 81 mg DAILYWBKFT PO Last administered on 11/01/19at 08:17; Start 10/30/19 at 08:00 Atorvastatin Calcium (Lipitor) 40 mg QHS PO Last administered on 10/31/19at 20:29; Start 10/29/19 at 21:00 Carvedilol (Coreg) 25 mg BIDWMEALS PO Last administered on 11/01/19at 08:16; Start 10/30/19 at 08:00 Clonidine HCl (Catapres) 0.3 mg TID PO Last administered on 10/30/19at 08:37; Start 10/29/19 at 21:00; Stop 10/31/19 at 11:51; Status DC Docusate Sodium (Colace) 100 mg DAILY PO Last administered on 11/01/19at 08:16; Start 10/30/19 at 09:00 Acetaminophen/ Hydrocodone Bitart (Lortab 7.5/325) 1 tab PRN Q4HRS PRN PO MODERATE PAIN 4-6 Last administered on 11/01/19 11:16; Start 10/29/19 at 21:00 Insulin Glargine (Lantus Syringe) 28 unit HS SQ Last administered on 10/29/19at 23:57; Start 10/29/19 at 21:00; Stop 10/30/19 at 07:50; Status DC Latanoprost (Xalatan) 1 drop HS OU Last administered on 10/31/19at 20:30; Start 10/29/19 at 21:00 Simethicone (Gas-X) 80 mg PRN AFTMEALHC PRN PO GAS / BLOATING; Start 10/29/19 at 21:00 Doxazosin Mesylate (Cardura) 2 mg QHS PO Last administered on 10/31/19at 20:30; Start 10/29/19 at 21:00 Insulin Human Lispro (HumaLOG) 6 units TIDWMEALS SQ ; Start 10/30/19 at 08:00; Stop 10/31/19 at 11:51; Status DC Isosorbide Mononitrate (Imdur) 60 mg BID PO Last administered on 11/01/19at 08:17; Start 10/30/19 at 09:00 Lubiprostone (Amitiza) 24 mcg DAILYWBKFT PO Last administered on 11/01/19at 08:16; Start 10/30/19 at 08:00 Pantoprazole Sodium (Protonix) 40 mg DAILYAC PO Last administered on 11/01/19at 08:16; Start 10/30/19 at 07:30 Insulin Human Lispro (HumaLOG) 0-7 UNITS TIDWMEALS SQ ; Start 10/30/19 at 08:00; Stop 10/31/19 at 11:58; Status DC Dextrose (Dextrose 50%-Water Syringe) 12.5 gm PRN Q15MIN PRN IV SEE COMMENTS Last administered on 10/31/19at 03:39; Start 10/29/19 at 21:15; Stop 10/31/19 at 11:59; Status DC Insulin Glargine (Lantus Syringe) 20 unit HS SQ ; Start 10/30/19 at 21:00; Stop 10/31/19 at 11:51; Status DC Sodium Chloride 1,000 ml @ 75 mls/hr 1X ONCE IV Last administered on 10/30/19at 14:40; Start 10/30/19 at 14:00; Stop 10/31/19 at 03:19; Status DC Clonidine HCl (Catapres) 0.2 mg TID PO ; Start 10/31/19 at 14:00; Stop 10/31/19 at 11:58; Status DC Insulin Glargine (Lantus Syringe) 10 unit HS SQ Last administered on 10/31/19at 20:33; Start 10/31/19 at 21:00 Insulin Human Lispro (HumaLOG) 3 units TIDWMEALS SQ Last administered on 11/01/19at 08:21; Start 10/31/19 at 12:00 Insulin Human Lispro (HumaLOG) 0-5 UNITS TIDWMEALS SQ Last administered on 11/01/19at 08:21; Start 10/31/19 at 12:00 Dextrose (Dextrose 50%-Water Syringe) 12.5 gm PRN Q15MIN PRN IV SEE COMMENTS; Start 10/31/19 at 12:00 Clonidine HCl (Catapres) 0.1 mg TID PO Last administered on 11/01/19at 08:16; Start 10/31/19 at 14:00 Labetalol HCl (Normodyne Iv Push) 10 mg PRN Q10MIN PRN IVP HYPERTENSION; Start 11/01/19 at 11:30 Active Scripts Active Aspirin Ec (Aspirin) 81 Mg Tablet. 81 Mg PO DAILYWBKFT 90 Days Furosemide 40 Mg Tablet 40 Mg PO [id number] 30 Days Weight yourself daily, if you gain 3 pounds or more increase dose to 80mg BID for 3 days and contact your voice network engineer Amitiza (Lubiprostone) 8 Mcg Capsule 1 Cap PO BID Colace (Docusate Sodium) 100 Mg Capsule 100 Mg PO DAILY 30 Days Simethicone 80 Mg Tab.chew 80 Mg PO PRN AFTMEALHC PRN 30 Days Carvedilol (Carvedilol) 12.5 Mg Tablet 25 Mg PO BIDWMEALS Reported Prednisone 2.5 Mg Tablet 5 Mg PO DAILY Amlodipine Besylate 10 Mg Tablet 10 Mg PO DAILY Hydralazine Hcl 100 Mg Tablet 1 Tab PO TID Isosorbide Mononitrate Er (Isosorbide Mononitrate) 60 Mg Tab.er.24h 1 Tab PO BID Latanoprost 2.5 Ml Drops 1 Drop OP HS Doxazosin Mesylate 2 Mg Tablet 1 Tab PO HS Atorvastatin Calcium 40 Mg Tablet 1 Tab PO QHS Hydrocodone-Apap 7.5-325 (Hydrocodone Bit/Acetaminophen) 1 Each Tablet 1 Tab PO Q4HRS PRN Proair Hfa Inhaler (Albuterol Sulfate) 8.5 Gm Hfa.aer.ad 2 Puff IH PRN Q6HRS PRN Novolog Flexpen (Insulin Aspart) 100 Unit/1 Ml Insuln.pen 6 Unit SQ TIDAC Lantus (Insulin Glargine,Hum.rec.anlog) 100 Unit/1 Ml Vial 28 Unit SQ HS Omeprazole 20 Mg Capsule.dr 20 Mg PO BID PRN Clonidine Hcl 0.3 Mg Tablet 0.3 Mg PO TID Vitals/I & O Vital Sign - Last 24 Hours 10/31/19 10/31/19 10/31/19 10/31/19 14:36 14:39 15:00 16:41 Temp 100.4 100.4 Pulse 73 73 69 Resp 19 17 19 B/P (MAP) 157/55 (89) 157/55 150/51 (84) Pulse Ox 93 95 94 O2 Delivery Room Air Room Air Room Air 10/31/19 10/31/19 10/31/19 10/31/19 17:00 19:00 20:15 20:29 Temp 98.7 98.7 Pulse 75 75 75 Resp 18 B/P (MAP) 112/50 112/50 (70) 112/50 Pulse Ox 96 O2 Delivery Room Air Room Air 10/31/19 10/31/19 10/31/19 10/31/19 20:29 20:30 23:00 23:57 Temp 99.3 99.3 Pulse 75 75 73 Resp 16 20 B/P (MAP) 112/50 112/50 158/58 (91) Pulse Ox 96 O2 Delivery Room Air Room Air 11/01/19 11/01/19 11/01/19 11/01/19 00:57 03:34 07:00 07:45 Temp 99.0 98.7 99.0 98.7 Pulse 76 74 Resp 20 18 18 B/P (MAP) 122/50 (74) 190/64 (106) Pulse Ox 94 95 O2 Delivery Room Air Room Air Room Air Room Air 11/01/19 11/01/19 11/01/19 11/01/19 08:16 08:16 08:16 08:17 Pulse 74 74 74 74 B/P (MAP) 190/64 190/64 190/64 190/64 11/01/19 11/01/19 11:00 11:16 Temp 98.3 98.3 Pulse 58 Resp 18 B/P (MAP) 133/38 (69) Pulse Ox 96 O2 Delivery Room Air Room Air Intake and Output 10/31/19 10/31/19 11/01/19 15:00 23:00 07:00 Output Total 200 ml Balance -200 ml Nutrition Consultation Dietary Evaluation: Recommendations by RD: Dietary education by RD, Increase Calorie Intake, Protein supplementation Comments: obtained food preferences to help improved po intake sending Nepro supplements bid Expected Outcomes/Goals: improved po intake to meet >75% est nutr needs Interpretation of weight loss: >1-2% in 1 week Malnutrition Findings: Food and Nutrition Intake (Sev: <50% est energy req 5days Weight Status: Underweight Justicifation of Admission Dx: Justifications for Admission: Justification of Admission Dx: Yes Hypertension: Symp at Rest NGOC DAY MD Nov 01, 2019 11:53
[2019-11-01 15:00] VITALS: BP 135/44
[2019-11-01 19:00] VITALS: BP 155/54
[2019-11-01] MEDS: DOXAZOSIN MESYLATE 1 MG TABLET. PO SCH (20:55)
[2019-11-01] MEDS: ATORVASTATIN CALCIUM 40 MG TABLET. PO SCH (20:55)
[2019-11-01] MEDS: INSULIN GLARGINE SYRINGE. SQ SCH (20:59)
[2019-11-01] MEDS: LATANOPROST 0.005% OPHTH SOLUTION 2.5ML BOTTLE. OU SCH ×2 (21:00→23:52)
[2019-11-01 23:00] VITALS: BP 143/51
[2019-11-02 03:00] VITALS: BP 103/61
[2019-11-02 05:41] LABS: CREATININE 2.5 mg/dL (0.6-1.0); GFR 22.8
--- NOTE | 2019-11-02 07:52 | PDOC ---
[employer] PROGRESS NOTE Date of Service DOS: DATE: 11/02/19 TIME: 07:52 Chief Complaint Chief Complaint lightheaded weakness, acquired, will need PT and OT presyncope CHF, hold lasix, eval over-diuresis vasomotor nephropathy, gentle hydration, hold lasix in AM, CV team consult moderate malnutrition, consult nutrition anemia, microcytic, same as previous History of Present Illness History of Present Illness 10/31: Patient states she feels better than she did on admission. Still with some weakness, but denies lightheadedness or chest pain. She was undergoing home PT prior to admission, and would like to resume home PT. Afebrile. Seen with son bedside. She is still having blood in her stool. Seen by general surgery, recommended GI consultation as well. She does have some abdominal pain that comes and goes is periumbilical and epigastric in nature. She also complains of right groin pain worse on ambulation that is sharp. Vitals/I&O Vitals/I&O: Vital Signs Date Time Temp Pulse Resp B/P (MAP) Pulse Ox O2 Delivery O2 Flow Rate FiO2 11/02/19 03:00 98.7 75 18 103/61 (75) 93 Room Air 98.7 I & O 11/01/19 11/01/19 11/02/19 15:00 23:00 07:00 Intake Total 360 ml 120 ml 50 ml Balance 360 ml 120 ml 50 ml Physical Exam General: Alert, Oriented X3, Cooperative Heart: Regular rate, Normal S1, Normal S2 Lungs: Clear Abdomen: Soft, No tenderness, No hepatosplenomegaly Extremities: No clubbing, No cyanosis, No edema, Other (Bilateral lower extremity strength 2/5) Skin: No rashes, No breakdown Labs Labs: Laboratory Tests Test 11/01/19 11:47 11/01/19 16:44 11/01/19 20:28 11/02/19 04:05 Glucose (Fingerstick) 57 mg/dL (70-99) 270 mg/dL (70-99) 235 mg/dL (70-99) Sodium Level 141 mmol/L (136-145) Potassium Level 4.0 mmol/L (3.5-5.1) Chloride Level 104 mmol/L (98-107) Carbon Dioxide Level 33 mmol/L (21-32) Anion Gap 4 (6-14) Blood Urea Nitrogen 61 mg/dL (7-20) Creatinine 2.5 mg/dL (0.6-1.0) Estimated GFR (Cockcroft-Gault) 22.8 Glucose Level 214 mg/dL (70-99) Calcium Level 8.0 mg/dL (8.5-10.1) Test 11/02/19 07:37 Glucose (Fingerstick) 196 mg/dL (70-99) Assessment and Plan Assessmemt and Plan Problems Medical Problems: (1) Abdominal pain Status: Acute (2) EDMOND (acute kidney injury) Status: Acute (3) Dehydration Status: Acute Comment Review of Relevant I have reviewed the following items russell (where applicable) has been applied. Justicifation of Admission Dx: Justifications for Admission: Justification of Admission Dx: Yes Hypertension: Symp at Rest TOBIAS MONTOYA MD Nov 02, 2019 07:52
[2019-11-02 07:56] VITALS: BP 154/55
[2019-11-02] MEDS: INSULIN LISPRO 300 UNITS/3 ML VIAL. SQ SCH ×6 (08:00→17:19)
[2019-11-02] MEDS: LUBIPROSTONE 24 MCG CAPSULE PO SCH (08:27)
[2019-11-02] MEDS: DOCUSATE SODIUM 100 MG CAPSULE. PO SCH (08:27)
[2019-11-02] MEDS: ASPIRIN ENTERIC COATED 81 MG TABLET.DR. PO SCH (08:27)
[2019-11-02] MEDS: PANTOPRAZOLE 40 MG TABLET.DR. PO SCH (08:27)
[2019-11-02] MEDS: cloNIDine HCL 0.1 MG TABLET PO SCH ×3 (08:27→20:47)
[2019-11-02] MEDS: amLODIPine BESYLATE 10 MG TABLET PO SCH (08:28)
[2019-11-02] MEDS: ISOSORBIDE MONONITRATE ER 30 MG TAB.ER.24H PO SCH ×2 (08:28→20:46)
[2019-11-02] MEDS: CARVEDILOL 12.5 MG TABLET. PO SCH ×2 (09:50→17:14)
--- NOTE | 2019-11-02 09:57 | NUR ---
SW following. Discussed with RN, pt likely will discharge home today with [facility]. SW awaiting home health discharge orders.
[2019-11-02] MEDS: HYDROcodone/APAP 7.5/325MG 1 TAB TABLET PO PRN ×2 (10:43→20:48)
[2019-11-02 11:01] VITALS: BP 126/43
--- NOTE | 2019-11-02 11:06 | PDOC2 ---
GI CONSULT Date of Service: DATE: 11/02/19 TIME: 11:06 Reason For Consult: lower GI bleeding HPI: HPI: 74 y/o female admitted 10/29/19 w/ dizziness. Noted w/ elevated troponin, BNP, and EDMOND/CKD. GI-dangelo has had painless rectal bleeding for about a month. Sometimes with stool, sometimes without. Stool might look dark, but then sees red blood. Has some decreased appetite - "forever." Not sure about weight loss. Today had some periumbilical pain - doesn't elaborate. No n/v, reflux/heartburn, dysphagia, or diarrhea. Chronic constipation. We saw her for rectal bleeding in 10/2016. Colonoscopy at that time by Dr. Finnegan showed stercoral ulcer and internal hemorrhoids. Additional h/o polyps on colonoscopy @ [facility] in 2015. Iron deficiency noted in 2014. B12 borderline low then as well. Says was taking iron but stopped, not sure why. Not taking B12. Does take ASA, omeprazole (denies GERD), prednisone (doesn't know why), and hydrocodone PRN (sometimes daily). Not sure what she takes for constipation - think Amitiza sounds familiar (and this is included on her med list), and also might take a liquid medication sometimes. Nurse has not seen blood today. PMH: PMH: CAD, CHF, HTN, HLD, pulm HTN, CAD, COPD, GERD, CKD, DM, PAD, nephrolithiasis cholecystectomy, CABG, hysterectomy, stent, tonsillectomy, ear surgery, fatty tumor removal left axilla FH: Family History: No pertinent hx Social History: Smoke: Quit ALCOHOL: none Drugs: None ROS: GEN: Denies fevers, chills, sweats HEENT: Denies blurred vision, sore throat CV: Denies chest pain RESP: Denies shortness of air, cough GI: Per HPI : Denies hematuria, dysuria ENDO: Denies weight changes NEURO: Denies confusion, dizziness MSK: Denies weakness, joint pain/swelling SKIN: Denies jaundice, pruritus Vitals: Vitals: Vital Signs Date Time Temp Pulse Resp B/P (MAP) Pulse Ox O2 Delivery O2 Flow Rate FiO2 11/02/19 11:01 98.7 78 18 126/43 (70) 97 Room Air 98.7 Labs: Labs: Laboratory Tests Test 11/01/19 11:47 11/01/19 16:44 11/01/19 20:28 11/02/19 04:05 Glucose (Fingerstick) 57 mg/dL (70-99) 270 mg/dL (70-99) 235 mg/dL (70-99) Sodium Level 141 mmol/L (136-145) Potassium Level 4.0 mmol/L (3.5-5.1) Chloride Level 104 mmol/L (98-107) Carbon Dioxide Level 33 mmol/L (21-32) Anion Gap 4 (6-14) Blood Urea Nitrogen 61 mg/dL (7-20) Creatinine 2.5 mg/dL (0.6-1.0) Estimated GFR (Cockcroft-Gault) 22.8 Glucose Level 214 mg/dL (70-99) Calcium Level 8.0 mg/dL (8.5-10.1) Test 11/02/19 07:37 Glucose (Fingerstick) 196 mg/dL (70-99) Allergies: Coded Allergies: Penicillins (Verified Allergy, Intermediate, 11/05/16) dopamine (Verified Allergy, Intermediate, 11/05/16) Imaging: Imaging: CXR IMPRESSION: Grossly stable radiographic appearance of the chest without evidence of acute cardiopulmonary process. CT A/P IMPRESSION: 1. Large amount stool in the colon, correlate for constipation. 2. Right-sided nephrolithiasis. No evidence for obstructive uropathy. PE: GEN: NAD HEENT: Atraumatic, PERRL LUNGS: CTAB HEART: RRR ABD: quiet BS, periumbilical discomfort, soft, non-distended EXTREMITY: No edema SKIN: No rashes, no jaundice NEURO/PSYCH: A & O 3, flat A/P: A/P: Dizziness, CKD, CHF Rectal bleeding x 1 month Chronic anemia - h/o iron and B12 deficiency, on ASA Chronic constipation, decreased appetite, periumbilical discomfort CRC screen, h/o colon polyps H/o stercoral ulcer, hemorrhoids S/p cholecystectomy Chronic pain on hydrocodone, DM -- Reviewed w/ Dr. Finnegan - try modified Miralax prep + Relistor - bleeding possible 2/2 chronic constipation and h/o stercoral ulcer. Recheck anemia parameters - currently not taking iron or B12. Continue PPI. 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 YE WOODRUFF Nov 02, 2019 11:06
--- NOTE | 2019-11-02 11:34 | PDOC ---
DATE OF SERVICE DATE: 11/02/19 TIME: 11:31 SUBJECTIVE ROS Stable, denies any complaints to me OBJECTIVE Vital Signs Vital Signs Date Time Temp Pulse Resp B/P (MAP) Pulse Ox O2 Delivery O2 Flow Rate FiO2 11/02/19 11:01 98.7 78 18 126/43 (70) 97 Room Air 98.7 I & 0 Intake and Output 11/02/19 07:00 Intake Total 530 ml Balance 530 ml Intake Oral 530 ml # Voids 5 PHYSICAL EXAM Physical Exam GENERAL: NAD HEAD AND NECK: Unremarkable. CARDIAC: Regular rate and rhythm without murmurs, rubs or gallops. LUNGS: Clear to auscultation bilaterally. ABDOMEN: Soft, nontender, nondistended. EXTREMITIES: No clubbing, cyanosis or edema. NEUROLOGIC: No focal deficits. MUSCULOSKELETAL: No obvious trauma. DIAGNOSIS/ASSESSMENT Assessment & Plan EDMOND - 2/2 Overdiuresis , Improving 3.9-->2.5 Supportive care, strict I/O, Avoid nephrotoxins CKD stage 4 - Follows with Dr. Martinez as OP HTN - card managing Anemia- reports blood in stool, per GI lightheaded/weakness/presyncope- better CHF- lasix held, management per Card COMMENT/RELEVANT DATA Meds Current Medications Medications (Trade) Dose Ordered Sig/Gisselle Start Time Stop Time Status Last Admin Dose Admin Acetaminophen/ Hydrocodone Bitart (Lortab 7.5/325) 1 tab PRN Q4HRS PRN 10/29/19 21:00 11/02/19 10:43 1 TAB Amlodipine Besylate (Norvasc) 10 mg DAILY 10/30/19 09:00 11/02/19 08:28 10 MG Aspirin (Ecotrin) 81 mg DAILYWBKFT 10/30/19 08:00 11/02/19 08:27 81 MG Atorvastatin Calcium (Lipitor) 40 mg QHS 10/29/19 21:00 11/01/19 20:55 40 MG Carvedilol (Coreg) 25 mg BIDWMEALS 10/30/19 08:00 11/02/19 09:50 25 MG Clonidine HCl (Catapres) 0.1 mg TID 10/31/19 14:00 11/02/19 08:27 0.1 MG Dextrose (Dextrose 50%-Water Syringe) 12.5 gm PRN Q15MIN PRN 10/31/19 12:00 Docusate Sodium (Colace) 100 mg DAILY 10/30/19 09:00 11/02/19 08:27 100 MG Doxazosin Mesylate (Cardura) 2 mg QHS 10/29/19 21:00 11/01/19 20:55 2 MG Insulin Glargine (Lantus Syringe) 10 unit HS 10/31/19 21:00 11/01/19 20:59 10 UNIT Insulin Human Lispro (HumaLOG) 0-5 UNITS TIDWMEALS 10/31/19 12:00 11/01/19 17:10 4 UNITS Isosorbide Mononitrate (Imdur) 60 mg BID 10/30/19 09:00 11/02/19 08:28 60 MG Labetalol HCl (Normodyne Iv Push) 10 mg PRN Q10MIN PRN 11/01/19 11:30 Latanoprost (Xalatan) 1 drop HS 10/29/19 21:00 11/01/19 23:52 1 DROP Lubiprostone (Amitiza) 24 mcg DAILYWBKFT 10/30/19 08:00 11/02/19 08:27 24 MCG Pantoprazole Sodium (Protonix) 40 mg DAILYAC 10/30/19 07:30 11/02/19 08:27 40 MG Simethicone (Gas-X) 80 mg PRN AFTMEALHC PRN 10/29/19 21:00 Sodium Chloride 1,000 ml @ 75 mls/hr 1X ONCE 10/30/19 14:00 10/31/19 03:19 DC 10/30/19 14:40 75 MLS/HR Lab Laboratory Tests Test 11/01/19 11:47 11/01/19 16:44 11/01/19 20:28 11/02/19 04:05 Glucose (Fingerstick) 57 mg/dL (70-99) 270 mg/dL (70-99) 235 mg/dL (70-99) Sodium Level 141 mmol/L (136-145) Potassium Level 4.0 mmol/L (3.5-5.1) Chloride Level 104 mmol/L (98-107) Carbon Dioxide Level 33 mmol/L (21-32) Anion Gap 4 (6-14) Blood Urea Nitrogen 61 mg/dL (7-20) Creatinine 2.5 mg/dL (0.6-1.0) Estimated GFR (Cockcroft-Gault) 22.8 Glucose Level 214 mg/dL (70-99) Calcium Level 8.0 mg/dL (8.5-10.1) Test 11/02/19 07:37 Glucose (Fingerstick) 196 mg/dL (70-99) Results All relevant outside records, renal labs, imaging studies, telemetry/EKG's were reviewed. Justicifation of Admission Dx: Justifications for Admission: Justification of Admission Dx: Yes Hypertension: Symp at Rest DANIELLA KIMBLE MD Nov 02, 2019 11:34
--- NOTE | 2019-11-02 12:28 | PDOC ---
SRIDEVI ALEMAN INSTRUCTOR TRAINER CANINE SERVICE 11/02/19 1228: CARDIO Progress Notes Date and Time Date of Service 11/02/19 Time of Evaluation 1220 Subjective Subjective: No Chest Pain, No shortness of breath, No Palpitations Vitals Vitals Vital Signs Date Time Temp Pulse Resp B/P (MAP) Pulse Ox O2 Delivery O2 Flow Rate FiO2 11/02/19 11:01 98.7 78 18 126/43 (70) 97 Room Air 98.7 Weight Weight [ ] Input and Output Intake and Output Intake and Output 11/02/19 07:00 Intake Total 530 ml Balance 530 ml Intake Oral 530 ml # Voids 5 Laboratory Labs Laboratory Tests Test 11/01/19 16:44 11/01/19 20:28 11/02/19 04:05 11/02/19 07:37 Glucose (Fingerstick) 270 mg/dL (70-99) 235 mg/dL (70-99) 196 mg/dL (70-99) Sodium Level 141 mmol/L (136-145) Potassium Level 4.0 mmol/L (3.5-5.1) Chloride Level 104 mmol/L (98-107) Carbon Dioxide Level 33 mmol/L (21-32) Anion Gap 4 (6-14) Blood Urea Nitrogen 61 mg/dL (7-20) Creatinine 2.5 mg/dL (0.6-1.0) Estimated GFR (Cockcroft-Gault) 22.8 Glucose Level 214 mg/dL (70-99) Calcium Level 8.0 mg/dL (8.5-10.1) Iron Level 15 ug/dL (50-170) Total Iron Binding Capacity 209 ug/dL (250-450) Iron Saturation 7 % (15-34) Test 11/02/19 11:31 Glucose (Fingerstick) 228 mg/dL (70-99) Physical Exam HEENT: Neck Supple W Full Motion Chest: Symmetric LUNGS: Clear to Auscultation Heart: S1S2, RRR, murmurs, irregularly irregular Abdomen: Normal Aortic Impulse (systolic murmur ), Soft N/T Extremities: No Edema Neurology: alert, oriented, follow commands Assessment Assessment 1. EDMOND on CKD; dehydration. improved 2. Hypotension related to dehydration. Now adequate 3. CAD 4. Chronic diastolic CHF; clinically compensated. Echo with preserved LV systolic function. Lasix on hold with EDMOND 5. Mild aortic stenosis. 6. Hyperlipidemia; statin Recommendations Continue current antiHTN therapy Secondary prevention Outpatient stress test as previously scheduled Follow up in our office as scheduled. Justicifation of Admission Dx: Justifications for Admission: Justification of Admission Dx: Yes Hypertension: Symp at Rest CHELSEY BURNS MD 11/02/19 1711: CARDIO Progress Notes Plan Plan Patient seen and examined. Agree with above nurse practitioner note. Echocardiogram reviewed. Discussed with family at bedside. SRIDEVI ALEMAN APRN Nov 02, 2019 12:28 CHELSEY BURNS MD Nov 02, 2019 17:11
--- NOTE | 2019-11-02 12:29 | CARD ---
MR#: [id number] Date of Study: 11/01/2019 Ordering Physician: CHELSEY BURNS, Referring Physician: CHELSEY BURNS, Tech: Lucille Stroud [facility] APPROVED REPORT EXAM: Two-dimensional and M-mode echocardiogram with Doppler and color Doppler. Other Information Quality : Good INDICATION Dizziness and Vertigo 2D DIMENSIONS RVDd3.2 (2.9-3.5cm)Left Atrium(2D)3.9 (1.6-4.0cm) IVSd1.3 (0.7-1.1cm)Aortic Root(2D)2.2 (2.0-3.7cm) LVDd3.7 (3.9-5.9cm)LVOT Diameter2.0 (1.8-2.4cm) PWd1.4 (0.7-1.1cm)LVDs2.0 (2.5-4.0cm) FS (%) 30.0 %SV44.1 ml LVEF(%)60.0 (>50%) Aortic Valve AoV Peak Sridhar.234.6cm/sAoV VTI49.0cm AO Peak GR.22.0mmHgLVOT VTI 27.74cm AO Mean GR.11mmHgAVA (VTI)1.80cm2 Mitral Valve MV E Epuntsha383.5cm/sMV DECEL HXTR954ar MV A Gonnnhoa895.4cm/sE/A Ratio1.2 TDI Lateral E' P. V5.08cm/sMedial E' P. V3.35cm/s E/Lateral E'29.8E/Medial E'45.2 Tricuspid Valve TR P. Zckhotwb347ei/sRAP FUWUSMIL0ypGh TR Peak Gr.00hqQsKVEX51raOd Pulmonary Vein S1 Ikbztpac29.1cm/sS2 Octmssfh89.18cm/s D2 Jisktwbj51.2cm/s LEFT VENTRICLE The left ventricle is normal size. There is moderate concentric left ventricular hypertrophy. The lef t ventricular systolic function is normal and the ejection fraction is within normal range. The Eject ion Fraction is 55-60%. There is normal LV segmental wall motion. Transmitral Doppler flow pattern is Grade II-pseudonormal filling dynamics. RIGHT VENTRICLE The right ventricle is normal size. The right ventricular systolic function is normal. ATRIA The left atrium size is normal. The right atrium size is normal. The interatrial septum is intact wit h no evidence for an atrial septal defect or patent foramen ovale as noted on 2-D or Doppler imaging. AORTIC VALVE The aortic valve is moderately thickened. Doppler and Color Flow revealed no significant aortic regur gitation. Calculated aortic valve area is 1.8 cm2 with maximum pressure gradient of 22 mmHg and mean pressure gradient of 11 mmHg. Doppler and color-flow analysis revealed mild aortic stenosis. MITRAL VALVE The mitral valve is calcified but opens well. Mitral annular calcification is mild to moderate. There is no evidence of mitral valve prolapse. There is no mitral valve stenosis. Doppler and Color-flow r evealed trace mitral regurgitation. TRICUSPID VALVE The tricuspid valve is normal in structure and function. Doppler and Color Flow revealed mild tricusp id regurgitation. The PA pressure was estimated at 56 mmHg. There is no tricuspid valve stenosis. PULMONIC VALVE The pulmonic valve is not well visualized. Doppler and Color Flow revealed no pulmonic valvular regur gitation. There is no pulmonic valvular stenosis. GREAT VESSELS The aortic root is normal in size. The ascending aorta is not well seen. The IVC is dilated and colla pses >50% with inspiration. PERICARDIAL EFFUSION There is no evidence of significant pericardial effusion. Critical Notification Critical Value: No <Conclusion> The left ventricle is normal size. The left ventricular systolic function is normal and the ejection fraction is within normal range. The Ejection Fraction is 55-60%. There is moderate concentric left ventricular hypertrophy. Doppler and Color Flow revealed no significant aortic regurgitation. Doppler and color-flow analysis revealed mild aortic stenosis. Calculated aortic valve area is 1.8 cm2 with maximum pressure gradient of 22 mmHg and mean pressure g radient of 11 mmHg. Doppler and Color-flow revealed trace mitral regurgitation. Doppler and Color Flow revealed mild tricuspid regurgitation. The PA pressure was estimated at 56 mmHg. Signed by : Kevin Escamilla MD Electronically Approved : 11/02/2019 12:28:21
[2019-11-02] MEDS ORDERED: METHYLNALTREXONE 12 MG/0.6 ML VIAL. SQ ONE (12:30)
[2019-11-02] MEDS ORDERED: POLYETHYLENE GLYCOL 3350 BTL 238 GM POWDER PO ONE ×2 (12:30)
--- NOTE | 2019-11-02 12:45 | NUR ---
Non administered insulin, patient refused to eat breakfast and lunch
[2019-11-02 15:03] VITALS: BP 154/56
--- NOTE | 2019-11-02 17:46 | RAD ---
EXAM: RIGHT HIP, 2 VIEWS. HISTORY: Right groin pain. COMPARISON: None. FINDINGS: No fractures are identified. The joint spaces of the right hip are maintained. Alignment appears normal. There are nqoo-ra-tqvhftwa degenerative changes at the pubic symphysis. Atherosclerotic calcifications are noted. IMPRESSION: 1. No significant degenerative changes at the right hip for patient age. Electronically signed by: Maria Antonia Osborne MD (11/02/2019 5:43 PM) [id number]
[2019-11-02 19:00] VITALS: BP 120/69
[2019-11-02] MEDS: ATORVASTATIN CALCIUM 40 MG TABLET. PO SCH (20:47)
[2019-11-02] MEDS: DOXAZOSIN MESYLATE 1 MG TABLET. PO SCH (20:47)
[2019-11-02] MEDS: LATANOPROST 0.005% OPHTH SOLUTION 2.5ML BOTTLE. OU SCH (20:48)
[2019-11-02] MEDS: INSULIN GLARGINE SYRINGE. SQ SCH (20:53)
[2019-11-02 23:09] VITALS: BP 132/55
[2019-11-03] VITALS (11 sets, daily range): BP systolic 139–169; BP diastolic 45–61
[2019-11-03] MEDS: CARVEDILOL 12.5 MG TABLET. PO SCH ×2 (07:35→17:02)
[2019-11-03] MEDS: LUBIPROSTONE 24 MCG CAPSULE PO SCH (07:35)
[2019-11-03] MEDS: ASPIRIN ENTERIC COATED 81 MG TABLET.DR. PO SCH (07:35)
[2019-11-03] MEDS: PANTOPRAZOLE 40 MG TABLET.DR. PO SCH (07:35)
[2019-11-03] MEDS: INSULIN LISPRO 300 UNITS/3 ML VIAL. SQ SCH ×6 (07:50→17:06)
--- NOTE | 2019-11-03 08:11 | PDOC ---
[employer] PROGRESS NOTE Date of Service DOS: DATE: 11/03/19 TIME: 08:11 Chief Complaint Chief Complaint lightheaded weakness, acquired, will need PT and OT presyncope CHF, hold lasix, eval over-diuresis vasomotor nephropathy, gentle hydration, hold lasix in AM, CV team consult moderate malnutrition, consult nutrition anemia, microcytic, same as previous History of Present Illness History of Present Illness 10/31: Patient states she feels better than she did on admission. Still with some weakness, but denies lightheadedness or chest pain. She was undergoing home PT prior to admission, and would like to resume home PT. 11/01: Afebrile. Seen with son bedside. She is still having blood in her stool. Seen by general surgery, recommended GI consultation as well. She does have some abdominal pain that comes and goes is periumbilical and epigastric in nature. She also complains of right groin pain worse on ambulation that is sharp. Multiple bloody bowel movements overnight. Hb dropped to 6.9. She is very fatigued not able to move well. A little short of breath. Plan: 2u PRBC for active blood loss Telemetry Vitals/I&O Vitals/I&O: Vital Signs Date Time Temp Pulse Resp B/P (MAP) Pulse Ox O2 Delivery O2 Flow Rate FiO2 11/03/19 07:35 65 164/57 11/03/19 03:00 98.2 20 94 Room Air 98.2 I & O 11/02/19 11/02/19 11/03/19 15:00 23:00 07:00 Intake Total 550 ml 500 ml 300 ml Balance 550 ml 500 ml 300 ml Physical Exam General: Alert, Oriented X3, Cooperative Heart: Regular rate, Normal S1, Normal S2 Lungs: Clear Abdomen: Soft, No tenderness, No hepatosplenomegaly Extremities: No clubbing, No cyanosis, No edema, Other (Bilateral lower extremity strength 2/5) Skin: No rashes, No breakdown Labs Labs: Laboratory Tests Test 11/02/19 11:31 11/02/19 16:55 11/02/19 20:41 Glucose (Fingerstick) 228 mg/dL (70-99) 317 mg/dL (70-99) 212 mg/dL (70-99) Assessment and Plan Assessmemt and Plan Problems Medical Problems: (1) Abdominal pain Status: Acute (2) EDMOND (acute kidney injury) Status: Acute (3) Dehydration Status: Acute Comment Review of Relevant I have reviewed the following items russell (where applicable) has been applied. Medications: Current Medications Medications (Trade) Dose Ordered Sig/Gisselle Route PRN Reason Start Time Stop Time Status Last Admin Dose Admin Methylnaltrexone [place] (Relistor) 6 mg 1X ONCE SQ 11/02/19 12:30 11/02/19 12:31 DC 11/02/19 12:48 Polyethylene Glycol (miraLAX Powder BULK BOTTLE) 238 gm 1X ONCE PO 11/02/19 12:30 11/02/19 12:31 DC 11/02/19 12:48 Justicifation of Admission Dx: Justifications for Admission: Justification of Admission Dx: Yes Hypertension: Symp at Rest TOBIAS MONTOYA MD Nov 03, 2019 08:11
[2019-11-03] MEDS: cloNIDine HCL 0.1 MG TABLET PO SCH ×3 (09:20→21:46)
[2019-11-03] MEDS: DOCUSATE SODIUM 100 MG CAPSULE. PO SCH (09:20)
[2019-11-03] MEDS: amLODIPine BESYLATE 10 MG TABLET PO SCH (09:20)
[2019-11-03] MEDS: ISOSORBIDE MONONITRATE ER 30 MG TAB.ER.24H PO SCH ×2 (09:20→21:46)
--- NOTE | 2019-11-03 09:45 | PDOC ---
Date of Service: DATE: 11/03/19 TIME: 09:41 Subjective: Subjective: Significant stooling s/p Miralax and Relistor. Still has bleeding. Objective: Vital Signs: Vital Signs Date Time Temp Pulse Resp B/P (MAP) Pulse Ox O2 Delivery O2 Flow Rate FiO2 11/03/19 09:20 65 164/57 11/03/19 07:38 Room Air 11/03/19 07:00 98.5 17 96 98.5 Labs: Laboratory Tests Test 11/02/19 11:31 11/02/19 16:55 11/02/19 20:41 11/03/19 07:21 Glucose (Fingerstick) 228 mg/dL 317 mg/dL 212 mg/dL 123 mg/dL PE: GEN: NAD LUNGS: CTAB HEART: RRR ABD: NABS, S/ND, mild/vague periumbilical discomfort NEURO/PSYCH: A & O 3 A/P: Dizziness, CKD, CHF Chronic rectal bleeding w/ h/o stercoral ulcer OIC ACD/CYNTHIA -- Recheck Hgb - if stable, could consider DC soon per GI. She'd like to pursue outpt colonoscopy for further eval of hematochezia w/ h/o stercoral ulcer - our office will arrange. She thinks Amitiza 24mcg BID is not too helpful for constipation - could try Linzess, Movantik, or PO Relistor instead. Should restart iron in some form, though may contribute to constipation issue. B12 pending. Update - Hgb recheck 6.9 - orders for transfusion. Reviewed w/ Propeck - bleeding scan may be helpful. Justicifation of Admission Dx: Justifications for Admission: Justification of Admission Dx: Yes Hypertension: Symp at Rest YE WOODRUFF Nov 03, 2019 09:45
[2019-11-03 09:58] LABS: CALCIUM 8.4 mg/dL (8.5-10.1); CREATININE 2.3 mg/dL (0.6-1.0); GFR 25.1; POTASSIUM 3.7 mmol/L (3.5-5.1)
--- NOTE | 2019-11-03 10:49 | NUR ---
SW following. Discussed with RN, pt discharging today. SW awaiting home health discharge orders.
[2019-11-03] MEDS: POLYETHYLENE GLYCOL 3350 17 GM PACKET. PO SCH (11:54)
[2019-11-03] MEDS: FERROUS SULFATE 325 MG TABLET. PO SCH (11:54)
[2019-11-03 12:36] LABS: HEMATOCRIT 21.9 % (36.0-47.0)
--- NOTE | 2019-11-03 12:55 | PDOC ---
DATE OF SERVICE DATE: 11/03/19 TIME: 12:53 SUBJECTIVE ROS Stable OBJECTIVE Vital Signs Vital Signs Date Time Temp Pulse Resp B/P (MAP) Pulse Ox O2 Delivery O2 Flow Rate FiO2 11/03/19 11:00 98.4 66 18 143/49 (80) 95 Room Air 98.4 I & 0 Intake and Output 11/03/19 07:00 Intake Total 1350 ml Balance 1350 ml Intake Oral 1350 ml # Voids 6 PHYSICAL EXAM Physical Exam GENERAL: NAD HEAD AND NECK: Unremarkable. CARDIAC: Regular rate and rhythm without murmurs, rubs or gallops. LUNGS: Clear to auscultation bilaterally. ABDOMEN: Soft, nontender, nondistended. EXTREMITIES: No clubbing, cyanosis or edema. NEUROLOGIC: No focal deficits. MUSCULOSKELETAL: No obvious trauma. DIAGNOSIS/ASSESSMENT Assessment & Plan EDMOND - 2/2 Overdiuresis , Improving 3.9-->2.3 Supportive care, strict I/O, Avoid nephrotoxins CKD stage 4 - Follows with Dr. Palomo as OP Keep scheduled fu appt with Dr. palomo after dc HTN - card managing Anemia- reports blood in stool, per GI OP Colonoscopy per GI with Hx of stercoral ulcer lightheaded/weakness/presyncope- better CHF- lasix held, management per Card COMMENT/RELEVANT DATA Meds Current Medications Medications (Trade) Dose Ordered Sig/Gisselle Start Time Stop Time Status Last Admin Dose Admin Acetaminophen/ Hydrocodone Bitart (Lortab 7.5/325) 1 tab PRN Q4HRS PRN 10/29/19 21:00 11/02/19 20:48 1 TAB Amlodipine Besylate (Norvasc) 10 mg DAILY 10/30/19 09:00 11/03/19 09:20 10 MG Aspirin (Ecotrin) 81 mg DAILYWBKFT 10/30/19 08:00 11/03/19 07:35 81 MG Atorvastatin Calcium (Lipitor) 40 mg QHS 10/29/19 21:00 11/02/19 20:47 40 MG Carvedilol (Coreg) 25 mg BIDWMEALS 10/30/19 08:00 11/03/19 07:35 25 MG Clonidine HCl (Catapres) 0.1 mg TID 10/31/19 14:00 11/03/19 09:20 0.1 MG Dextrose (Dextrose 50%-Water Syringe) 12.5 gm PRN Q15MIN PRN 10/31/19 12:00 Docusate Sodium (Colace) 100 mg DAILY 10/30/19 09:00 11/03/19 09:20 100 MG Doxazosin Mesylate (Cardura) 2 mg QHS 10/29/19 21:00 11/02/19 20:47 2 MG Ferrous Sulfate (Feosol) 325 mg DAILYWBKFT 11/03/19 12:00 11/03/19 11:54 325 MG Insulin Glargine (Lantus Syringe) 10 unit HS 10/31/19 21:00 11/02/19 20:53 10 UNIT Insulin Human Lispro (HumaLOG) 0-5 UNITS TIDWMEALS 10/31/19 12:00 11/02/19 17:19 3 UNITS Isosorbide Mononitrate (Imdur) 60 mg BID 10/30/19 09:00 11/03/19 09:20 60 MG Labetalol HCl (Normodyne Iv Push) 10 mg PRN Q10MIN PRN 11/01/19 11:30 Latanoprost (Xalatan) 1 drop HS 10/29/19 21:00 11/02/19 20:48 1 DROP Lubiprostone (Amitiza) 24 mcg DAILYWBKFT 10/30/19 08:00 11/03/19 07:35 24 MCG Methylnaltrexone [place] (Relistor) 6 mg 1X ONCE 11/02/19 12:30 11/02/19 12:31 DC 11/02/19 12:48 6 MG Pantoprazole Sodium (Protonix) 40 mg DAILYAC 10/30/19 07:30 11/03/19 07:35 40 MG Polyethylene Glycol (miraLAX PACKET) 17 gm DAILY 11/03/19 12:00 11/03/19 11:54 17 GM Polyethylene Glycol (miraLAX Powder BULK BOTTLE) 238 gm 1X ONCE 11/02/19 12:30 11/02/19 12:31 DC 11/02/19 12:48 238 GM Simethicone (Gas-X) 80 mg PRN AFTMEALHC PRN 10/29/19 21:00 Sodium Chloride 1,000 ml @ 75 mls/hr 1X ONCE 10/30/19 14:00 10/31/19 03:19 DC 10/30/19 14:40 75 MLS/HR Lab Laboratory Tests Test 11/02/19 16:55 11/02/19 20:41 11/03/19 07:21 11/03/19 09:32 Glucose (Fingerstick) 317 mg/dL (70-99) 212 mg/dL (70-99) 123 mg/dL (70-99) Sodium Level 142 mmol/L (136-145) Potassium Level 3.7 mmol/L (3.5-5.1) Chloride Level 104 mmol/L (98-107) Carbon Dioxide Level 33 mmol/L (21-32) Anion Gap 5 (6-14) Blood Urea Nitrogen 53 mg/dL (7-20) Creatinine 2.3 mg/dL (0.6-1.0) Estimated GFR (Cockcroft-Gault) 25.1 Glucose Level 134 mg/dL (70-99) Calcium Level 8.4 mg/dL (8.5-10.1) Test 11/03/19 11:31 Glucose (Fingerstick) 110 mg/dL (70-99) Results All relevant outside records, renal labs, imaging studies, telemetry/EKG's were reviewed. Justicifation of Admission Dx: Justifications for Admission: Justification of Admission Dx: Yes Hypertension: Symp at Rest DANIELLA KIMBLE MD Nov 03, 2019 12:55
[2019-11-03 12:57] LABS: HEMOGLOBIN 6.9 g/dL (12.0-15.5)
[2019-11-03] MEDS ORDERED: HEPARIN for NUC MED 500 UNIT/5 ML DISP.SYRIN. IV ONE (14:00)
--- NOTE | 2019-11-03 16:50 | RAD ---
RADIONUCLIDE TAGGED RBC SCAN Clinical History: Bloody stools x1 month. Comparison: CT abdomen and pelvis without contrast, October 29, 2019. Technique: 33 mCi Tc-99m labeled red blood cells prepared with Ultratag technique were administered intravenously. Anterior dynamic images of the abdomen were obtained for 60 minutes. Findings: There is tracer seen within the vascular pool. There is no accumulation or propagation of tracer to suggest an active bleed. IMPRESSION: No evidence of acute GI bleed. Electronically signed by: Kendell Blanco MD (11/03/2019 4:46 PM) [id number]
[2019-11-03] MEDS: DOXAZOSIN MESYLATE 1 MG TABLET. PO SCH (21:45)
[2019-11-03] MEDS: ATORVASTATIN CALCIUM 40 MG TABLET. PO SCH (21:46)
[2019-11-03] MEDS: HYDROcodone/APAP 7.5/325MG 1 TAB TABLET PO PRN (21:46)
[2019-11-03] MEDS: LATANOPROST 0.005% OPHTH SOLUTION 2.5ML BOTTLE. OU SCH (21:47)
[2019-11-03] MEDS: INSULIN GLARGINE SYRINGE. SQ SCH (21:53)
[2019-11-04] VITALS (10 sets, daily range): BP systolic 127–166; BP diastolic 41–72
[2019-11-04 06:19] LABS: BASO % 0 % (0-3); EOS # 0.2 x10^3/uL (0.0-0.7); EOS % 3 % (0-3); HEMATOCRIT 30.9 % (36.0-47.0); LYMPH # 1.2 x10^3/uL (1.0-4.8); LYMPH % 20 % (24-48); MEAN CORPUSCULAR HEMOGLOBIN 29 pg (25-35); MEAN CORPUSCULAR HGB CONC 33 g/dL (31-37); MEAN CORPUSCULAR VOLUME 86 fL (79-100); MONO # 0.3 x10^3/uL (0.0-1.1); MONO % 5 % (0-9); NEUT # 4.5 x10^3/uL (1.8-7.7); NEUT % 72 % (31-73); PLATELET COUNT 169 x10^3/uL (140-400); RED BLOOD COUNT 3.59 x10^6/uL (3.50-5.40); RED CELL DISTRIBUTION WIDTH 16.5 % (11.5-14.5); WHITE BLOOD COUNT 6.3 x10^3/uL (4.0-11.0)
[2019-11-04 06:40] LABS: CREATININE 2.1 mg/dL (0.6-1.0); GFR 27.9; POTASSIUM 3.8 mmol/L (3.5-5.1)
[2019-11-04 06:43] LABS: HEMOGLOBIN 10.2 g/dL (12.0-15.5)
--- NOTE | 2019-11-04 07:51 | PDOC ---
[employer] PROGRESS NOTE Date of Service DOS: DATE: 11/04/19 TIME: 07:49 Chief Complaint Chief Complaint lightheaded weakness, acquired, will need PT and OT presyncope CHF, hold lasix, eval over-diuresis vasomotor nephropathy, gentle hydration, hold lasix in AM, CV team consult moderate malnutrition, consult nutrition anemia, microcytic, same as previous History of Present Illness History of Present Illness 10/31: Patient states she feels better than she did on admission. Still with some weakness, but denies lightheadedness or chest pain. She was undergoing home PT prior to admission, and would like to resume home PT. 11/01: Afebrile. Seen with son bedside. She is still having blood in her stool. Seen by general surgery, recommended GI consultation as well. She does have some abdominal pain that comes and goes is periumbilical and epigastric in nature. She also complains of right groin pain worse on ambulation that is sharp. 11/02: Multiple bloody bowel movements overnight. Hb dropped to 6.9. She is very fatigued not able to move well. A little short of breath. Status post 2 units PRBC for active lower GI bleed. A nuc med bleeding scan did not reveal any active bleeding. Hemoglobin improved from 6.9-10.2. She still has multiple bloody bowel movements Plan: Monitor Hb Patient and son would prefer no contrast exposure Vitals/I&O Vitals/I&O: Vital Signs Date Time Temp Pulse Resp B/P (MAP) Pulse Ox O2 Delivery O2 Flow Rate FiO2 11/04/19 03:12 98.8 71 18 154/51 98.8 11/04/19 03:04 95 Room Air I & O 11/03/19 11/03/19 11/04/19 15:00 23:00 07:00 Intake Total 655 ml 50 ml Balance 655 ml 50 ml Physical Exam General: Alert, Oriented X3, Cooperative Heart: Regular rate, Normal S1, Normal S2 Lungs: Clear Abdomen: Soft, No tenderness, No hepatosplenomegaly Extremities: No clubbing, No cyanosis, No edema, Other (Bilateral lower extremity strength 2/5) Skin: No rashes, No breakdown Labs Labs: Laboratory Tests Test 11/03/19 09:32 11/03/19 11:31 11/03/19 16:24 11/03/19 20:30 Hemoglobin 6.9 g/dL (12.0-15.5) Hematocrit 21.9 % (36.0-47.0) Mean Corpuscular Hemoglobin Concent 32 g/dL (31-37) Sodium Level 142 mmol/L (136-145) Potassium Level 3.7 mmol/L (3.5-5.1) Chloride Level 104 mmol/L (98-107) Carbon Dioxide Level 33 mmol/L (21-32) Anion Gap 5 (6-14) Blood Urea Nitrogen 53 mg/dL (7-20) Creatinine 2.3 mg/dL (0.6-1.0) Estimated GFR (Cockcroft-Gault) 25.1 Glucose Level 134 mg/dL (70-99) Calcium Level 8.4 mg/dL (8.5-10.1) Glucose (Fingerstick) 110 mg/dL (70-99) 175 mg/dL (70-99) 226 mg/dL (70-99) Test 11/04/19 05:19 White Blood Count 6.3 x10^3/uL (4.0-11.0) Red Blood Count 3.59 x10^6/uL (3.50-5.40) Hemoglobin 10.2 g/dL (12.0-15.5) Hematocrit 30.9 % (36.0-47.0) Mean Corpuscular Volume 86 fL (79-100) Mean Corpuscular Hemoglobin 29 pg (25-35) Mean Corpuscular Hemoglobin Concent 33 g/dL (31-37) Red Cell Distribution Width 16.5 % (11.5-14.5) Platelet Count 169 x10^3/uL (140-400) Neutrophils (%) (Auto) 72 % (31-73) Lymphocytes (%) (Auto) 20 % (24-48) Monocytes (%) (Auto) 5 % (0-9) Eosinophils (%) (Auto) 3 % (0-3) Basophils (%) (Auto) 0 % (0-3) Neutrophils # (Auto) 4.5 x10^3/uL (1.8-7.7) Lymphocytes # (Auto) 1.2 x10^3/uL (1.0-4.8) Monocytes # (Auto) 0.3 x10^3/uL (0.0-1.1) Eosinophils # (Auto) 0.2 x10^3/uL (0.0-0.7) Basophils # (Auto) 0.0 x10^3/uL (0.0-0.2) Sodium Level 142 mmol/L (136-145) Potassium Level 3.8 mmol/L (3.5-5.1) Chloride Level 105 mmol/L (98-107) Carbon Dioxide Level 32 mmol/L (21-32) Anion Gap 5 (6-14) Blood Urea Nitrogen 46 mg/dL (7-20) Creatinine 2.1 mg/dL (0.6-1.0) Estimated GFR (Cockcroft-Gault) 27.9 Glucose Level 193 mg/dL (70-99) Calcium Level 9.0 mg/dL (8.5-10.1) Assessment and Plan Assessmemt and Plan Problems Medical Problems: (1) Abdominal pain Status: Acute (2) EDMOND (acute kidney injury) Status: Acute (3) Dehydration Status: Acute Comment Review of Relevant I have reviewed the following items russell (where applicable) has been applied. Medications: Current Medications Medications (Trade) Dose Ordered Sig/Gisselle Route PRN Reason Start Time Stop Time Status Last Admin Dose Admin Ferrous Sulfate (Feosol) 325 mg DAILYWBKFT PO 11/03/19 12:00 11/03/19 11:54 Polyethylene Glycol (miraLAX PACKET) 17 gm DAILY PO 11/03/19 12:00 11/03/19 11:54 Justicifation of Admission Dx: Justifications for Admission: Justification of Admission Dx: Yes Hypertension: Symp at Rest TOBIAS MONTOYA MD Nov 04, 2019 07:51
[2019-11-04] MEDS: INSULIN LISPRO 300 UNITS/3 ML VIAL. SQ SCH ×6 (08:00→17:00)
[2019-11-04] MEDS: ASPIRIN ENTERIC COATED 81 MG TABLET.DR. PO SCH (09:39)
[2019-11-04] MEDS: CARVEDILOL 12.5 MG TABLET. PO SCH ×2 (09:40→17:35)
[2019-11-04] MEDS: FERROUS SULFATE 325 MG TABLET. PO SCH (09:40)
[2019-11-04] MEDS: PANTOPRAZOLE 40 MG TABLET.DR. PO SCH (09:40)
[2019-11-04] MEDS: ISOSORBIDE MONONITRATE ER 30 MG TAB.ER.24H PO SCH ×2 (09:40→21:59)
[2019-11-04] MEDS: amLODIPine BESYLATE 10 MG TABLET PO SCH (09:41)
[2019-11-04] MEDS: LUBIPROSTONE 24 MCG CAPSULE PO SCH (09:41)
[2019-11-04] MEDS: cloNIDine HCL 0.1 MG TABLET PO SCH ×3 (09:41→21:58)
[2019-11-04] MEDS: DOCUSATE SODIUM 100 MG CAPSULE. PO SCH (09:41)
[2019-11-04] MEDS: POLYETHYLENE GLYCOL 3350 17 GM PACKET. PO SCH (09:45)
--- NOTE | 2019-11-04 10:18 | NUR ---
SW following. Discussed with RN. Dr. Rivas plans to discharge patient home with [facility] today. SW awaiting home health discharge orders.
--- NOTE | 2019-11-04 11:21 | PDOC ---
DATE OF SERVICE DATE: 11/04/19 TIME: 11:19 SUBJECTIVE ROS Stable OBJECTIVE Vital Signs Vital Signs Date Time Temp Pulse Resp B/P (MAP) Pulse Ox O2 Delivery O2 Flow Rate FiO2 11/04/19 09:41 60 166/60 11/04/19 08:00 Room Air 11/04/19 07:00 98.1 18 98 98.1 I & 0 Intake and Output 11/04/19 07:00 Intake Total 705 ml Balance 705 ml Blood Product IV Normal Saline Flush 705 ml # Voids 2 # Bowel Movements 1 PHYSICAL EXAM Physical Exam GENERAL: NAD HEAD AND NECK: Unremarkable. CARDIAC: Regular rate and rhythm without murmurs, rubs or gallops. LUNGS: Clear to auscultation bilaterally. ABDOMEN: Soft, nontender, nondistended. EXTREMITIES: No clubbing, cyanosis or edema. NEUROLOGIC: No focal deficits. MUSCULOSKELETAL: No obvious trauma. DIAGNOSIS/ASSESSMENT Assessment & Plan EDMOND - 2/2 Overdiuresis , Improving 3.9-->2.1 Supportive care, strict I/O, Avoid nephrotoxins CKD stage 3/ 4 - Follows with Dr. Palomo as OP Keep scheduled fu appt with Dr. palomo after dc HTN - card managing Anemia- reports blood in stool, Hgb dropped to < 7, s/p PRBC per GI - with Hx of stercoral ulcer lightheaded/weakness/presyncope- better CHF- lasix held, management per Card COMMENT/RELEVANT DATA Meds Current Medications Medications (Trade) Dose Ordered Sig/Gisselle Start Time Stop Time Status Last Admin Dose Admin Acetaminophen/ Hydrocodone Bitart (Lortab 7.5/325) 1 tab PRN Q4HRS PRN 10/29/19 21:00 11/03/19 21:46 1 TAB Amlodipine Besylate (Norvasc) 10 mg DAILY 10/30/19 09:00 11/04/19 09:41 10 MG Aspirin (Ecotrin) 81 mg DAILYWBKFT 10/30/19 08:00 11/04/19 09:39 81 MG Atorvastatin Calcium (Lipitor) 40 mg QHS 10/29/19 21:00 11/03/19 21:46 40 MG Carvedilol (Coreg) 25 mg BIDWMEALS 10/30/19 08:00 11/04/19 09:40 25 MG Clonidine HCl (Catapres) 0.1 mg TID 10/31/19 14:00 11/04/19 09:41 0.1 MG Dextrose (Dextrose 50%-Water Syringe) 12.5 gm PRN Q15MIN PRN 10/31/19 12:00 Docusate Sodium (Colace) 100 mg DAILY 10/30/19 09:00 11/04/19 09:41 100 MG Doxazosin Mesylate (Cardura) 2 mg QHS 10/29/19 21:00 11/03/19 21:45 2 MG Ferrous Sulfate (Feosol) 325 mg DAILYWBKFT 11/03/19 12:00 11/04/19 09:40 325 MG Heparin Sodium (Porcine) (HEPARIN for NUC MED) 100 unit 1X ONCE 11/03/19 14:00 11/03/19 14:01 DC Insulin Glargine (Lantus Syringe) 10 unit HS 10/31/19 21:00 11/03/19 21:53 10 UNIT Insulin Human Lispro (HumaLOG) 0-5 UNITS TIDWMEALS 10/31/19 12:00 11/03/19 17:05 2 UNITS Isosorbide Mononitrate (Imdur) 60 mg BID 10/30/19 09:00 11/04/19 09:40 60 MG Labetalol HCl (Normodyne Iv Push) 10 mg PRN Q10MIN PRN 11/01/19 11:30 Latanoprost (Xalatan) 1 drop HS 10/29/19 21:00 11/03/19 21:47 1 DROP Lubiprostone (Amitiza) 24 mcg DAILYWBKFT 10/30/19 08:00 11/04/19 09:41 24 MCG Methylnaltrexone [place] (Relistor) 6 mg 1X ONCE 11/02/19 12:30 11/02/19 12:31 DC 11/02/19 12:48 6 MG Pantoprazole Sodium (Protonix) 40 mg DAILYAC 10/30/19 07:30 11/04/19 09:40 40 MG Polyethylene Glycol (miraLAX PACKET) 17 gm DAILY 11/03/19 12:00 11/04/19 09:45 17 GM Polyethylene Glycol (miraLAX Powder BULK BOTTLE) 238 gm 1X ONCE 11/02/19 12:30 11/02/19 12:31 DC 11/02/19 12:48 238 GM Simethicone (Gas-X) 80 mg PRN AFTMEALHC PRN 10/29/19 21:00 Sodium Chloride 1,000 ml @ 75 mls/hr 1X ONCE 10/30/19 14:00 10/31/19 03:19 DC 10/30/19 14:40 75 MLS/HR Lab Laboratory Tests Test 11/03/19 11:31 11/03/19 16:24 11/03/19 20:30 11/04/19 05:19 Glucose (Fingerstick) 110 mg/dL (70-99) 175 mg/dL (70-99) 226 mg/dL (70-99) White Blood Count 6.3 x10^3/uL (4.0-11.0) Red Blood Count 3.59 x10^6/uL (3.50-5.40) Hemoglobin 10.2 g/dL (12.0-15.5) Hematocrit 30.9 % (36.0-47.0) Mean Corpuscular Volume 86 fL (79-100) Mean Corpuscular Hemoglobin 29 pg (25-35) Mean Corpuscular Hemoglobin Concent 33 g/dL (31-37) Red Cell Distribution Width 16.5 % (11.5-14.5) Platelet Count 169 x10^3/uL (140-400) Neutrophils (%) (Auto) 72 % (31-73) Lymphocytes (%) (Auto) 20 % (24-48) Monocytes (%) (Auto) 5 % (0-9) Eosinophils (%) (Auto) 3 % (0-3) Basophils (%) (Auto) 0 % (0-3) Neutrophils # (Auto) 4.5 x10^3/uL (1.8-7.7) Lymphocytes # (Auto) 1.2 x10^3/uL (1.0-4.8) Monocytes # (Auto) 0.3 x10^3/uL (0.0-1.1) Eosinophils # (Auto) 0.2 x10^3/uL (0.0-0.7) Basophils # (Auto) 0.0 x10^3/uL (0.0-0.2) Sodium Level 142 mmol/L (136-145) Potassium Level 3.8 mmol/L (3.5-5.1) Chloride Level 105 mmol/L (98-107) Carbon Dioxide Level 32 mmol/L (21-32) Anion Gap 5 (6-14) Blood Urea Nitrogen 46 mg/dL (7-20) Creatinine 2.1 mg/dL (0.6-1.0) Estimated GFR (Cockcroft-Gault) 27.9 Glucose Level 193 mg/dL (70-99) Calcium Level 9.0 mg/dL (8.5-10.1) Test 11/04/19 08:13 Glucose (Fingerstick) 154 mg/dL (70-99) Results All relevant outside records, renal labs, imaging studies, telemetry/EKG's were reviewed. Justicifation of Admission Dx: Justifications for Admission: Justification of Admission Dx: Yes Hypertension: Symp at Rest DANIELLA KIMBLE MD Nov 04, 2019 11:21
--- NOTE | 2019-11-04 11:41 | PDOC ---
Date of Service: DATE: 11/04/19 TIME: 11:36 Subjective: Subjective: Ongoing bleeding - not worse, not better. Not too hungry today. Objective: Objective: D/w nurse - still bleeding - no stool. Vital Signs: Vital Signs Date Time Temp Pulse Resp B/P (MAP) Pulse Ox O2 Delivery O2 Flow Rate FiO2 11/04/19 11:00 98.1 56 18 127/41 (69) 94 Room Air 98.1 Labs: Laboratory Tests Test 11/03/19 16:24 11/03/19 20:30 11/04/19 08:13 Glucose (Fingerstick) 175 mg/dL (70-99) 226 mg/dL (70-99) 154 mg/dL (70-99) PE: GEN: NAD LUNGS: CTAB HEART: RRR ABD: vague periumbilical discomfort NEURO/PSYCH: A & O 3, flat A/P: Chronic rectal bleeding w/ h/o stercoral ulcer, OIC ACD/CYNTHIA - improved w/ transfusion CKD, CHF -- Reviewed w/ Dr. Finnegan - plan for inpt colonoscopy w/ ongoing bleeding. Need to r/o COVID. Justicifation of Admission Dx: Justifications for Admission: Justification of Admission Dx: Yes Hypertension: Symp at Rest YE WOODRUFF Nov 04, 2019 11:40
[2019-11-04] MEDS ORDERED: PEG 3350/NA SULF,BICARB,CL/KCL 4,000 ML SOLUTION. PO ONE (12:00)
[2019-11-04] MEDS: HYDROcodone/APAP 7.5/325MG 1 TAB TABLET PO PRN (12:26)
[2019-11-04] MEDS: DEXTROSE 50% 25 GM / 50ML DISP.SYRIN. IV PRN (17:00)
--- NOTE | 2019-11-04 19:30 | NUR ---
At dinner blood glucose was 35, an amp of dextrose given and physician notified. Upon recheck at 1715, blood glucose had come backup to 164. 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
[2019-11-04] MEDS: INSULIN GLARGINE SYRINGE. SQ SCH (21:00)
[2019-11-04] MEDS: LATANOPROST 0.005% OPHTH SOLUTION 2.5ML BOTTLE. OU SCH (21:58)
[2019-11-04] MEDS: DOXAZOSIN MESYLATE 1 MG TABLET. PO SCH (21:58)
[2019-11-04] MEDS: ATORVASTATIN CALCIUM 40 MG TABLET. PO SCH (21:59)
[2019-11-05] VITALS (12 sets, daily range): BP systolic 147–191; BP diastolic 47–83
--- NOTE | 2019-11-05 03:45 | NUR ---
Patient has fever per vital signs. Patient has 2 jackets on, with 3-4 blankets, and heat is turned all the way up. Probable false fever. Removed a couple of blankets, turned heat down, provided education to patient. Will pass along to day RN.
[2019-11-05] MEDS ORDERED: IV RINGERS,LACTATED 1000ML 1,000 ML IV SCH (07:00)
[2019-11-05] MEDS ORDERED: PROCHLORPERAZINE 10 MG/2 ML VIAL. IV PRN (07:00)
[2019-11-05] MEDS ORDERED: ONDANSETRON PF 4 MG/2 ML VIAL. IV PRN (07:00)
[2019-11-05] MEDS: INSULIN LISPRO 300 UNITS/3 ML VIAL. SQ SCH ×6 (08:00→18:38)
[2019-11-05] MEDS: ASPIRIN ENTERIC COATED 81 MG TABLET.DR. PO SCH (08:00)
[2019-11-05] MEDS ORDERED: IV RINGERS,LACTATED 1000ML 1,000 ML IV ONE (08:15)
[2019-11-05] MEDS ORDERED: LIDOCAINE 2% PF 5 ML VIAL. ONE (09:10)
[2019-11-05] MEDS ORDERED: PROPOFOL 10 MG/ML (20ML) VIAL. IV ONE (09:10)
--- NOTE | 2019-11-05 09:41 | PDOC4 ---
Operative Note Operative Note Colonoscopy Meds propofol per anesthesia Pre-op dx Hematochezia/acute blood loss anemia Post-op dx internal hemorrhoids sigmoid diverticulosis Plan advance diet as tolerated. JARON WATERS MD Nov 05, 2019 09:41
--- NOTE | 2019-11-05 09:57 | NUR ---
SW following. Discussed with RN, pt having a colonoscopy today. Pt had a 101.1 temp last night, RN not sure if pt can discharge home after colonoscopy. Plan is [facility] at discharge.
[2019-11-05] MEDS: DOCUSATE SODIUM 100 MG CAPSULE. PO SCH (10:51)
[2019-11-05] MEDS: POLYETHYLENE GLYCOL 3350 17 GM PACKET. PO SCH (10:51)
[2019-11-05] MEDS: ISOSORBIDE MONONITRATE ER 30 MG TAB.ER.24H PO SCH ×2 (10:53→20:57)
[2019-11-05] MEDS: amLODIPine BESYLATE 10 MG TABLET PO SCH (10:53)
[2019-11-05] MEDS: FERROUS SULFATE 325 MG TABLET. PO SCH (10:54)
[2019-11-05] MEDS: cloNIDine HCL 0.1 MG TABLET PO SCH ×3 (10:54→20:56)
[2019-11-05] MEDS: LUBIPROSTONE 24 MCG CAPSULE PO SCH (10:54)
[2019-11-05] MEDS: PANTOPRAZOLE 40 MG TABLET.DR. PO SCH (10:55)
[2019-11-05] MEDS: CARVEDILOL 12.5 MG TABLET. PO SCH ×2 (10:56→18:33)
--- NOTE | 2019-11-05 11:48 | PDOC ---
DATE OF SERVICE DATE: 11/05/19 TIME: 11:46 SUBJECTIVE ROS Stable, Colonoscopy earlier today, denies any complaints OBJECTIVE Vital Signs Vital Signs Date Time Temp Pulse Resp B/P (MAP) Pulse Ox O2 Delivery O2 Flow Rate FiO2 11/05/19 10:56 71 189/74 11/05/19 10:30 95 11/05/19 10:08 16 Room Air 11/05/19 09:38 98.3 2 98.3 I & 0 Intake and Output 11/05/19 07:00 Intake Total 320 ml Balance 320 ml Intake Oral 320 ml # Voids 1 # Bowel Movements 4 PHYSICAL EXAM Physical Exam GENERAL: NAD HEAD AND NECK: Unremarkable. CARDIAC: Regular rate and rhythm without murmurs, rubs or gallops. LUNGS: Clear to auscultation bilaterally. ABDOMEN: Soft, nontender, nondistended. EXTREMITIES: No clubbing, cyanosis or edema. NEUROLOGIC: No focal deficits. MUSCULOSKELETAL: No obvious trauma. DIAGNOSIS/ASSESSMENT Assessment & Plan EDMOND - 2/2 Overdiuresis , Improving 3.9-->2.1, No labs this am Supportive care, strict I/O, Avoid nephrotoxins CKD stage 3/ 4 - Follows with Dr. Palomo as OP Keep scheduled fu appt with Dr. palomo after dc HTN - card managing Anemia- reports blood in stool, Hgb dropped to < 7, s/p PRBC per GI - with Hx of stercoral ulcer , Colonoscopy this am - internal hemorrhoids, sigmoid diverticulosis lightheaded/weakness/presyncope- better CHF- lasix held, management per Card DC per Primary/GI Keep scheduled appt with Dr Alin Palomo COMMENT/RELEVANT DATA Meds Current Medications Medications (Trade) Dose Ordered Sig/Gisselle Start Time Stop Time Status Last Admin Dose Admin Acetaminophen/ Hydrocodone Bitart (Lortab 7.5/325) 1 tab PRN Q4HRS PRN 10/29/19 21:00 11/04/19 12:26 1 TAB Amlodipine Besylate (Norvasc) 10 mg DAILY 10/30/19 09:00 11/05/19 10:53 10 MG Aspirin (Ecotrin) 81 mg DAILYWBKFT 10/30/19 08:00 11/04/19 09:39 81 MG Atorvastatin Calcium (Lipitor) 40 mg QHS 10/29/19 21:00 11/04/19 21:59 40 MG Carvedilol (Coreg) 25 mg BIDWMEALS 10/30/19 08:00 11/05/19 10:56 25 MG Clonidine HCl (Catapres) 0.1 mg TID 10/31/19 14:00 11/05/19 10:54 0.1 MG Dextrose (Dextrose 50%-Water Syringe) 12.5 gm PRN Q15MIN PRN 10/31/19 12:00 11/04/19 17:00 25 GM Docusate Sodium (Colace) 100 mg DAILY 10/30/19 09:00 11/04/19 09:41 100 MG Doxazosin Mesylate (Cardura) 2 mg QHS 10/29/19 21:00 11/04/19 21:58 2 MG Ferrous Sulfate (Feosol) 325 mg DAILYWBKFT 11/03/19 12:00 11/05/19 10:54 325 MG Heparin Sodium (Porcine) (HEPARIN for NUC MED) 100 unit 1X ONCE 11/03/19 14:00 11/03/19 14:01 DC Insulin Glargine (Lantus Syringe) 10 unit HS 10/31/19 21:00 11/03/19 21:53 10 UNIT Insulin Human Lispro (HumaLOG) 0-5 UNITS TIDWMEALS 10/31/19 12:00 11/03/19 17:05 2 UNITS Isosorbide Mononitrate (Imdur) 60 mg BID 10/30/19 09:00 11/05/19 10:53 60 MG Labetalol HCl (Normodyne Iv Push) 10 mg PRN Q10MIN PRN 11/01/19 11:30 Latanoprost (Xalatan) 1 drop HS 10/29/19 21:00 11/04/19 21:58 1 DROP Lidocaine HCl (Lidocaine Pf 2% Vial) 5 ml STK-MED ONCE 11/05/19 09:10 11/05/19 09:10 DC Lubiprostone (Amitiza) 24 mcg DAILYWBKFT 10/30/19 08:00 11/05/19 10:54 24 MCG Methylnaltrexone [place] (Relistor) 6 mg 1X ONCE 11/02/19 12:30 11/02/19 12:31 DC 11/02/19 12:48 6 MG Ondansetron HCl (Zofran) 4 mg PRN Q6HRS PRN 11/05/19 07:00 11/06/19 06:59 Pantoprazole Sodium (Protonix) 40 mg DAILYAC 10/30/19 07:30 11/05/19 10:55 40 MG Polyethylene Glycol (miraLAX PACKET) 17 gm DAILY 11/03/19 12:00 11/04/19 09:45 17 GM Polyethylene Glycol (miraLAX Powder BULK BOTTLE) 238 gm 1X ONCE 11/02/19 12:30 11/02/19 12:31 DC 11/02/19 12:48 238 GM Prochlorperazine Edisylate (Compazine) 5 mg PACU PRN PRN 11/05/19 07:00 11/06/19 06:59 Propofol (Diprivan) 200 mg STK-MED ONCE 11/05/19 09:10 11/05/19 09:10 DC Ringer's Solution 1,000 ml @ 75 mls/hr 1X ONCE 11/05/19 08:15 11/05/19 21:34 Simethicone (Gas-X) 80 mg PRN AFTMEALHC PRN 10/29/19 21:00 Sodium Chloride 1,000 ml @ 75 mls/hr 1X ONCE 10/30/19 14:00 10/31/19 03:19 DC 10/30/19 14:40 75 MLS/HR Sodium Cl/Sod Bicarb/Potass Cl/ PEG (Golytely) 4,000 ml 1X ONCE 11/04/19 12:00 11/04/19 12:01 DC 11/04/19 14:10 4,000 ML Lab Laboratory Tests Test 11/04/19 12:05 11/04/19 12:17 11/04/19 16:57 11/04/19 17:20 Coronavirus (PCR) Not detected (Not Detected) SARS-CoV-2 Antigen (Rapid) Negative (NEGATIVE) Glucose (Fingerstick) 173 mg/dL (70-99) 35 mg/dL (70-99) 164 mg/dL (70-99) Test 11/04/19 20:08 11/05/19 02:05 11/05/19 07:17 11/05/19 11:06 Glucose (Fingerstick) 111 mg/dL (70-99) 100 mg/dL (70-99) 109 mg/dL (70-99) 128 mg/dL (70-99) Results All relevant outside records, renal labs, imaging studies, telemetry/EKG's were reviewed. Justicifation of Admission Dx: Justifications for Admission: Justification of Admission Dx: Yes Hypertension: Symp at Rest DANIELLA KIMBLE MD Nov 05, 2019 11:48
[2019-11-05] MEDS: HYDROcodone/APAP 7.5/325MG 1 TAB TABLET PO PRN ×2 (14:14→20:57)
--- NOTE | 2019-11-05 17:28 | PDOC ---
PROGRESS NOTES Date of Service: DATE: 11/05/19 TIME: 17:26 Chief Complaint Chief Complaint lightheaded weakness, acquired, will need PT and OT presyncope CHF, hold lasix, eval over-diuresis vasomotor nephropathy, gentle hydration, hold lasix in AM, CV team consult moderate malnutrition, consult nutrition anemia, microcytic, same as previous History of Present Illness History of Present Illness 10/31: Patient states she feels better than she did on admission. Still with some weakness, but denies lightheadedness or chest pain. She was undergoing home PT prior to admission, and would like to resume home PT. 11/01: Afebrile. Seen with son bedside. She is still having blood in her stool. Seen by general surgery, recommended GI consultation as well. She does have s ome abdominal pain that comes and goes is periumbilical and epigastric in nature. She also complains of right groin pain worse on ambulation that is sharp. 11/02: Multiple bloody bowel movements overnight. Hb dropped to 6.9. She is very fatigued not able to move well. A little short of breath. Status post 2 units PRBC for active lower GI bleed. A nuc med bleeding scan did not reveal any active bleeding. Hemoglobin improved from 6.9-10.2. She still has multiple bloody bowel movements 11/04: Patient reports dark stools and a history of chronic prednisone use. Status post colonoscopy today, that showed diverticuli and internal hemorrhoids. No apparent source of active bleed. Continue to monitor hemoglobin. Vitals Vitals Vital Signs Date Time Temp Pulse Resp B/P (MAP) Pulse Ox O2 Delivery O2 Flow Rate FiO2 11/05/19 16:30 Room Air 11/05/19 15:00 99.0 71 16 161/65 (97) 100 99.0 11/05/19 09:38 2 Physical Exam General: Alert, Oriented X3, Cooperative Heart: Regular rate, Normal S1, Normal S2 Lungs: Clear Abdomen: Soft, No tenderness, No hepatosplenomegaly Extremities: No clubbing, No cyanosis, No edema, Other (Bilateral lower extremity strength 2/5) Skin: No rashes, No breakdown Labs LABS Laboratory Tests Test 11/04/19 20:08 11/05/19 02:05 11/05/19 07:17 11/05/19 11:06 Glucose (Fingerstick) 111 mg/dL (70-99) 100 mg/dL (70-99) 109 mg/dL (70-99) 128 mg/dL (70-99) Assessment and Plan Assessmemt and Plan Problems Medical Problems: (1) Abdominal pain Status: Acute (2) EDMOND (acute kidney injury) Status: Acute (3) Dehydration Status: Acute Comment Review of Relevant I have reviewed the following items russell (where applicable) has been applied. Labs Laboratory Tests Test 11/03/19 20:30 11/04/19 05:19 11/04/19 08:13 11/04/19 12:05 Glucose (Fingerstick) 226 mg/dL (70-99) 154 mg/dL (70-99) White Blood Count 6.3 x10^3/uL (4.0-11.0) Red Blood Count 3.59 x10^6/uL (3.50-5.40) Hemoglobin 10.2 g/dL (12.0-15.5) Hematocrit 30.9 % (36.0-47.0) Mean Corpuscular Volume 86 fL (79-100) Mean Corpuscular Hemoglobin 29 pg (25-35) Mean Corpuscular Hemoglobin Concent 33 g/dL (31-37) Red Cell Distribution Width 16.5 % (11.5-14.5) Platelet Count 169 x10^3/uL (140-400) Neutrophils (%) (Auto) 72 % (31-73) Lymphocytes (%) (Auto) 20 % (24-48) Monocytes (%) (Auto) 5 % (0-9) Eosinophils (%) (Auto) 3 % (0-3) Basophils (%) (Auto) 0 % (0-3) Neutrophils # (Auto) 4.5 x10^3/uL (1.8-7.7) Lymphocytes # (Auto) 1.2 x10^3/uL (1.0-4.8) Monocytes # (Auto) 0.3 x10^3/uL (0.0-1.1) Eosinophils # (Auto) 0.2 x10^3/uL (0.0-0.7) Basophils # (Auto) 0.0 x10^3/uL (0.0-0.2) Sodium Level 142 mmol/L (136-145) Potassium Level 3.8 mmol/L (3.5-5.1) Chloride Level 105 mmol/L (98-107) Carbon Dioxide Level 32 mmol/L (21-32) Anion Gap 5 (6-14) Blood Urea Nitrogen 46 mg/dL (7-20) Creatinine 2.1 mg/dL (0.6-1.0) Estimated GFR (Cockcroft-Gault) 27.9 Glucose Level 193 mg/dL (70-99) Calcium Level 9.0 mg/dL (8.5-10.1) Coronavirus (PCR) Not detected (Not Detected) SARS-CoV-2 Antigen (Rapid) Negative (NEGATIVE) Test 11/04/19 12:17 11/04/19 16:57 11/04/19 17:20 11/04/19 20:08 Glucose (Fingerstick) 173 mg/dL (70-99) 35 mg/dL (70-99) 164 mg/dL (70-99) 111 mg/dL (70-99) Test 11/05/19 02:05 11/05/19 07:17 11/05/19 11:06 Glucose (Fingerstick) 100 mg/dL (70-99) 109 mg/dL (70-99) 128 mg/dL (70-99) Laboratory Tests Test 11/04/19 20:08 11/05/19 02:05 11/05/19 07:17 11/05/19 11:06 Glucose (Fingerstick) 111 mg/dL (70-99) 100 mg/dL (70-99) 109 mg/dL (70-99) 128 mg/dL (70-99) Medications Current Medications Sodium Chloride 250 ml @ 250 mls/hr 1X ONCE IV Last administered on 10/29/19at 16:45; Start 10/29/19 at 16:45; Stop 10/29/19 at 17:44; Status DC Amlodipine Besylate (Norvasc) 10 mg DAILY PO Last administered on 11/05/19at 10:53; Start 10/30/19 at 09:00 Aspirin (Ecotrin) 81 mg DAILYWBKFT PO Last administered on 11/04/19at 09:39; Start 10/30/19 at 08:00 Atorvastatin Calcium (Lipitor) 40 mg QHS PO Last administered on 11/04/19at 21:59; Start 10/29/19 at 21:00 Carvedilol (Coreg) 25 mg BIDWMEALS PO Last administered on 11/05/19 10:56; Start 10/30/19 at 08:00 Clonidine HCl (Catapres) 0.3 mg TID PO Last administered on 10/30/19 08:37; Start 10/29/19 at 21:00; Stop 10/31/19 at 11:51; Status DC Docusate Sodium (Colace) 100 mg DAILY PO Last administered on 11/04/19 09:41; Start 10/30/19 at 09:00 Acetaminophen/ Hydrocodone Bitart (Lortab 7.5/325) 1 tab PRN Q4HRS PRN PO MODERATE PAIN 4-6 Last administered on 11/05/19at 14:14; Start 10/29/19 at 21:00 Insulin Glargine (Lantus Syringe) 28 unit HS SQ Last administered on 10/29/19at 23:57; Start 10/29/19 at 21:00; Stop 10/30/19 at 07:50; Status DC Latanoprost (Xalatan) 1 drop HS OU Last administered on 11/04/19at 21:58; Start 10/29/19 at 21:00 Simethicone (Gas-X) 80 mg PRN AFTMEALHC PRN PO GAS / BLOATING; Start 10/29/19 at 21:00 Doxazosin Mesylate (Cardura) 2 mg QHS PO Last administered on 11/04/19at 21:58; Start 10/29/19 at 21:00 Insulin Human Lispro (HumaLOG) 6 units TIDWMEALS SQ ; Start 10/30/19 at 08:00; Stop 10/31/19 at 11:51; Status DC Isosorbide Mononitrate (Imdur) 60 mg BID PO Last administered on 11/05/19 10:53; Start 10/30/19 at 09:00 Lubiprostone (Amitiza) 24 mcg DAILYWBKFT PO Last administered on 11/05/19at 10:54; Start 10/30/19 at 08:00 Pantoprazole Sodium (Protonix) 40 mg DAILYAC PO Last administered on 11/05/19at 10:55; Start 10/30/19 at 07:30 Insulin Human Lispro (HumaLOG) 0-7 UNITS TIDWMEALS SQ ; Start 10/30/19 at 08:00; Stop 10/31/19 at 11:58; Status DC Dextrose (Dextrose 50%-Water Syringe) 12.5 gm PRN Q15MIN PRN IV SEE COMMENTS Last administered on 10/31/19at 03:39; Start 10/29/19 at 21:15; Stop 10/31/19 at 11:59; Status DC Insulin Glargine (Lantus Syringe) 20 unit HS SQ ; Start 10/30/19 at 21:00; Stop 10/31/19 at 11:51; Status DC Sodium Chloride 1,000 ml @ 75 mls/hr 1X ONCE IV Last administered on 10/30/19a t 14:40; Start 10/30/19 at 14:00; Stop 10/31/19 at 03:19; Status DC Clonidine HCl (Catapres) 0.2 mg TID PO ; Start 10/31/19 at 14:00; Stop 10/31/19 at 11:58; Status DC Insulin Glargine (Lantus Syringe) 10 unit HS SQ Last administered on 11/03/19at 21:53; Start 10/31/19 at 21:00 Insulin Human Lispro (HumaLOG) 3 units TIDWMEALS SQ Last administered on 11/04/19at 12:29; Start 10/31/19 at 12:00 Insulin Human Lispro (HumaLOG) 0-5 UNITS TIDWMEALS SQ Last administered on 11/03/19at 17:05; Start 10/31/19 at 12:00 Dextrose (Dextrose 50%-Water Syringe) 12.5 gm PRN Q15MIN PRN IV SEE COMMENTS Last administered on 11/04/19at 17:00; Start 10/31/19 at 12:00 Clonidine HCl (Catapres) 0.1 mg TID PO Last administered on 11/05/19at 14:16; Start 10/31/19 at 14:00 Labetalol HCl (Normodyne Iv Push) 10 mg PRN Q10MIN PRN IVP HYPERTENSION; Start 11/01/19 at 11:30 Polyethylene Glycol (miraLAX Powder BULK BOTTLE) 238 gm 1X ONCE PO ; Start 11/02/19 at 12:30; Stop 11/02/19 at 12:04; Status DC Methylnaltrexone [place] (Relistor) 6 mg 1X ONCE SQ Last administered on 11/02/19at 12:48; Start 11/02/19 at 12:30; Stop 11/02/19 at 12:31; Status DC Polyethylene Glycol (miraLAX Powder BULK BOTTLE) 238 gm 1X ONCE PO Last administered on 11/02/19at 12:48; Start 11/02/19 at 12:30; Stop 11/02/19 at 12:31; Status DC Ferrous Sulfate (Feosol) 325 mg DAILYWBKFT PO Last administered on 11/05/19at 10:54; Start 11/03/19 at 12:00 Polyethylene Glycol (miraLAX PACKET) 17 gm DAILY PO Last administered on 11/04/19at 09:45; Start 11/03/19 at 12:00 Heparin Sodium (Porcine) (HEPARIN for NUC MED) 100 unit 1X ONCE IV ; Start 11/03/19 at 14:00; Stop 11/03/19 at 14:01; Status DC Sodium Cl/Sod Bicarb/Potass Cl/ PEG (Golytely) 4,000 ml 1X ONCE PO Last administered on 11/04/19at 14:10; Start 11/04/19 at 12:00; Stop 11/04/19 at 12:01; Status DC Ondansetron HCl (Zofran) 4 mg PRN Q6HRS PRN IV NAUSEA/VOMITING; Start 11/05/19 at 07:00; Stop 11/06/19 at 06:59 Ringer's Solution 1,000 ml @ 30 mls/hr Q24H IV Last administered on 11/05/19at 09:03; Start 11/05/19 at 07:00; Stop 11/05/19 at 18:59 Prochlorperazine Edisylate (Compazine) 5 mg PACU PRN PRN IV NAUSEA, MRX1; Start 11/05/19 at 07:00; Stop 11/06/19 at 06:59 Ringer's Solution 1,000 ml @ 75 mls/hr 1X ONCE IV ; Start 11/05/19 at 08:15; Stop 11/05/19 at 21:34 Propofol (Diprivan) 200 mg STK-MED ONCE IV ; Start 11/05/19 at 09:10; Stop 11/05/19 at 09:10; Status DC Lidocaine HCl (Lidocaine Pf 2% Vial) 5 ml STK-MED ONCE .ROUTE ; Start 11/05/19 at 09:10; Stop 11/05/19 at 09:10; Status DC Active Scripts Active Aspirin Ec (Aspirin) 81 Mg Tablet. 81 Mg PO DAILYWBKFT 90 Days Furosemide 40 Mg Tablet 40 Mg PO BID92 30 Days Weight yourself daily, if you gain 3 pounds or more increase dose to 80mg BID for 3 days and contact your tabular typist Amitiza (Lubiprostone) 8 Mcg Capsule 1 Cap PO BID Colace (Docusate Sodium) 100 Mg Capsule 100 Mg PO DAILY 30 Days Simethicone 80 Mg Tab.chew 80 Mg PO PRN AFTMEALHC PRN 30 Days Carvedilol (Carvedilol) 12.5 Mg Tablet 25 Mg PO BIDWMEALS Reported Prednisone 2.5 Mg Tablet 5 Mg PO DAILY Amlodipine Besylate 10 Mg Tablet 10 Mg PO DAILY Hydralazine Hcl 100 Mg Tablet 1 Tab PO TID Isosorbide Mononitrate Er (Isosorbide Mononitrate) 60 Mg Tab.er.24h 1 Tab PO BID Latanoprost 2.5 Ml Drops 1 Drop OP HS Doxazosin Mesylate 2 Mg Tablet 1 Tab PO HS Atorvastatin Calcium 40 Mg Tablet 1 Tab PO QHS Hydrocodone-Apap 7.5-325 (Hydrocodone Bit/Acetaminophen) 1 Each Tablet 1 Tab PO Q4HRS PRN Proair Hfa Inhaler (Albuterol Sulfate) 8.5 Gm Hfa.aer.ad 2 Puff IH PRN Q6HRS PRN Novolog Flexpen (Insulin Aspart) 100 Unit/1 Ml Insuln.pen 6 Unit SQ TIDAC Lantus (Insulin Glargine,Hum.rec.anlog) 100 Unit/1 Ml Vial 28 Unit SQ HS Omeprazole 20 Mg Capsule. 20 Mg PO BID PRN Clonidine Hcl 0.3 Mg Tablet 0.3 Mg PO TID Vitals/I & O Vital Sign - Last 24 Hours 11/04/19 11/04/19 11/04/19 11/04/19 17:35 19:00 19:30 21:58 Temp 98.0 98.0 Pulse 68 70 70 Resp 19 B/P (MAP) 138/63 157/56 (89) 157/56 Pulse Ox 95 O2 Delivery Room Air Room Air 11/04/19 11/04/19 11/04/19 11/05/19 21:58 21:59 22:55 02:50 Temp 98.2 101.1 98.2 101.1 Pulse 70 70 43 72 Resp 20 20 B/P (MAP) 157/56 157/56 163/56 (91) 174/71 (105) Pulse Ox 94 93 O2 Delivery Room Air Room Air 11/05/19 11/05/19 11/05/19 11/05/19 07:00 07:45 08:45 08:56 Temp 99.0 98.2 99.0 98.2 Pulse 54 69 Resp 17 20 B/P (MAP) 178/78 (111) Pulse Ox 96 95 O2 Delivery Room Air Room Air Room Air 11/05/19 11/05/19 11/05/19 11/05/19 09:38 09:53 10:08 10:30 Temp 98.3 98.3 Pulse 79 82 87 77 Resp 16 20 16 B/P (MAP) 138/62 139/68 177/77 191/77 (115) Pulse Ox 98 99 99 95 O2 Delivery Nasal Cannula Room Air Room Air O2 Flow Rate 2 11/05/19 11/05/19 11/05/19 11/05/19 10:45 10:53 10:53 10:54 Pulse 71 71 71 71 B/P (MAP) 188/74 (112) 189/74 189/74 189/74 Pulse Ox 98 11/05/19 11/05/19 11/05/19 11/05/19 10:56 11:00 11:15 11:45 Pulse 71 69 82 72 B/P (MAP) 189/74 185/68 (107) 185/68 (107) 158/58 (91) Pulse Ox 97 97 98 11/05/19 11/05/19 11/05/19 11/05/19 12:15 13:00 14:14 14:16 Pulse 64 64 67 B/P (MAP) 158/83 (108) 148/56 (86) 161/65 Pulse Ox 97 98 O2 Delivery Room Air 11/05/19 11/05/19 15:00 16:30 Temp 99.0 99.0 Pulse 71 Resp 16 B/P (MAP) 161/65 (97) Pulse Ox 100 O2 Delivery Room Air Room Air Intake and Output 11/04/19 11/04/19 11/05/19 15:00 23:00 07:00 Intake Total 200 ml 120 ml Balance 200 ml 120 ml Nutrition Consultation Dietary Evaluation: Recommendations by RD: Dietary education by RD, Increase Calorie Intake, Protein supplementation Comments: obtained food preferences to help improved po intake sending Nepro supplements bid Expected Outcomes/Goals: improved po intake to meet >75% est nutr needs Interpretation of weight loss: >1-2% in 1 week Malnutrition Findings: Food and Nutrition Intake (Sev: <50% est energy req 5days Weight Status: Underweight Justicifation of Admission Dx: Justifications for Admission: Justification of Admission Dx: Yes Hypertension: Symp at Rest NGOC DAY MD Nov 05, 2019 17:27
[2019-11-05] MEDS: ATORVASTATIN CALCIUM 40 MG TABLET. PO SCH (20:56)
[2019-11-05] MEDS: DOXAZOSIN MESYLATE 1 MG TABLET. PO SCH (20:56)
[2019-11-05] MEDS: LATANOPROST 0.005% OPHTH SOLUTION 2.5ML BOTTLE. OU SCH (20:57)
[2019-11-05] MEDS: INSULIN GLARGINE SYRINGE. SQ SCH (21:02)
[2019-11-06 03:00] VITALS: BP 161/68
[2019-11-06 05:09] LABS: BASO % 1 % (0-3); EOS # 0.2 x10^3/uL (0.0-0.7); EOS % 3 % (0-3); HEMATOCRIT 24.4 % (36.0-47.0); HEMOGLOBIN 8.2 g/dL (12.0-15.5); LYMPH # 1.1 x10^3/uL (1.0-4.8); LYMPH % 23 % (24-48); MEAN CORPUSCULAR HEMOGLOBIN 29 pg (25-35); MEAN CORPUSCULAR HGB CONC 34 g/dL (31-37); MEAN CORPUSCULAR VOLUME 87 fL (79-100); MONO # 0.3 x10^3/uL (0.0-1.1); MONO % 7 % (0-9); NEUT # 3.4 x10^3/uL (1.8-7.7); NEUT % 67 % (31-73); PLATELET COUNT 168 x10^3/uL (140-400); RED BLOOD COUNT 2.81 x10^6/uL (3.50-5.40); RED CELL DISTRIBUTION WIDTH 17.2 % (11.5-14.5); WHITE BLOOD COUNT 5.1 x10^3/uL (4.0-11.0)
[2019-11-06 05:28] LABS: CALCIUM 8.3 mg/dL (8.5-10.1); CREATININE 1.8 mg/dL (0.6-1.0); GFR 33.3; POTASSIUM 4.2 mmol/L (3.5-5.1)
[2019-11-06 07:00] VITALS: BP 161/57
[2019-11-06] MEDS: POLYETHYLENE GLYCOL 3350 17 GM PACKET. PO SCH (08:48)
[2019-11-06] MEDS: PANTOPRAZOLE 40 MG TABLET.DR. PO SCH (08:49)
[2019-11-06] MEDS: FERROUS SULFATE 325 MG TABLET. PO SCH (08:49)
[2019-11-06] MEDS: DOCUSATE SODIUM 100 MG CAPSULE. PO SCH (08:49)
[2019-11-06] MEDS: ISOSORBIDE MONONITRATE ER 30 MG TAB.ER.24H PO SCH ×2 (08:49→20:44)
[2019-11-06] MEDS: LUBIPROSTONE 24 MCG CAPSULE PO SCH (08:49)
[2019-11-06] MEDS: CARVEDILOL 12.5 MG TABLET. PO SCH ×2 (08:50→17:13)
[2019-11-06] MEDS: ASPIRIN ENTERIC COATED 81 MG TABLET.DR. PO SCH (08:50)
[2019-11-06] MEDS: cloNIDine HCL 0.1 MG TABLET PO SCH ×3 (08:51→20:45)
[2019-11-06] MEDS: amLODIPine BESYLATE 10 MG TABLET PO SCH (08:51)
[2019-11-06] MEDS: INSULIN LISPRO 300 UNITS/3 ML VIAL. SQ SCH ×6 (08:58→17:00)
[2019-11-06 11:00] VITALS: BP 133/44
--- NOTE | 2019-11-06 11:16 | PDOC ---
DATE OF SERVICE DATE: 11/06/19 TIME: 11:15 SUBJECTIVE ROS Stable, denies any complaints OBJECTIVE Vital Signs Vital Signs Date Time Temp Pulse Resp B/P (MAP) Pulse Ox O2 Delivery O2 Flow Rate FiO2 11/06/19 08:51 64 161/57 11/06/19 07:00 98.3 16 94 Room Air 98.3 11/05/19 09:38 2 I & 0 Intake and Output 11/06/19 07:00 Intake Total 1200 ml Balance 1200 ml Intake Oral 500 ml IV Total 700 ml # Voids 4 # Bowel Movements 1 PHYSICAL EXAM Physical Exam Physical Exam GENERAL: NAD HEAD AND NECK: Unremarkable. CARDIAC: Regular rate and rhythm without murmurs, rubs or gallops. LUNGS: Clear to auscultation bilaterally. ABDOMEN: Soft, nontender, nondistended. EXTREMITIES: No clubbing, cyanosis or edema. NEUROLOGIC: No focal deficits. MUSCULOSKELETAL: No obvious trauma. DIAGNOSIS/ASSESSMENT Assessment & Plan EDMOND - 2/2 Overdiuresis , Improving 3.9-->1.8 Supportive care, strict I/O, Avoid nephrotoxins CKD stage 3 - Follows with Dr. Palomo as OP Keep scheduled fu appt with Dr. palomo after dc HTN - card managing Anemia- reports blood in stool, Hgb dropped to < 7, s/p PRBC per GI - with Hx of stercoral ulcer , Colonoscopy 11/04 - internal hemorrhoids, sigmoid diverticulosis Hgb dropped from 10 (11/03) -->8 (11/05) lightheaded/weakness/presyncope- better CHF- lasix held, management per Card DC per Primary/GI Keep scheduled appt with Dr Alin Palomo COMMENT/RELEVANT DATA Meds Current Medications Medications (Trade) Dose Ordered Sig/Gisselle Start Time Stop Time Status Last Admin Dose Admin Acetaminophen/ Hydrocodone Bitart (Lortab 7.5/325) 1 tab PRN Q4HRS PRN 10/29/19 21:00 11/05/19 20:57 1 TAB Amlodipine Besylate (Norvasc) 10 mg DAILY 10/30/19 09:00 11/06/19 08:51 10 MG Aspirin (Ecotrin) 81 mg DAILYWBKFT 10/30/19 08:00 11/06/19 08:50 81 MG Atorvastatin Calcium (Lipitor) 40 mg QHS 10/29/19 21:00 11/05/19 20:56 40 MG Carvedilol (Coreg) 25 mg BIDWMEALS 10/30/19 08:00 11/06/19 08:50 25 MG Clonidine HCl (Catapres) 0.1 mg TID 10/31/19 14:00 11/06/19 08:51 0.1 MG Dextrose (Dextrose 50%-Water Syringe) 12.5 gm PRN Q15MIN PRN 10/31/19 12:00 11/04/19 17:00 25 GM Docusate Sodium (Colace) 100 mg DAILY 10/30/19 09:00 11/06/19 08:49 100 MG Doxazosin Mesylate (Cardura) 2 mg QHS 10/29/19 21:00 11/05/19 20:56 2 MG Ferrous Sulfate (Feosol) 325 mg DAILYWBKFT 11/03/19 12:00 11/06/19 08:49 325 MG Heparin Sodium (Porcine) (HEPARIN for NUC MED) 100 unit 1X ONCE 11/03/19 14:00 11/03/19 14:01 DC Insulin Glargine (Lantus Syringe) 10 unit HS 10/31/19 21:00 11/05/19 21:02 10 UNIT Insulin Human Lispro (HumaLOG) 0-5 UNITS TIDWMEALS 10/31/19 12:00 11/06/19 08:59 2 UNITS Isosorbide Mononitrate (Imdur) 60 mg BID 10/30/19 09:00 11/06/19 08:49 60 MG Labetalol HCl (Normodyne Iv Push) 10 mg PRN Q10MIN PRN 11/01/19 11:30 Latanoprost (Xalatan) 1 drop HS 10/29/19 21:00 11/05/19 20:57 1 DROP Lidocaine HCl (Lidocaine Pf 2% Vial) 5 ml STK-MED ONCE 11/05/19 09:10 11/05/19 09:10 DC Lubiprostone (Amitiza) 24 mcg DAILYWBKFT 10/30/19 08:00 11/06/19 08:49 24 MCG Methylnaltrexone [place] (Relistor) 6 mg 1X ONCE 11/02/19 12:30 11/02/19 12:31 DC 11/02/19 12:48 6 MG Ondansetron HCl (Zofran) 4 mg PRN Q6HRS PRN 11/05/19 07:00 11/06/19 06:59 DC Pantoprazole Sodium (Protonix) 40 mg DAILYAC 10/30/19 07:30 11/06/19 08:49 40 MG Polyethylene Glycol (miraLAX PACKET) 17 gm DAILY 11/03/19 12:00 11/06/19 08:48 17 GM Polyethylene Glycol (miraLAX Powder BULK BOTTLE) 238 gm 1X ONCE 11/02/19 12:30 11/02/19 12:31 DC 11/02/19 12:48 238 GM Prochlorperazine Edisylate (Compazine) 5 mg PACU PRN PRN 11/05/19 07:00 11/06/19 06:59 DC Propofol (Diprivan) 200 mg STK-MED ONCE 11/05/19 09:10 11/05/19 09:10 DC Ringer's Solution 1,000 ml @ 75 mls/hr 1X ONCE 11/05/19 08:15 11/05/19 21:34 DC Simethicone (Gas-X) 80 mg PRN AFTMEALHC PRN 10/29/19 21:00 Sodium Chloride 1,000 ml @ 75 mls/hr 1X ONCE 10/30/19 14:00 10/31/19 03:19 DC 10/30/19 14:40 75 MLS/HR Sodium Cl/Sod Bicarb/Potass Cl/ PEG (Golytely) 4,000 ml 1X ONCE 11/04/19 12:00 11/04/19 12:01 DC 11/04/19 14:10 4,000 ML Lab Laboratory Tests Test 11/05/19 18:32 11/05/19 20:44 11/06/19 04:15 11/06/19 07:49 Glucose (Fingerstick) 261 mg/dL (70-99) 215 mg/dL (70-99) 172 mg/dL (70-99) White Blood Count 5.1 x10^3/uL (4.0-11.0) Red Blood Count 2.81 x10^6/uL (3.50-5.40) Hemoglobin 8.2 g/dL (12.0-15.5) Hematocrit 24.4 % (36.0-47.0) Mean Corpuscular Volume 87 fL (79-100) Mean Corpuscular Hemoglobin 29 pg (25-35) Mean Corpuscular Hemoglobin Concent 34 g/dL (31-37) Red Cell Distribution Width 17.2 % (11.5-14.5) Platelet Count 168 x10^3/uL (140-400) Neutrophils (%) (Auto) 67 % (31-73) Lymphocytes (%) (Auto) 23 % (24-48) Monocytes (%) (Auto) 7 % (0-9) Eosinophils (%) (Auto) 3 % (0-3) Basophils (%) (Auto) 1 % (0-3) Neutrophils # (Auto) 3.4 x10^3/uL (1.8-7.7) Lymphocytes # (Auto) 1.1 x10^3/uL (1.0-4.8) Monocytes # (Auto) 0.3 x10^3/uL (0.0-1.1) Eosinophils # (Auto) 0.2 x10^3/uL (0.0-0.7) Basophils # (Auto) 0.0 x10^3/uL (0.0-0.2) Sodium Level 140 mmol/L (136-145) Potassium Level 4.2 mmol/L (3.5-5.1) Chloride Level 105 mmol/L (98-107) Carbon Dioxide Level 32 mmol/L (21-32) Anion Gap 3 (6-14) Blood Urea Nitrogen 29 mg/dL (7-20) Creatinine 1.8 mg/dL (0.6-1.0) Estimated GFR (Cockcroft-Gault) 33.3 Glucose Level 186 mg/dL (70-99) Calcium Level 8.3 mg/dL (8.5-10.1) Results All relevant outside records, renal labs, imaging studies, telemetry/EKG's were reviewed. Justicifation of Admission Dx: Justifications for Admission: Justification of Admission Dx: Yes Hypertension: Symp at Rest DANIELLA KIMBLE MD Nov 06, 2019 11:15
[2019-11-06] MEDS: HYDROcodone/APAP 7.5/325MG 1 TAB TABLET PO PRN ×2 (14:19→23:23)
[2019-11-06 15:34] VITALS: BP 132/94
--- NOTE | 2019-11-06 17:59 | NUR ---
telemetry dc'd per 48 hour protocol
[2019-11-06] MEDS ORDERED: INSULIN GLARGINE SYRINGE. SQ SCH (18:00)
[2019-11-06 19:00] VITALS: BP 153/54
--- NOTE | 2019-11-06 19:11 | PDOC ---
GENERAL General: Patient examined chart reviewed today is hospital day 9 for this patient with acute blood loss anemia, type 2 diabetes that is uncontrolled, acute on chronic stage III renal failure admitted with severe anemia. We appreciate subspecialty consultation. She has been found to have bleeding hemorrhoids which seem to have stabilized. We will hold aspirin and reassess hemoglobin in the morning and discharge as long as she is feeling well. I have seen her this evening in the company of her son with whom she lives. They do not feel that she needs o ther services on discharge. Have also increased her bedtime Lantus to 15 units will reassess in the morning. Problems: (1) Acute blood loss anemia (2) Type 2 diabetes mellitus (3) CKD (chronic kidney disease), stage III VITAL SIGNS Vital Signs/I&O: Vital Signs Date Time Temp Pulse Resp B/P (MAP) Pulse Ox O2 Delivery O2 Flow Rate FiO2 11/06/19 17:13 64 132/94 11/06/19 15:34 98.3 16 94 Room Air 98.3 11/05/19 09:38 2 I & O 11/05/19 11/05/19 11/06/19 15:00 23:00 07:00 Intake Total 700 ml 100 ml 400 ml Balance 700 ml 100 ml 400 ml In general the patient is pleasant alert and oriented x3 no acute distress HEENT exam is unremarkable Chest is clear to auscultation Heart S1-S2 normal regular rate and rhythm no murmurs or gallops are noted Abdomen soft nontender nondistended no masses organomegaly noted Extremity exam is unremarkable ALLERGIES Allergies: Allergies Coded Allergies Type Severity Reaction Last Updated Verified Penicillins Allergy Intermediate 11/05/19 Yes dopamine Allergy Intermediate 11/05/19 Yes MEDS Medications: Current Medications Medications (Trade) Dose Ordered Sig/Gisselle Start Time Stop Time Status Last Admin Dose Admin Acetaminophen/ Hydrocodone Bitart (Lortab 7.5/325) 1 tab PRN Q4HRS PRN 10/29/19 21:00 11/06/19 14:19 Amlodipine Besylate (Norvasc) 10 mg DAILY 10/30/19 09:00 11/06/19 08:51 Aspirin (Ecotrin) 81 mg DAILYWBKFT 10/30/19 08:00 11/06/19 08:50 Atorvastatin Calcium (Lipitor) 40 mg QHS 10/29/19 21:00 11/05/19 20:56 Carvedilol (Coreg) 25 mg BIDWMEALS 10/30/19 08:00 11/06/19 17:13 Clonidine HCl (Catapres) 0.1 mg TID 10/31/19 14:00 11/06/19 14:16 Dextrose (Dextrose 50%-Water Syringe) 12.5 gm PRN Q15MIN PRN 10/31/19 12:00 11/04/19 17:00 Docusate Sodium (Colace) 100 mg DAILY 10/30/19 09:00 11/06/19 08:49 Doxazosin Mesylate (Cardura) 2 mg QHS 10/29/19 21:00 11/05/19 20:56 Ferrous Sulfate (Feosol) 325 mg DAILYWBKFT 11/03/19 12:00 11/06/19 08:49 Ferrous Sulfate (Iron Oral Solution) 300 mg BIDWMEALS 11/06/19 18:15 Heparin Sodium (Porcine) (HEPARIN for NUC MED) 100 unit 1X ONCE 11/03/19 14:00 11/03/19 14:01 DC Insulin Glargine (Lantus Syringe) 15 unit HS 11/06/19 18:00 Insulin Human Lispro (HumaLOG) 0-5 UNITS TIDWMEALS 10/31/19 12:00 11/06/19 08:59 Isosorbide Mononitrate (Imdur) 60 mg BID 10/30/19 09:00 11/06/19 08:49 Labetalol HCl (Normodyne Iv Push) 10 mg PRN Q10MIN PRN 11/01/19 11:30 Latanoprost (Xalatan) 1 drop HS 10/29/19 21:00 11/05/19 20:57 Lidocaine HCl (Lidocaine Pf 2% Vial) 5 ml STK-MED ONCE 11/05/19 09:10 11/05/19 09:10 DC Lubiprostone (Amitiza) 24 mcg DAILYWBKFT 10/30/19 08:00 11/06/19 08:49 Methylnaltrexone [place] (Relistor) 6 mg 1X ONCE 11/02/19 12:30 11/02/19 12:31 DC 11/02/19 12:48 Ondansetron HCl (Zofran) 4 mg PRN Q6HRS PRN 11/05/19 07:00 11/06/19 06:59 DC Pantoprazole Sodium (Protonix) 40 mg DAILYAC 10/30/19 07:30 11/06/19 08:49 Polyethylene Glycol (miraLAX PACKET) 17 gm DAILY 11/03/19 12:00 11/06/19 08:48 Polyethylene Glycol (miraLAX Powder BULK BOTTLE) 238 gm 1X ONCE 11/02/19 12:30 11/02/19 12:31 DC 11/02/19 12:48 Prochlorperazine Edisylate (Compazine) 5 mg PACU PRN PRN 11/05/19 07:00 11/06/19 06:59 DC Propofol (Diprivan) 200 mg STK-MED ONCE 11/05/19 09:10 11/05/19 09:10 DC Ringer's Solution 1,000 ml @ 75 mls/hr 1X ONCE 11/05/19 08:15 11/05/19 21:34 DC Simethicone (Gas-X) 80 mg PRN AFTMEALHC PRN 10/29/19 21:00 Sodium Chloride 1,000 ml @ 75 mls/hr 1X ONCE 10/30/19 14:00 10/31/19 03:19 DC 10/30/19 14:40 Sodium Cl/Sod Bicarb/Potass Cl/ PEG (Golytely) 4,000 ml 1X ONCE 11/04/19 12:00 11/04/19 12:01 DC 11/04/19 14:10 LAB Lab: Laboratory Tests Test 11/05/19 20:44 11/06/19 04:15 11/06/19 07:49 11/06/19 11:33 Glucose (Fingerstick) 215 mg/dL (70-99) H 172 mg/dL (70-99) H 103 mg/dL (70-99) H White Blood Count 5.1 x10^3/uL (4.0-11.0) Red Blood Count 2.81 x10^6/uL (3.50-5.40) L Hemoglobin 8.2 g/dL (12.0-15.5) L Hematocrit 24.4 % (36.0-47.0) L Mean Corpuscular Volume 87 fL (79-100) Mean Corpuscular Hemoglobin 29 pg (25-35) Mean Corpuscular Hemoglobin Concent 34 g/dL (31-37) Red Cell Distribution Width 17.2 % (11.5-14.5) H Platelet Count 168 x10^3/uL (140-400) Neutrophils (%) (Auto) 67 % (31-73) Lymphocytes (%) (Auto) 23 % (24-48) L Monocytes (%) (Auto) 7 % (0-9) Eosinophils (%) (Auto) 3 % (0-3) Basophils (%) (Auto) 1 % (0-3) Neutrophils # (Auto) 3.4 x10^3/uL (1.8-7.7) Lymphocytes # (Auto) 1.1 x10^3/uL (1.0-4.8) Monocytes # (Auto) 0.3 x10^3/uL (0.0-1.1) Eosinophils # (Auto) 0.2 x10^3/uL (0.0-0.7) Basophils # (Auto) 0.0 x10^3/uL (0.0-0.2) Sodium Level 140 mmol/L (136-145) Potassium Level 4.2 mmol/L (3.5-5.1) Chloride Level 105 mmol/L (98-107) Carbon Dioxide Level 32 mmol/L (21-32) Anion Gap 3 (6-14) L Blood Urea Nitrogen 29 mg/dL (7-20) H Creatinine 1.8 mg/dL (0.6-1.0) H Estimated GFR (Cockcroft-Gault) 33.3 Glucose Level 186 mg/dL (70-99) H Calcium Level 8.3 mg/dL (8.5-10.1) L Test 11/06/19 16:14 Glucose (Fingerstick) 119 mg/dL (70-99) H Laboratory Tests 11/06/19 04:15 Laboratory Tests 11/06/19 04:15 ASSESSMENT & PLAN A&P Plan as noted above This note was created using [employer] and may have omissions and/or errors due to the nature of 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 Justicifation of Admission Dx: Justifications for Admission: Justification of Admission Dx: Yes Hypertension: Symp at Rest Nutrition Consultation Dietary Evaluation: Recommendations by RD: Dietary education by RD, Increase Calorie Intake, Protein supplementation Comments: obtained food preferences to help improved po intake sending Nepro supplements bid Expected Outcomes/Goals: improved po intake to meet >75% est nutr needs Interpretation of weight loss: >1-2% in 1 week Malnutrition Findings: Food and Nutrition Intake (Sev: <50% est energy req 5days Weight Status: Underweight EDUARDA CABRERA MD Nov 06, 2019 19:11
[2019-11-06] MEDS: DOXAZOSIN MESYLATE 1 MG TABLET. PO SCH (20:44)
[2019-11-06] MEDS: FERROUS SULFATE ORAL 300 MG/5 ML SOLUTION. PO SCH (20:44)
[2019-11-06] MEDS: LATANOPROST 0.005% OPHTH SOLUTION 2.5ML BOTTLE. OU SCH (20:45)
[2019-11-06] MEDS: ATORVASTATIN CALCIUM 40 MG TABLET. PO SCH (20:45)
[2019-11-06 23:00] VITALS: BP 166/67
[2019-11-07 03:00] VITALS: BP 129/44
[2019-11-07 06:00] LABS: BASO % 0 % (0-3); EOS # 0.1 x10^3/uL (0.0-0.7); EOS % 3 % (0-3); HEMATOCRIT 24.5 % (36.0-47.0); HEMOGLOBIN 8.1 g/dL (12.0-15.5); LYMPH # 1.2 x10^3/uL (1.0-4.8); LYMPH % 23 % (24-48); MEAN CORPUSCULAR HEMOGLOBIN 29 pg (25-35); MEAN CORPUSCULAR HGB CONC 33 g/dL (31-37); MEAN CORPUSCULAR VOLUME 87 fL (79-100); MONO # 0.3 x10^3/uL (0.0-1.1); MONO % 6 % (0-9); NEUT # 3.4 x10^3/uL (1.8-7.7); NEUT % 68 % (31-73); PLATELET COUNT 164 x10^3/uL (140-400); RED BLOOD COUNT 2.83 x10^6/uL (3.50-5.40); RED CELL DISTRIBUTION WIDTH 16.5 % (11.5-14.5); WHITE BLOOD COUNT 5.1 x10^3/uL (4.0-11.0)
[2019-11-07] MEDS: DEXTROSE 50% 25 GM / 50ML DISP.SYRIN. IV PRN (06:22)
[2019-11-07 06:32] LABS: ALBUMIN 2.2 g/dL (3.4-5.0); ALBUMIN/GLOBULIN RATIO 0.6 (1.0-1.7); CALCIUM 8.8 mg/dL (8.5-10.1); CREATININE 1.8 mg/dL (0.6-1.0); GFR 33.3; POTASSIUM 4.3 mmol/L (3.5-5.1); TOTAL BILIRUBIN 0.2 mg/dL (0.2-1.0); TOTAL PROTEIN 6.1 g/dL (6.4-8.2)
--- NOTE | 2019-11-07 06:44 | NUR ---
AT 0633 lab call with a critical BS of 40. Dr. Rivas was notified @ 0640. He d/c'd scheduled Lispro and decreased scheduled Lantus to 8 units.
--- NOTE | 2019-11-07 06:53 | NUR ---
Blood sugar now 139 at full amp of d50 and 2 orange juices. Will continue to monitor. Dr. Rivas changed insulin. Lian TOUSSAINT notified of changes.
[2019-11-07 07:00] VITALS: BP 167/62
[2019-11-07] MEDS: INSULIN LISPRO 300 UNITS/3 ML VIAL. SQ SCH ×2 (08:00→12:00)
--- NOTE | 2019-11-07 08:00 | PDOC ---
[employer] PROGRESS NOTE Date of Service DOS: DATE: 11/07/19 TIME: 07:55 Chief Complaint Chief Complaint lightheaded weakness, acquired, will need PT and OT presyncope CHF, hold lasix, eval over-diuresis vasomotor nephropathy, gentle hydration, hold lasix in AM, CV team consult moderate malnutrition, consult nutrition anemia, microcytic, same as previous History of Present Illness History of Present Illness Ms Grimaldo is a 74-year-old female w/ PMHx diabetes mellitus, hypertension, chronic kidney disease stage 4/5, hyperlipidemia, chronic obstructive pulmonary disease, gastroesophageal reflux disease, CAD s/p coronary bypass grafting, and anemia of chronic kidney disease presents to the hospital with vague complaints of fatigue and lightheadedness. She has had dark stools and relates it to "hemorrhoids." Has known history of sterocoral ulcer from chronic constipation. Consults: GI, general surgery, nephrology 10/31: Echo: The left ventricle is normal size. The left ventricular systolic function is normal and the ejection fraction is within normal range. The Ejection Fraction is 55-60%. There is moderate concentric left ventricular hypertrophy. Doppler and Color Flow revealed no significant aortic regurgitation. Doppler and color-flow analysis revealed mild aortic stenosis. Calculated aortic valve area is 1.8 cm2 with maximum pressure gradient of 22 mmHg and mean pressure gradient of 11 mmHg. Doppler and Color-flow revealed trace mitral regurgitation. Doppler and Color Flow revealed mild tricuspid regurgitation. The PA pressure was estimated at 56 mmHg. 11/01: Afebrile. Seen with son bedside. She is still having blood in her stool. Seen by general surgery, recommended GI consultation as well. She does have some abdominal pain that comes and goes is periumbilical and epigastric in nature. She also complains of right groin pain worse on ambulation that is sharp. 11/02: Multiple bloody bowel movements overnight. Hb dropped to 6.9. She is very fatigued not able to move well. A little short of breath. 11/03: Status post 2 units PRBC for active lower GI bleed. A nuc med bleeding scan did not reveal any active bleeding. Hemoglobin improved from 6.9-10.2. She still has multiple bloody bowel movements 11/04: Patient reports dark stools and a history of chronic prednisone use. Status post colonoscopy today, that showed diverticuli and internal hemorrhoids. No apparent source of active bleed. Continue to monitor hemoglobin. Glucose 40 this morning. Afebrile. After administration of dextrose she feels better and glucose did not drop further, advised to decreased lantus dosing back to 8u. D/w son bedside to continue iron supplements, and psyllium and to take iron with vitamin C. Hb 8.1. Vitals/I&O Vitals/I&O: Vital Signs Date Time Temp Pulse Resp B/P (MAP) Pulse Ox O2 Delivery O2 Flow Rate FiO2 11/07/19 03:00 98.6 65 18 129/44 (72) 93 Room Air 98.6 I & O 11/06/19 11/06/19 11/07/19 15:00 23:00 07:00 Intake Total 480 ml 240 ml 680 ml Balance 480 ml 240 ml 680 ml Physical Exam General: Alert, Oriented X3, Cooperative Heart: Regular rate, Normal S1, Normal S2 Lungs: Clear Abdomen: Soft, No tenderness, No hepatosplenomegaly Extremities: No clubbing, No cyanosis, No edema, Other (Bilateral lower extremity strength 2/5) Skin: No rashes, No breakdown Labs Labs: Laboratory Tests Test 11/06/19 11:33 11/06/19 16:14 11/06/19 20:40 11/07/19 05:20 Glucose (Fingerstick) 103 mg/dL (70-99) 119 mg/dL (70-99) 226 mg/dL (70-99) White Blood Count 5.1 x10^3/uL (4.0-11.0) Red Blood Count 2.83 x10^6/uL (3.50-5.40) Hemoglobin 8.1 g/dL (12.0-15.5) Hematocrit 24.5 % (36.0-47.0) Mean Corpuscular Volume 87 fL (79-100) Mean Corpuscular Hemoglobin 29 pg (25-35) Mean Corpuscular Hemoglobin Concent 33 g/dL (31-37) Red Cell Distribution Width 16.5 % (11.5-14.5) Platelet Count 164 x10^3/uL (140-400) Neutrophils (%) (Auto) 68 % (31-73) Lymphocytes (%) (Auto) 23 % (24-48) Monocytes (%) (Auto) 6 % (0-9) Eosinophils (%) (Auto) 3 % (0-3) Basophils (%) (Auto) 0 % (0-3) Neutrophils # (Auto) 3.4 x10^3/uL (1.8-7.7) Lymphocytes # (Auto) 1.2 x10^3/uL (1.0-4.8) Monocytes # (Auto) 0.3 x10^3/uL (0.0-1.1) Eosinophils # (Auto) 0.1 x10^3/uL (0.0-0.7) Basophils # (Auto) 0.0 x10^3/uL (0.0-0.2) Sodium Level 145 mmol/L (136-145) Potassium Level 4.3 mmol/L (3.5-5.1) Chloride Level 109 mmol/L (98-107) Carbon Dioxide Level 32 mmol/L (21-32) Anion Gap 4 (6-14) Blood Urea Nitrogen 26 mg/dL (7-20) Creatinine 1.8 mg/dL (0.6-1.0) Estimated GFR (Cockcroft-Gault) 33.3 BUN/Creatinine Ratio 14 (6-20) Glucose Level 40 mg/dL (70-99) Calcium Level 8.8 mg/dL (8.5-10.1) Total Bilirubin 0.2 mg/dL (0.2-1.0) Aspartate Amino Transf (AST/SGOT) 18 U/L (15-37) Alanine Aminotransferase (ALT/SGPT) 11 U/L (14-59) Alkaline Phosphatase 41 U/L (46-116) Total Protein 6.1 g/dL (6.4-8.2) Albumin 2.2 g/dL (3.4-5.0) Albumin/Globulin Ratio 0.6 (1.0-1.7) Test 11/07/19 06:15 11/07/19 06:18 11/07/19 06:51 Glucose (Fingerstick) 30 mg/dL (70-99) 30 mg/dL (70-99) 139 mg/dL (70-99) Assessment and Plan Assessmemt and Plan Problems Medical Problems: (1) Abdominal pain Status: Acute (2) EDMOND (acute kidney injury) Status: Acute (3) Dehydration Status: Acute Comment Review of Relevant I have reviewed the following items russell (where applicable) has been applied. Medications: Current Medications Medications (Trade) Dose Ordered Sig/Gisselle Route PRN Reason Start Time Stop Time Status Last Admin Dose Admin Insulin Glargine (Lantus Syringe) 15 unit HS SQ 11/06/19 18:00 11/07/19 06:44 DC 11/06/19 20:54 Ferrous Sulfate (Iron Oral Solution) 300 mg BIDWMEALS PO 11/06/19 18:15 11/06/19 20:44 Justicifation of Admission Dx: Justifications for Admission: Justification of Admission Dx: Yes Hypertension: Symp at Rest TOBIAS MONTOYA MD Nov 07, 2019 08:00
[2019-11-07] MEDS: FERROUS SULFATE 325 MG TABLET. PO SCH (08:02)
[2019-11-07] MEDS: POLYETHYLENE GLYCOL 3350 17 GM PACKET. PO SCH (08:02)
[2019-11-07] MEDS: ISOSORBIDE MONONITRATE ER 30 MG TAB.ER.24H PO SCH (08:04)
[2019-11-07] MEDS: cloNIDine HCL 0.1 MG TABLET PO SCH (08:04)
[2019-11-07] MEDS: LUBIPROSTONE 24 MCG CAPSULE PO SCH (08:04)
[2019-11-07] MEDS: DOCUSATE SODIUM 100 MG CAPSULE. PO SCH (08:05)
[2019-11-07] MEDS: CARVEDILOL 12.5 MG TABLET. PO SCH (08:05)
[2019-11-07] MEDS: PANTOPRAZOLE 40 MG TABLET.DR. PO SCH (08:05)
[2019-11-07] MEDS: amLODIPine BESYLATE 10 MG TABLET PO SCH (08:10)
[2019-11-07] MEDS ORDERED: PSYLLIUM HUSK (SUGAR FREE) 1 PKT PACKET PO SCH (09:00)
[2019-11-07] MEDS ORDERED: ASCO500C9 PO (09:43)
[2019-11-07] MEDS ORDERED: PSYL3.4P PO (09:43)
[2019-11-07] MEDS ORDERED: FERR325T72 PO (09:43)
[2019-11-07] MEDS ORDERED: INSU100V8 SQ (09:43)
--- NOTE | 2019-11-07 09:45 | SNU/HH DC ---
DISCHARGE WITH HOME HEALTH DISCHARGE INFORMATION: Discharge Date: Nov 07, 2019 Final Diagnosis: Problems Medical Problems: (1) Abdominal pain Status: Acute (2) EDMOND (acute kidney injury) Status: Acute (3) Dehydration Status: Acute Condition on Discharge: Stable CODE STATUS: Code Status: Full HOME HEALTH: Face to Face: I certify this patient is under my care and that I, or a nurse practitioner or physician's resident assistant cna working with me, had a face to face encounter that meets the physician face to face encounter requirements with this patient on 11/07/2019. Medical Complications: DM Half-Way For: Assess & Educate Safety, Diabetic Care, Pain Management RN For Eval/Treatment: Yes Physical Therapy For: Evalulation/Treatment Occupational Therapy For: Evaluation/Treatment Home Health Aide For: Self-care Pt Meets Homebound Status: Fatigue w/ amb., Limited distance walking POST DISCHARGE ORDERS: Activity Instructions for Disc: Activity as tolerated Weight Bearing Status after Di: As tolerated CHECKS AFTER DISCHARGE: Checks after discharge: Check blood press - daily, Check blood sugar, ac/hs, Weigh Yourself Daily FOLLOW-UP: PCP to follow Home Health: Dr Mohan TREATMENT/EQUIPMENT ORDERS: Adaptive Equipment Issued: None CERTIFICATION STATEMENT: Certification Statement: Certification Statement: Based on the above finding, I certify that this patient is confined to the home and needs intermittent fci care, physical therapy and/or speech therapy, or continues to need occupational therapy.~ This patient is under my care, and I have initiated the establishment of the plan of care.~ This patient will be followed by myself or a community physician who will periodically review the plan of care. Home Meds Active Scripts Ascorbic Acid (Vitamin C) 500 Mg Capsule, 1 CAP PO DAILY for Iron deficiency for 30 Days, #30 CAP 5 Refills Prov:TOBIAS MONTOYA MD 11/07/19 Ferrous Sulfate (FEOSOL) 325 Mg Tablet, 325 MG PO DAILYWBKFT for Iron deficiency anemia for 30 Days, #30 TAB 5 Refills Prov:TOBIAS MONTOYA MD 11/07/19 Psyllium Husk/Aspartame (METAMUCIL FIBER SINGLES PACKET) 3.4 Gm Powd.pack, 1 PKT PO DAILY for Constipation for 30 Days, #30 PKT 5 Refills Prov:TOBIAS MONTOYA MD 8/23/20 Insulin Glargine,Hum.rec.anlog (LANTUS) 100 Unit/1 Ml Vial, 8 UNIT SQ HS for diabetes for 30 Days, #1 VIAL Prov:TOBIAS MONTOYA MD 11/07/19 Aspirin (ASPIRIN EC) 81 Mg Tablet.dr, 81 MG PO DAILYWBKFT for CHF for 90 Days, #90 TAB.SR 3 Refills Prov:TOBIAS MONTOYA MD 10/09/19 Lubiprostone (AMITIZA) 8 Mcg Capsule, 1 CAP PO BID for constipation, #60 CAP 5 Refills Prov:Andreas MOHAN MD 11/27/18 Docusate Sodium (COLACE) 100 Mg Capsule, 100 MG PO DAILY for constipation for 30 Days, #30 CAP Prov:Andreas MOHAN MD 08/26/18 Simethicone (SIMETHICONE) 80 Mg Tab.chew, 80 MG PO PRN AFTMEALHC PRN for GAS / BLOATING for 30 Days, #100 TAB.CHEW 5 Refills Prov:Andreas MOHAN MD 08/26/18 Carvedilol (CARVEDILOL ) 12.5 Mg Tablet, 25 MG PO BIDWMEALS, #60 Prov:Andreas MOHAN MD 03/15/15 Reported Medications Amlodipine Besylate (AMLODIPINE BESYLATE) 10 Mg Tablet, 10 MG PO DAILY for HTN, TAB 10/29/19 Hydralazine Hcl (HYDRALAZINE HCL) 100 Mg Tablet, 1 TAB PO TID for htn, #90 TAB 5 Refills 11/24/18 Isosorbide Mononitrate (ISOSORBIDE MONONITRATE ER) 60 Mg Tab.er.24h, 1 TAB PO BID, #30 TAB 5 Refills 03/11/15 Latanoprost (LATANOPROST) 2.5 Ml Drops, 1 DROP OP HS, EACH 03/11/15 Doxazosin Mesylate (DOXAZOSIN MESYLATE) 2 Mg Tablet, 1 TAB PO HS for BP, #30 TAB 5 Refills 03/10/15 Atorvastatin Calcium (ATORVASTATIN CALCIUM) 40 Mg Tablet, 1 TAB PO QHS, #90 TAB 3 Refills 03/10/15 Hydrocodone Bit/Acetaminophen (HYDROCODONE-APAP 7.5-325 ) 1 Each Tablet, 1 TAB PO Q4HRS PRN for PAIN, TAB 0 Refills 03/10/15 Albuterol Sulfate (PROAIR HFA INHALER) 8.5 Gm Hfa.aer.ad, 2 PUFF IH PRN Q6HRS PRN for WHEEZING, #1 INHALER 03/10/15 Insulin Aspart (NOVOLOG FLEXPEN) 100 Unit/1 Ml Insuln.pen, 6 UNIT SQ TIDAC 04/08/13 Omeprazole (OMEPRAZOLE) 20 Mg Capsule.dr, 20 MG PO BID PRN for SEE COMMENTS 03/04/13 Discontinued Reported Medications Prednisone (PREDNISONE) 2.5 Mg Tablet, 5 MG PO DAILY for "antiinflammation"?, #30 TAB 3 Refills 10/29/19 Clonidine Hcl (CLONIDINE HCL) 0.3 Mg Tablet, 0.3 MG PO TID 03/04/13 Discontinued Scripts Furosemide (FUROSEMIDE) 40 Mg Tablet, 40 MG PO BID92 for chf for 30 Days, #60 TAB 5 Refills Weight yourself daily, if you gain 3 pounds or more increase dose to 80mg BID for 3 days and contact your toll booth operator Prov:TOBIAS MONTOYA MD 10/09/19 TOBIAS MONTOYA MD Nov 07, 2019 09:44
--- NOTE | 2019-11-07 09:49 | PDOC3 ---
Discharge Summary Visit Information Date of Admission: Oct 29, 2019 Date of Discharge: Nov 07, 2019 Admitting Diagnosis: Acute blood loss anemia Final Diagnosis Problems Medical Problems: (1) Abdominal pain Status: Acute (2) EDMOND (acute kidney injury) Status: Acute (3) Dehydration Status: Acute Brief Hospital Course Allergies Allergies Coded Allergies Type Severity Reaction Last Updated Verified Penicillins Allergy Intermediate 11/05/19 Yes dopamine Allergy Intermediate 11/05/19 Yes Vital Signs Vital Signs Date Time Temp Pulse Resp B/P (MAP) Pulse Ox O2 Delivery O2 Flow Rate FiO2 11/07/19 08:10 62 167/62 11/07/19 07:00 97.8 16 96 Room Air 97.8 Lab Results Laboratory Tests Test 11/05/19 11:06 11/05/19 18:32 11/05/19 20:44 11/06/19 04:15 Glucose (Fingerstick) 128 mg/dL (70-99) 261 mg/dL (70-99) 215 mg/dL (70-99) White Blood Count 5.1 x10^3/uL (4.0-11.0) Red Blood Count 2.81 x10^6/uL (3.50-5.40) Hemoglobin 8.2 g/dL (12.0-15.5) Hematocrit 24.4 % (36.0-47.0) Mean Corpuscular Volume 87 fL (79-100) Mean Corpuscular Hemoglobin 29 pg (25-35) Mean Corpuscular Hemoglobin Concent 34 g/dL (31-37) Red Cell Distribution Width 17.2 % (11.5-14.5) Platelet Count 168 x10^3/uL (140-400) Neutrophils (%) (Auto) 67 % (31-73) Lymphocytes (%) (Auto) 23 % (24-48) Monocytes (%) (Auto) 7 % (0-9) Eosinophils (%) (Auto) 3 % (0-3) Basophils (%) (Auto) 1 % (0-3) Neutrophils # (Auto) 3.4 x10^3/uL (1.8-7.7) Lymphocytes # (Auto) 1.1 x10^3/uL (1.0-4.8) Monocytes # (Auto) 0.3 x10^3/uL (0.0-1.1) Eosinophils # (Auto) 0.2 x10^3/uL (0.0-0.7) Basophils # (Auto) 0.0 x10^3/uL (0.0-0.2) Sodium Level 140 mmol/L (136-145) Potassium Level 4.2 mmol/L (3.5-5.1) Chloride Level 105 mmol/L (98-107) Carbon Dioxide Level 32 mmol/L (21-32) Anion Gap 3 (6-14) Blood Urea Nitrogen 29 mg/dL (7-20) Creatinine 1.8 mg/dL (0.6-1.0) Estimated GFR (Cockcroft-Gault) 33.3 Glucose Level 186 mg/dL (70-99) Calcium Level 8.3 mg/dL (8.5-10.1) Test 11/06/19 07:49 11/06/19 11:33 11/06/19 16:14 11/06/19 20:40 Glucose (Fingerstick) 172 mg/dL (70-99) 103 mg/dL (70-99) 119 mg/dL (70-99) 226 mg/dL (70-99) Test 11/07/19 05:20 11/07/19 06:15 11/07/19 06:18 11/07/19 06:51 White Blood Count 5.1 x10^3/uL (4.0-11.0) Red Blood Count 2.83 x10^6/uL (3.50-5.40) Hemoglobin 8.1 g/dL (12.0-15.5) Hematocrit 24.5 % (36.0-47.0) Mean Corpuscular Volume 87 fL (79-100) Mean Corpuscular Hemoglobin 29 pg (25-35) Mean Corpuscular Hemoglobin Concent 33 g/dL (31-37) Red Cell Distribution Width 16.5 % (11.5-14.5) Platelet Count 164 x10^3/uL (140-400) Neutrophils (%) (Auto) 68 % (31-73) Lymphocytes (%) (Auto) 23 % (24-48) Monocytes (%) (Auto) 6 % (0-9) Eosinophils (%) (Auto) 3 % (0-3) Basophils (%) (Auto) 0 % (0-3) Neutrophils # (Auto) 3.4 x10^3/uL (1.8-7.7) Lymphocytes # (Auto) 1.2 x10^3/uL (1.0-4.8) Monocytes # (Auto) 0.3 x10^3/uL (0.0-1.1) Eosinophils # (Auto) 0.1 x10^3/uL (0.0-0.7) Basophils # (Auto) 0.0 x10^3/uL (0.0-0.2) Sodium Level 145 mmol/L (136-145) Potassium Level 4.3 mmol/L (3.5-5.1) Chloride Level 109 mmol/L (98-107) Carbon Dioxide Level 32 mmol/L (21-32) Anion Gap 4 (6-14) Blood Urea Nitrogen 26 mg/dL (7-20) Creatinine 1.8 mg/dL (0.6-1.0) Estimated GFR (Cockcroft-Gault) 33.3 BUN/Creatinine Ratio 14 (6-20) Glucose Level 40 mg/dL (70-99) Calcium Level 8.8 mg/dL (8.5-10.1) Total Bilirubin 0.2 mg/dL (0.2-1.0) Aspartate Amino Transf (AST/SGOT) 18 U/L (15-37) Alanine Aminotransferase (ALT/SGPT) 11 U/L (14-59) Alkaline Phosphatase 41 U/L (46-116) Total Protein 6.1 g/dL (6.4-8.2) Albumin 2.2 g/dL (3.4-5.0) Albumin/Globulin Ratio 0.6 (1.0-1.7) Glucose (Fingerstick) 30 mg/dL (70-99) 30 mg/dL (70-99) 139 mg/dL (70-99) Laboratory Tests Test 11/06/19 11:33 11/06/19 16:14 11/06/19 20:40 11/07/19 05:20 Glucose (Fingerstick) 103 mg/dL (70-99) 119 mg/dL (70-99) 226 mg/dL (70-99) White Blood Count 5.1 x10^3/uL (4.0-11.0) Red Blood Count 2.83 x10^6/uL (3.50-5.40) Hemoglobin 8.1 g/dL (12.0-15.5) Hematocrit 24.5 % (36.0-47.0) Mean Corpuscular Volume 87 fL (79-100) Mean Corpuscular Hemoglobin 29 pg (25-35) Mean Corpuscular Hemoglobin Concent 33 g/dL (31-37) Red Cell Distribution Width 16.5 % (11.5-14.5) Platelet Count 164 x10^3/uL (140-400) Neutrophils (%) (Auto) 68 % (31-73) Lymphocytes (%) (Auto) 23 % (24-48) Monocytes (%) (Auto) 6 % (0-9) Eosinophils (%) (Auto) 3 % (0-3) Basophils (%) (Auto) 0 % (0-3) Neutrophils # (Auto) 3.4 x10^3/uL (1.8-7.7) Lymphocytes # (Auto) 1.2 x10^3/uL (1.0-4.8) Monocytes # (Auto) 0.3 x10^3/uL (0.0-1.1) Eosinophils # (Auto) 0.1 x10^3/uL (0.0-0.7) Basophils # (Auto) 0.0 x10^3/uL (0.0-0.2) Sodium Level 145 mmol/L (136-145) Potassium Level 4.3 mmol/L (3.5-5.1) Chloride Level 109 mmol/L (98-107) Carbon Dioxide Level 32 mmol/L (21-32) Anion Gap 4 (6-14) Blood Urea Nitrogen 26 mg/dL (7-20) Creatinine 1.8 mg/dL (0.6-1.0) Estimated GFR (Cockcroft-Gault) 33.3 BUN/Creatinine Ratio 14 (6-20) Glucose Level 40 mg/dL (70-99) Calcium Level 8.8 mg/dL (8.5-10.1) Total Bilirubin 0.2 mg/dL (0.2-1.0) Aspartate Amino Transf (AST/SGOT) 18 U/L (15-37) Alanine Aminotransferase (ALT/SGPT) 11 U/L (14-59) Alkaline Phosphatase 41 U/L (46-116) Total Protein 6.1 g/dL (6.4-8.2) Albumin 2.2 g/dL (3.4-5.0) Albumin/Globulin Ratio 0.6 (1.0-1.7) Test 11/07/19 06:15 11/07/19 06:18 11/07/19 06:51 Glucose (Fingerstick) 30 mg/dL (70-99) 30 mg/dL (70-99) 139 mg/dL (70-99) Brief Hospital Course Ms Grimaldo is a 74-year-old female w/ PMHx diabetes mellitus, hypertension, chronic kidney disease stage 4/5, hyperlipidemia, chronic obstructive pulmonary disease, gastroesophageal reflux disease, CAD s/p coronary bypass grafting, and anemia of chronic kidney disease presents to the hospital with vague complaints of fatigue and lightheadedness. She has had dark stools and relates it to "hemorrhoids." Has known history of sterocoral ulcer from chronic constipation. Consults: GI, general surgery, nephrology, cardiology 10/31: Echo: The left ventricle is normal size. The left ventricular systolic function is normal and the ejection fraction is within normal range. The Ejection Fraction is 55-60%. There is moderate concentric left ventricular hypertrophy. Doppler and Color Flow revealed no significant aortic regurgitation. Doppler and color-flow analysis revealed mild aortic stenosis. Calculated aortic valve area is 1.8 cm2 with maximum pressure gradient of 22 mmHg and mean pressure gradient of 11 mmHg. Doppler and Color-flow revealed trace mitral regurgitation. Doppler and Color Flow revealed mild tricuspid regurgitation. The PA pressure was estimated at 56 mmHg. 11/01: Afebrile. Seen with son bedside. She is still having blood in her stool. Seen by general surgery, recommended GI consultation as well. She does have some abdominal pain that comes and goes is periumbilical and epigastric in nature. She also complains of right groin pain worse on ambulation that is sharp. 11/02: Multiple bloody bowel movements overnight. Hb dropped to 6.9. She is very fatigued not able to move well. A little short of breath. 11/03: Status post 2 units PRBC for active lower GI bleed. A nuc med bleeding scan did not reveal any active bleeding. Hemoglobin improved from 6.9-10.2. She still has multiple bloody bowel movements 11/04: Patient reports dark stools and a history of chronic prednisone use. Status post colonoscopy today, that showed diverticuli and internal hemorrhoids. No apparent source of active bleed. Continue to monitor hemoglobin. Glucose 40 this morning. Afebrile. After administration of dextrose she feels better and glucose did not drop further, advised to decreased lantus dosing back to 8u. D/w son bedside to continue iron supplements, and psyllium and to take iron with vitamin C. Hb 8.1. Problem list: lightheaded weakness, acquired, will need PT and OT at home presyncope CHF, hold lasix, eval over-diuresis vasomotor nephropathy, gentle hydration, hold lasix moderate malnutrition, consult nutrition Acute blood loss anemia, microcytic DM2 - with hypoglycemia, changed home lantus Greater than 30 minutes spent on d/c home with home health Discharge Information Condition at Discharge: Improved Follow Up: Weeks (1) Disposition/Orders: D/C to Home Scheduled Amlodipine Besylate (Amlodipine Besylate) 10 Mg Tablet, 10 MG PO DAILY for HTN, (Reported) Entered as Reported by: YOJANA PALUMBO on 10/29/192041 Last Action: Continued on 10/29/192054 by SEAN ATWOOD Ascorbic Acid (Vitamin C) 500 Mg Capsule, 1 CAP PO DAILY for Iron deficiency for 30 Days, #30 Ref 5 Prescribed by: TOBIAS MONTOYA MD on 11/07/19 0943 Aspirin (Aspirin Ec) 81 Mg Tablet.dr, 81 MG PO DAILYWBKFT for CHF for 90 Days, #90 Ref 3 Prescribed by: TOBIAS MONTOYA MD on 10/09/19 1102 Last Action: Continued on 10/29/192054 by SEAN ATWOOD Atorvastatin Calcium (Atorvastatin Calcium) 40 Mg Tablet, 1 TAB PO QHS, #90 Ref 3 (Reported) Entered as Reported by: MATILDE FLORES on 03/10/15 1843 Last Action: Continued on 10/29/192054 by SEAN ATWOOD Carvedilol (Carvedilol ) 12.5 Mg Tablet, 25 MG PO BIDWMEALS, #60 Prescribed by: RUTHANN MOHAN on 03/15/15 1504 Last Action: Continued on 10/29/192054 by SEAN ATWOOD Docusate Sodium (Colace) 100 Mg Capsule, 100 MG PO DAILY for constipation for 30 Days, #30 Prescribed by: APRIL MOHAN MD on 08/26/18 1554 Last Action: Continued on 10/29/192054 by SEAN ATWOOD Doxazosin Mesylate (Doxazosin Mesylate) 2 Mg Tablet, 1 TAB PO HS for BP, #30 Ref 5 (Reported) Entered as Reported by: MATILDE FLORES on 03/10/15 1843 Last Action: Converted on 10/29/192054 by SEAN ATWOOD Ferrous Sulfate (Feosol) 325 Mg Tablet, 325 MG PO DAILYWBKFT for Iron deficiency anemia for 30 Days, #30 Ref 5 Prescribed by: TOBIAS MONTOYA MD on 11/07/19 0943 Hydralazine Hcl (Hydralazine Hcl) 100 Mg Tablet, 1 TAB PO TID for htn, #90 Ref 5 (Reported) Entered as Reported by: Contreras Stone on 11/24/182140 Last Action: HELD on 10/29/192054 by SEAN ATWOOD Insulin Aspart (Novolog Flexpen) 100 Unit/1 Ml Insuln.pen, 6 UNIT SQ TIDAC, (Reported) Entered as Reported by: KIRK DIAZ on 04/08/13 1456 Last Action: Converted on 10/29/192054 by SEAN ATWOOD Insulin Glargine,Hum.rec.anlog (Lantus) 100 Unit/1 Ml Vial, 8 UNIT SQ HS for diabetes for 30 Days, #1 Prescribed by: TOIBAS MONTOYA MD on 11/07/19 0943 Isosorbide Mononitrate (Isosorbide Mononitrate Er) 60 Mg Tab.er.24h, 1 TAB PO BID, #30 Ref 5 (Reported) Entered as Reported by: MATILDE FLORES on 03/11/15 0915 Last Action: Converted on 10/29/192054 by SEAN ATWOOD Latanoprost (Latanoprost) 2.5 Ml Drops, 1 DROP OP HS, (Reported) Entered as Reported by: MATILDE FLORES on 03/11/15 0744 Last Action: Continued on 10/29/192054 by SEAN ATWOOD Lubiprostone (Amitiza) 8 Mcg Capsule, 1 CAP PO BID for constipation, #60 Ref 5 Prescribed by: APRIL MOHAN MD on 11/27/18 1645 Last Action: Converted on 10/29/192054 by SEAN ATWOOD Psyllium Husk/Aspartame (Metamucil Fiber Singles Packet) 3.4 Gm Powd.pack, 1 PKT PO DAILY for Constipation for 30 Days, #30 Ref 5 Prescribed by: TOBIAS MONTOYA MD on 11/07/19 0943 Scheduled PRN Albuterol Sulfate (Proair Hfa Inhaler) 8.5 Gm Hfa.aer.ad, 2 PUFF IH PRN Q6HRS PRN for WHEEZING, #1 (Reported) Entered as Reported by: CONTRERAS HEATH on 03/10/15 1454 Last Action: HELD on 10/29/192054 by SEAN ATWOOD Hydrocodone Bit/Acetaminophen (Hydrocodone-Apap 7.5-325 ) 1 Each Tablet, 1 TAB PO Q4HRS PRN for PAIN, Ref 0 (Reported) Entered as Reported by: MATILDE FLORES on 03/10/15 1843 Last Action: Continued on 10/29/192054 by SEAN ATWOOD Omeprazole (Omeprazole) 20 Mg Capsule.dr, 20 MG PO BID PRN for SEE COMMENTS, (Reported) Entered as Reported by: KERRIE VALERIO on 03/04/13 0727 Last Action: Converted on 10/29/192054 by SEAN ATWOOD Simethicone (Simethicone) 80 Mg Tab.chew, 80 MG PO PRN AFTMEALHC PRN for GAS / BLOATING for 30 Days, #100 Ref 5 Prescribed by: APRIL MOHAN MD on 08/26/18 1554 Last Action: Continued on 10/29/192054 by SEAN ATWOOD Discontinued Medications Clonidine Hcl (Clonidine Hcl) 0.3 Mg Tablet, 0.3 MG PO TID, (Reported) Entered as Reported by: KERRIE VALERIO on 03/04/13 0727 Last Action: Continued on 10/29/192054 by SEAN ATWOOD Furosemide (Furosemide) 40 Mg Tablet, 40 MG PO BID92 for chf for 30 Days, #60 Ref 5 Weight yourself daily, if you gain 3 pounds or more increase dose to 80mg BID for 3 days and 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
[2019-11-07 10:42] VITALS: BP 158/78
[2019-11-07] MEDS: FERROUS SULFATE ORAL 300 MG/5 ML SOLUTION. PO SCH (12:38)
--- NOTE | 2019-11-07 13:42 | NUR ---
pt discharged home with son. meds and follow up reviewed. orders faxed to adriana SCOTT. IV removed, cath intact. patient stable upon dc
--- NOTE | 2019-11-07 14:41 | PDOC ---
DATE OF SERVICE DATE: 11/07/19 TIME: 13:00 SUBJECTIVE ROS Stable, denies any complaints, states going home today OBJECTIVE Vital Signs Vital Signs Date Time Temp Pulse Resp B/P (MAP) Pulse Ox O2 Delivery O2 Flow Rate FiO2 11/07/19 10:42 97.7 71 17 158/78 (104) 95 Room Air 97.7 I & 0 Intake and Output 11/07/19 07:00 Intake Total 1400 ml Balance 1400 ml Intake Oral 1400 ml # Voids 4 PHYSICAL EXAM Physical Exam GENERAL: NAD HEAD AND NECK: Unremarkable. CARDIAC: Regular rate and rhythm without murmurs, rubs or gallops. LUNGS: Clear to auscultation bilaterally. ABDOMEN: Soft, nontender, nondistended. EXTREMITIES: No clubbing, cyanosis or edema. NEUROLOGIC: No focal deficits. MUSCULOSKELETAL: No obvious trauma. DIAGNOSIS/ASSESSMENT Assessment & Plan EDMOND - 2/2 Overdiuresis , Improving 3.9-->1.8 Avoid nephrotoxins CKD stage 3 - Follows with Dr. Palomo as OP Keep scheduled fu appt with Dr. palomo after dc HTN - card managing Anemia- reports blood in stool, Hgb dropped to < 7, s/p PRBC per GI - with Hx of stercoral ulcer , Colonoscopy 11/04 - internal hemorrhoids, sigmoid diverticulosis Hgb dropped from 10 (11/03) -->8 (11/05) lightheaded/weakness/presyncope- better CHF- lasix held, management per Card DC per Primary/GI Keep scheduled appt with Dr Alin Palomo COMMENT/RELEVANT DATA Meds Current Medications Medications (Trade) Dose Ordered Sig/Gisselle Start Time Stop Time Status Last Admin Dose Admin Acetaminophen/ Hydrocodone Bitart (Lortab 7.5/325) 1 tab PRN Q4HRS PRN 10/29/19 21:00 11/07/19 13:51 DC 11/06/19 23:23 1 TAB Amlodipine Besylate (Norvasc) 10 mg DAILY 10/30/19 09:00 11/07/19 13:51 DC 11/07/19 08:10 10 MG Aspirin (Ecotrin) 81 mg DAILYWBKFT 10/30/19 08:00 11/06/19 19:07 DC 11/06/19 08:50 81 MG Atorvastatin Calcium (Lipitor) 40 mg QHS 10/29/19 21:00 11/07/19 13:51 DC 11/06/19 20:45 40 MG Carvedilol (Coreg) 25 mg BIDWMEALS 10/30/19 08:00 11/07/19 13:51 DC 11/07/19 08:05 25 MG Clonidine HCl (Catapres) 0.1 mg TID 10/31/19 14:00 11/07/19 13:51 DC 11/07/19 08:04 0.1 MG Dextrose (Dextrose 50%-Water Syringe) 12.5 gm PRN Q15MIN PRN 10/31/19 12:00 11/07/19 13:51 DC 11/07/19 06:22 25 GM Docusate Sodium (Colace) 100 mg DAILY 10/30/19 09:00 11/07/19 13:51 DC 11/07/19 08:05 100 MG Doxazosin Mesylate (Cardura) 2 mg QHS 10/29/19 21:00 11/07/19 13:51 DC 11/06/19 20:44 2 MG Ferrous Sulfate (Feosol) 325 mg DAILYWBKFT 11/03/19 12:00 11/07/19 13:51 DC 11/07/19 08:02 325 MG Ferrous Sulfate (Iron Oral Solution) 300 mg BIDWMEALS 11/06/19 18:15 11/07/19 13:51 DC 11/07/19 12:38 300 MG Heparin Sodium (Porcine) (HEPARIN for NUC MED) 100 unit 1X ONCE 11/03/19 14:00 11/03/19 14:01 DC Insulin Glargine (Lantus Syringe) 8 unit HS 11/07/19 21:00 11/07/19 13:51 DC Insulin Human Lispro (HumaLOG) 0-5 UNITS TIDWMEALS 10/31/19 12:00 11/07/19 13:51 DC 11/06/19 08:59 2 UNITS Isosorbide Mononitrate (Imdur) 60 mg BID 10/30/19 09:00 11/07/19 13:51 DC 11/07/19 08:04 60 MG Labetalol HCl (Normodyne Iv Push) 10 mg PRN Q10MIN PRN 11/01/19 11:30 11/07/19 13:51 DC Latanoprost (Xalatan) 1 drop HS 10/29/19 21:00 11/07/19 13:51 DC 11/06/19 20:45 1 DROP Lidocaine HCl (Lidocaine Pf 2% Vial) 5 ml STK-MED ONCE 11/05/19 09:10 11/05/19 09:10 DC Lubiprostone (Amitiza) 24 mcg DAILYWBKFT 10/30/19 08:00 11/07/19 13:51 DC 11/07/19 08:04 24 MCG Methylnaltrexone [place] (Relistor) 6 mg 1X ONCE 11/02/19 12:30 11/02/19 12:31 DC 11/02/19 12:48 6 MG Ondansetron HCl (Zofran) 4 mg PRN Q6HRS PRN 11/05/19 07:00 11/06/19 06:59 DC Pantoprazole Sodium (Protonix) 40 mg DAILYAC 10/30/19 07:30 11/07/19 13:51 DC 11/07/19 08:05 40 MG Polyethylene Glycol (miraLAX PACKET) 17 gm DAILY 11/03/19 12:00 11/07/19 13:51 DC 11/07/19 08:02 17 GM Polyethylene Glycol (miraLAX Powder BULK BOTTLE) 238 gm 1X ONCE 11/02/19 12:30 11/02/19 12:31 DC 11/02/19 12:48 238 GM Prochlorperazine Edisylate (Compazine) 5 mg PACU PRN PRN 11/05/19 07:00 11/06/19 06:59 DC Propofol (Diprivan) 200 mg STK-MED ONCE 11/05/19 09:10 11/05/19 09:10 DC Psyllium Hydrophilic Mucilloid (Metamucil Fiber Packet) 1 pkt DAILY 11/07/19 09:00 11/07/19 13:51 DC 11/07/19 08:09 1 PKT Ringer's Solution 1,000 ml @ 75 mls/hr 1X ONCE 11/05/19 08:15 11/05/19 21:34 DC Simethicone (Gas-X) 80 mg PRN AFTMEALHC PRN 10/29/19 21:00 11/07/19 13:51 DC Sodium Chloride 1,000 ml @ 75 mls/hr 1X ONCE 10/30/19 14:00 10/31/19 03:19 DC 10/30/19 14:40 75 MLS/HR Sodium Cl/Sod Bicarb/Potass Cl/ PEG (Golytely) 4,000 ml 1X ONCE 11/04/19 12:00 11/04/19 12:01 DC 11/04/19 14:10 4,000 ML Lab Laboratory Tests Test 11/06/19 16:14 11/06/19 20:40 11/07/19 05:20 11/07/19 06:15 Glucose (Fingerstick) 119 mg/dL (70-99) 226 mg/dL (70-99) 30 mg/dL (70-99) White Blood Count 5.1 x10^3/uL (4.0-11.0) Red Blood Count 2.83 x10^6/uL (3.50-5.40) Hemoglobin 8.1 g/dL (12.0-15.5) Hematocrit 24.5 % (36.0-47.0) Mean Corpuscular Volume 87 fL (79-100) Mean Corpuscular Hemoglobin 29 pg (25-35) Mean Corpuscular Hemoglobin Concent 33 g/dL (31-37) Red Cell Distribution Width 16.5 % (11.5-14.5) Platelet Count 164 x10^3/uL (140-400) Neutrophils (%) (Auto) 68 % (31-73) Lymphocytes (%) (Auto) 23 % (24-48) Monocytes (%) (Auto) 6 % (0-9) Eosinophils (%) (Auto) 3 % (0-3) Basophils (%) (Auto) 0 % (0-3) Neutrophils # (Auto) 3.4 x10^3/uL (1.8-7.7) Lymphocytes # (Auto) 1.2 x10^3/uL (1.0-4.8) Monocytes # (Auto) 0.3 x10^3/uL (0.0-1.1) Eosinophils # (Auto) 0.1 x10^3/uL (0.0-0.7) Basophils # (Auto) 0.0 x10^3/uL (0.0-0.2) Sodium Level 145 mmol/L (136-145) Potassium Level 4.3 mmol/L (3.5-5.1) Chloride Level 109 mmol/L (98-107) Carbon Dioxide Level 32 mmol/L (21-32) Anion Gap 4 (6-14) Blood Urea Nitrogen 26 mg/dL (7-20) Creatinine 1.8 mg/dL (0.6-1.0) Estimated GFR (Cockcroft-Gault) 33.3 BUN/Creatinine Ratio 14 (6-20) Glucose Level 40 mg/dL (70-99) Calcium Level 8.8 mg/dL (8.5-10.1) Total Bilirubin 0.2 mg/dL (0.2-1.0) Aspartate Amino Transf (AST/SGOT) 18 U/L (15-37) Alanine Aminotransferase (ALT/SGPT) 11 U/L (14-59) Alkaline Phosphatase 41 U/L (46-116) Total Protein 6.1 g/dL (6.4-8.2) Albumin 2.2 g/dL (3.4-5.0) Albumin/Globulin Ratio 0.6 (1.0-1.7) Test 11/07/19 06:18 11/07/19 06:51 11/07/19 11:00 Glucose (Fingerstick) 30 mg/dL (70-99) 139 mg/dL (70-99) 64 mg/dL (70-99) Results All relevant outside records, renal labs, imaging studies, telemetry/EKG's were reviewed. Justicifation of Admission Dx: Justifications for Admission: Justification of Admission Dx: Yes Hypertension: Symp at Rest DANIELLA KIMBLE MD Nov 07, 2019 14:41
[2019-11-07] MEDS ORDERED: INSULIN GLARGINE SYRINGE. SQ SCH (21:00)
[2019-11-08 05:08] LABS: HEMOGLOBIN A1C 7.3 % (4.8-5.6)
== END 2019-11-07 13:51 | disposition home health service (06) | DRG 393 ==
LOC: ER 15:25 → 5 NORTH 18:06
PROVIDERS: ADMIT Internal Medicine; ATTEND Internal Medicine
PROC: 30233N1 Transfusion of Nonautologous Red Blood Cells into Peripheral Vein, Percutaneous Approach (ICD-10-PCS; principal; 2019-11-03)
PROC: 0DJD8ZZ Inspection of Lower Intestinal Tract, Via Natural or Artificial Opening Endoscopic (ICD-10-PCS; 2019-11-05)
DX: K64.8 Other hemorrhoids (principal); N17.0 Acute kidney failure with tubular necrosis; E87.1 Hypo-osmolality and hyponatremia; E44.0 Moderate protein-calorie malnutrition; D62 Acute posthemorrhagic anemia; I13.0 Hypertensive heart and chronic kidney disease with heart failure and stage 1 through stage 4 chronic kidney disease, or unspecified chronic kidney disease; I42.9 Cardiomyopathy, unspecified; I50.32 Chronic diastolic (congestive) heart failure; N18.4 Chronic kidney disease, stage 4 (severe); D50.9 Iron deficiency anemia, unspecified; D63.1 Anemia in chronic kidney disease; E11.22 Type 2 diabetes mellitus with diabetic chronic kidney disease; E11.649 Type 2 diabetes mellitus with hypoglycemia without coma; E78.00 Pure hypercholesterolemia, unspecified; E78.5 Hyperlipidemia, unspecified; E86.0 Dehydration; I25.10 Atherosclerotic heart disease of native coronary artery without angina pectoris; I27.20 Pulmonary hypertension, unspecified; J44.9 Chronic obstructive pulmonary disease, unspecified; K21.9 Gastro-esophageal reflux disease without esophagitis; K59.09 Other constipation; N20.0 Calculus of kidney; Z20.828 Contact with and (suspected) exposure to other viral communicable diseases; Z79.52 Long term (current) use of systemic steroids; Z79.82 Long term (current) use of aspirin; Z83.3 Family history of diabetes mellitus; Z87.891 Personal history of nicotine dependence; Z90.710 Acquired absence of both cervix and uterus; Z95.1 Presence of aortocoronary bypass graft; Z68.22 Body mass index [BMI] 22.0-22.9, adult; Z88.0 Allergy status to penicillin; Z88.8 Allergy status to other drugs, medicaments and biological substances; E11.65 Type 2 diabetes mellitus with hyperglycemia; Z79.4 Long term (current) use of insulin; K57.30 Diverticulosis of large intestine without perforation or abscess without bleeding
CPT/HCPCS: 36415; 45378; 71045; 73502; 74176; 78278; 80048; 80053; 82607; 82962; 83036; 83540; 83550; 83880; 84484; 85014; 85018; 85025; 86850; 86900; 86901; 86920; 87426; 93005; 93306; 96360; 96374; 99285; A9560; J1815; J2212; J2704; J7030; J7050; J7120; P9016; 97530-GO; 97530-GP; 97535-GO; G0378; U0003-CS